=== PATIENT | male | born 1970 | race Caucasian/White ===

== ENCOUNTER 2017-05-03 11:40 | Observation (INO) | payer OTHER ==
[2017-05-03] MEDS ORDERED: Vancomycin 1GM/ Ns 250ML*** 1 GM/250 ML IVPB IV ONE (12:13)
[2017-05-03] MEDS ORDERED: Sodium Chloride 0.9% 1000 ML 1,000 ML IV STA (12:13)
--- NOTE | 2017-05-03 12:21 | ERPHSYRPT ---
- History of Present Illness Time Seen by Provider: 05/03/17 12:05 Source: patient Exam Limitations: clinical condition Patient Subjective Stated Complaint: DEVELOPED DISCOLORATION OF 5TH LEFT TOE TWO WEEKS AGO AND TODAY STATES IT IS TURNING GREEN. ALSO HAVING SEVERE PAIN IN TOE. ALSO HAVING PAIN, SWELLING, AND REDNESS IN RIGHT GREAT TOE. Triage Nursing Assessment: BOTH FEET WARM WITH GOOD STRONG PEDAL PULSES. LEFT 5TH TOE IS VERY DARK PURPLE AND COOL. RIGHT GREAT TOE IS RED AND VERY SWOLLEN. BOTH TOES TENDER TO TOUCH. DENIES ANY OTHER C/O AT THIS TIME Physician History: PATIENT WITH A HISTORY OF TYPE 2 DIABETES, OFF ALL MEDICATIONS COMPLAINS OF PAIN WITH BLUE DISCOLORATION IN LEFT SMALL TOE FOR 2 WEEK. DENIES FEVER OR CHILLS. Method of Injury: unknown Occurred: other (2 WEEKS AGO) Quality: constant, throbbing Severity of Pain-Max: moderate Severity of Pain-Current: moderate Lower Extremities Pain: 5th toe: left Associated Symptoms: none Allergies/Adverse Reactions: penicillin G Allergy (Intermediate, Verified 05/03/17 11:51) Rash Home Medications: No Reportable Medications [No Reported Medications] 05/03/17 [History] Hx Tetanus, Diphtheria Vaccination/Date Given: No Hx Influenza Vaccination/Date Given: No Hx Pneumococcal Vaccination/Date Given: No Immunizations Up to Date: No - Review of Systems Constitutional: No Fever, No Chills Eyes: No Symptoms Ears, Nose, & Throat: No Symptoms Respiratory: No Symptoms, No Cough, No Dyspnea Cardiac: No Symptoms, No Chest Pain, No Edema, No Syncope Abdominal/Gastrointestinal: No Abdominal Pain, No Nausea, No Vomiting, No Diarrhea Genitourinary Symptoms: No Symptoms, No Dysuria Musculoskeletal: Joint Pain, Joint Swelling, No Back Pain, No Neck Pain Skin: No Rash Neurological: No Symptoms, No Dizziness, No Focal Weakness, No Sensory Changes Psychological: No Symptoms Endocrine: No Symptoms All Other Systems: Reviewed and Negative - Past Medical History Pertinent Past Medical History: Yes ENT History: No Pertinent History Cardiac History: No Pertinent History Respiratory History: COPD, Emphysema Endocrine Medical History: Diabetes Type II Musculoskeletal History: No Pertinent History GI Medical History: No Pertinent History History: No Pertinent History Psycho-Social History: Anxiety, Bipolar, Depression Male Reproductive Disorders: No Pertinent History - Past Surgical History Past Surgical History: Yes Gastrointestinal: Appendectomy Musculoskeletal: Orthopedic Surgery - Social History Smoking Status: Former smoker Exposure to second hand smoke: Yes Alcohol Use: Socially Drug Use: none Patient Lives Alone: Yes Significant Family History: no pertinent family hx - Nursing Vital Signs Nursing Vital Signs: Initial Vital Signs Temperature 97.8 F Temperature Source Oral Pulse Rate 84 Respiratory Rate 16 Blood Pressure [] 146/82 Pain Intensity 4 - Physical Exam General Appearance: alert Eyes, Ears, Nose, Throat Exam: moist mucous membranes Cardiovascular/Respiratory Exam: chest non-tender, normal breath sounds, regular rate/rhythm, no respiratory distress Back Exam: normal inspection, No vertebral tenderness Foot Exam: left foot: ecchymosis (WITH CYANOSIS LEFT SMALL TOE WITH ABSENT CAPILLARY REFILL, WITH TENDERNESS), pain, soft tissue tenderness Neuro/Tendon Exam: normal sensation, normal motor functions Mental Status Exam: alert, oriented x 3, cooperative Skin Exam: normal color, warm, dry SpO2 Interpretation: normal SpO2: 93 Oxygen Delivery: Room Air - Radiology Exams Left Foot X-ray Interpretation: Discussed w/ radiologist (TINY POSTERIOR HEEL SPUR, OLD DISTAL TIBIAL FRACTURE WITH INTACT ORTHOPEDIC SCREWS) Ordered Tests: Active Orders 24 hr Category Date Time Status Up Ad Sally ROUTINE Activity 05/03/17 14:15 Ordered Admission/Status Order ROUTINE Care 05/03/17 14:14 Ordered Call Admit Doctor for Orders ON ADMISSION Care 05/03/17 14:15 Ordered Code Status Order ROUTINE Care 05/03/17 14:14 Ordered IV Care Q6H Care 05/03/17 14:14 Ordered IV Insertion STAT Care 05/03/17 12:13 Active Vital Signs Q4H Care 05/03/17 14:13 Ordered FOOT (MINIMUM 3 VIEWS) Stat Exams 05/03/17 12:43 Completed BLOOD CULTURE Stat Lab 05/03/17 12:32 Ordered BMP Stat Lab 05/03/17 12:32 Completed CBC W DIFF Stat Lab 05/03/17 12:32 Completed PT INR [PROTIME WITH INR] Stat Lab 05/03/17 12:14 Completed Transfer Order Routine Transfer 05/03/17 14:13 Ordered Medication Summary Generic Name Dose Route Start Last Admin Trade Name Freq PRN Reason Stop Dose Admin Acetaminophen 650 mg 05/03/17 14:13 Tylenol 325 Mg PO 06/02/17 14:12 Q4H PRN PRN PAIN AND/OR FEVER Hydrocodone Bitart/Acetaminophen 1 tab 05/03/17 14:17 [place] 10/325 Mg Tablet PO 05/08/17 14:16 Q6H PRN PRN PAIN Hydromorphone HCl 1 mg 05/03/17 14:13 Dilaudid 2 Mg Injection IV 05/08/17 14:12 Q4H PRN PRN PAIN Sodium Chloride 1,000 mls @ 75 mls/hr 05/03/17 14:15 Sodium Chloride 0.9% 1000 Ml IV 06/02/17 14:14 .[id number] BERNARD Vancomycin HCl 1 gm/ Sodium 250 mls @ 167 mls/hr 05/03/17 14:30 Chloride IV 06/02/17 14:29 [id number] BERNARD Ondansetron HCl 4 mg 05/03/17 14:13 Zofran 4 Mg/2 Ml Vial IV 06/02/17 14:12 Q6H PRN PRN NAUSEA/VOMITING Discontinued Medications Generic Name Dose Route Start Last Admin Trade Name Freq PRN Reason Stop Dose Admin Sodium Chloride 1,000 mls @ 999 mls/hr 05/03/17 12:13 05/03/17 12:29 Sodium Chloride 0.9% 1000 Ml IV 05/03/17 13:13 999 mls/hr .Q1H1M STA Administration Vancomycin HCl 1 gm in 250 mls @ 167 mls/hr 05/03/17 12:13 05/03/17 12:29 Vancomycin 1gm/ Ns 250ml IV 05/03/17 13:42 167 mls/hr STAT ONE Administration Sodium Chloride Confirm 05/03/17 12:27 Sodium Chloride 0.9% 1000 Ml Administered 05/03/17 12:28 Dose 1,000 mls @ ud .ROUTE .STK-MED ONE Vancomycin HCl Confirm 05/03/17 12:28 Vancomycin 1gm/ Ns 250ml Administered 05/03/17 12:29 Dose 250 mls @ ud IV .STK-MED ONE Lab/Rad Data: Laboratory Result Diagrams 05/03/17 12:32 05/03/17 12:32 Laboratory Results 05/03/17 05/03/17 05/03/17 Range/Units 12:32 12:32 12:14 WBC 7.0 (4.0-10.5) K/mm3 RBC 5.80 H (4.1-5.6) M/mm3 Hgb 17.2 (12.5-18.0) gm/dl Hct 51.9 H (42-50) % MCV 89.5 (78-100) fl MCH 29.6 (26-32) pg MCHC 33.1 (32-36) g/dl RDW 17.5 H (11.5-14.0) % Plt Count 384 (150-450) K/mm3 MPV 10.8 H (6-9.5) fl Gran % 72.0 H (36.0-66.0) % Lymphocytes % 13.4 L (24.0-44.0) % Monocytes % 11.1 (0.0-12.0) % Eosinophils % 2.9 (0.00-5.0) % Basophils % 0.6 (0.0-0.4) % Basophils # 0.04 (0-0.4) INR 1.18 (0.8-3.0) Sodium 139 (136-145) mEq/L Potassium 4.4 (3.5-5.1) mEq/L Chloride 104 (98-107) mEq/L Carbon Dioxide 28.8 (21-32) mEq/L Anion Gap 10.7 (5-15) MEQ/L BUN 10 (9-20) mg/dL Creatinine 0.91 (0.55-1.30) mg/dl Estimated GFR > 60 ML/MIN Glucose 119 H (70-110) MG/DL Calcium 9.1 (8.5-10.1) mg/dL - Progress Progress Note: 05/03/17 12:19 PATIENT ADMINISTERED IV FLUIDS NORMAL SALINE 1 LITER BOLUS OVER 1 HOUR, ZOFRAN 4MG, MORPHINE 10MG IV, AND AFTER 2 SETS OF BLOOD CULTURES VANCOMYCIN 1GM IVPB Discussed with DrGinna: Other (DISCUSSED WITH DR VORA AT 1412 FOR ADMISSION) - Departure Time of Disposition: 14:20 Departure Disposition: Observation Clinical Impression: GANGRENE LEFT SMALL TOE Condition: Stable Critical Care Time: No Referrals: DALLAS LARKIN [Primary Care Provider] -
[2017-05-03] MEDS ORDERED: Sodium Chloride 0.9% 1000 ML 1,000 ML ONE (12:27)
[2017-05-03] MEDS ORDERED: Vancomycin 1GM/ Ns 250ML*** 250 ML IV ONE (12:28)
[2017-05-03 12:52] LABS: INR 1.18 (0.8-3.0); PROTIME 13.4 SECONDS (8.83-12.87)
[2017-05-03 12:54] LABS: ANION GAP 10.7 MEQ/L (5-15); BLOOD UREA NITROGEN 10 mg/dL (9-20); CHLORIDE 104 mEq/L (98-107); Carbon Dioxide 28.8 mEq/L (21-32); Glucose 119 MG/DL (70-110); Potassium 4.4 mEq/L (3.5-5.1); SODIUM 139 mEq/L (136-145)
--- NOTE | 2017-05-03 13:12 | XRAY ---
Indication: Blue fifth toe for 2 weeks. No known injury. Comparison: None 3 nonweightbearing views of the left foot demonstrates tiny posterior heel spur, old distal tibial fracture with intact orthopedic screws, and tiny curvilinear ossification anterior to the talus either degenerative versus old injury. No other bony, articular, or soft tissue abnormalities.
[2017-05-03 13:17] LABS: BASOPHIL % 0.6 % (0.0-0.4); Eosinophil % 2.9 % (0.00-5.0); Lymphocytes % 13.4 % (24.0-44.0); Mean Cell Volume 89.5 fl (78-100); Mean Corpuscular Hemoglobin 29.6 pg (26-32); Mean Platelet Volume 10.8 fl (6-9.5); Monocytes % 11.1 % (0.0-12.0); Platelet Count 384 K/mm3 (150-450); Red Cell Distribution Width 17.5 % (11.5-14.0)
[2017-05-03] MEDS ORDERED: Zofran 4 MG/2 ML VIAL IV PRN (14:13)
[2017-05-03] MEDS ORDERED: TYLENOL 325 MG PO PRN (14:13)
[2017-05-03] MEDS ORDERED: Sodium Chloride 0.9% 1000 ML 1,000 ML IV SCH (14:15)
[2017-05-03] MEDS ORDERED: VANCOCIN 1 GM VIAL*** 1 GM in Sodium Chloride 0.9% 250 ML 250 ML IV SCH (14:30)
[2017-05-03] MEDS ORDERED: DILAUDID 2 MG INJECTION ONE (15:20)
[2017-05-03] MEDS: DILAUDID 2 MG INJECTION IV PRN ×2 (15:22→20:22)
[2017-05-03] MEDS ORDERED: PHARMACY DOSING REQUIRED: VANCOMYCIN IV ONE (15:48)
[2017-05-03] MEDS ORDERED: VANCOCIN 1 GM VIAL*** 1.75 GM in Sodium Chloride 0.9% 500 ML 500 ML IV ONE (16:00)
[2017-05-03] MEDS: Norco 10/325 MG Tablet PO PRN (18:34)
[2017-05-04] MEDS: DILAUDID 2 MG INJECTION IV PRN ×3 (00:31→11:25)
[2017-05-04] MEDS: Norco 10/325 MG Tablet PO PRN ×2 (03:15→09:22)
[2017-05-04] MEDS ORDERED: VANCOCIN 1 GM VIAL*** 2.5 GM in Sodium Chloride 0.9% 500 ML 500 ML IV SCH (07:00)
--- NOTE | 2017-05-04 08:49 | PCM.SSS ---
History of Present Illness - Chief Complaint Chief Complaint: gangrene left pinky toe History of Present Illness: is a 46 year old male with bipolar disease who was admitted through ER last night with gangrene of L 5th toe. He has noticed a problem for 2 wks. No fever, but was sleeping more, up to 18 hours at a time. Last night he nearly left AMA, but did stay to see me this morning. He is worried the surgeon will take too long to get here. He is having some social issues and needs to go home soon. He also c/o pain to R great toe; states this is a chronic issue with gout. - Review of Systems Skin: Other (correia/purple L 5th toe. Erythematous swollen R great toe.) Psychological: Anxiety, No Suicidal Ideations Medications & Allergies Home Medications: Home Medication List Clindamycin HCl 300 mg PO QID #40 capsule 05/04/17 [Rx] Allergies/Adverse Reactions: Allergies Allergy/AdvReac Type Severity Reaction Status Date / Time penicillin G Allergy Intermediate Rash Verified 05/03/17 11:51 - Past Medical History Past Medical History: Yes Neurological History: No Pertinent History ENT History: No Pertinent History Cardiac History: No Pertinent History Respiratory History: COPD, Emphysema Endocrine Medical History: Diabetes Type I Musculoskelatal History: No Pertinent History GI Medical History: No Pertinent History History: No Pertinent History Pyscho-Social History: Anxiety, Bipolar, Depression Male Reproductive Disorders: No Pertinent History - Past Surgical History Past Surgical History: Yes GI Surgical History: Appendectomy Musculskeletal Surgical Hx: Orthopedic Surgery Other Surgical History: ankle surgery - Social History Smoking Status: Former smoker Exposure to second hand smoke: Yes Alcohol: None Drug Use: none Significant Family History: no pertinent family hx - Physical Exam Vital Signs: Vital Signs - 24 hr Temp Pulse Resp BP Pulse Ox 05/04/17 07:17 97.9 F 86 20 150/88 94 L 05/04/17 04:25 98.4 F 61 17 137/81 98 05/03/17 23:33 98.4 F 69 20 134/81 97 05/03/17 19:54 98.6 F 78 22 122/69 97 05/03/17 15:08 98.2 F 82 15 137/84 94 L 05/03/17 14:20 93 L 05/03/17 13:31 84 16 146/82 97 05/03/17 11:44 97.8 F 87 16 146/90 93 L General Appearance: no apparent distress Neurologic Exam: alert, oriented x 3, cooperative Eye Exam: eyes nml inspection Neck Exam: normal inspection Respiratory Exam: normal breath sounds, wheezing (expiratory, mild), No crackles /rales, No rhonchi Cardiovascular Exam: regular rate/rhythm, normal heart sounds, No murmur Gastrointestinal/Abdomen Exam: soft, normal bowel sounds, No tenderness Extremity Exam: other (L 5th digit is purple and cool. pedal pulses + bilat. R great toe erythematous with generalized edema; nttp.) Results - Labs Lab/Micro Results: Lab Results-Last 24 Hours 05/04/17 Range/Units 04:52 Creatinine 0.89 (0.55-1.30) mg/dl Estimated GFR > 60 ML/MIN Assessment/Plan (1) Gangrenous toe Current Visit: Yes Status: Acute Assessment & Plan: Needs surgery consult; if pt cannot tolerate the wait, will send him home on antibiotics and consult surgery outpatient. Has been explained to patient several times overnight that he may lose more than just a toe (may need foot amputation in the future) if he delays treatment. On IV vancomycin here; home on clindamycin. Code(s): I96 - GANGRENE, NOT ELSEWHERE CLASSIFIED (2) Gout Current Visit: Yes Status: Acute Qualifiers: Gout site: toe Gout etiology: unspecified cause Chronicity: chronic Laterality: right Assessment & Plan: Will check uric acid. the toe is nontender. Code(s): M10.9 - GOUT, UNSPECIFIED (3) Bipolar 1 disorder Current Visit: Yes Status: Chronic Assessment & Plan: He is quite anxious; offered meds for anxiety but he refuses. Code(s): F31.9 - BIPOLAR DISORDER, UNSPECIFIED Hospital Summary - Hospital Course Hospital Course: Pt admitted through ER with gangrenous toe, surgery consulted and pt placed on Vancomycin IV. He wanted to leave AMA, is having some social issues at home and feels he needs to leave. Ideally he will wait and see the surgeon today; if not will f/u outpatient. Plan to send him home on po clindamycin. Will not send home on pain meds; per office notes his ameritox was inconsistent and he was dismissed from Dr. Crespo. Will need to f/u with me x 1 outpatient. - Vitals & Intake/Output Vital Signs: Vital Signs Temperature 97.9 F 05/04/17 07:17 Pulse Rate 86 05/04/17 07:17 Respiratory Rate 20 05/04/17 07:17 Blood Pressure 150/88 05/04/17 07:17 O2 Sat by Pulse Oximetry 94 L 05/04/17 07:17 Intake & Output: Intake & Output 05/01/17 05/02/17 05/03/17 05/04/17 11:59 11:59 11:59 11:59 Intake Total 2589 Balance 2589 Weight 133.81 kg - Lab Result Diagrams: 05/03/17 12:32 05/04/17 04:52 Lab Results-Last 24 Hrs: Lab Results-Last 24 Hours 05/04/17 Range/Units 04:52 Creatinine 0.89 (0.55-1.30) mg/dl Estimated GFR > 60 ML/MIN - Discharge Disposition: Home, Self-Care Condition: Stable Prescriptions: New Clindamycin HCl 300 mg PO QID #40 capsule Follow up with: DALLAS LARKIN [Primary Care Provider] -
[2017-05-04 10:58] VITALS: BP 158/92; PULSE 68; O2SAT 98
== END 2017-05-04 12:15 | disposition home or self-care (01) ==
LOC: ED 11:40 → MED SURG 14:59
PROVIDERS: ADMIT Family Medicine; ATTEND Family Medicine
DX: I96 Gangrene, not elsewhere classified (principal); M79.675 Pain in left toe(s); M10.9 Gout, unspecified; F31.9 Bipolar disorder, unspecified; E10.9 Type 1 diabetes mellitus without complications; F41.9 Anxiety disorder, unspecified; J44.9 Chronic obstructive pulmonary disease, unspecified; Z72.0 Tobacco use
CPT/HCPCS: 36000; 36415; 73630; 80048; 82565; 84550; 85025; 85610; 87040; 96360; 96365; 96366; 99285; G0378; J1170; J3370; A9270-GY

== ENCOUNTER 2017-06-23 20:17 | Observation (INO) | payer OTHER ==
[2017-06-23] MEDS ORDERED: XYLOCAINE 2% Uro-Jet ONE (20:26)
[2017-06-23] MEDS ORDERED: Haldol 5 MG ONE (20:29)
[2017-06-23] MEDS ORDERED: Ativan 2 MG/1 ML VIAL ONE (20:29)
[2017-06-23] MEDS ORDERED: Ativan 2 MG/1 ML VIAL IM ONE (20:33)
[2017-06-23] MEDS ORDERED: Haldol 5 MG IM ONE (20:35)
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
[2017-06-23 21:16] LABS: Mean Cell Volume 91.8 fl (78-100); Mean Corpuscular Hemoglobin 30.4 pg (26-32); Mean Platelet Volume 10.4 fl (6-9.5); Platelet Count 481 K/mm3 (150-450); Red Cell Distribution Width 15.6 % (11.5-14.0); White Blood Count 18.9 K/mm3 (4.0-10.5)
[2017-06-23 21:17] LABS: ADD URINE CULTURE? NO (NO); Bilirubin NEGATIVE (NEGATIVE); Blood NEGATIVE Ery/ul (0-5); COMPLETE URINE MICROSCOPIC? NO; Collection Type CATH; Glucose NEGATIVE (NEGATIVE); Leukocyte Esterase NEGATIVE (NEGATIVE)
[2017-06-23 21:24] LABS: INR 1.14 (0.8-3.0); PROTIME 12.9 SECONDS (8.83-12.87)
[2017-06-23 21:32] LABS: ALBUMIN 3.5 g/dL (3.4-5.0); ALKALINE PHOSPHATASE 70 U/L (46-116); ANION GAP 15.7 MEQ/L (5-15); BLOOD UREA NITROGEN 15 mg/dL (9-20); CHLORIDE 103 mEq/L (98-107); Carbon Dioxide 23.3 mEq/L (21-32); Glucose 143 MG/DL (70-110); Potassium 4.2 mEq/L (3.5-5.1); SGOT/AST 26 U/L (15-37); SGPT/ALT 25 U/L (12-78); SODIUM 138 mEq/L (136-145); Total Protein 7.7 gm/dL (6.4-8.2)
[2017-06-23 21:35] LABS: ACETAMINOPHEN < 2.0 ug/ml (10-30)
[2017-06-23 21:36] LABS: ETHYL ALCOHOL 0.222 % (0.00-0.01)
[2017-06-23] MEDS ORDERED: Sodium Chloride 0.9% 1000 ML 1,000 ML ONE (22:03)
[2017-06-23] MEDS ORDERED: Sodium Chloride 0.9% 1000 ML 1,000 ML IV STA (22:18)
[2017-06-23] MEDS ORDERED: Ativan 2 MG/1 ML VIAL IM PRN (22:54)
[2017-06-23] MEDS ORDERED: Haldol 5 MG IM PRN (22:58)
[2017-06-23] MEDS ORDERED: Sodium Chloride 0.9% 1000 ML 1,000 ML IV SCH (23:00)
[2017-06-23 23:32] LABS: ATYPICAL LYMPHS 2 %; Eosinophil 2 % (0.00-3.0); Platelet Estimate INCREASED (NORMAL); Total Cells Counted 100
[2017-06-24] MEDS ORDERED: PROVENTIL COMMON CANISTER IH SCH (08:45)
[2017-06-24] MEDS ORDERED: PROVENTIL 2.5 MG/3 ML NEB IH SCH (10:00)
--- NOTE | 2017-06-24 10:17 | XRAY ---
Indication: Altered mental status. Comparison: July 27, 2015. Portable chest again demonstrates normal heart and lungs with incidental scattered calcified granulomas. Bony thorax intact. No new/acute findings.
[2017-06-24] MEDS ORDERED: Nicoderm CQ 21 MG TOP SCH (10:30)
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
[2017-06-24 11:27] LABS: ALBUMIN 3.3 g/dL (3.4-5.0); ALKALINE PHOSPHATASE 72 U/L (46-116); ANION GAP 11.1 MEQ/L (5-15); BLOOD UREA NITROGEN 14 mg/dL (9-20); CHLORIDE 106 mEq/L (98-107); Carbon Dioxide 25.8 mEq/L (21-32); ETHYL ALCOHOL < 0.010 % (0.00-0.01); Glucose 112 MG/DL (70-110); Potassium 4.2 mEq/L (3.5-5.1); SGOT/AST 32 U/L (15-37); SGPT/ALT 25 U/L (12-78); SODIUM 139 mEq/L (136-145); Total Protein 7.2 gm/dL (6.4-8.2)
[2017-06-24] MEDS ORDERED: Ecotrin 325 MG PO SCH (11:30)
[2017-06-24] MEDS ORDERED: ZYLOPRIM 300 MG PO SCH (11:30)
[2017-06-24] MEDS ORDERED: ZOLOFT 50 MG TABLET PO SCH (11:30)
[2017-06-24 12:18] LABS: BASOPHIL % 0.7 % (0.0-0.4); Eosinophil % 1.9 % (0.00-5.0); Granulocytes % 73.6 % (36.0-66.0); Lymphocytes % 11.5 % (24.0-44.0); Mean Cell Volume 91.8 fl (78-100); Mean Corpuscular Hemoglobin 30.2 pg (26-32); Mean Platelet Volume 10.9 fl (6-9.5); Monocytes % 12.3 % (0.0-12.0); Platelet Count 345 K/mm3 (150-450); Red Blood Count 4.73 M/mm3 (4.1-5.6); Red Cell Distribution Width 15.5 % (11.5-14.0); White Blood Count 7.2 K/mm3 (4.0-10.5)
[2017-06-24 13:28] VITALS: BP 127/71; PULSE 80; O2SAT 96
--- NOTE | 2017-06-24 14:11 | PCM.DCORD ---
- Discharge Discharge Date: 06/24/17 Disposition: Home, Self-Care Condition: Stable Prescriptions: Continue Albuterol 2.5 mg/3 ml Neb [Proventil 2.5 mg/3 ml Neb] 2.5 mg IH BIDPRN PRN PRN Reason: Shortness Of Breath Hydrocodone/APAP 10/325 mg [[place] 10/325 MG Tablet] 1 tab PO TID PRN PRN PRN Reason: left leg Albuterol Common Canister [Proventil Common Canister] 2 puff IH BIDPRN PRN PRN Reason: Shortness Of Breath Sertraline HCl [Zoloft] 100 mg PO DAILY Allopurinol 300 mg [Zyloprim 300 mg] 300 mg PO DAILY Aspirin 325 mg PO DAILY Instructions: Alcohol Abuse and Alcoholism, Contusion, Drug Abuse and Drug Addiction Follow up with: DALLAS LARKIN [Primary Care Provider] - Forms: Discharge Instructions
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
[2017-06-25] MEDS ORDERED: NON-FORMULARY ITEM (Aspirin [Aspirin] 325 MG) PO SCH (10:00)
[2017-06-25] MEDS ORDERED: NON-FORMULARY ITEM (Sertraline Hcl [Zoloft] 100 MG) PO SCH (10:00)
== END 2017-06-24 15:00 | disposition home or self-care (01) ==
LOC: ED 20:17 → ICU 22:22
PROVIDERS: ADMIT Family Medicine; ATTEND Family Medicine
DX: F19.10 Other psychoactive substance abuse, uncomplicated (principal); F10.10 Alcohol abuse, uncomplicated; I96 Gangrene, not elsewhere classified; S60.219A Contusion of unspecified wrist, initial encounter; S10.93XA Contusion of unspecified part of neck, initial encounter; S80.12XA Contusion of left lower leg, initial encounter; S20.219A Contusion of unspecified front wall of thorax, initial encounter; M10.9 Gout, unspecified; F31.9 Bipolar disorder, unspecified
CPT/HCPCS: 36000; 36415; 51702; 71010; 73110; 73130; 73552; 73562; 80053; 80307; 81002; 82550; 85025; 85610; 93005; 93041; 94640; 94760; 96360; 96361; 96372; 99285; G0378; G0481; J1630; J2060; A9270-GY

== ENCOUNTER 2017-07-18 18:34 | Emergency (ER) | payer OTHER ==
--- NOTE | 2017-07-18 19:14 | ERPHSYRPT ---
- History of Present Illness Time Seen by Provider: 07/18/17 18:55 Source: patient Exam Limitations: no limitations Patient Subjective Stated Complaint: pt states 3 weeks ago he was arrested and "trown to the ground by the police officers, and in the process he thinks he injured right wrist." pt also c/ o pain in left pinky toe. Triage Nursing Assessment: pt pink, warm, dry. right wrist has minimal swelling. radial pulse strong. abscess noted to left pinky toe. no deformity noted to right wrist. pedal pulse strong. Physician History: 47 y/o male comes to the ER with complaints of right wrist pain after being thrown to the ground by police 3 weeks ago. Pt describes the pain as sharp, constant, 6/10, worse with movement and minimally relieved by advil. Pt also mentions that he was told that his left pinky toe needs to get amputated and has noticed no improvement in pain and redness after using an OTC cream. Occurred: other (3 weeks ago) Method of Injury: direct blow Quality: constant Severity of Pain-Max: moderate Severity of Pain-Current: moderate Extremities Pain Location: wrist: right Modifying Factors: Improves With: nothing Associated Symptoms: none Allergies/Adverse Reactions: penicillin G Allergy (Intermediate, Verified 07/18/17 18:53) Rash Home Medications: Albuterol 2.5 mg/3 ml Neb [Proventil 2.5 mg/3 ml Neb] 2.5 mg IH BIDPRN PRN 06/24/17 [History] Albuterol Common Canister [Proventil Common Canister] 2 puff IH BIDPRN PRN 06/24/17 [History] Allopurinol 300 mg [Zyloprim 300 mg] 300 mg PO DAILY 06/24/17 [History] Aspirin 325 mg PO DAILY 06/24/17 [History] Sertraline HCl [Zoloft] 100 mg PO DAILY 06/24/17 [History] Hx Tetanus, Diphtheria Vaccination/Date Given: Yes (up to date) Hx Influenza Vaccination/Date Given: No Hx Pneumococcal Vaccination/Date Given: No Immunizations Up to Date: Yes - Review of Systems Constitutional: No Fever, No Chills Eyes: No Symptoms Ears, Nose, & Throat: No Symptoms Respiratory: No Cough, No Dyspnea Cardiac: No Chest Pain, No Edema, No Syncope Abdominal/Gastrointestinal: No Abdominal Pain, No Nausea, No Vomiting, No Diarrhea Genitourinary Symptoms: No Dysuria Musculoskeletal: Joint Pain, Joint Swelling, Myalgias, No Back Pain, No Neck Pain Skin: Cellulitis, No Rash Neurological: No Dizziness, No Focal Weakness, No Sensory Changes Psychological: No Symptoms Endocrine: No Symptoms All Other Systems: Reviewed and Negative - Past Medical History Pertinent Past Medical History: Yes Neurological History: No Pertinent History ENT History: No Pertinent History Cardiac History: No Pertinent History Respiratory History: COPD, Emphysema Endocrine Medical History: Diabetes Type I Musculoskeletal History: No Pertinent History GI Medical History: No Pertinent History History: No Pertinent History Psycho-Social History: Anxiety, Bipolar, Depression Male Reproductive Disorders: No Pertinent History Other Medical History: gout - Past Surgical History Past Surgical History: Yes Gastrointestinal: Appendectomy Musculoskeletal: Orthopedic Surgery Other Surgical History: ankle surgery - Social History Smoking Status: Current every day smoker How long have you smoked: 26 Exposure to second hand smoke: Yes Alcohol Use: Socially Drug Use: none Patient Lives Alone: No Significant Family History: no pertinent family hx - Nursing Vital Signs Nursing Vital Signs: Initial Vital Signs Temperature 98.1 F 07/18/17 18:44 Pulse Rate 88 07/18/17 18:44 Respiratory Rate 18 07/18/17 18:44 Blood Pressure 151/76 07/18/17 18:44 O2 Sat by Pulse Oximetry 99 07/18/17 18:44 Pain Scale Pain Intensity 5 - Physical Exam General Appearance: alert Eyes, Ears, Nose, Throat Exam: moist mucous membranes, TM abnormal (L) Neck Exam: non-tender, supple Cardiovascular/Respiratory Exam: chest non-tender, normal breath sounds, regular rate/rhythm, no respiratory distress Abdominal Exam: non-tender, No guarding Back Exam: normal inspection, No vertebral tenderness Elbow/Forearm Exam: normal inspection, non-tender, no evidence of injury Wrist Exam: bone tenderness, limited ROM Hand Exam: normal inspection, non-tender Neuro/Tendon Exam: normal sensation, normal motor functions Mental Status Exam: alert, oriented x 3, cooperative Skin Exam: warm, dry, ecchymosis SpO2: 99 Oxygen Delivery: Room Air Comments: pulses 2+ in bilateral lower extremities. - Course Nursing assessment & vital signs reviewed: Yes Ordered Tests: Active Orders 24 hr Category Date Time Status WRIST (2 VIEW) Stat Exams 07/18/17 Ordered - Progress Progress: improved Progress Note: 07/18/17 19:13 The wrist x ray does not show any acute fracture and the left pinky toe shows features of cellulitis which the patient will be started on clindamycin. - Departure Time of Disposition: 19:14 Departure Disposition: Home Clinical Impression: Wrist injury Qualifiers: Encounter type: initial encounter Laterality: right Qualified Code(s): S69.91XA - Unspecified injury of right wrist, hand and finger(s), initial encounter Cellulitis of toe Qualifiers: Laterality: left Qualified Code(s): L03.032 - Cellulitis of left toe Condition: Stable Critical Care Time: No Referrals: DALLAS LARKIN [Primary Care Provider] - Instructions: Wrist Sprain, Cellulitis -- Adult Additional Instructions: Follow up with your primary care doctor for evaluation of your pinky toe. You can take tylenol for the wrist pain. Prescriptions: Clindamycin HCl 150 mg PO TID #21 capsule
[2017-07-18 19:25] VITALS: BP 149/76; PULSE 76; O2SAT 100
--- NOTE | 2017-07-19 08:40 | XRAY ---
Indication: Pain following injury 4 weeks ago. Comparison: June 24, 2017. 3 views of the right wrist obtained. Again no bony, articular, or soft tissue abnormalities.
== END 2017-07-18 19:26 | disposition home or self-care (01) ==
LOC: ED 18:34
DX: S69.91XA Unspecified injury of right wrist, hand and finger(s), initial encounter (principal); L03.032 Cellulitis of left toe
CPT/HCPCS: 73100; 99284

== ENCOUNTER 2021-05-30 21:23 | Observation (INO) | payer OTHER ==
[2021-05-30] MEDS ORDERED: DUONEB 0.5-3 MG/3 ml Neb IH ONE ×2 (21:43)
[2021-05-30] MEDS ORDERED: solu-MEDROL 125 MG, Sterile H2O 10 ml 2 ML IV ONE ×2 (21:45)
[2021-05-30] MEDS ORDERED: solu-MEDROL ONE (22:08)
[2021-05-30 22:12] LABS: Absolute Neutrophil Ct (ANC) 3.95 (1.4-6.9); BASOPHIL % 1.2 % (0.0-0.4); Basophil (Absolute #) 0.08 (0-0.4); Eosinophil % 4.2 % (0.00-5.0); Eosinophil (Absolute #) 0.28 (0-0.5); Hemoglobin 15.7 gm/dl (12.5-18.0); Lymphocytes % 22.6 % (24.0-44.0); Mean Cell Volume 91.6 fl (78-100); Mean Corpuscular Hemoglobin 30.6 pg (26-32); Mean Corpuscular Hgb Concent. 33.4 g/dl (32-36); Mean Platelet Volume 10.5 fl (7.5-11.0); Monocyte (Absolute #) 0.82 (0.0-1.3); Monocytes % 12.4 % (0.0-12.0); Neutrophil % 59.6 % (36.0-66.0); Platelet Count 427 K/mm3 (150-450); Red Blood Count 5.13 M/mm3 (4.1-5.6); Red Cell Distribution Width 15.9 % (11.5-14.0); White Blood Count 6.6 K/mm3 (4.0-10.5)
[2021-05-30 22:32] LABS: ALBUMIN 4.4 g/dL (3.5-5.0); ALKALINE PHOSPHATASE 76 U/L (38-126); BLOOD UREA NITROGEN 13 mg/dL (9-20); CHLORIDE 100 mmol/L (98-107); Calcium 8.8 mg/dL (8.4-10.2); Carbon Dioxide 26 mmol/L (22-30); Creatinine 1 0.71 mg/dL (0.66-1.25); EST GLOMERULAR FILTRATION RATE > 60.0 ML/MIN; Glucose 112 mg/dL (74-106); MAGNESIUM 1.6 mg/dL (1.6-2.3); NT PRO BNP 67.7 pg/mL (0-900); SGOT/AST 48 U/L (17-59); SGPT/ALT 38 U/L (0-50); SODIUM 138 mmol/L (137-145); Total Protein 8.4 g/dL (6.3-8.2)
[2021-05-30 22:34] LABS: INFLUENZA A NEGATIVE (NEGATIVE); INFLUENZA B NEGATIVE (NEGATIVE)
[2021-05-31] MEDS ORDERED: DUONEB 0.5-3 MG/3 ml Neb IH ONE ×2 (00:56→01:04)
--- NOTE | 2021-05-31 00:56 | ERPHSYRPT ---
- History of Present Illness Time Seen by Provider: 05/30/21 21:45 Source: patient Exam Limitations: no limitations Patient Subjective Stated Complaint: pt states he has been short of breath at home today. Triage Nursing Assessment: pt alert and oriented, answers questions approp. pt back per wheelchair and [facility] self with steady gait noted. pt short of breath, insp and exp wheezes noted throughout. skin warm and dry. Physician History: Patient is a 51-year-old male with a history of COPD/asthma ED with complaints of shortness of breath. His shortness of breath started today. Shortness of breath has been constant. Patient states that it feels as though he is experiencing a COPD exacerbation. Patient is a current smoker. Patient had experienced chest pain as well however no active chest pain at this time. No associated nausea vomiting or diaphoresis. Rib. No rash. No fever. No he adache. Symptoms are moderate in intensity. No specific worsening improving factors. Patient voices no other complaints concerns at this time.. Timing/Duration: today Activities at Onset: none Severity of Dyspnea-Max: moderate Severity of Dyspnea-Current: mild Possible Cause: chronic episodes Modifying Factors: Improves With: albuterol nebulizer Associated Symptoms: cough, chest pain/discomfort, wheezing, No fever, No dizziness, No lightheadedness, No leg swelling, No muscle spasms feet, No tightness, No tingling face, No tingling hands Allergies/Adverse Reactions: penicillin G Allergy (Intermediate, Verified 07/18/17 18:53) Rash Home Medications: Albuterol 2.5 mg/3 ml Neb [Proventil 2.5 mg/3 ml Neb] 2.5 mg IH BIDPRN PRN 06/24/17 [History] Albuterol Common Canister [Ventolin Common Canister] 2 puff IH BIDPRN PRN 06/24/17 [History] Allopurinol 300 mg [Zyloprim 300 mg] 300 mg PO DAILY 06/24/17 [History] Aspirin 325 mg PO DAILY 06/24/17 [History] Sertraline HCl [Zoloft] 100 mg PO DAILY 06/24/17 [History] Hx Tetanus, Diphtheria Vaccination/Date Given: No Hx Influenza Vaccination/Date Given: No Hx Pneumococcal Vaccination/Date Given: No Immunizations Up to Date: No Travel Risk - International Travel Have you traveled outside of the country in past 3 weeks: No - Coronavirus Screening Are you exhibiting any of the following symptoms?: No Close contact with a COVID-19 positive Pt in past 14-21 Days: No - Vaccine Status Have you recieved a Covid-19 vaccination: No - Review of Systems Constitutional: No Symptoms, No Fever, No Chills Eyes: No Symptoms Ears, Nose, & Throat: No Symptoms Respiratory: No Symptoms, No Cough, No Dyspnea Cardiac: No Symptoms, No Chest Pain, No Edema, No Syncope Abdominal/Gastrointestinal: No Symptoms, No Abdominal Pain, No Nausea, No Vomiting, No Diarrhea Genitourinary Symptoms: No Symptoms, No Dysuria Musculoskeletal: No Symptoms, No Back Pain, No Neck Pain Skin: No Symptoms, No Rash Neurological: No Symptoms, No Dizziness, No Focal Weakness, No Sensory Changes Psychological: No Symptoms Endocrine: No Symptoms Hematologic/Lymphatic: No Symptoms Immunological/Allergic: No Symptoms All Other Systems: Reviewed and Negative - Past Medical History Pertinent Past Medical History: Yes Neurological History: No Pertinent History ENT History: No Pertinent History Cardiac History: No Pertinent History Respiratory History: COPD, Emphysema Endocrine Medical History: Diabetes Type II Musculoskeletal History: No Pertinent History GI Medical History: No Pertinent History History: No Pertinent History Psycho-Social History: Anxiety, Bipolar, Depression Male Reproductive Disorders: No Pertinent History Other Medical History: gout. pt poor historian regarding medical hx - Past Surgical History Past Surgical History: Yes Gastrointestinal: Appendectomy Musculoskeletal: Orthopedic Surgery Other Surgical History: ankle surgery, facial - Social History Smoking Status: Current every day smoker How long have you smoked: 35 Exposure to second hand smoke: Yes Alcohol Use: Socially Drug Use: marijuana Patient Lives Alone: Yes Significant Family History: no pertinent family hx - Nursing Vital Signs Nursing Vital Signs: Initial Vital Signs Temperature 98.7 F 05/30/21 21:39 Pulse Rate 101 H 05/30/21 21:39 Respiratory Rate 24 05/30/21 21:39 Blood Pressure 146/114 05/30/21 21:39 O2 Sat by Pulse Oximetry 97 05/30/21 21:39 Pain Scale Pain Intensity 5 - Physical Exam General Appearance: no apparent distress, alert Eye Exam: PERRL/EOMI Ears, Nose, Throat Exam: hearing grossly normal, normal ENT inspection, normal pharynx Neck Exam: normal inspection, supple Respiratory Exam: airway intact, rhonchi, wheezing, No respiratory distress, No crackles/rales, No stridor Cardiovascular/Chest Exam: normal heart sounds, regular rate/rhythm Abdominal/Gastrointestinal Exam: soft, No tenderness, No distention, No mass Extremity Exam: non-tender, normal range of motion, normal inspection, no calf tenderness, no pedal edema Peripheral Pulses Exam: dorsalis-pedis (R): 2+, dorsalis-pedis (L): 2+ Neurologic Exam: alert, oriented x 3, cooperative, outside solar sales consultant II-XII nml as tested, sensation nml, No motor deficits Skin Exam: normal color, warm, No dry SpO2 Interpretation: normal SpO2: 96 O2 Delivery: Room Air - Course Nursing assessment & vital signs reviewed: Yes EKG Interpreted by Me: RATE (97), Sinus Rhythm, Left [place] Deviation, NORMAL INTERVALS - CT Exams Chest CT Interpretation: Tele-radiologist Report ([place] emboli. No aortic dissection. No infiltrate. No pleural effusion. No pneumothorax. Decreased density of the liver diffusely which could be due to fatty infiltration or hepatocellular disease. Splenomegaly. Nodular contour of the liver suspicious for cirrhosis.) Ordered Tests: Active Orders 24 hr Category Date Time Status Transportation Solutions Manager STAT Care 05/30/21 21:43 Active EKG-ER Only STAT Care 05/30/21 21:42 Active IV Insertion STAT Care 05/30/21 21:42 Active Pulse Oximetry (ED) STAT Care 05/30/21 21:42 Active CHEST WITH CONTRAST [CT] Stat Exams 05/30/21 23:48 Taken BLOOD CULTURE Stat Lab 05/30/21 21:58 Received CBC W DIFF Stat Lab 05/30/21 21:26 Completed CMP Stat Lab 05/30/21 21:26 Completed D-DIMER QUANTITATIVE Stat Lab 05/30/21 21:26 Completed INFLUENZA A+B DAVIN Stat Lab 05/30/21 21:54 Completed MAGNESIUM Stat Lab 05/30/21 21:26 Completed NT PRO BNP Stat Lab 05/30/21 21:26 Completed TROPONIN Q3H Lab 05/30/21 21:26 Completed TROPONIN Q3H Lab 05/31/21 00:45 Completed TROPONIN Q3H Lab 05/31/21 03:45 Ordered TROPONIN Q3H Lab 05/31/21 06:45 Ordered TROPONIN Q3H Lab 05/31/21 09:45 Ordered UA W/RFX UR CULTURE Stat Lab 05/31/21 03:02 Received Respiratory Therapy Assessment DAILY RT 05/30/21 21:49 Active Transfer Order Routine Transfer 05/31/21 Ordered Medication Summary Generic Name Dose Route Start Last Admin Trade Name Clara PRN Reason Stop Dose Admin Azithromycin / Sodium Chloride 250 mls @ 125 mls/hr 05/31/21 01:08 IV 05/31/21 03:07 STAT ONE Azithromycin 500 mg in 250 mls @ 250 mls/hr 05/31/21 03:34 05/31/21 03:40 Zithromax 500 Mg/ 250 Ml Nacl Premix IV 05/31/21 04:33 250 ml/hr STAT STA 250 mls/hr Administration Discontinued Medications Generic Name Dose Route Start Last Admin Trade Name Clara PRN Reason Stop Dose Admin Albuterol/Ipratropium 3 ml 05/30/21 21:43 05/30/21 21:45 Duoneb 0.5-3 Mg/3 Ml Neb IH 05/30/21 21:44 3 ml STAT ONE Administration Albuterol/Ipratropium Confirm 05/30/21 21:43 Duoneb 0.5-3 Mg/3 Ml Neb Administered 05/30/21 21:44 Dose 3 ml IH .STK-MED ONE Albuterol/Ipratropium 3 ml 05/31/21 00:56 05/31/21 01:05 Duoneb 0.5-3 Mg/3 Ml Neb IH 05/31/21 00:57 3 ml STAT ONE Administration Albuterol/Ipratropium Confirm 05/31/21 01:04 Duoneb 0.5-3 Mg/3 Ml Neb Administered 05/31/21 01:05 Dose 3 ml IH .STK-MED ONE Methylprednisolone Sodium 0 mg 05/30/21 21:45 05/30/21 22:09 Succinate 125 mg/ Sterile IV 05/30/21 21:46 125 mg Water 2 ml STAT ONE Administration Ceftriaxone Sodium/Dextrose 2 g in 50 mls @ 100 mls/hr 05/31/21 01:08 03:26 Rocephin 2 Gm-D5w 50ml Bag IV 05/31/21 01:37 Infused STAT STA Infusion Ceftriaxone Sodium/Dextrose Confirm 05/31/21 01:29 Rocephin 2 Gm-D5w 50ml Bag Administered 05/31/21 01:30 Dose 2 g in 50 mls @ ud IV .STK-MED ONE Azithromycin Confirm 05/31/21 03:36 Zithromax 500 Mg/ 250 Ml Nacl Premix Administered 05/31/21 03:37 Dose 500 mg in 250 mls @ ud IV .STK-MED ONE Methylprednisolone Sodium Succinate Confirm 05/30/21 22:08 Solu-Medrol Administered 05/30/21 22:09 Dose 125 mg .ROUTE .STK-MED ONE Lab/Rad Data: Laboratory Result Diagrams 05/30/21 21:26 05/30/21 21:26 Laboratory Results 05/31/21 05/31/21 05/30/21 Range/Units 02:55 00:45 21:54 WBC (4.0-10.5) K/mm3 RBC (4.1-5.6) M/mm3 Hgb (12.5-18.0) gm/dl Hct (42-50) % MCV (78-100) fl MCH (26-32) pg MCHC (32-36) g/dl RDW (11.5-14.0) % Plt Count (150-450) K/mm3 MPV (7.5-11.0) fl Gran % (36.0-66.0) % Eos # (Auto) (0-0.5) Absolute Lymphs (auto) (1.0-4.6) Absolute Monos (auto) (0.0-1.3) Lymphocytes % (24.0-44.0) % Monocytes % (0.0-12.0) % Eosinophils % (0.00-5.0) % Basophils % (0.0-0.4) % Absolute Granulocytes (1.4-6.9) Basophils # (0-0.4) D-Dimer (215-500) ng/mL Sodium (137-145) mmol/L Potassium (3.5-5.1) mmol/L Chloride (98-107) mmol/L Carbon Dioxide (22-30) mmol/L Anion Gap (5-15) MEQ/L BUN (9-20) mg/dL Creatinine (0.66-1.25) mg/dL Estimated GFR ML/MIN Glucose (74-106) mg/dL Calcium (8.4-10.2) mg/dL Magnesium (1.6-2.3) mg/dL Total Bilirubin (0.2-1.3) mg/dL AST (17-59) U/L ALT (0-50) U/L Alkaline Phosphatase (38-126) U/L Troponin I < 0.012 (0.000-0.034) ng/mL NT-Pro-B Natriuret Pep (0-900) pg/mL Serum Total Protein (6.3-8.2) g/dL Albumin (3.5-5.0) g/dL Influenza Type A Ag NEGATIVE (NEGATIVE) Influenza Type B Ag NEGATIVE (NEGATIVE) SARS-CoV-2 (PCR) NEGATIVE (NEGATIVE) 05/30/21 05/30/21 05/30/21 Range/Units 21:26 21:26 21:26 WBC (4.0-10.5) K/mm3 RBC (4.1-5.6) M/mm3 Hgb (12.5-18.0) gm/dl Hct (42-50) % MCV (78-100) fl MCH (26-32) pg MCHC (32-36) g/dl RDW (11.5-14.0) % Plt Count (150-450) K/mm3 MPV (7.5-11.0) fl Gran % (36.0-66.0) % Eos # (Auto) (0-0.5) Absolute Lymphs (auto) (1.0-4.6) Absolute Monos (auto) (0.0-1.3) Lymphocytes % (24.0-44.0) % Monocytes % (0.0-12.0) % Eosinophils % (0.00-5.0) % Basophils % (0.0-0.4) % Absolute Granulocytes (1.4-6.9) Basophils # (0-0.4) D-Dimer 707 H* (215-500) ng/mL Sodium 138 (137-145) mmol/L Potassium 4.0 (3.5-5.1) mmol/L Chloride 100 (98-107) mmol/L Carbon Dioxide 26 (22-30) mmol/L Anion Gap 17.0 H (5-15) MEQ/L BUN 13 (9-20) mg/dL Creatinine 0.71 (0.66-1.25) mg/dL Estimated GFR > 60.0 ML/MIN Glucose 112 H (74-106) mg/dL Calcium 8.8 (8.4-10.2) mg/dL Magnesium 1.6 (1.6-2.3) mg/dL Total Bilirubin 0.40 (0.2-1.3) mg/dL AST 48 (17-59) U/L ALT 38 (0-50) U/L Alkaline Phosphatase 76 (38-126) U/L Troponin I < 0.012 (0.000-0.034) ng/mL NT-Pro-B Natriuret Pep 67.7 (0-900) pg/mL Serum Total Protein 8.4 H (6.3-8.2) g/dL Albumin 4.4 (3.5-5.0) g/dL Influenza Type A Ag (NEGATIVE) Influenza Type B Ag (NEGATIVE) SARS-CoV-2 (PCR) (NEGATIVE) 05/30/21 Range/Units 21:26 WBC 6.6 (4.0-10.5) K/mm3 RBC 5.13 (4.1-5.6) M/mm3 Hgb 15.7 (12.5-18.0) gm/dl Hct 47.0 (42-50) % MCV 91.6 (78-100) fl MCH 30.6 (26-32) pg MCHC 33.4 (32-36) g/dl RDW 15.9 H (11.5-14.0) % Plt Count 427 (150-450) K/mm3 MPV 10.5 (7.5-11.0) fl Gran % 59.6 (36.0-66.0) % Eos # (Auto) 0.28 (0-0.5) Absolute Lymphs (auto) 1.50 (1.0-4.6) Absolute Monos (auto) 0.82 (0.0-1.3) Lymphocytes % 22.6 L (24.0-44.0) % Monocytes % 12.4 H (0.0-12.0) % Eosinophils % 4.2 (0.00-5.0) % Basophils % 1.2 (0.0-0.4) % Absolute Granulocytes 3.95 (1.4-6.9) Basophils # 0.08 (0-0.4) D-Dimer (215-500) ng/mL Sodium (137-145) mmol/L Potassium (3.5-5.1) mmol/L Chloride (98-107) mmol/L Carbon Dioxide (22-30) mmol/L Anion Gap (5-15) MEQ/L BUN (9-20) mg/dL Creatinine (0.66-1.25) mg/dL Estimated GFR ML/MIN Glucose (74-106) mg/dL Calcium (8.4-10.2) mg/dL Magnesium (1.6-2.3) mg/dL Total Bilirubin (0.2-1.3) mg/dL AST (17-59) U/L ALT (0-50) U/L Alkaline Phosphatase (38-126) U/L Troponin I (0.000-0.034) ng/mL NT-Pro-B Natriuret Pep (0-900) pg/mL Serum Total Protein (6.3-8.2) g/dL Albumin (3.5-5.0) g/dL Influenza Type A Ag (NEGATIVE) Influenza Type B Ag (NEGATIVE) SARS-CoV-2 (PCR) (NEGATIVE) - Progress Progress: improved Air Movement: good Progress Note: Chest. He feels better. CT chest negative for PE. Case discussed with Dr. Cuevas who accepts admission to observation. Care discussed with patient. He agrees to admission [facility] for further evaluation and treatment. 05/31/21 04:28 Blood Culture(s) Obtained: Yes Antibiotics given: Yes Discussed with : Narciso Will see patient in: hospital (observation) Counseled pt/family regarding: lab results, diagnosis, rad results, smoking cessation - Departure Departure Disposition: Observation Clinical Impression: COPD exacerbation, Liver cirrhosis, Hepatic steatosis, Splenomegaly Condition: Stable Critical Care Time: No
[2021-05-31] MEDS ORDERED: ROCEPHIN 2 Gm-D5w 50ML BAG** 2 G/50 ML IVPB IV STA (01:08)
[2021-05-31] MEDS ORDERED: ZITHROMAX IV 500 MG*** 0 MG in Sodium Chloride 0.9% 250 ML 250 ML IV ONE (01:08)
[2021-05-31] MEDS ORDERED: ROCEPHIN 2 Gm-D5w 50ML BAG** 2 G/50 ML IVPB IV ONE (01:29)
[2021-05-31] MEDS ORDERED: Zithromax 500 MG/ 250 ML NaCl Premix 500 MG/250 ML IVPB IV STA (03:34)
[2021-05-31] MEDS ORDERED: Zithromax 500 MG/ 250 ML NaCl Premix 500 MG/250 ML IVPB IV ONE (03:36)
[2021-05-31] MEDS ORDERED: PROVENTIL 2.5 MG/3 ML NEB IH ONE (05:14)
[2021-05-31] MEDS: PROVENTIL 2.5 MG/3 ML NEB IH SCH ×5 (05:15→23:18)
[2021-05-31 05:18] LABS: Bacteria RARE /HPF (NEGATIVE); Epithelial Cells FEW /HPF (FEW); Mucus SLIGHT /HPF (NEGATIVE); RBC 0-2 /HPF (0-2)
[2021-05-31 05:20] LABS: Appearance CLEAR (CLEAR)
[2021-05-31 05:21] LABS: Bilirubin NEGATIVE (NEGATIVE); Blood TRACE NON-HEM Ery/ul (0-5); Glucose NEGATIVE (NEGATIVE); Ketones SMALL-15 (NEGATIVE); Leukocyte Esterase NEGATIVE (NEGATIVE); Nitrite NEGATIVE (NEGATIVE); Protein,Urine Dip TRACE (Negative); Urobilinogen 0.2 mg/dL (0-1)
[2021-05-31] MEDS ORDERED: solu-MEDROL 60 MG, Sterile H2O 10 ml 2 ML IV SCH ×2 (06:00)
[2021-05-31] MEDS ORDERED: PROVENTIL 2.5 MG/3 ML NEB IH SCH (07:00)
[2021-05-31] MEDS ORDERED: Ativan 2 MG/1 ML VIAL IV ONE ×2 (08:26→20:40)
[2021-05-31] MEDS ORDERED: Ativan 2 MG/1 ML VIAL IV PRN (08:26)
[2021-05-31] MEDS ORDERED: Ventolin Hfa MDI IH SCH (09:45)
[2021-05-31] MEDS ORDERED: VENTOLIN COMMON CANISTER IH PRN (09:47)
[2021-05-31] MEDS ORDERED: NON-FORMULARY ITEM (Aspirin [Aspirin] 325 MG) PO SCH (10:00)
[2021-05-31] MEDS: Nicoderm CQ 21 MG TOP SCH (10:23)
--- NOTE | 2021-05-31 10:24 | PCM.HP ---
History of Present Illness - Chief Complaint Chief Complaint: COPD EXACERBATION History of Present Illness: is a 51 year old male. Medications & Allergies Home Medications: Home Medication List Aspirin 325 mg PO DAILY 06/24/17 [History Confirmed 05/31/21] Albuterol Sulfate [Albuterol Sulfate Hfa] 2 puffs IH BID PRN 05/31/21 [History Confirmed 05/31/21] lisinopriL [Lisinopril] 2.5 mg PO DAILY 05/31/21 [History Confirmed 05/31/21] Allergies/Adverse Reactions: Allergies Allergy/AdvReac Type Severity Reaction Status Date / Time penicillin G Allergy Intermediate Rash Verified 05/31/21 05:18 - Past Medical History Past Medical History: Yes Neurological History: Stroke ENT History: No Pertinent History Cardiac History: No Pertinent History Respiratory History: COPD, Emphysema Endocrine Medical History: Diabetes Type II Musculoskelatal History: No Pertinent History GI Medical History: No Pertinent History History: No Pertinent History Pyscho-Social History: Anxiety, Bipolar, Depression Male Reproductive Disorders: No Pertinent History Comment: gout. USED TO BE DIABETIC - Past Surgical History Past Surgical History: Yes Neuro Surgical History: No Pertinent History Cardiac History: No Pertinent History Respiratory Surgery: No Pertinent History GI Surgical History: Appendectomy Genitourinary Surgical Hx: No Pertinent History Musculskeletal Surgical Hx: Orthopedic Surgery Male Surgical History: No Pertinent History Other Surgical History: ankle surgery, facial - Social History Smoking Status: Current every day smoker How long have you smoked: 40 YEARS Exposure to second hand smoke: No Alcohol: Daily Drug Use: marijuana Significant Family History: no pertinent family hx - Physical Exam Vital Signs: Vital Signs - 24 hr Temp Pulse Resp BP Pulse Ox 05/31/21 07:16 98.2 F 90 20 137/63 91 L 05/31/21 05:21 97.2 F 89 18 119/59 95 05/31/21 05:19 97.2 F 89 18 119/59 95 05/31/21 05:16 93 H 18 95 05/31/21 04:29 96 05/31/21 04:10 87 18 121/73 96 05/31/21 03:00 87 20 110/69 99 05/31/21 02:00 82 18 134/90 98 05/31/21 01:07 87 20 97 05/31/21 01:00 85 18 154/94 99 05/31/21 00:00 88 20 141/97 96 05/30/21 23:00 90 22 138/90 98 05/30/21 22:33 90 20 141/97 96 05/30/21 21:49 86 18 97 05/30/21 21:42 97 05/30/21 21:39 98.7 F 101 H 24 146/114 97 Results - Labs Lab/Micro Results: Lab Results-Last 24 Hours 05/30/21 05/30/21 05/30/21 Range/Units 21:26 21:26 21:26 WBC 6.6 (4.0-10.5) K/mm3 RBC 5.13 (4.1-5.6) M/mm3 Hgb 15.7 (12.5-18.0) gm/dl Hct 47.0 (42-50) % MCV 91.6 (78-100) fl MCH 30.6 (26-32) pg MCHC 33.4 (32-36) g/dl RDW 15.9 H (11.5-14.0) % Plt Count 427 (150-450) K/mm3 MPV 10.5 (7.5-11.0) fl Gran % 59.6 (36.0-66.0) % Eos # (Auto) 0.28 (0-0.5) Absolute Lymphs (auto) 1.50 (1.0-4.6) Absolute Monos (auto) 0.82 (0.0-1.3) Lymphocytes % 22.6 L (24.0-44.0) % Monocytes % 12.4 H (0.0-12.0) % Eosinophils % 4.2 (0.00-5.0) % Basophils % 1.2 (0.0-0.4) % Absolute Granulocytes 3.95 (1.4-6.9) Basophils # 0.08 (0-0.4) D-Dimer 707 H* (215-500) ng/mL Sodium 138 (137-145) mmol/L Potassium 4.0 (3.5-5.1) mmol/L Chloride 100 (98-107) mmol/L Carbon Dioxide 26 (22-30) mmol/L Anion Gap 17.0 H (5-15) MEQ/L BUN 13 (9-20) mg/dL Creatinine 0.71 (0.66-1.25) mg/dL Estimated GFR > 60.0 ML/MIN Glucose 112 H (74-106) mg/dL Calcium 8.8 (8.4-10.2) mg/dL Magnesium 1.6 (1.6-2.3) mg/dL Total Bilirubin 0.40 (0.2-1.3) mg/dL AST 48 (17-59) U/L ALT 38 (0-50) U/L Alkaline Phosphatase 76 (38-126) U/L Troponin I (0.000-0.034) ng/mL NT-Pro-B Natriuret Pep 67.7 (0-900) pg/mL Serum Total Protein 8.4 H (6.3-8.2) g/dL Albumin 4.4 (3.5-5.0) g/dL Urine Color (YELLOW) Urine Appearance (CLEAR) Urine pH (5-6) Ur Specific [place] (1.005-1.025) Urine Protein (Negative) Urine Ketones (NEGATIVE) Urine Blood (0-5) Thomas/ul Urine Nitrite (NEGATIVE) Urine Bilirubin (NEGATIVE) Urine Urobilinogen (0-1) mg/dL Ur Leukocyte Esterase (NEGATIVE) Urine WBC (Auto) (0-5) /HPF Urine RBC (Auto) (0-2) /HPF U Epithel Cells (Auto) (FEW) /HPF Urine Bacteria (Auto) (NEGATIVE) /HPF Urine Mucus (Auto) (NEGATIVE) /HPF Urine Culture Reflexed (NO) Urine Glucose (NEGATIVE) mg/dL Influenza Type A Ag (NEGATIVE) Influenza Type B Ag (NEGATIVE) SARS-CoV-2 (PCR) (NEGATIVE) 05/30/21 05/30/21 05/31/21 Range/Units 21:26 21:54 00:45 WBC (4.0-10.5) K/mm3 RBC (4.1-5.6) M/mm3 Hgb (12.5-18.0) gm/dl Hct (42-50) % MCV (78-100) fl MCH (26-32) pg MCHC (32-36) g/dl RDW (11.5-14.0) % Plt Count (150-450) K/mm3 MPV (7.5-11.0) fl Gran % (36.0-66.0) % Eos # (Auto) (0-0.5) Absolute Lymphs (auto) (1.0-4.6) Absolute Monos (auto) (0.0-1.3) Lymphocytes % (24.0-44.0) % Monocytes % (0.0-12.0) % Eosinophils % (0.00-5.0) % Basophils % (0.0-0.4) % Absolute Granulocytes (1.4-6.9) Basophils # (0-0.4) D-Dimer (215-500) ng/mL Sodium (137-145) mmol/L Potassium (3.5-5.1) mmol/L Chloride (98-107) mmol/L Carbon Dioxide (22-30) mmol/L Anion Gap (5-15) MEQ/L BUN (9-20) mg/dL Creatinine (0.66-1.25) mg/dL Estimated GFR ML/MIN Glucose (74-106) mg/dL Calcium (8.4-10.2) mg/dL Magnesium (1.6-2.3) mg/dL Total Bilirubin (0.2-1.3) mg/dL AST (17-59) U/L ALT (0-50) U/L Alkaline Phosphatase (38-126) U/L Troponin I < 0.012 < 0.012 (0.000-0.034) ng/mL NT-Pro-B Natriuret Pep (0-900) pg/mL Serum Total Protein (6.3-8.2) g/dL Albumin (3.5-5.0) g/dL Urine Color (YELLOW) Urine Appearance (CLEAR) Urine pH (5-6) Ur Specific [place] (1.005-1.025) Urine Protein (Negative) Urine Ketones (NEGATIVE) Urine Blood (0-5) Thomas/ul Urine Nitrite (NEGATIVE) Urine Bilirubin (NEGATIVE) Urine Urobilinogen (0-1) mg/dL Ur Leukocyte Esterase (NEGATIVE) Urine WBC (Auto) (0-5) /HPF Urine RBC (Auto) (0-2) /HPF U Epithel Cells (Auto) (FEW) /HPF Urine Bacteria (Auto) (NEGATIVE) /HPF Urine Mucus (Auto) (NEGATIVE) /HPF Urine Culture Reflexed (NO) Urine Glucose (NEGATIVE) mg/dL Influenza Type A Ag NEGATIVE (NEGATIVE) Influenza Type B Ag NEGATIVE (NEGATIVE) SARS-CoV-2 (PCR) (NEGATIVE) 05/31/21 05/31/21 05/31/21 Range/Units 02:55 03:02 04:30 WBC (4.0-10.5) K/mm3 RBC (4.1-5.6) M/mm3 Hgb (12.5-18.0) gm/dl Hct (42-50) % MCV (78-100) fl MCH (26-32) pg MCHC (32-36) g/dl RDW (11.5-14.0) % Plt Count (150-450) K/mm3 MPV (7.5-11.0) fl Gran % (36.0-66.0) % Eos # (Auto) (0-0.5) Absolute Lymphs (auto) (1.0-4.6) Absolute Monos (auto) (0.0-1.3) Lymphocytes % (24.0-44.0) % Monocytes % (0.0-12.0) % Eosinophils % (0.00-5.0) % Basophils % (0.0-0.4) % Absolute Granulocytes (1.4-6.9) Basophils # (0-0.4) D-Dimer (215-500) ng/mL Sodium (137-145) mmol/L Potassium (3.5-5.1) mmol/L Chloride (98-107) mmol/L Carbon Dioxide (22-30) mmol/L Anion Gap (5-15) MEQ/L BUN (9-20) mg/dL Creatinine (0.66-1.25) mg/dL Estimated GFR ML/MIN Glucose (74-106) mg/dL Calcium (8.4-10.2) mg/dL Magnesium (1.6-2.3) mg/dL Total Bilirubin (0.2-1.3) mg/dL AST (17-59) U/L ALT (0-50) U/L Alkaline Phosphatase (38-126) U/L Troponin I < 0.012 (0.000-0.034) ng/mL NT-Pro-B Natriuret Pep (0-900) pg/mL Serum Total Protein (6.3-8.2) g/dL Albumin (3.5-5.0) g/dL Urine Color YELLOW (YELLOW) Urine Appearance CLEAR (CLEAR) Urine pH 5.0 (5-6) Ur Specific [place] 1.020 (1.005-1.025) Urine Protein TRACE (Negative) Urine Ketones SMALL-15 (NEGATIVE) Urine Blood TRACE NON-HEM (0-5) Thomas/ul Urine Nitrite NEGATIVE (NEGATIVE) Urine Bilirubin NEGATIVE (NEGATIVE) Urine Urobilinogen 0.2 (0-1) mg/dL Ur Leukocyte Esterase NEGATIVE (NEGATIVE) Urine WBC (Auto) 3-5 (0-5) /HPF Urine RBC (Auto) 0-2 (0-2) /HPF U Epithel Cells (Auto) FEW (FEW) /HPF Urine Bacteria (Auto) RARE (NEGATIVE) /HPF Urine Mucus (Auto) SLIGHT (NEGATIVE) /HPF Urine Culture Reflexed YES (NO) Urine Glucose NEGATIVE (NEGATIVE) mg/dL Influenza Type A Ag (NEGATIVE) Influenza Type B Ag (NEGATIVE) SARS-CoV-2 (PCR) NEGATIVE (NEGATIVE) 05/31/21 Range/Units 06:48 WBC (4.0-10.5) K/mm3 RBC (4.1-5.6) M/mm3 Hgb (12.5-18.0) gm/dl Hct (42-50) % MCV (78-100) fl MCH (26-32) pg MCHC (32-36) g/dl RDW (11.5-14.0) % Plt Count (150-450) K/mm3 MPV (7.5-11.0) fl Gran % (36.0-66.0) % Eos # (Auto) (0-0.5) Absolute Lymphs (auto) (1.0-4.6) Absolute Monos (auto) (0.0-1.3) Lymphocytes % (24.0-44.0) % Monocytes % (0.0-12.0) % Eosinophils % (0.00-5.0) % Basophils % (0.0-0.4) % Absolute Granulocytes (1.4-6.9) Basophils # (0-0.4) D-Dimer (215-500) ng/mL Sodium (137-145) mmol/L Potassium (3.5-5.1) mmol/L Chloride (98-107) mmol/L Carbon Dioxide (22-30) mmol/L Anion Gap (5-15) MEQ/L BUN (9-20) mg/dL Creatinine (0.66-1.25) mg/dL Estimated GFR ML/MIN Glucose (74-106) mg/dL Calcium (8.4-10.2) mg/dL Magnesium (1.6-2.3) mg/dL Total Bilirubin (0.2-1.3) mg/dL AST (17-59) U/L ALT (0-50) U/L Alkaline Phosphatase (38-126) U/L Troponin I < 0.012 (0.000-0.034) ng/mL NT-Pro-B Natriuret Pep (0-900) pg/mL Serum Total Protein (6.3-8.2) g/dL Albumin (3.5-5.0) g/dL Urine Color (YELLOW) Urine Appearance (CLEAR) Urine pH (5-6) Ur Specific [place] (1.005-1.025) Urine Protein (Negative) Urine Ketones (NEGATIVE) Urine Blood (0-5) Thomas/ul Urine Nitrite (NEGATIVE) Urine Bilirubin (NEGATIVE) Urine Urobilinogen (0-1) mg/dL Ur Leukocyte Esterase (NEGATIVE) Urine WBC (Auto) (0-5) /HPF Urine RBC (Auto) (0-2) /HPF U Epithel Cells (Auto) (FEW) /HPF Urine Bacteria (Auto) (NEGATIVE) /HPF Urine Mucus (Auto) (NEGATIVE) /HPF Urine Culture Reflexed (NO) Urine Glucose (NEGATIVE) mg/dL Influenza Type A Ag (NEGATIVE) Influenza Type B Ag (NEGATIVE) SARS-CoV-2 (PCR) (NEGATIVE) - Radiology Impressions Radiology Exams & Impressions: Radiology Procedures Category Date Time Status CHEST WITH CONTRAST [CT] Stat Exams 05/30/21 23:48 Taken - Other Procedures and Tests Respiratory Therapy 05/30/21 21:49 Respiratory Therapy Assessment DAILY Assessment/Plan (1) COPD exacerbation Current Visit: Yes Status: Acute Assessment & Plan: improved with IV solumedrol ,Zithromax and Rocephin and RT neb tx Code(s): J44.1 - CHRONIC OBSTRUCTIVE PULMONARY DISEASE W (ACUTE) EXACERBATION (2) ETOH abuse Current Visit: No Status: Acute Assessment & Plan: Has outpatient plan for Tx and a neighbor who will be taking him, Ativan started Code(s): F10.10 - ALCOHOL ABUSE, UNCOMPLICATED
[2021-05-31] MEDS: Ecotrin 325 MG PO SCH (10:25)
[2021-05-31] MEDS: MAG-OX 400 PO SCH ×2 (10:26→21:20)
[2021-05-31] MEDS: Zestril 5 MG PO SCH (10:27)
--- NOTE | 2021-05-31 11:09 | XRAY ---
Exam: CT of the chest with IV contrast, per PE protocol from 05/30/2021. Comparison: AP portable chest film from 06/23/2017. Indication: 51-year-old male with an elevated d-dimer (707); history of COPD; cough/shortness of breath. Technique: Post-IV contrast axial images were obtained through the chest using the PE protocol and 100 cc of nonionic Isovue 370 contrast material. Reconstructed coronal and sagittal images were created and reviewed. Findings: The patient is large. I see no definite filling defects within the main pulmonary trunk, right or left main pulmonary arteries, or the proximal lobar branches. Assessment of the distal pulmonary artery branches is limited due to poorer opacification at this level. The patient is large. No thoracic aortic aneurysm or dissection is seen. I believe there is some left coronary artery vascular calcification. The heart size is normal without pericardial effusion. No abnormal mediastinal lymphadenopathy is seen. Granulomatous calcification is seen anterior to the right mainstem bronchus and within distal right paratracheal projection. I also note a couple calcified granulomas within the lateral right lower lung field and a larger calcified granuloma in the right upper lobe.. The remainder of the lung carr reveal no air space infiltrates, suspicious soft tissue lung nodules, pneumothorax, or pleural fluid. Minimal linear atelectasis is seen at the left lung base. The upper abdomen reveals some diffuse decreased attenuation within the liver suggestive of steatosis. In addition, there is a subtle nodular contour of the liver surface which could indicate cirrhosis. Correlate clinically. No space-occupying liver mass is seen. A couple small calcified hepatic granulomas are seen. The spleen appears mildly enlarged measuring 15.2 cm in greatest length on the sagittal images. There is a 1.8 cm low-attenuation nodule at the lateral margin of the left adrenal gland measuring -0.2 Hounsfield units. This probably represents an adrenal adenoma. Otherwise, the adrenal glands appear unremarkable. The gallbladder is partially contracted and is only partially seen. No other abnormality within the upper abdomen is seen. The skeleton reveals no acute fracture or aggressive bone lesion. Mild multilevel thoracic spondylosis is seen with some vacuum disc phenomena in at least 5 mid to lower thoracic interspaces. Small anterior lateral vertebral endplate spurs are seen. Impression: 1. The exam is somewhat limited for evaluation of the distal lower lobe pulmonary arterial branches due to poorer vascular opacification at these sites. An obvious abnormality is not seen. The patient feels quite large. I see no filling defects within the main pulmonary artery trunk, right or left main pulmonary arteries, or most proximal pulmonary artery lobar branches to suggest pulmonary embolus. 2. Old healed granulomatous disease. 3. No other active lung disease is seen. 4. Hepatic steatosis and a fine nodular contour of the liver, the latter concerning for cirrhosis. Correlate clinically. No space-occupying liver lesion is seen. 5. Mild splenomegaly. 6. 1.5 cm in diameter left adrenal adenoma.
[2021-05-31] MEDS: Ativan 2 MG/1 ML VIAL IV PRN ×2 (13:38→18:07)
[2021-05-31] MEDS: solu-MEDROL 80 MG, Sterile H2O 10 ml 2 ML IV SCH ×4 (13:38→21:21)
[2021-05-31] MEDS ORDERED: ROCEPHIN 1 Gm-D5w 50 ml Bag** 1 G/50 ML IVPB IV SCH (22:00)
[2021-05-31] MEDS ORDERED: Zithromax 500 MG/ 250 ML NaCl Premix 500 MG/250 ML IVPB IV SCH (22:00)
[2021-06-01] MEDS: PROVENTIL 2.5 MG/3 ML NEB IH SCH ×3 (04:38→10:53)
[2021-06-01 05:15] LABS: Absolute Neutrophil Ct (ANC) 7.45 (1.4-6.9); BASOPHIL % 0.2 % (0.0-0.4); Basophil (Absolute #) 0.02 (0-0.4); Eosinophil (Absolute #) 0 (0-0.5); Hematocrit 45.7 % (42-50); Hemoglobin 14.7 gm/dl (12.5-18.0); Lymphocyte (Absolute #) 0.42 (1.0-4.6); Lymphocytes % 5.1 % (24.0-44.0); Mean Cell Volume 93.8 fl (78-100); Mean Corpuscular Hemoglobin 30.2 pg (26-32); Mean Corpuscular Hgb Concent. 32.2 g/dl (32-36); Mean Platelet Volume 11.6 fl (7.5-11.0); Monocyte (Absolute #) 0.42 (0.0-1.3); Monocytes % 5.1 % (0.0-12.0); Neutrophil % 89.6 % (36.0-66.0); Platelet Count 251 K/mm3 (150-450); Red Blood Count 4.87 M/mm3 (4.1-5.6); Red Cell Distribution Width 15.8 % (11.5-14.0); White Blood Count 8.3 K/mm3 (4.0-10.5)
[2021-06-01 05:39] LABS: ALBUMIN 4.3 g/dL (3.5-5.0); ALKALINE PHOSPHATASE 61 U/L (38-126); ANION GAP 14.8 MEQ/L (5-15); BLOOD UREA NITROGEN 14 mg/dL (9-20); CHLORIDE 95 mmol/L (98-107); Calcium 8.6 mg/dL (8.4-10.2); Carbon Dioxide 28 mmol/L (22-30); Creatinine 1 0.67 mg/dL (0.66-1.25); EST GLOMERULAR FILTRATION RATE > 60.0 ML/MIN; Glucose 212 mg/dL (74-106); Potassium 4.1 mmol/L (3.5-5.1); SGOT/AST 35 U/L (17-59); SGPT/ALT 32 U/L (0-50); SODIUM 134 mmol/L (137-145); Total Protein 8.1 g/dL (6.3-8.2)
[2021-06-01] MEDS ORDERED: Ativan 2 MG/1 ML VIAL IV PRN (05:41)
[2021-06-01] MEDS: Ativan 2 MG/1 ML VIAL IV PRN ×3 (05:51→10:37)
[2021-06-01] MEDS: solu-MEDROL 80 MG, Sterile H2O 10 ml 2 ML IV SCH ×2 (05:53)
[2021-06-01 06:06] LABS: Slide Review 1 YES
[2021-06-01] MEDS: Nicoderm CQ 21 MG TOP SCH (07:28)
[2021-06-01] MEDS: Zestril 5 MG PO SCH (10:38)
[2021-06-01] MEDS: MAG-OX 400 PO SCH (10:38)
[2021-06-01] MEDS: Ecotrin 325 MG PO SCH (10:38)
[2021-06-01 12:05] VITALS: BP 152/91; PULSE 114; O2SAT 92
--- NOTE | 2021-06-01 13:14 | PCM.DCORD ---
- Discharge Disposition: Home, Self-Care Condition: Stable Prescriptions: New Albuterol Common Canister [Ventolin Common Canister] 2 puff IH BID PRN PRN 30 Days #1 inhaler PRN Reason: wheezing Nicotine 21 mg [Nicoderm CQ 21 MG] 21 mg TOP Q24H #30 patch Levofloxacin [Levaquin] 500 mg PO DAILY 5 Days #5 tablet Prednisone 10 mg [Deltasone 10 mg] 10 mg PO DAILY 12 Days #21 tablet Continue Aspirin 325 mg PO DAILY lisinopriL [Lisinopril] 2.5 mg PO DAILY Albuterol Sulfate [Albuterol Sulfate Hfa] 2 puffs IH BID PRN Instructions: Alcohol Use - When Is Drinking a Problem?, Alcohol Abuse and Alcoholism (DC), Polysubstance Abuse Additional Instructions: [facility] APPOINTMENT May AT 11:00 AM. ARRIVE 15 MINUTES EARLY FOR PAPERWORK/INSURANCE INFORMATION. Patient refused inpatient consideration for rehab for alcohol dependence.He understands to go to ER if needed. Follow up with: ALLI ENGLE [Primary Care Provider] - 06/08/21 9:45 am Forms: Discharge Instructions
--- NOTE | 2021-06-01 13:41 | PCM.SSS ---
History of Present Illness - Chief Complaint Chief Complaint: COPD EXACERBATION History of Present Illness: is a 51 year old male. Patient presented to ER C/O shortness of breath. He has COPD,Asthma ,HTN and alcohol dependence,is followed by Dr Sethi. States he has been coughing and wheezing for 2 weeks and is a daily smoker ,drinks whiskey daily . Has had chest pain but not in ER or during hospital stay. Medications & Allergies Home Medications: Home Medication List Aspirin 325 mg PO DAILY 06/24/17 [History Confirmed 05/31/21] Albuterol Sulfate [Albuterol Sulfate Hfa] 2 puffs IH BID PRN 05/31/21 [History Confirmed 05/31/21] lisinopriL [Lisinopril] 2.5 mg PO DAILY 05/31/21 [History Confirmed 05/31/21] Albuterol Common Canister [Ventolin Common Canister] 2 puff IH BID PRN PRN 30 Days #1 inhaler 06/01/21 [Rx] Levofloxacin [Levaquin] 500 mg PO DAILY 5 Days #5 tablet 06/01/21 [Rx] Nicotine 21 mg [Nicoderm CQ 21 MG] 21 mg TOP Q24H #30 patch 06/01/21 [Rx] Prednisone 10 mg [Deltasone 10 mg] 10 mg PO DAILY 12 Days #21 tablet 06/01/21 [Rx] Allergies/Adverse Reactions: Allergies Allergy/AdvReac Type Severity Reaction Status Date / Time penicillin G Allergy Intermediate Rash Verified 05/31/21 05:18 - Past Medical History Past Medical History: Yes Neurological History: Stroke ENT History: No Pertinent History Cardiac History: No Pertinent History Respiratory History: COPD, Emphysema Endocrine Medical History: Diabetes Type II Musculoskelatal History: No Pertinent History GI Medical History: No Pertinent History History: No Pertinent History Pyscho-Social History: Anxiety, Bipolar, Depression Male Reproductive Disorders: No Pertinent History Comment: gout. USED TO BE DIABETIC - Past Surgical History Past Surgical History: Yes Neuro Surgical History: No Pertinent History Cardiac History: No Pertinent History Respiratory Surgery: No Pertinent History GI Surgical History: Appendectomy Genitourinary Surgical Hx: No Pertinent History Musculskeletal Surgical Hx: Orthopedic Surgery Male Surgical History: No Pertinent History Other Surgical History: ankle surgery, facial - Social History Smoking Status: Current every day smoker How long have you smoked: 40 YEARS Exposure to second hand smoke: No Alcohol: Daily Drug Use: marijuana Significant Family History: no pertinent family hx - Physical Exam Vital Signs: Vital Signs - 24 hr Temp Pulse Resp BP Pulse Ox 06/01/21 12:00 99.1 F 114 H 24 152/91 92 L 06/01/21 10:57 84 18 06/01/21 07:41 97.9 F 92 H 22 127/69 96 06/01/21 07:29 99 H 18 96 06/01/21 03:53 97.6 F 82 19 154/86 96 05/31/21 23:30 97.8 F 92 H 20 141/78 97 05/31/21 23:18 105 H 20 94 L 05/31/21 20:10 109 H 20 96 05/31/21 20:00 98.4 F 96 H 20 155/92 98 05/31/21 16:00 98.1 F 105 H 20 166/92 93 L 05/31/21 15:17 85 18 92 L Results - Labs Lab/Micro Results: Lab Results-Last 24 Hours 06/01/21 06/01/21 06/01/21 Range/Units 04:45 04:45 04:45 WBC 8.3 (4.0-10.5) K/mm3 RBC 4.87 (4.1-5.6) M/mm3 Hgb 14.7 (12.5-18.0) gm/dl Hct 45.7 (42-50) % MCV 93.8 (78-100) fl MCH 30.2 (26-32) pg MCHC 32.2 (32-36) g/dl RDW 15.8 H (11.5-14.0) % Plt Count 251 D (150-450) K/mm3 MPV 11.6 H (7.5-11.0) fl Gran % 89.6 H (36.0-66.0) % Eos # (Auto) 0 (0-0.5) Absolute Lymphs (auto) 0.42 L (1.0-4.6) Absolute Monos (auto) 0.42 (0.0-1.3) Lymphocytes % 5.1 L (24.0-44.0) % Monocytes % 5.1 (0.0-12.0) % Eosinophils % 0.0 (0.00-5.0) % Basophils % 0.2 (0.0-0.4) % Absolute Granulocytes 7.45 H (1.4-6.9) Basophils # 0.02 (0-0.4) Sodium 134 L (137-145) mmol/L Potassium 4.1 (3.5-5.1) mmol/L Chloride 95 L (98-107) mmol/L Carbon Dioxide 28 (22-30) mmol/L Anion Gap 14.8 (5-15) MEQ/L BUN 14 (9-20) mg/dL Creatinine 0.67 (0.66-1.25) mg/dL Estimated GFR > 60.0 ML/MIN Glucose 212 H (74-106) mg/dL Calcium 8.6 (8.4-10.2) mg/dL Total Bilirubin 0.50 (0.2-1.3) mg/dL AST 35 (17-59) U/L ALT 32 (0-50) U/L Alkaline Phosphatase 61 (38-126) U/L Serum Total Protein 8.1 (6.3-8.2) g/dL Albumin 4.3 (3.5-5.0) g/dL Vitamin B12 464 (239-931) pg/mL Slides for Path Review YES Microbiology 05/31/21 03:02 Urine Culture - Preliminary Clean Catch Midstream NO GROWTH TO DATE 05/30/21 22:04 Blood Culture - Preliminary Blood NO GROWTH TO DATE 05/30/21 21:58 Blood Culture - Preliminary Blood NO GROWTH TO DATE - Radiology Impressions Radiology Exams & Impressions: Radiology Procedures Category Date Time Status CHEST WITH CONTRAST [CT] Stat Exams 05/30/21 23:48 Completed Assessment/Plan (1) COPD exacerbation Current Visit: Yes Status: Acute Code(s): J44.1 - CHRONIC OBSTRUCTIVE PULMONARY DISEASE W (ACUTE) EXACERBATION (2) ETOH abuse Current Visit: No Status: Acute Code(s): F10.10 - ALCOHOL ABUSE, UNCOMPLICATED Hospital Summary - Vitals & Intake/Output Vital Signs: Vital Signs Temperature 99.1 F 06/01/21 12:00 Pulse Rate 114 H 06/01/21 12:00 Respiratory Rate 24 06/01/21 12:00 Blood Pressure 152/91 06/01/21 12:00 O2 Sat by Pulse Oximetry 92 L 06/01/21 12:00 Intake & Output: Intake & Output 05/30/21 05/31/21 06/01/21 06/02/21 11:59 11:59 11:59 11:59 Intake Total 240 2150 360 Balance 240 2150 360 Weight 156.6 kg 157.3 kg - Lab Result Diagrams: 06/01/21 04:45 06/01/21 04:45 Lab Results-Last 24 Hrs: Lab Results-Last 24 Hours 06/01/21 06/01/21 06/01/21 Range/Units 04:45 04:45 04:45 WBC 8.3 (4.0-10.5) K/mm3 RBC 4.87 (4.1-5.6) M/mm3 Hgb 14.7 (12.5-18.0) gm/dl Hct 45.7 (42-50) % MCV 93.8 (78-100) fl MCH 30.2 (26-32) pg MCHC 32.2 (32-36) g/dl RDW 15.8 H (11.5-14.0) % Plt Count 251 D (150-450) K/mm3 MPV 11.6 H (7.5-11.0) fl Gran % 89.6 H (36.0-66.0) % Eos # (Auto) 0 (0-0.5) Absolute Lymphs (auto) 0.42 L (1.0-4.6) Absolute Monos (auto) 0.42 (0.0-1.3) Lymphocytes % 5.1 L (24.0-44.0) % Monocytes % 5.1 (0.0-12.0) % Eosinophils % 0.0 (0.00-5.0) % Basophils % 0.2 (0.0-0.4) % Absolute Granulocytes 7.45 H (1.4-6.9) Basophils # 0.02 (0-0.4) Sodium 134 L (137-145) mmol/L Potassium 4.1 (3.5-5.1) mmol/L Chloride 95 L (98-107) mmol/L Carbon Dioxide 28 (22-30) mmol/L Anion Gap 14.8 (5-15) MEQ/L BUN 14 (9-20) mg/dL Creatinine 0.67 (0.66-1.25) mg/dL Estimated GFR > 60.0 ML/MIN Glucose 212 H (74-106) mg/dL Calcium 8.6 (8.4-10.2) mg/dL Total Bilirubin 0.50 (0.2-1.3) mg/dL AST 35 (17-59) U/L ALT 32 (0-50) U/L Alkaline Phosphatase 61 (38-126) U/L Serum Total Protein 8.1 (6.3-8.2) g/dL Albumin 4.3 (3.5-5.0) g/dL Vitamin B12 464 (239-931) pg/mL Slides for Path Review YES Micro Results-Entire Visit: Microbiology 05/31/21 03:02 Urine Culture - Preliminary Clean Catch Midstream NO GROWTH TO DATE 05/30/21 22:04 Blood Culture - Preliminary Blood NO GROWTH TO DATE 05/30/21 21:58 Blood Culture - Preliminary Blood NO GROWTH TO DATE - Radiology Exams Ordered Rad Exams-Entire Visit: Radiology Procedures Category Date Time Status CHEST WITH CONTRAST [CT] Stat Exams 05/30/21 23:48 Completed - Procedures and Test Procedures and Tests throughout Hospitalization: Therapy Orders & Screens 05/30/21 21:49 Respiratory Therapy Assessment DAILY Comment: 05/31/21 05:45 Smoking Cessation Education ONCE Comment: Diagnosis: COPD EXACERBATION Smoking Status: Current every day smoker How long have you smoked: 40 YEARS Have you smoked in the past 12 months: Yes Approximately how many cigarettes per day: 1 PACK A DAY Do you dip or chew tobacco: No If,Former Smoker,when did you quit: 13 YRS AGO 05/31/21 10:46 Smoking Cessation Education ONCE Comment: Diagnosis: COPD EXACERBATION Smoking Status: Current every day smoker How long have you smoked: 40 YEARS Have you smoked in the past 12 months: Yes Approximately how many cigarettes per day: 1 PACK A DAY Do you dip or chew tobacco: No If,Former Smoker,when did you quit: 13 YRS AGO - Discharge Disposition: Home, Self-Care Condition: Stable Prescriptions: New Albuterol Common Canister [Ventolin Common Canister] 2 puff IH BID PRN PRN 30 Days #1 inhaler PRN Reason: wheezing Nicotine 21 mg [Nicoderm CQ 21 MG] 21 mg TOP Q24H #30 patch Levofloxacin [Levaquin] 500 mg PO DAILY 5 Days #5 tablet Prednisone 10 mg [Deltasone 10 mg] 10 mg PO DAILY 12 Days #21 tablet Continue Aspirin 325 mg PO DAILY lisinopriL [Lisinopril] 2.5 mg PO DAILY Albuterol Sulfate [Albuterol Sulfate Hfa] 2 puffs IH BID PRN Instructions: Alcohol Use - When Is Drinking a Problem?, Alcohol Abuse and Alcoholism (DC), Polysubstance Abuse Additional Instructions: [facility] APPOINTMENT May AT 11:00 AM. ARRIVE 15 MINUTES EARLY FOR PAPERWORK/INSURANCE INFORMATION. Patient refused inpatient consideration for rehab for alcohol dependence.He understands to go to ER if needed. Follow up with: ALLI ENGLE [Primary Care Provider] - 06/08/21 9:45 am Forms: Discharge Instructions
== END 2021-06-01 13:45 | disposition home or self-care (01) ==
LOC: ED 21:23 → MED SURG 05-31 04:24
PROVIDERS: ADMIT Family Medicine; ATTEND Family Medicine
DX: J44.1 Chronic obstructive pulmonary disease with (acute) exacerbation (principal); F17.200 Nicotine dependence, unspecified, uncomplicated; R07.9 Chest pain, unspecified; E11.9 Type 2 diabetes mellitus without complications; Z79.899 Other long term (current) drug therapy; F10.10 Alcohol abuse, uncomplicated; Z20.828 Contact with and (suspected) exposure to other viral communicable diseases; R16.1 Splenomegaly, not elsewhere classified
CPT/HCPCS: 36000; 36415; 71260; 80053; 81001; 82607; 83735; 83880; 84484; 85025; 85379; 87040; 87086; 87400; 93005; 93041; 94640; 94760; 96365; 96367; 96374; 99284; U0003; 93268; J0456; J0696; J2060; J2930; J7609; A9270-GY; G0378

== ENCOUNTER 2024-03-11 12:08 | Emergency (ER) | payer OTHER ==
--- NOTE | 2024-03-11 12:19 | ERPHSYRPT ---
- History of Present Illness Time Seen by Provider: 03/11/24 12:15 Source: patient Exam Limitations: no limitations Physician History: Patient's is a 53-year-old male presents to our ED for evaluation of shortness of breath. Shortness of breath started today. Patient also believes he has an abdominal tumor that may be growing in size causing lung compression contribut ing to his shortness of breath. Patient has no active pain at this time. Patient's symptoms he reports are progressive. Symptoms are moderate in intensity. No specific worsening or improving factors. Patient voices no other complaints or concerns at this time. Portions of this note were created with voice recognition technology. There may be grammatical, spelling, punctuation or sound alike errors Timing/Duration: today Severity: moderate Modifying Factors: Improves With: nothing Associated Symptoms: denies symptoms Allergies/Adverse Reactions: penicillin G Allergy (Intermediate, Verified 03/11/24 12:25) Rash Home Medications: Aspirin 325 mg PO DAILY 06/24/17 [History] Albuterol Sulfate [Albuterol Sulfate Hfa] 2 puffs IH BID PRN 05/31/21 [History] lisinopriL [Lisinopril] 2.5 mg PO DAILY 05/31/21 [History] Atorvastatin Calcium 40 mg PO DAILY 03/11/24 [History] glyBURIDE [Glyburide] 2.5 mg PO DAILY 03/11/24 [History] Hx Tetanus, Diphtheria Vaccination/Date Given: No Hx Influenza Vaccination/Date Given: No Hx Pneumococcal Vaccination/Date Given: No - Review of Systems Constitutional: No Symptoms, No Fever, No Chills Eyes: No Symptoms Ears, Nose, & Throat: No Symptoms Respiratory: No Symptoms, No Cough, No Dyspnea Cardiac: No Symptoms, No Chest Pain, No Edema, No Syncope Abdominal/Gastrointestinal: No Symptoms, No Abdominal Pain, No Nausea, No Vomiting, No Diarrhea Genitourinary Symptoms: No Symptoms, No Dysuria Musculoskeletal: No Symptoms, No Back Pain, No Neck Pain Skin: No Symptoms, No Rash Neurological: No Symptoms, No Dizziness, No Focal Weakness, No Sensory Changes Psychological: No Symptoms Endocrine: No Symptoms Hematologic/Lymphatic: No Symptoms Immunological/Allergic: No Symptoms All Other Systems: Reviewed and Negative - Past Medical History Pertinent Past Medical History: Yes Neurological History: Stroke ENT History: No Pertinent History Cardiac History: No Pertinent History Respiratory History: COPD, Emphysema Endocrine Medical History: Diabetes Type II Musculoskeletal History: No Pertinent History GI Medical History: No Pertinent History History: No Pertinent History Psycho-Social History: Anxiety, Bipolar, Depression Male Reproductive Disorders: No Pertinent History Other Medical History: gout. USED TO BE DIABETIC - Past Surgical History Past Surgical History: Yes Neuro Surgical History: No Pertinent History Cardiac: No Pertinent History Respiratory: No Pertinent History Gastrointestinal: Appendectomy Genitourinary: No Pertinent History Musculoskeletal: Orthopedic Surgery Male Surgical History: No Pertinent History Other Surgical History: ankle surgery, facial Significant Family History: no pertinent family hx - Social History Smoking Status: Current every day smoker How long have you smoked: 40 YEARS Exposure to second hand smoke: No Alcohol Use: Socially Drug Use: marijuana Patient Lives Alone: Yes - Nursing Vital Signs Nursing Vital Signs: Initial Vital Signs Temperature 98.6 F 03/11/24 12:09 Pulse Rate 144 H 03/11/24 12:09 Respiratory Rate 24 03/11/24 12:09 Blood Pressure 136/98 03/11/24 12:09 O2 Sat by Pulse Oximetry 98 03/11/24 12:09 Pain Scale Pain Intensity 0 - Physical Exam General Appearance: no apparent distress, alert Eye Exam: PERRL/EOMI, eyes nml inspection Ears, Nose, Throat Exam: normal ENT inspection, TMs normal, pharynx normal, moist mucous membranes Neck Exam: normal inspection, non-tender, supple, full range of motion Respiratory Exam: normal breath sounds, lungs clear, airway intact, No respiratory distress Cardiovascular Exam: regular rate/rhythm, normal heart sounds, normal peripheral pulses Gastrointestinal/Abdomen Exam: soft, normal bowel sounds, No tenderness, No mass Back Exam: normal inspection, normal range of motion, No CVA tenderness, No vertebral tenderness Extremity Exam: normal inspection, normal range of motion, pelvis stable Neurologic Exam: alert, oriented x 3, cooperative, normal mood/affect, nml ce rebellar function, nml station & gait, sensation nml, No motor deficits Skin Exam: normal color, warm, dry, No rash Lymphatic Exam: No adenopathy SpO2 Interpretation: normal SpO2: 98 O2 Delivery: Room Air - Course Nursing assessment & vital signs reviewed: Yes EKG Interpreted by Me: RATE ([id number]), Sinus Tach, NORMAL AXIS, NORMAL INTERVALS - CT Exams Chest CT Interpretation: Tele-radiologist Report (No PE. 2.4 x 1.5 cm subcarinal adenopathy. Lung emphysema. Spine arthritis.) Abdomen/Pelvis CT Interpretation: Tele-radiologist Report (Cirrhotic appearing liver. Splenomegaly. Diverticulosis) Ordered Tests: Active Orders 24 hr Category Date Time Status AMA [Release AMA] OM.NOW Care 03/11/24 15:28 Ordered Hop Worker STAT Care 03/11/24 12:14 Active EKG-ER Only STAT Care 03/11/24 12:13 Active IV Insertion STAT Care 03/11/24 12:13 Active Pulse Oximetry (ED) STAT Care 03/11/24 12:13 Active ABDOMEN AND PELVIS W CONTRAST [CT] Stat Exams 03/11/24 12:59 Completed CHEST WITH CONTRAST [CT] Stat Exams 03/11/24 12:59 Completed CBC W DIFF Stat Lab 03/11/24 12:15 Completed CMP Stat Lab 03/11/24 12:15 Completed D-DIMER QUANTITATIVE Stat Lab 03/11/24 12:15 Completed NT PRO BNPII Stat Lab 03/11/24 12:15 Completed TROPONIN Q4H Lab 03/11/24 12:15 Completed TROPONIN Q4H Lab 03/11/24 16:15 Ordered TROPONIN Q4H Lab 03/11/24 20:15 Ordered Medication Summary Generic Name Dose Route Start Last Admin Trade Name Freq PRN Reason Stop Dose Admin Sodium Chloride 1,000 mls @ 999 mls/hr 03/11/24 15:20 03/11/24 15:27 Sodium Chloride 0.9% 1000 Ml IV 03/11/24 16:20 Not Given .Q1H1M STA Discontinued Medications Generic Name Dose Route Start Last Admin Trade Name Freq PRN Reason Stop Dose Admin Sodium Chloride Confirm 03/11/24 15:23 Sodium Chloride 0.9% 1000 Ml Administered 03/11/24 15:24 Dose 1,000 mls @ ud .ROUTE .STK-MED ONE Lab/Rad Data: Laboratory Result Diagrams 03/11/24 12:15 03/11/24 12:15 Laboratory Results 03/11/24 03/11/24 03/11/24 Range/Units 12:15 12:15 12:15 WBC (4.0-10.5) x10^3/uL RBC (4.1-5.6) x10^6/uL Hgb (12.5-18.0) g/dL Hct (42-50) % MCV (78-100) fL MCH (26-32) pg MCHC (32-36) g/dL RDW (11.5-14.0) % Plt Count (150-450) x10^3/uL MPV (7.5-11.0) fL Gran % (36.0-66.0) % Immature Gran % (Auto) (0.00-0.4) % Nucleat RBC Rel Count (0.00-0.1) % Eos # (Auto) (0-0.5) x10^3/uL Immature Gran # (Auto) (0.00-0.03) x10^3u/L Absolute Lymphs (auto) (1.0-4.6) x10^3/uL Absolute Monos (auto) (0.0-1.3) x10^3/uL Absolute Nucleated RBC (0.00-0.01) x10^3u/L Lymphocytes % (24.0-44.0) % Monocytes % (0.0-12.0) % Eosinophils % (0.00-5.0) % Basophils % (0.0-0.4) % Absolute Granulocytes (1.4-6.9) x10^3/uL Basophils # (0-0.4) x10^3/uL D-Dimer 0.66 H* (0.0-0.50) mg/L Sodium 137 (135-145) mmol/L Potassium 5.0 (3.5-5.1) mmol/L Chloride 105 (98-107) mmol/L Carbon Dioxide 25 (22-30) mmol/L Anion Gap 12.4 (5-15) MEQ/L BUN 22 H (9-20) mg/dL Creatinine 0.70 (0.66-1.25) mg/dL Estimated GFR 110.2 ML/MIN Glucose 129 H (74-106) mg/dL Calcium 9.1 (8.4-10.2) mg/dL Total Bilirubin 0.90 (0.2-1.3) mg/dL AST 57 (17-59) U/L ALT 38 (0-50) U/L Alkaline Phosphatase 88 (38-126) U/L Troponin I < 0.012 (0.000-0.033) ng/mL NT-Pro-B Natriuret Pep 429 (<300) pg/mL Serum Total Protein 8.1 (6.3-8.2) g/dL Albumin 3.7 (3.5-5.0) g/dL 03/11/24 Range/Units 12:15 WBC 10.2 (4.0-10.5) x10^3/uL RBC 5.82 H (4.1-5.6) x10^6/uL Hgb 14.3 (12.5-18.0) g/dL Hct 46.1 (42-50) % MCV 79.2 (78-100) fL MCH 24.6 L (26-32) pg MCHC 31.0 L (32-36) g/dL RDW 19.3 H (11.5-14.0) % Plt Count 716 H (150-450) x10^3/uL MPV 10.9 (7.5-11.0) fL Gran % 69.1 H (36.0-66.0) % Immature Gran % (Auto) 0.7 H (0.00-0.4) % Nucleat RBC Rel Count 0.0 (0.00-0.1) % Eos # (Auto) 0.40 (0-0.5) x10^3/uL Immature Gran # (Auto) 0.07 H (0.00-0.03) x10^3u/L Absolute Lymphs (auto) 1.31 (1.0-4.6) x10^3/uL Absolute Monos (auto) 1.15 (0.0-1.3) x10^3/uL Absolute Nucleated RBC 0.00 (0.00-0.01) x10^3u/L Lymphocytes % 12.8 L (24.0-44.0) % Monocytes % 11.3 (0.0-12.0) % Eosinophils % 3.9 (0.00-5.0) % Basophils % 2.2 (0.0-0.4) % Absolute Granulocytes 7.05 H (1.4-6.9) x10^3/uL Basophils # 0.22 (0-0.4) x10^3/uL D-Dimer (0.0-0.50) mg/L Sodium (135-145) mmol/L Potassium (3.5-5.1) mmol/L Chloride (98-107) mmol/L Carbon Dioxide (22-30) mmol/L Anion Gap (5-15) MEQ/L BUN (9-20) mg/dL Creatinine (0.66-1.25) mg/dL Estimated GFR ML/MIN Glucose (74-106) mg/dL Calcium (8.4-10.2) mg/dL Total Bilirubin (0.2-1.3) mg/dL AST (17-59) U/L ALT (0-50) U/L Alkaline Phosphatase (38-126) U/L Troponin I (0.000-0.033) ng/mL NT-Pro-B Natriuret Pep (<300) pg/mL Serum Total Protein (6.3-8.2) g/dL Albumin (3.5-5.0) g/dL - Progress Progress: improved Progress Note: 53-year-old male presents to our ED for evaluation of shortness of breath. D- dimer positive. CTA chest negative. CT abdomen pelvis negative for acute pathology. Patient requested CT abdomen pelvis due to concerns of tumors. Patient advised that no tumors were observed on today's CAT scan. Patient states an MRI is required to see the tumors. We explained that we cannot do an MRI today for his abdomen. However patient observed to be tachycardic. IV fluids ordered. Patient declined fluids. Patient states he feels fine and requesting discharge. Patient discharged AGAINST MEDICAL ADVICE. Patient is of sound mind. Patient is appropriate to make informed and independe nt medical decisions. Patient understands that leaving AGAINST MEDICAL ADVICE can result in delayed diagnosis, increased risk of morbidity, mortality, short and long-term disability including . In spite of these risks, patient has decided to leave AGAINST MEDICAL ADVICE. Patient understands that he may return to our ED at any point if he reconsiders. Patient agrees to follow-up with his primary care doctor within 48 hours for reevaluation. Patient voices no other complaints or concerns at this time. We will release patient AGAINST MEDICAL ADVICE per their request. Complex problem addresses moderate acute complicated No critical care time Complex of data reviewed and analyzed is moderate. Test ordered test reviewed results analyzed and correlated clinically with history and physical exam. Risk of complication and her risk of morbidity/mortality patient management is low Vital stable. Time spent to discharge patient AMA is approximately 15 minutes. No social determinants of health present to impede follow-up. Portions of this note were created with voice recognition technology. There may be grammatical, spelling, punctuation or sound alike errors 03/11/24 15:32 Counseled pt/family regarding: lab results, diagnosis, need for follow-up, rad results - Departure Departure Disposition: Home Clinical Impression: Subcarinal adenopathy, Lung granuloma, Spine arthritis, Cirrhosis of liver, Splenomegaly, Diverticulosis, Tachycardia Condition: Stable Critical Care Time: No Referrals: ALLI ENGLE [Primary Care Provider] - Follow up/PCP as directed Additional Instructions: Discharge/Care Plan GERRYADRIANNA DIPIKA was seen on 03/11/24 in the Emergency Room. The patient was counseled regarding Diagnosis,Lab results, Imaging studies, need for follow up and when to return to the Emergency Room. Prescriptions given: Discharge Note I have spoken with the patient and/or caregivers. I have explained the patient's condition, diagnosis and treatment plan based on the information available to me at this time. I have answered the patient's and/or caregiver's questions and addressed any concerns. The patient and/or caregivers have as good understanding of the patient's diagnosis, condition and treatment plan as can be expected at this point. The vital signs have been stable. The patient's condition is stable and appropriate for discharge from the emergency department. The patient will pursue further outpatient evaluation with the primary care physician or other designated or consulting physician as outlined in the discharge instructions. The patient and/or caregivers are agreeable to this plan of care and follow-up instructions have been explained in detail. The patient and/or caregivers have received these instruction. The patient/and or caregivers are aware that any significant change in condition or worsening of symptoms should prompt an immediate return to this or the closest emergency department or call 911.
[2024-03-11 12:27] LABS: Absolute Neutrophil Ct (ANC) 7.05 x10^3/uL (1.4-6.9); BASOPHIL % 2.2 % (0.0-0.4); Basophil (Absolute #) 0.22 x10^3/uL (0-0.4); Eosinophil % 3.9 % (0.00-5.0); Hematocrit 46.1 % (42-50); Hemoglobin 14.3 g/dL (12.5-18.0); IMMATURE GRAN # 0.07 x10^3u/L (0.00-0.03); IMMATURE GRAN % 0.7 % (0.00-0.4); Lymphocyte (Absolute #) 1.31 x10^3/uL (1.0-4.6); Lymphocytes % 12.8 % (24.0-44.0); Mean Cell Volume 79.2 fL (78-100); Mean Corpuscular Hemoglobin 24.6 pg (26-32); Mean Platelet Volume 10.9 fL (7.5-11.0); Monocyte (Absolute #) 1.15 x10^3/uL (0.0-1.3); Monocytes % 11.3 % (0.0-12.0); Neutrophil % 69.1 % (36.0-66.0); Platelet Count 716 x10^3/uL (150-450); Red Blood Count 5.82 x10^6/uL (4.1-5.6); Red Cell Distribution Width 19.3 % (11.5-14.0); White Blood Count 10.2 x10^3/uL (4.0-10.5)
[2024-03-11 12:37] VITALS: TEMP 98.6
[2024-03-11 12:43] LABS: ALBUMIN 3.7 g/dL (3.5-5.0); ANION GAP 12.4 MEQ/L (5-15); BILIRUBIN,TOTAL 0.9 mg/dL (0.2-1.3); Calcium 9.1 mg/dL (8.4-10.2); Creatinine 1 0.7 mg/dL (0.66-1.25); EST GLOMERULAR FILTRATION RATE 110.2 ML/MIN; Total Protein 8.1 g/dL (6.3-8.2)
[2024-03-11 12:55] LABS: NT PRO BNPII 429 pg/mL (<300); TROPONIN < 0.012 ng/mL (0.000-0.033)
[2024-03-11 14:03] VITALS: RESP 18
--- NOTE | 2024-03-11 14:57 | XRAY ---
Indication: Short of breath. Elevated d-dimer. Cirrhosis. Multiple contiguous axial images obtained through the chest using 80 cc Isovue 370 contrast and PE protocol. Comparison: May 30, 2021 Again suboptimal opacification pulmonary arteries limits evaluation for pulmonary embolus. No obvious central pulmonary embolus. Heart not enlarged. Aorta is normal in course and caliber. New 2.4 x 4.5 cm subcarinal adenopathy. No pathologic hilar lymphadenopathy. Stable small right hilar calcified nodes. Lungs again demonstrates small peripheral right upper lobe calcified granuloma. No new pulmonary mass/nodule, infiltrate, or effusion. Bony thorax intact again with minimal/mild degenerative changes throughout the spine. CT abdomen/pelvis reported separately. Impression: 1. Again pulmonary embolus evaluation limited due to suboptimal contrast opacification. No obvious central pulmonary embolus. 2. New nonspecific subcarinal lymphadenopathy. 3. Again chronic findings including multilevel degenerative spondylosis and old granulomatous disease.
--- NOTE | 2024-03-11 15:02 | XRAY ---
Indication: Pain. Cirrhosis. Multiple contiguous axial images obtained through the abdomen and pelvis using 80 cc Isovue 370 contrast. Comparison: April 20, 2023 CT chest reported separately. Noncontrasted stomach and bowel loops appear nonobstructed. Previous appendectomy. Minimal scattered colonic diverticulosis without diverticulitis. Again cirrhotic appearing liver and 19 cm splenomegaly. No free fluid/air. Grossly stable centimeter/subcentimeter mesenteric root nodes. Gallbladder contracted without gallstones. Remaining pancreas, adrenal glands, kidneys, ureters, and bladder are unremarkable. Stable minimal aortoiliac calcifications without AAA. Osseous structures intact again with mild degenerative changes throughout the spine. No ventral or inguinal hernias. Impression: 1. Again chronic findings including cirrhotic liver, splenomegaly, small nonspecific mesenteric nodes, diverticulosis, arteriosclerotic disease, and degenerative spondylosis. 2. Remaining CT abdomen/pelvis with contrast exam continues to be negative.
[2024-03-11 15:09] VITALS: BP 131/98; PULSE 122
[2024-03-11] MEDS ORDERED: Sodium Chloride 0.9% 1000 ML 0 ML ONE (15:23)
[2024-03-11] MEDS: Sodium Chloride 0.9% 1000 ML 1,000 ML IV STA (15:25)
[2024-03-11 15:34] VITALS: O2SAT 98
== END 2024-03-11 15:30 | disposition home or self-care (01) ==
LOC: ED 12:08
DX: R00.0 Tachycardia, unspecified (principal); R06.02 Shortness of breath; R59.9 Enlarged lymph nodes, unspecified; J84.10 Pulmonary fibrosis, unspecified; M47.9 Spondylosis, unspecified; K74.60 Unspecified cirrhosis of liver; R16.1 Splenomegaly, not elsewhere classified; K57.30 Diverticulosis of large intestine without perforation or abscess without bleeding
CPT/HCPCS: 36000; 36415; 71260; 74177; 80053; 83880; 84484; 85025; 85379; 93005; 93041; 94760; 99284

== ENCOUNTER 2024-06-16 09:35 | Inpatient (IN) | payer OTHER ==
--- NOTE | 2024-06-16 09:49 | ERPHSYRPT ---
- History of Present Illness Time Seen by Provider: 06/16/24 09:48 Source: patient, family Exam Limitations: no limitations Physician History: This is a morbidly obese, noncompliant white male patient who arrived to by private vehicle to the urgent care center with complaints of shortness of breath. He was then sent to our facility emergency department secondary to his complaint of shortness of breath and weight gain. 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 He is a daily smoker of tobacco cigarettes. He has had symptoms of shortness of breath that has worsened over the last 3 to 4 weeks. He has a history of hypertension, hyperlipidemia, borderline diabetes, COPD, CVA, anxiety, bipolar disorder and depression. He denies abdominal pain and he denies chest pain. Severity: moderate Associated Symptoms: shortness of breath, weakness, other (Weight gain), No chest pain Allergies/Adverse Reactions: penicillin G Allergy (Intermediate, Verified 06/16/24 10:47) Rash Home Medications: Aspirin EC 81 mg [Ecotrin 81 mg] 81 mg PO DAILY 06/16/24 [History] Furosemide [Lasix] 20 mg PO DAILY 06/16/24 [History] Lisinopril 5 mg [Zestril 5 MG] 5 mg PO DAILY 06/16/24 [History] Hx Tetanus, Diphtheria Vaccination/Date Given: No Hx Influenza Vaccination/Date Given: No Hx Pneumococcal Vaccination/Date Given: No Travel Risk - International Travel Have you traveled outside of the country in past 3 weeks: No - Emerging Infectious Disease Are you exhibiting symptoms associated with any current EIDs: Yes Symptoms: Shortness of Breath - Review of Systems Constitutional: Weakness Eyes: No Symptoms Ears, Nose, & Throat: No Symptoms Respiratory: Dyspnea, Wheezing Cardiac: No Symptoms Abdominal/Gastrointestinal: No Symptoms Musculoskeletal: No Symptoms Skin: No Symptoms Neurological: No Symptoms Psychological: No Symptoms Endocrine: Other (Weight gain) Hematologic/Lymphatic: No Symptoms Immunological/Allergic: No Symptoms All Other Systems: Reviewed and Negative - Past Medical History Pertinent Past Medical History: Yes Neurological History: Stroke ENT History: No Pertinent History Cardiac History: No Pertinent History Respiratory History: COPD, Emphysema Endocrine Medical History: Diabetes Type II Musculoskeletal History: No Pertinent History GI Medical History: No Pertinent History History: No Pertinent History Psycho-Social History: Anxiety, Bipolar, Depression Male Reproductive Disorders: No Pertinent History Other Medical History: gout. USED TO BE DIABETIC - Past Surgical History Past Surgical History: Yes Neuro Surgical History: No Pertinent History Cardiac: No Pertinent History Respiratory: No Pertinent History Gastrointestinal: Appendectomy Genitourinary: No Pertinent History Musculoskeletal: Orthopedic Surgery Male Surgical History: No Pertinent History Other Surgical History: ankle surgery, facial Significant Family History: no pertinent family hx - Social History Smoking Status: Current every day smoker How long have you smoked: 40 YEARS Exposure to second hand smoke: No Alcohol Use: Socially Drug Use: marijuana Patient Lives Alone: Yes - Social Determinants of Health Will the patient participate in the screening: Declined to provide - Nursing Vital Signs Nursing Vital Signs: Initial Vital Signs Temperature 98.3 F 06/16/24 10:00 O2 Sat by Pulse Oximetry 90 L 06/16/24 10:00 Pain Scale Pain Intensity 0 - Physical Exam General Appearance: mild distress, alert, anxiety, obese Eye Exam: PERRL/EOMI, eyes nml inspection Ears, Nose, Throat Exam: normal ENT inspection, moist mucous membranes Neck Exam: normal inspection, non-tender, supple, full range of motion Respiratory Exam: airway intact, wheezing, No chest tenderness, No respiratory distress Cardiovascular Exam: tachycardia, irregular Gastrointestinal/Abdomen Exam: soft, normal bowel sounds, No tenderness Rectal Exam: not done Back Exam: normal inspection, normal range of motion, No CVA tenderness, No vertebral tenderness Extremity Exam: normal range of motion, pelvis stable, pedal edema (Bilateral lower extremity to below the knees) Neurologic Exam: alert, oriented x 3, cooperative, sign fabricator II-XII nml as tested, sensation nml Skin Exam: normal color, warm, dry Lymphatic Exam: No adenopathy SpO2 Interpretation: normal O2 Delivery: Room Air - Course Nursing assessment & vital signs reviewed: Yes EKG Interpreted by Me: RATE (136), A-fib, Other (QTC is 462. No obvious acute ischemia on today's twelve-lead EKG. The atrial fib with RVR is a new finding when compared to twelve-lead EKG dated 05/31/2021.) Ordered Tests: Active Orders 24 hr Category Date Time Status Charter Driver STAT Care 06/16/24 10:15 Active Cath [Catheter-[place]] STAT Care 06/16/24 11:51 Active EKG-ER Only STAT Care 06/16/24 10:14 Active IV Insertion STAT Care 06/16/24 10:14 Active IV Insertion-2nd Peripheral STAT Care 06/16/24 11:34 Active Pulse Oximetry (ED) STAT Care 06/16/24 10:14 Active CHEST WITH CONTRAST [CT] Stat Exams 06/16/24 11:05 Completed BLOOD CULTURE Stat Lab 06/16/24 11:25 Received CBC W DIFF Stat Lab 06/16/24 10:24 Completed CMP Stat Lab 06/16/24 10:24 Completed CULTURE,URINE Stat Lab 06/16/24 11:53 Received D-DIMER QUANTITATIVE Stat Lab 06/16/24 10:24 Completed Lactic Acid Stat Lab 06/16/24 10:25 Completed MAGNESIUM Stat Lab 06/16/24 10:24 Completed NT PRO BNPII Stat Lab 06/16/24 10:24 Completed PROTIME WITH INR Stat Lab 06/16/24 10:24 Completed TROPONIN Q4H Lab 06/16/24 10:24 Completed TROPONIN Q4H Lab 06/16/24 14:15 Ordered TROPONIN Q4H Lab 06/16/24 18:15 Ordered UA W/RFX UR CULTURE Stat Lab 06/16/24 11:53 Completed Respiratory Therapy Assessment DAILY RT 06/16/24 10:13 Active Medication Summary Generic Name Dose Route Start Last Admin Trade Name Freq PRN Reason Stop Dose Admin Sodium Chloride 1,000 mls @ 50 mls/hr 06/16/24 11:15 06/16/24 11:24 Sodium Chloride 0.9% 1000 Ml IV 07/16/24 11:14 50 mls/hr .Q20H BERNARD Administration Diltiazem HCl 100 mls @ 5 mls/hr 06/16/24 11:11 06/16/24 12:53 Cardizem Drip 100 Mg/100 Ml D5w IV 07/16/24 11:10 5 mg/hr .Q20H PRN 5 mls/hr HEART RATE/ A-FIB Titration Protocol 5 MG/HR Discontinued Medications Generic Name Dose Route Start Last Admin Trade Name Freq PRN Reason Stop Dose Admin Albuterol/Ipratropium Confirm 06/16/24 10:07 Ipratropium/Albuterol Sulfate 3 Ml Ampul.Neb Administered 06/16/24 10:08 Dose 3 ml IH .STK-MED ONE Albuterol/Ipratropium 3 ml 06/16/24 10:11 06/16/24 10:10 Ipratropium/Albuterol Sulfate 3 Ml Ampul.Neb IH 06/16/24 10:12 3 ml STAT ONE Administration Diltiazem HCl 15 mg 06/16/24 10:17 06/16/24 10:29 Diltiazem Hcl Iv 5 Mg/Ml Vial IV 06/16/24 10:18 15 mg STAT ONE Administration Diltiazem HCl Confirm 06/16/24 10:27 Diltiazem Hcl Iv 5 Mg/Ml Vial Administered 06/16/24 10:28 Dose 50 mg IV .STK-MED ONE Furosemide 40 mg 06/16/24 10:14 06/16/24 10:36 Furosemide 40 Mg/4 Ml Vial IV 06/16/24 10:15 40 mg STAT ONE Administration Furosemide Confirm 06/16/24 10:27 Furosemide 40 Mg/4 Ml Vial Administered 06/16/24 10:28 Dose 40 mg .ROUTE .STK-MED ONE Lab/Rad Data: Laboratory Result Diagrams 06/16/24 10:24 06/16/24 10:24 Laboratory Results 06/16/24 06/16/24 06/16/24 Range/Units 11:53 10:25 10:24 WBC (4.23-9.07) x10^3/uL RBC (4.63-6.08) x10^6/uL Hgb (13.7-17.5) g/dL Hct (40.1-51.0) % MCV (79.0-92.2) fL MCH (25.7-32.2) pg MCHC (32.3-36.5) g/dL RDW (11.6-14.4) % Plt Count (163-337) x10^3/uL MPV (9.4-12.4) fL Gran % (34.0-67.9) % Immature Gran % (Auto) (0.001-0.429) % Nucleat RBC Rel Count (0.00-0.2) % Eos # (Auto) (0.04-0.54) x10^3/uL Immature Gran # (Auto) (0.001-0.031) x10^3u/L Absolute Lymphs (auto) (1.32-3.57) x10^3/uL Absolute Monos (auto) (0.30-0.82) x10^3/uL Absolute Nucleated RBC (0.00-0.012) x10^3u/L Lymphocytes % (21.8-53.1) % Monocytes % (5.3-12.2) % Eosinophils % (0.8-7.0) % Basophils % (0.2-1.2) % Absolute Granulocytes (1.78-5.38) x10^3/uL Basophils # (0.01-0.08) x10^3/uL PT (9.4-12.5) SECONDS INR (0.8-3.0) D-Dimer (0.0-0.50) mg/L Sodium (135-145) mmol/L Potassium (3.5-5.1) mmol/L Chloride (98-107) mmol/L Carbon Dioxide (22-30) mmol/L Anion Gap (5-15) MEQ/L BUN (9-20) mg/dL Creatinine (0.66-1.25) mg/dL Estimated GFR ML/MIN Glucose (74-106) mg/dL Lactic Acid 1.3 (0.4-2.0) Calcium (8.4-10.2) mg/dL Magnesium (1.6-2.3) mg/dL Total Bilirubin (0.2-1.3) mg/dL AST (17-59) U/L ALT (0-50) U/L Alkaline Phosphatase (38-126) U/L Troponin I < 0.012 (0.000-0.033) ng/mL NT-Pro-B Natriuret Pep (<300) pg/mL Serum Total Protein (6.3-8.2) g/dL Albumin (3.5-5.0) g/dL Urine Color Yellow (Yellow) Urine Appearance Clear (Clear) Urine pH 5.0 (4.6-8.0) Ur Specific [place] 1.010 (1.005-1.030) Urine Protein Negative (Negative) Urine Glucose (UA) Negative (Negative) mg/dL Urine Ketones Negative (Negative) Urine Blood Negative (Negative) Urine Nitrite Negative (Negative) Urine Bilirubin Negative (Negative) Urine Urobilinogen 0.2 (0.2) mg/dL Ur Leukocyte Esterase Negative (Negative) U Hyaline Cast (Auto) NONE SEEN (0-2) /LPF Urine Microscopic RBC 0-2 (0-5) /HPF Urine Microscopic WBC 0-2 (0-5) /HPF Ur Epithelial Cells None Seen (None Seen) /HPF Urine Bacteria None Seen (None Seen) /HPF Urine Culture Reflexed NO (NO) 06/16/24 06/16/24 06/16/24 Range/Units 10:24 10:24 10:24 WBC 9.6 H (4.23-9.07) x10^3/uL RBC 5.20 (4.63-6.08) x10^6/uL Hgb 12.8 L (13.7-17.5) g/dL Hct 41.4 (40.1-51.0) % MCV 79.6 (79.0-92.2) fL MCH 24.6 L (25.7-32.2) pg MCHC 30.9 L (32.3-36.5) g/dL RDW 18.5 H (11.6-14.4) % Plt Count 592 H (163-337) x10^3/uL MPV 11.3 (9.4-12.4) fL Gran % 77.8 H (34.0-67.9) % Immature Gran % (Auto) 0.5 H (0.001-0.429) % Nucleat RBC Rel Count 0.0 (0.00-0.2) % Eos # (Auto) 0.25 (0.04-0.54) x10^3/uL Immature Gran # (Auto) 0.05 H (0.001-0.031) x10^3u/L Absolute Lymphs (auto) 0.66 L (1.32-3.57) x10^3/uL Absolute Monos (auto) 1.04 H (0.30-0.82) x10^3/uL Absolute Nucleated RBC 0.00 (0.00-0.012) x10^3u/L Lymphocytes % 6.9 L (21.8-53.1) % Monocytes % 10.9 (5.3-12.2) % Eosinophils % 2.6 (0.8-7.0) % Basophils % 1.3 H (0.2-1.2) % Absolute Granulocytes 7.45 H (1.78-5.38) x10^3/uL Basophils # 0.12 H (0.01-0.08) x10^3/uL PT 12.8 H (9.4-12.5) SECONDS INR 1.19 (0.8-3.0) D-Dimer 1.54 H* (0.0-0.50) mg/L Sodium 135 (135-145) mmol/L Potassium 4.3 (3.5-5.1) mmol/L Chloride 98 (98-107) mmol/L Carbon Dioxide 28 (22-30) mmol/L Anion Gap 13.2 (5-15) MEQ/L BUN 23 H (9-20) mg/dL Creatinine 0.87 (0.66-1.25) mg/dL Estimated GFR 102.5 ML/MIN Glucose 134 H (74-106) mg/dL Lactic Acid (0.4-2.0) Calcium 9.2 (8.4-10.2) mg/dL Magnesium 1.9 (1.6-2.3) mg/dL Total Bilirubin 0.90 (0.2-1.3) mg/dL AST 73 H (17-59) U/L ALT 54 H (0-50) U/L Alkaline Phosphatase 106 (38-126) U/L Troponin I (0.000-0.033) ng/mL NT-Pro-B Natriuret Pep 947 (<300) pg/mL Serum Total Protein 8.6 H (6.3-8.2) g/dL Albumin 4.2 (3.5-5.0) g/dL Urine Color (Yellow) Urine Appearance (Clear) Urine pH (4.6-8.0) Ur Specific [place] (1.005-1.030) Urine Protein (Negative) Urine Glucose (UA) (Negative) mg/dL Urine Ketones (Negative) Urine Blood (Negative) Urine Nitrite (Negative) Urine Bilirubin (Negative) Urine Urobilinogen (0.2) mg/dL Ur Leukocyte Esterase (Negative) U Hyaline Cast (Auto) (0-2) /LPF Urine Microscopic RBC (0-5) /HPF Urine Microscopic WBC (0-5) /HPF Ur Epithelial Cells (None Seen) /HPF Urine Bacteria (None Seen) /HPF Urine Culture Reflexed (NO) - Progress Progress: improved, re-examined Progress Note: 06/16/24 10:25 My medical decision making and the assignment of moderate to high complexity of this patient's medical issue today is based on review the patient's past medical history, review the patient's medication list, reviewed patient drug allergy list, history present illness and physical findings on examination. The workup in this patient includes intravenous line placement, infusion of Cardizem 15 mg intravenously, infusion of 40 mg intravenous Lasix, CBC, CMP, troponin level, BNP level, D-dimer level, magnesium level, viral swabs and monotest. Differential diagnosis includes but is not limited to CHF exacerbation, COPD exacerbation, myocardial infarction, electrolyte abnormalities, arrhythmias 06/16/24 13:06 I interpreted the patient's laboratory data results. Based on the laboratory data results, the patient did have an elevated D-dimer level. We ordered a CT scan of the chest with contrast. There are no other acute, emergent findings based on the laboratory data results. CT scan of the chest with contrast was interpreted by the radiologist and I reviewed the impression. The patient states pulmonary embolus evaluation limited due to suboptimal contrast opacification. No obvious central pulmonary embolus present. New borderline cardiomegaly with tiny right pleural effusion and diffuse anasarca. 06/16/24 13:25 I spoke with telehospitalist, Dr. Gastelum and I reviewed the patient's presenting complaint, physical findings on examination and the results of the workup. We both agree that this patient should be admitted into the hospital in intensive care unit as this patient will be on a Cardizem drip. We are waiting to hear from the nursing financial supervisor to be sure that we have an intensive care unit bed available. If we do, the patient will be placed there. Counseled pt/family regarding: lab results, diagnosis, rad results Medical Desision Making - Diagnostic Testing Diagnostic test were ordered, analyzed, and reviewed by me: Yes Radiological Interpretation: Reviewed by me, Teleradiologist Report - Risk of complications The pt has a high risk of morbidity or mortality based on: Decision regarding hospitilization or escalation of hosp level of care - Departure Departure Disposition: In-patient Admission Clinical Impression: Atrial fibrillation with RVR, CHF exacerbation, Noncompliance with medication regimen Condition: Fair Critical Care Time: Yes Critical Care Time(excluding separately billable procedures): Critical 30-74 mins (50 minutes) Referrals: ALLI ENGLE [Primary Care Provider] - Follow up/PCP as directed Instructions: Heart Failure
[2024-06-16] MEDS ORDERED: DUONEB 0.5-3 MG/3 ml Neb IH ONE (10:07)
[2024-06-16] MEDS: DUONEB 0.5-3 MG/3 ml Neb IH ONE (10:10)
[2024-06-16] MEDS ORDERED: Cardizem IV 50 MG/10 ML IV ONE (10:27)
[2024-06-16] MEDS ORDERED: Lasix 40 MG/4 ML ONE (10:27)
[2024-06-16] MEDS: Cardizem IV 50 MG/10 ML IV ONE (10:29)
[2024-06-16] MEDS: Lasix 40 MG/4 ML IV ONE (10:36)
[2024-06-16 10:48] LABS: Absolute Neutrophil Ct (ANC) 7.45 x10^3/uL (1.78-5.38); BASOPHIL % 1.3 % (0.2-1.2); Basophil (Absolute #) 0.12 x10^3/uL (0.01-0.08); Eosinophil % 2.6 % (0.8-7.0); Eosinophil (Absolute #) 0.25 x10^3/uL (0.04-0.54); Hematocrit 41.4 % (40.1-51.0); Hemoglobin 12.8 g/dL (13.7-17.5); IMMATURE GRAN # 0.05 x10^3u/L (0.001-0.031); IMMATURE GRAN % 0.5 % (0.001-0.429); Lymphocyte (Absolute #) 0.66 x10^3/uL (1.32-3.57); Lymphocytes % 6.9 % (21.8-53.1); Mean Cell Volume 79.6 fL (79.0-92.2); Mean Corpuscular Hemoglobin 24.6 pg (25.7-32.2); Mean Corpuscular Hgb Concent. 30.9 g/dL (32.3-36.5); Mean Platelet Volume 11.3 fL (9.4-12.4); Monocyte (Absolute #) 1.04 x10^3/uL (0.30-0.82); Monocytes % 10.9 % (5.3-12.2); Neutrophil % 77.8 % (34.0-67.9); Platelet Count 592 x10^3/uL (163-337); Red Cell Distribution Width 18.5 % (11.6-14.4); White Blood Count 9.6 x10^3/uL (4.23-9.07)
[2024-06-16 10:57] LABS: ALBUMIN 4.2 g/dL (3.5-5.0); ANION GAP 13.2 MEQ/L (5-15); BILIRUBIN,TOTAL 0.9 mg/dL (0.2-1.3); Calcium 9.2 mg/dL (8.4-10.2); Creatinine 1 0.87 mg/dL (0.66-1.25); EST GLOMERULAR FILTRATION RATE 102.5 ML/MIN; MAGNESIUM 1.9 mg/dL (1.6-2.3); Potassium 4.3 mmol/L (3.5-5.1); Total Protein 8.6 g/dL (6.3-8.2)
[2024-06-16 11:01] LABS: INR 1.19 (0.8-3.0); PROTIME 12.8 SECONDS (9.4-12.5)
[2024-06-16 11:04] LABS: D-DIMER QUANTITATIVE 1.54 mg/L (0.0-0.50)
[2024-06-16] MEDS: Sodium Chloride 0.9% 1000 ML 1,000 ML IV SCH (11:24)
[2024-06-16] MEDS: CARDIZEM DRIP 100 MG/100 ML D5W 100 ML IV PRN (11:28)
[2024-06-16 12:26] LABS: Appearance Clear (Clear); Bacteria None Seen /HPF (None Seen); Bilirubin Negative (Negative); Blood Negative (Negative); Epithelial Cells None Seen /HPF (None Seen); Glucose, Urine Negative (Negative); Hyaline Casts NONE SEEN /LPF (0-2); Ketones Negative (Negative); Leukocyte Esterase Negative (Negative); Nitrite Negative (Negative); Protein,Urine Dip Negative (Negative); RBC 0-2 /HPF (0-5); Urobilinogen 0.2 mg/dL (0.2); WBC 0-2 /HPF (0-5)
[2024-06-16 12:31] LABS: ADD URINE CULTURE? NO (NO)
--- NOTE | 2024-06-16 12:59 | XRAY ---
Indication: Short of breath. Elevated d-dimer. Multiple contiguous axial images obtained through the chest without contrast using pulmonary embolus protocol. Comparison: March 11, 2024 Again suboptimal opacification pulmonary arteries limiting evaluation for pulmonary embolus. Again no obvious central pulmonary embolus. Heart is now borderline enlarged. Aorta is again normal in course and caliber. Stable small right hilar calcified nodes. No pathologic mediastinal/hilar lymphadenopathy. Lungs demonstrates new tiny right lung base effusion. Stable peripheral right upper lobe calcified granuloma. No infiltrates or consolidation. Bony thorax intact again with mild degenerative changes to the spine. New diffuse anasarca. Limited upper abdomen again demonstrates cirrhotic liver and 19.7 cm splenomegaly. Impression: 1. Pulmonary embolus evaluation again limited due to suboptimal contrast opacification. Again no obvious central pulmonary embolus. 2. New borderline cardiomegaly, tiny right effusion, and diffuse anasarca. Rule out cardiac decompensation/CHF versus fluid overload. 3. Again chronic findings including cirrhotic liver, splenomegaly, chronic bony findings, and old granulomatous disease.
[2024-06-16] MEDS ORDERED: Zofran 4 MG/2 ML VIAL IV PRN (14:18)
[2024-06-16] MEDS ORDERED: HUMULIN R SQ PRN (14:18)
--- NOTE | 2024-06-16 15:02 | PCM.HP ---
History of Present Illness - Chief Complaint Chief Complaint: Anasarca, CHF Date: 06/16/24 History of Present Illness: is a 54 year old male with PMHX of drug use, smoker that stopped 18 months ago, cirrhosis of the liver, COPD, emphysema, multiple strokes, type II DM, anxiety, bipolar, depression, gout, CHF, and morbid obesity. 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 He states he does take BP meds and ASA daily. He came in to the urgent care center with complaints of shortness of breath today that have progressivley been getting worse for 3 days now. He did not want to come in prior to today as it was his birthday he reports. He was sent to our facility emergency department secondary to his complaint of shortness of breath and weight gain. Patient is a poor historian not knowing his medications and also not knowing who his stage manager is. He has diffuse anasarca. He is RA 97%. He was started on Cardizem gtt in ER for a-fib RVR. HR currently 110's. He was also started in IVF in ER as BP began to drop. IVF stopped immediately when arrived to the floor. Stat Echo and cardiology consult ordered. Since he has a hx of drug use suspicion for low EF. Lasix gtt started. D-Dimer 1.54- CT negative for PE. However does show confirmed anascarca, cirrhotic liver, and splenomegly. Aldridge placed in the ER and will continue with Q 1 hour I&O's as he is very SOB with any movement. He denies CP, N/V/D. - Review of Systems Constitutional: No Fever, No Chills Eyes: No Symptoms Ears, Nose, & Throat: No Symptoms Respiratory: Short Of Breath, Wheezing, No Cough Cardiac: Edema (generalized), No Chest Pain, No Syncope Abdominal/Gastrointestinal: No Abdominal Pain, No Nausea, No Vomiting, No Diarrhea Genitourinary Symptoms: No Dysuria Musculoskeletal: No Back Pain, No Neck Pain Skin: No Rash Neurological: No Dizziness, No Focal Weakness, No Sensory Changes Psychological: No Symptoms Endocrine: No Symptoms Hematologic/Lymphatic: No Symptoms Immunological/Allergic: No Symptoms Medications & Allergies Home Medications: Home Medication List Aspirin EC 81 mg [Ecotrin 81 mg] 81 mg PO DAILY 06/16/24 [History Confirmed 06/16/24] Furosemide [Lasix] 20 mg PO DAILY 06/16/24 [History Confirmed 06/16/24] Lisinopril 5 mg [Zestril 5 MG] 5 mg PO DAILY 06/16/24 [History Confirmed 06/16/24] Allergies/Adverse Reactions: Allergies Allergy/AdvReac Type Severity Reaction Status Date / Time penicillin G Allergy Intermediate Rash Verified 06/16/24 10:47 - Past Medical History Past Medical History: Yes Neurological History: Stroke ENT History: No Pertinent History Cardiac History: Congestive Heart Failure, Deep Vein Thrombosis, High Cholesterol, Hypertension Respiratory History: COPD, Emphysema Endocrine Medical History: Diabetes Type II, Liver Disease Musculoskelatal History: Fractures GI Medical History: No Pertinent History History: No Pertinent History Pyscho-Social History: Anxiety, Bipolar, Depression Male Reproductive Disorders: No Pertinent History Comment: gout. USED TO BE DIABETIC. Left ankle - Past Surgical History Past Surgical History: Yes Neuro Surgical History: No Pertinent History Cardiac History: No Pertinent History Respiratory Surgery: No Pertinent History GI Surgical History: Appendectomy Genitourinary Surgical Hx: No Pertinent History Musculskeletal Surgical Hx: Orthopedic Surgery Male Surgical History: No Pertinent History Other Surgical History: ankle surgery, facial Significant Family History: no pertinent family hx - Social History Smoking Status: Current every day smoker How long have you smoked: 40 YEARS Exposure to second hand smoke: No Alcohol: None Drug Use: none, marijuana - Social Determinants of Health Will the patient participate in the screening: Declined to provide - Physical Exam Vital Signs: Vital Signs - 24 hr Temp Pulse Resp BP Pulse Ox 06/16/24 14:38 104 H 22 95 06/16/24 14:00 96 H 21 109/75 99 06/16/24 13:41 89 21 94/70 98 06/16/24 13:11 101 H 23 97/74 99 06/16/24 13:00 108 H 25 H 91/67 99 06/16/24 12:53 102 H 27 H 95/66 06/16/24 12:50 100 H 15 95/66 99 06/16/24 12:47 108 H 23 103/68 97 06/16/24 12:30 106/79 97 06/16/24 12:24 114 H 19 117/82 06/16/24 12:18 108 H 24 117/82 97 06/16/24 12:17 112 H 19 98 06/16/24 12:16 109 H 18 96 06/16/24 11:45 109/94 06/16/24 11:30 115 H 28 H 140/112 97 06/16/24 11:16 135 H 26 H 143/101 96 06/16/24 11:00 137 H 26 H 138/86 06/16/24 10:45 123 H 21 107/75 98 06/16/24 10:30 112 H 16 120/88 92 L 06/16/24 10:17 26 H 99 06/16/24 10:15 123 H 22 133/104 98 06/16/24 10:14 99 06/16/24 10:13 131 H 26 H 97 06/16/24 10:01 143 H 23 139/103 99 06/16/24 10:00 98.3 F 90 L General Appearance: moderate distress, alert, obese Neurologic Exam: alert, oriented x 3, cooperative, normal mood/affect, nml cerebellar function, nml station & gait, sensation nml, No motor deficits Eye Exam: PERRL/EOMI, eyes nml inspection Ears, Nose, Throat Exam: normal ENT inspection, TMs normal, pharynx normal, moist mucous membranes Neck Exam: normal inspection, non-tender, supple, full range of motion Respiratory Exam: diminished breath sounds, wheezing, No respiratory distress Cardiovascular Exam: regular rate/rhythm, normal heart sounds, normal peripheral pulses, edema (generalized, + 3 pitting) Gastrointestinal/Abdomen Exam: normal bowel sounds, distention, No mass Back Exam: normal inspection, normal range of motion, No CVA tenderness, No vertebral tenderness Extremity Exam: normal inspection, normal range of motion, pelvis stable Skin Exam: normal color, warm, dry, No rash Lymphatic Exam: No adenopathy Results - Labs Lab/Micro Results: Lab Results-Last 24 Hours 06/16/24 06/16/24 06/16/24 Range/Units 10:24 10:24 10:24 WBC 9.6 H (4.23-9.07) x10^3/uL RBC 5.20 (4.63-6.08) x10^6/uL Hgb 12.8 L (13.7-17.5) g/dL Hct 41.4 (40.1-51.0) % MCV 79.6 (79.0-92.2) fL MCH 24.6 L (25.7-32.2) pg MCHC 30.9 L (32.3-36.5) g/dL RDW 18.5 H (11.6-14.4) % Plt Count 592 H (163-337) x10^3/uL MPV 11.3 (9.4-12.4) fL Gran % 77.8 H (34.0-67.9) % Immature Gran % (Auto) 0.5 H (0.001-0.429) % Nucleat RBC Rel Count 0.0 (0.00-0.2) % Eos # (Auto) 0.25 (0.04-0.54) x10^3/uL Immature Gran # (Auto) 0.05 H (0.001-0.031) x10^3u/L Absolute Lymphs (auto) 0.66 L (1.32-3.57) x10^3/uL Absolute Monos (auto) 1.04 H (0.30-0.82) x10^3/uL Absolute Nucleated RBC 0.00 (0.00-0.012) x10^3u/L Lymphocytes % 6.9 L (21.8-53.1) % Monocytes % 10.9 (5.3-12.2) % Eosinophils % 2.6 (0.8-7.0) % Basophils % 1.3 H (0.2-1.2) % Absolute Granulocytes 7.45 H (1.78-5.38) x10^3/uL Basophils # 0.12 H (0.01-0.08) x10^3/uL PT 12.8 H (9.4-12.5) SECONDS INR 1.19 (0.8-3.0) D-Dimer 1.54 H* (0.0-0.50) mg/L Sodium 135 (135-145) mmol/L Potassium 4.3 (3.5-5.1) mmol/L Chloride 98 (98-107) mmol/L Carbon Dioxide 28 (22-30) mmol/L Anion Gap 13.2 (5-15) MEQ/L BUN 23 H (9-20) mg/dL Creatinine 0.87 (0.66-1.25) mg/dL Estimated GFR 102.5 ML/MIN Glucose 134 H (74-106) mg/dL Hemoglobin A1c (4.5-6.0) % Lactic Acid (0.4-2.0) Calcium 9.2 (8.4-10.2) mg/dL Magnesium 1.9 (1.6-2.3) mg/dL Total Bilirubin 0.90 (0.2-1.3) mg/dL AST 73 H (17-59) U/L ALT 54 H (0-50) U/L Alkaline Phosphatase 106 (38-126) U/L Troponin I (0.000-0.033) ng/mL NT-Pro-B Natriuret Pep 947 (<300) pg/mL Serum Total Protein 8.6 H (6.3-8.2) g/dL Albumin 4.2 (3.5-5.0) g/dL Urine Color (Yellow) Urine Appearance (Clear) Urine pH (4.6-8.0) Ur Specific Cosby (1.005-1.030) Urine Protein (Negative) Urine Glucose (UA) (Negative) mg/dL Urine Ketones (Negative) Urine Blood (Negative) Urine Nitrite (Negative) Urine Bilirubin (Negative) Urine Urobilinogen (0.2) mg/dL Ur Leukocyte Esterase (Negative) U Hyaline Cast (Auto) (0-2) /LPF Urine Microscopic RBC (0-5) /HPF Urine Microscopic WBC (0-5) /HPF Ur Epithelial Cells (None Seen) /HPF Urine Bacteria (None Seen) /HPF Urine Culture Reflexed (NO) 06/16/24 06/16/24 06/16/24 Range/Units 10:24 10:24 10:25 WBC (4.23-9.07) x10^3/uL RBC (4.63-6.08) x10^6/uL Hgb (13.7-17.5) g/dL Hct (40.1-51.0) % MCV (79.0-92.2) fL MCH (25.7-32.2) pg MCHC (32.3-36.5) g/dL RDW (11.6-14.4) % Plt Count (163-337) x10^3/uL MPV (9.4-12.4) fL Gran % (34.0-67.9) % Immature Gran % (Auto) (0.001-0.429) % Nucleat RBC Rel Count (0.00-0.2) % Eos # (Auto) (0.04-0.54) x10^3/uL Immature Gran # (Auto) (0.001-0.031) x10^3u/L Absolute Lymphs (auto) (1.32-3.57) x10^3/uL Absolute Monos (auto) (0.30-0.82) x10^3/uL Absolute Nucleated RBC (0.00-0.012) x10^3u/L Lymphocytes % (21.8-53.1) % Monocytes % (5.3-12.2) % Eosinophils % (0.8-7.0) % Basophils % (0.2-1.2) % Absolute Granulocytes (1.78-5.38) x10^3/uL Basophils # (0.01-0.08) x10^3/uL PT (9.4-12.5) SECONDS INR (0.8-3.0) D-Dimer (0.0-0.50) mg/L Sodium (135-145) mmol/L Potassium (3.5-5.1) mmol/L Chloride (98-107) mmol/L Carbon Dioxide (22-30) mmol/L Anion Gap (5-15) MEQ/L BUN (9-20) mg/dL Creatinine (0.66-1.25) mg/dL Estimated GFR ML/MIN Glucose (74-106) mg/dL Hemoglobin A1c 6.56 H (4.5-6.0) % Lactic Acid 1.3 (0.4-2.0) Calcium (8.4-10.2) mg/dL Magnesium (1.6-2.3) mg/dL Total Bilirubin (0.2-1.3) mg/dL AST (17-59) U/L ALT (0-50) U/L Alkaline Phosphatase (38-126) U/L Troponin I < 0.012 (0.000-0.033) ng/mL NT-Pro-B Natriuret Pep (<300) pg/mL Serum Total Protein (6.3-8.2) g/dL Albumin (3.5-5.0) g/dL Urine Color (Yellow) Urine Appearance (Clear) Urine pH (4.6-8.0) Ur Specific Cosby (1.005-1.030) Urine Protein (Negative) Urine Glucose (UA) (Negative) mg/dL Urine Ketones (Negative) Urine Blood (Negative) Urine Nitrite (Negative) Urine Bilirubin (Negative) Urine Urobilinogen (0.2) mg/dL Ur Leukocyte Esterase (Negative) U Hyaline Cast (Auto) (0-2) /LPF Urine Microscopic RBC (0-5) /HPF Urine Microscopic WBC (0-5) /HPF Ur Epithelial Cells (None Seen) /HPF Urine Bacteria (None Seen) /HPF Urine Culture Reflexed (NO) 06/16/24 Range/Units 11:53 WBC (4.23-9.07) x10^3/uL RBC (4.63-6.08) x10^6/uL Hgb (13.7-17.5) g/dL Hct (40.1-51.0) % MCV (79.0-92.2) fL MCH (25.7-32.2) pg MCHC (32.3-36.5) g/dL RDW (11.6-14.4) % Plt Count (163-337) x10^3/uL MPV (9.4-12.4) fL Gran % (34.0-67.9) % Immature Gran % (Auto) (0.001-0.429) % Nucleat RBC Rel Count (0.00-0.2) % Eos # (Auto) (0.04-0.54) x10^3/uL Immature Gran # (Auto) (0.001-0.031) x10^3u/L Absolute Lymphs (auto) (1.32-3.57) x10^3/uL Absolute Monos (auto) (0.30-0.82) x10^3/uL Absolute Nucleated RBC (0.00-0.012) x10^3u/L Lymphocytes % (21.8-53.1) % Monocytes % (5.3-12.2) % Eosinophils % (0.8-7.0) % Basophils % (0.2-1.2) % Absolute Granulocytes (1.78-5.38) x10^3/uL Basophils # (0.01-0.08) x10^3/uL PT (9.4-12.5) SECONDS INR (0.8-3.0) D-Dimer (0.0-0.50) mg/L Sodium (135-145) mmol/L Potassium (3.5-5.1) mmol/L Chloride (98-107) mmol/L Carbon Dioxide (22-30) mmol/L Anion Gap (5-15) MEQ/L BUN (9-20) mg/dL Creatinine (0.66-1.25) mg/dL Estimated GFR ML/MIN Glucose (74-106) mg/dL Hemoglobin A1c (4.5-6.0) % Lactic Acid (0.4-2.0) Calcium (8.4-10.2) mg/dL Magnesium (1.6-2.3) mg/dL Total Bilirubin (0.2-1.3) mg/dL AST (17-59) U/L ALT (0-50) U/L Alkaline Phosphatase (38-126) U/L Troponin I (0.000-0.033) ng/mL NT-Pro-B Natriuret Pep (<300) pg/mL Serum Total Protein (6.3-8.2) g/dL Albumin (3.5-5.0) g/dL Urine Color Yellow (Yellow) Urine Appearance Clear (Clear) Urine pH 5.0 (4.6-8.0) Ur Specific Cosby 1.010 (1.005-1.030) Urine Protein Negative (Negative) Urine Glucose (UA) Negative (Negative) mg/dL Urine Ketones Negative (Negative) Urine Blood Negative (Negative) Urine Nitrite Negative (Negative) Urine Bilirubin Negative (Negative) Urine Urobilinogen 0.2 (0.2) mg/dL Ur Leukocyte Esterase Negative (Negative) U Hyaline Cast (Auto) NONE SEEN (0-2) /LPF Urine Microscopic RBC 0-2 (0-5) /HPF Urine Microscopic WBC 0-2 (0-5) /HPF Ur Epithelial Cells None Seen (None Seen) /HPF Urine Bacteria None Seen (None Seen) /HPF Urine Culture Reflexed NO (NO) - Radiology Impressions Radiology Exams & Impressions: Radiology Procedures Category Date Time Status CHEST WITH CONTRAST [CT] Stat Exams 06/16/24 11:05 Completed ECHO W/2D AND DOPPLER [US] Stat Exams 06/16/24 14:38 Ordered - Other Procedures and Tests Respiratory Therapy 06/16/24 14:18 EKG REPEAT IN AM Oxygen Nasal Cannula 2 lpm Assessment/Plan (1) Atrial fibrillation with RVR Current Visit: Yes Status: Acute Assessment & Plan: - Echo done 09/20/23: estimated 55 to 60%. IMPRESSION: 1) TECHNICALLY DIFFICULT ECHOCARDIOGRAM. 2) NORMAL CONTRACTILITY OF THE LEFT VENTRICLE. 3) BORDERLINE CONCENTRIC LEFT VENTRICULAR HYPERTROPHY. 4) NO THROMBUS IS NOTED. 5) MILD LEFT ATRIAL DILATATION. 6) RIGHT ATRIAL DILATATION. 7) DILATED RIGHT VENTRICLE. 8) RIGHT VENTRICULAR SYSTOLIC DYSFUNCTION. - Started on cardizem gtt in ER- BP unable to handle - stop - IV fluids started in ER- stopped on floor d/t anasarca - Start Amiodarone Gtt - Echo stat - cardiology consulted- stat - + drug use hx consider lower EF Code(s): I48.91 - UNSPECIFIED ATRIAL FIBRILLATION (2) CHF exacerbation Current Visit: Yes Status: Acute Assessment & Plan: - Echo and Cardiology consult- stat - Noncompliant with home meds, states just did not want to take them. - Has seen Dr. Foley with cardiology in the past - Previous echo reviewed Code(s): I50.9 - HEART FAILURE, UNSPECIFIED (3) Anasarca Current Visit: Yes Status: Acute Assessment & Plan: - 2:2 CHF - Lasix gtt started - Aldridge in place d/t needing hourly I&O's - daily weight Code(s): R60.1 - GENERALIZED EDEMA (4) Splenomegaly Current Visit: Yes Status: Acute Assessment & Plan: - as seen on CT - mono screen - Platelets 592 - likely 2;2 Cirrohis of the liver which is chronic per pt Code(s): R16.1 - SPLENOMEGALY, NOT ELSEWHERE CLASSIFIED (5) Dyspnea Current Visit: Yes Status: Acute Assessment & Plan: - RA 97% - 2:2 CHF, A-fib RVR, Anascarca Code(s): R06.00 - DYSPNEA, UNSPECIFIED (6) Noncompliance with medication regimen Current Visit: Yes Status: Acute Assessment & Plan: - Advised will likely need close f/u OP - advised medication compliance or likely to be readmitted Code(s): Z91.148 - PATIENT'S OTHER NONCOMPL WITH MEDS REGIMEN FOR OTHER REASON (7) HTN (hypertension) Current Visit: No Status: Chronic Assessment & Plan: - Hold BP med if BP unstable - monitor Code(s): I10 - ESSENTIAL (PRIMARY) HYPERTENSION (8) Liver cirrhosis Current Visit: No Status: Chronic Assessment & Plan: - chronic per pt from ETOH use- reports has not drank in 18 months (9) Morbid obesity with BMI of 50.0-59.9, adult Current Visit: Yes Status: Chronic Assessment & Plan: - advised ADA diet and exercise control VTE: Heparin Next of KIN: Javier Sneha, D/C plan: 2-3 days Code status: Full Code(s): E66.01 - MORBID (SEVERE) OBESITY DUE TO EXCESS CALORIES; Z68.43 - BODY MASS INDEX [BMI] 50.0-59.9, ADULT
[2024-06-16] MEDS: Furosemide 100mg/10 ml Vial*** 100 MG in Sodium Chloride 0.9% 90 ML IV SCH (15:25)
[2024-06-16] MEDS: NEXTERONE 360 MG/200 ML BAG 360 MG/200 ML PLAST..BAG IV SCH (15:31)
--- NOTE | 2024-06-16 18:15 | PCM.CONS ---
History of Present Illness - Date of Consult Date of Encounter: 06/16/24 Consulting Innovation Analyst: NAE SPEAR MD Requesting Provider: Attending Provider: LANETTE MOODY MD Primary Care Provider: PCP: ALLI ENGLE - Consult Narrative Reason for Consult: 54 yo man with a history of obesity, CHF, AFib, HPI: Patient is a 54M with a history of CHF, obesity, presenting to the hospital with dyspnea on exertion. This has been progressively worse for the past month. He has ETOH cirrhosis and has been off of lasix, got restarted 2 weeks ago but stopped taking it three days ago because it was not working enough for him. Denies chest pains, dizziness, lightheadedness. On arrival to the hospital he was found to have anasarca with 2+ pitting edema throughout his entire body. Started on IV Lasix gtt @ 5 mg/hr. Also started on amiodarone IV, heart rates are now controlled. cc:: The requesting physician will be sent a copy of the consult. - Past Medical History Past Medical History: Yes Neurological History: Stroke ENT History: No Pertinent History Cardiac History: Congestive Heart Failure, Deep Vein Thrombosis, High Cholesterol, Hypertension Respiratory History: COPD, Emphysema Endocrine Medical History: Diabetes Type II, Liver Disease Musculoskelatal History: Fractures GI Medical History: No Pertinent History History: No Pertinent History Pyscho-Social History: Anxiety, Bipolar, Depression Male Reproductive Disorders: No Pertinent History Comment: gout. USED TO BE DIABETIC. Left ankle - Past Surgical History Past Surgical History: Yes Neuro Surgical History: No Pertinent History Cardiac History: No Pertinent History Respiratory Surgery: No Pertinent History GI Surgical History: Appendectomy Genitourinary Surgical Hx: No Pertinent History Musculskeletal Surgical Hx: Orthopedic Surgery Male Surgical History: No Pertinent History Other Surgical History: ankle surgery, facial Significant Family History: no pertinent family hx - Social History Smoking Status: Current every day smoker How long have you smoked: 40 YEARS Exposure to second hand smoke: No Alcohol: None Drug Use: none, marijuana - Social Determinants of Health Will the patient participate in the screening: Declined to provide Do you worry about a steady place to live?: No Do you have any problems with any of the following?: No known problems In the past 12 months,have you had to go without utilities?: No Have you or anyone in your house had to go without enough: No Transportation Issues: Yes Has anyone in your support network made you feel unsafe?: No Does the patient want assistance with any of the above?: No Medications & Allergies Home Medications: Home Medication List Aspirin EC 81 mg [Ecotrin 81 mg] 81 mg PO DAILY 06/16/24 [History Confirmed 06/16/24] Furosemide [Lasix] 20 mg PO DAILY 06/16/24 [History Confirmed 06/16/24] Lisinopril 5 mg [Zestril 5 MG] 5 mg PO DAILY 06/16/24 [History Confirmed 06/16/24] Allergies/Adverse Reactions: Allergies Allergy/AdvReac Type Severity Reaction Status Date / Time penicillin G Allergy Intermediate Rash Verified 06/16/24 10:47 Exam - Vitals Vital Signs: Vital Signs - 24 hr Temp Pulse Resp BP BP Pulse Ox 06/16/24 17:31 101 H 22 103/71 97 06/16/24 17:15 125 H 17 92/70 87 L 06/16/24 17:00 99 H 25 H 94/69 97 06/16/24 16:45 104 H 27 H 101/77 97 06/16/24 16:30 98 H 19 93/68 95 06/16/24 16:18 98 H 26 H 104/70 96 06/16/24 16:01 107 H 27 H 103/78 98 06/16/24 15:54 98 H 06/16/24 15:46 101 H 26 H 102/72 85 L 06/16/24 15:34 101 H 24 112/88 95 06/16/24 15:01 112 H 22 105/71 06/16/24 14:41 97.8 F 110 H 26 H 105/71 97 06/16/24 14:38 104 H 22 95 06/16/24 14:26 98 H 24 105/71 95 06/16/24 14:00 96 H 21 109/75 99 06/16/24 13:41 89 21 94/70 98 06/16/24 13:11 101 H 23 97/74 99 06/16/24 13:00 108 H 25 H 91/67 99 06/16/24 12:53 102 H 27 H 95/66 06/16/24 12:50 100 H 15 95/66 99 06/16/24 12:47 108 H 23 103/68 97 06/16/24 12:30 106/79 97 06/16/24 12:28 103 H 22 105/71 06/16/24 12:24 114 H 19 117/82 06/16/24 12:18 108 H 24 117/82 97 06/16/24 12:17 112 H 19 98 06/16/24 12:16 109 H 18 96 06/16/24 11:45 109/94 06/16/24 11:30 115 H 28 H 140/112 97 06/16/24 11:16 135 H 26 H 143/101 96 06/16/24 11:00 137 H 26 H 138/86 06/16/24 10:45 123 H 21 107/75 98 06/16/24 10:30 112 H 16 120/88 92 L 06/16/24 10:17 26 H 99 06/16/24 10:15 123 H 22 133/104 98 06/16/24 10:14 99 06/16/24 10:13 131 H 26 H 97 06/16/24 10:01 143 H 23 139/103 99 06/16/24 10:00 98.3 F 90 L General:: alert and oriented x 4, obese HEENT: PERRLA, EOMI Cardiovascular Exam: irregular, edema Respiratory Exam: lungs clear SpO2: 97 Gastrointestinal/Abdomen Exam: distention Extremity Exam: edema Results Vital Signs: Vital Signs - 24 hr Temp Pulse Resp BP BP Pulse Ox 06/16/24 17:31 101 H 22 103/71 97 06/16/24 17:15 125 H 17 92/70 87 L 06/16/24 17:00 99 H 25 H 94/69 97 06/16/24 16:45 104 H 27 H 101/77 97 06/16/24 16:30 98 H 19 93/68 95 06/16/24 16:18 98 H 26 H 104/70 96 06/16/24 16:01 107 H 27 H 103/78 98 06/16/24 15:54 98 H 06/16/24 15:46 101 H 26 H 102/72 85 L 06/16/24 15:34 101 H 24 112/88 95 06/16/24 15:01 112 H 22 105/71 06/16/24 14:41 97.8 F 110 H 26 H 105/71 97 07/29/24 14:38 104 H 22 95 06/16/24 14:26 98 H 24 105/71 95 06/16/24 14:00 96 H 21 109/75 99 06/16/24 13:41 89 21 94/70 98 06/16/24 13:11 101 H 23 97/74 99 06/16/24 13:00 108 H 25 H 91/67 99 06/16/24 12:53 102 H 27 H 95/66 06/16/24 12:50 100 H 15 95/66 99 06/16/24 12:47 108 H 23 103/68 97 06/16/24 12:30 106/79 97 06/16/24 12:28 103 H 22 105/71 06/16/24 12:24 114 H 19 117/82 06/16/24 12:18 108 H 24 117/82 97 06/16/24 12:17 112 H 19 98 06/16/24 12:16 109 H 18 96 06/16/24 11:45 109/94 06/16/24 11:30 115 H 28 H 140/112 97 06/16/24 11:16 135 H 26 H 143/101 96 06/16/24 11:00 137 H 26 H 138/86 06/16/24 10:45 123 H 21 107/75 98 06/16/24 10:30 112 H 16 120/88 92 L 06/16/24 10:17 26 H 99 06/16/24 10:15 123 H 22 133/104 98 06/16/24 10:14 99 06/16/24 10:13 131 H 26 H 97 06/16/24 10:01 143 H 23 139/103 99 06/16/24 10:00 98.3 F 90 L Pain Assessment - Last Documented Pain Intensity 0 Intake and Output: Intake & Output 06/14/24 06/15/24 06/16/24 06/17/24 11:59 11:59 11:59 11:59 Intake Total 336 Output Total 600 750 Balance -600 -414 Weight 188.9 kg 184.3 kg LAB: I have reviewed the Labs in [facility]. Radiology Exams: Radiology Procedures Category Date Time Status CHEST WITH CONTRAST [CT] Stat Exams 06/16/24 11:05 Completed ECHO W/2D AND DOPPLER [US] Stat Exams 06/16/24 14:38 Taken Assessment & Plan (1) Anasarca Current Visit: Yes Status: Acute Assessment & Plan: Continue IV Lasix gtt at 5 mg hour Goal negative 2-3 liters per day BID lytes, Keep K>4, Mg>2 Code(s): R60.1 - GENERALIZED EDEMA (2) Atrial fibrillation with RVR Current Visit: Yes Status: Acute Assessment & Plan: Continue amiodarone gtt Start metoprolol 25 mg PO q6h Contindiuresis as above - obtain echocardiogram -continue heparin gtt and transition to apixaban 5 mg bid Code(s): I48.91 - UNSPECIFIED ATRIAL FIBRILLATION (3) Dyspnea Current Visit: Yes Status: Acute Code(s): R06.00 - DYSPNEA, UNSPECIFIED (4) Morbid obesity with BMI of 50.0-59.9, adult Current Visit: Yes Status: Chronic Code(s): E66.01 - MORBID (SEVERE) OBESITY DUE TO EXCESS CALORIES; Z68.43 - BODY MASS INDEX [BMI] 50.0-59.9, ADULT - Encounter Encounter: "The entirety of this encounter was performed via Telemedicine using audio and visual "
[2024-06-16] MEDS: Lopressor 25MG Tab PO SCH (18:28)
[2024-06-16 21:21] LABS: ANION GAP 12.9 MEQ/L (5-15); BILIRUBIN,TOTAL 0.8 mg/dL (0.2-1.3); Calcium 9.1 mg/dL (8.4-10.2); Creatinine 1 1.03 mg/dL (0.66-1.25); EST GLOMERULAR FILTRATION RATE 86.3 ML/MIN; Potassium 4.2 mmol/L (3.5-5.1); Total Protein 8.2 g/dL (6.3-8.2)
[2024-06-16] MEDS: HEPARIN 5000 UNITS/0.5 ML (HIGH RISK MED) SQ SCH (21:30)
[2024-06-16] MEDS: TYLENOL 325 MG PO PRN (23:07)
[2024-06-17 04:54] LABS: Absolute Neutrophil Ct (ANC) 9.84 x10^3/uL (1.78-5.38); BASOPHIL % 1.1 % (0.2-1.2); Basophil (Absolute #) 0.13 x10^3/uL (0.01-0.08); Eosinophil % 1.7 % (0.8-7.0); Eosinophil (Absolute #) 0.21 x10^3/uL (0.04-0.54); Hematocrit 40.2 % (40.1-51.0); Hemoglobin 12.3 g/dL (13.7-17.5); IMMATURE GRAN # 0.07 x10^3u/L (0.001-0.031); IMMATURE GRAN % 0.6 % (0.001-0.429); Lymphocyte (Absolute #) 0.73 x10^3/uL (1.32-3.57); Lymphocytes % 5.9 % (21.8-53.1); Mean Cell Volume 80.4 fL (79.0-92.2); Mean Corpuscular Hemoglobin 24.6 pg (25.7-32.2); Mean Corpuscular Hgb Concent. 30.6 g/dL (32.3-36.5); Mean Platelet Volume 11.5 fL (9.4-12.4); Monocyte (Absolute #) 1.37 x10^3/uL (0.30-0.82); Monocytes % 11.1 % (5.3-12.2); Neutrophil % 79.6 % (34.0-67.9); Platelet Count 626 x10^3/uL (163-337); Red Cell Distribution Width 18.9 % (11.6-14.4); White Blood Count 12.4 x10^3/uL (4.23-9.07)
[2024-06-17 05:21] LABS: ALBUMIN 3.9 g/dL (3.5-5.0); ANION GAP 13.7 MEQ/L (5-15); BILIRUBIN,TOTAL 0.8 mg/dL (0.2-1.3); Calcium 8.9 mg/dL (8.4-10.2); Creatinine 1 1.33 mg/dL (0.66-1.25); EST GLOMERULAR FILTRATION RATE 63.5 ML/MIN; Potassium 4.2 mmol/L (3.5-5.1); Total Protein 8.1 g/dL (6.3-8.2)
[2024-06-17] MEDS: ECOTRIN 81 MG PO SCH (09:36)
[2024-06-17] MEDS: ELIQUIS 2.5 MG TABLET PO SCH (09:36)
[2024-06-17] MEDS: Zestril 5 MG PO SCH (09:47)
[2024-06-17] MEDS: Lopressor 25MG Tab PO SCH (12:01)
[2024-06-17] MEDS: HUMALOG SQ PRN (12:27)
--- NOTE | 2024-06-17 14:49 | PCM.NOTE ---
Date and Time: 06/17/24 1444 Subjective Assessment: 06/16/24 is a 54 year old male with PMHX of drug use, smoker that stopped 18 months ago, cirrhosis of the liver, COPD, emphysema, multiple strokes, type II DM, anxiety, bipolar, depression, gout, CHF, and morbid obesity. He admits to being non-compliant with meds and has not seen his order schedule clerk in quite some time. He states he does take BP meds and ASA daily. He came in to the urgent care center with complaints of shortness of breath today that have progressivley been getting worse for 3 days now. He did not want to come in prior to today as it was [birth year] he reports. He was sent to our facility emergency department secondary to his complaint of shortness of breath and weight gain. Patient is a poor historian not knowing his medications and also not knowing who his order schedule clerk is. He has diffuse anasarca. He is RA 97%. He was started on Cardizem gtt in ER for a-fib RVR. HR currently 110's. He was also started in IVF in ER as BP began to drop. IVF stopped immediately when arrived to the floor. Stat Echo and cardiology consult ordered. Since he has a hx of drug use suspicion for low EF. Lasix gtt started. D-Dimer 1.54- CT negative for PE. However does show confirmed anascarca, cirrhotic liver, and splenomegly. Aldridge placed in the ER and will continue with Q 1 hour I&O's as he is very SOB with any movement. He denies CP, N/V/D. 06/17/24 Pt sitting up in chair today. He is C/o scrotal edema and abd distention. He is having decreased urine output last night and this am. Lasix gtt increased to 10. Elliott test came back +. 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 He feels his sxs are related to this. A1C 6.56 will need Metformin started at d/c. He continues to be on amiodarone gtt. HR controlled in a-fib. Plan is to continue with diuresis. He denies CP, SOB, N/V/D. - Review of Systems Constitutional: No Fever, No Chills Eyes: No Symptoms Ears, Nose, & Throat: No Symptoms Respiratory: No Cough, No Short Of Breath Cardiac: No Chest Pain, No Edema, No Syncope Abdominal/Gastrointestinal: No Abdominal Pain, No Nausea, No Vomiting, No Diarrhea Genitourinary Symptoms: No Dysuria Musculoskeletal: No Back Pain, No Neck Pain Skin: Other (scrotrol and abd edema), No Rash Neurological: No Dizziness, No Focal Weakness, No Sensory Changes Psychological: No Symptoms Endocrine: No Symptoms Hematologic/Lymphatic: No Symptoms Immunological/Allergic: No Symptoms Objective Exam General Appearance: no apparent distress, alert, obese Neurologic Exam: alert, oriented x 3, cooperative, normal mood/affect, nml cerebellar function, sensation nml, No motor deficits Skin Exam: normal color, warm, dry Eye Exam: PERRL, EOMI, eyes nml inspection Ears, Nose, Throat Exam: normal ENT inspection, pharynx normal, moist mucous membranes Neck Exam: normal inspection, non-tender, supple, full range of motion Respiratory Exam: normal breath sounds, lungs clear, No respiratory distress Cardiovascular Exam: regular rate/rhythm, normal heart sounds, edema Gastrointestinal/Abdomen Exam: soft, other (abd edema), No tenderness, No mass Extremity Exam: normal inspection, normal range of motion Back Exam: normal inspection, normal range of motion, No CVA tenderness, No vertebral tenderness Male Genitalia Exam: deferred, other (scrotal edema) Rectal Exam: deferred Objective Data Vital Signs: Vital Signs - 24 hr Temp Pulse Resp BP Pulse Ox 06/17/24 13:00 83 25 H 99/66 06/17/24 12:00 91 H 22 106/75 06/17/24 11:13 85 28 H 126/80 06/17/24 11:02 95 H 20 94 L 06/17/24 10:00 89 26 H 96/69 94 L 06/17/24 09:36 85 27 H 103/69 95 06/17/24 08:01 92 H 18 106/71 93 L 06/17/24 07:54 87 06/17/24 07:19 89 93 L 06/17/24 07:00 91 H 25 H 88/63 93 L 06/17/24 06:41 93 L 06/17/24 06:00 92 H 24 94/65 92 L 06/17/24 05:00 81 17 89/68 93 L 06/17/24 04:01 98.0 F 83 18 111/83 91 L 06/17/24 04:00 83 06/17/24 03:01 76 21 91/55 94 L 06/17/24 02:00 80 27 H 90/62 94 L 06/17/24 01:00 76 24 90/72 93 L 06/17/24 00:01 96 H 06/17/24 00:00 98.4 F 87 27 H 91/72 95 06/16/24 23:00 96 H 27 H 103/81 94 L 06/16/24 22:00 88 29 H 88/68 96 06/16/24 21:00 88 24 99/73 95 06/16/24 20:00 93 H 29 H 106/78 97 06/16/24 19:56 98.8 F 95 H 19 103/63 97 06/16/24 19:45 95 H 33 H 94 L 06/16/24 19:31 92 H 33 H 98 06/16/24 19:01 102 H 26 H 110/77 94 L 06/16/24 18:52 94 L 06/16/24 18:46 93 H 26 H 85/60 92 L 06/16/24 18:32 106 H 27 H 82/70 95 06/16/24 18:30 119 H 23 89/64 94 L 06/16/24 18:23 116 H 32 H 107/92 95 06/16/24 18:19 97 06/16/24 18:00 118 H 23 114/88 96 06/16/24 17:45 108 H 26 H 108/84 96 06/16/24 17:31 101 H 22 103/71 97 06/16/24 17:15 125 H 17 92/70 94 L 06/16/24 17:00 99 H 25 H 94/69 97 06/16/24 16:45 104 H 27 H 101/77 97 06/16/24 16:30 98 H 19 93/68 95 06/16/24 16:18 98 H 26 H 104/70 96 06/16/24 16:01 107 H 27 H 103/78 98 06/16/24 15:54 98 H 06/16/24 15:46 101 H 26 H 102/72 85 L 06/16/24 15:34 101 H 24 112/88 95 06/16/24 15:01 112 H 22 105/71 Pain Assessment - Last Documented Pain Intensity 0 Pain Scale Used 0-10 Pain Scale Intake and Output: Intake & Output 06/15/24 06/16/24 06/17/24 06/18/24 11:59 11:59 11:59 11:59 Intake Total 1014 Output Total 600 1420 85 Balance -600 -406 -85 Weight 188.9 kg 185 kg Lab Results: Lab Results-Last 24 Hours 06/16/24 06/16/24 06/16/24 Range/Units 10:24 14:25 16:19 WBC (4.23-9.07) x10^3/uL RBC (4.63-6.08) x10^6/uL Hgb (13.7-17.5) g/dL Hct (40.1-51.0) % MCV (79.0-92.2) fL MCH (25.7-32.2) pg MCHC (32.3-36.5) g/dL RDW (11.6-14.4) % Plt Count (163-337) x10^3/uL MPV (9.4-12.4) fL Gran % (34.0-67.9) % Immature Gran % (Auto) (0.001-0.429) % Nucleat RBC Rel Count (0.00-0.2) % Eos # (Auto) (0.04-0.54) x10^3/uL Immature Gran # (Auto) (0.001-0.031) x10^3u/L Absolute Lymphs (auto) (1.32-3.57) x10^3/uL Absolute Monos (auto) (0.30-0.82) x10^3/uL Absolute Nucleated RBC (0.00-0.012) x10^3u/L Lymphocytes % (21.8-53.1) % Monocytes % (5.3-12.2) % Eosinophils % (0.8-7.0) % Basophils % (0.2-1.2) % Absolute Granulocytes (1.78-5.38) x10^3/uL Basophils # (0.01-0.08) x10^3/uL Sodium (135-145) mmol/L Potassium (3.5-5.1) mmol/L Chloride (98-107) mmol/L Carbon Dioxide (22-30) mmol/L Anion Gap (5-15) MEQ/L BUN (9-20) mg/dL Creatinine (0.66-1.25) mg/dL Estimated GFR ML/MIN Glucose (74-106) mg/dL POC Glucometer 109 H (74 to 106) mg/dL Hemoglobin A1c 6.56 H (4.5-6.0) % Calcium (8.4-10.2) mg/dL Magnesium (1.6-2.3) mg/dL Total Bilirubin (0.2-1.3) mg/dL AST (17-59) U/L ALT (0-50) U/L Alkaline Phosphatase (38-126) U/L Troponin I < 0.012 (0.000-0.033) ng/mL NT-Pro-B Natriuret Pep (<300) pg/mL Serum Total Protein (6.3-8.2) g/dL Albumin (3.5-5.0) g/dL Triglycerides (30-150) mg/dL Cholesterol (50-200) mg/dL LDL Cholesterol (30-100) mg/dL HDL Cholesterol (40-60) mg/dL Heart Disease Risk Ratio Monoscreen (NEGATIVE) 06/16/24 06/16/24 06/16/24 Range/Units 18:04 21:00 21:44 WBC (4.23-9.07) x10^3/uL RBC (4.63-6.08) x10^6/uL Hgb (13.7-17.5) g/dL Hct (40.1-51.0) % MCV (79.0-92.2) fL MCH (25.7-32.2) pg MCHC (32.3-36.5) g/dL RDW (11.6-14.4) % Plt Count (163-337) x10^3/uL MPV (9.4-12.4) fL Gran % (34.0-67.9) % Immature Gran % (Auto) (0.001-0.429) % Nucleat RBC Rel Count (0.00-0.2) % Eos # (Auto) (0.04-0.54) x10^3/uL Immature Gran # (Auto) (0.001-0.031) x10^3u/L Absolute Lymphs (auto) (1.32-3.57) x10^3/uL Absolute Monos (auto) (0.30-0.82) x10^3/uL Absolute Nucleated RBC (0.00-0.012) x10^3u/L Lymphocytes % (21.8-53.1) % Monocytes % (5.3-12.2) % Eosinophils % (0.8-7.0) % Basophils % (0.2-1.2) % Absolute Granulocytes (1.78-5.38) x10^3/uL Basophils # (0.01-0.08) x10^3/uL Sodium 137 (135-145) mmol/L Potassium 4.2 (3.5-5.1) mmol/L Chloride 98 (98-107) mmol/L Carbon Dioxide 31 H (22-30) mmol/L Anion Gap 12.9 (5-15) MEQ/L BUN 24 H (9-20) mg/dL Creatinine 1.03 (0.66-1.25) mg/dL Estimated GFR 86.3 ML/MIN Glucose 144 H (74-106) mg/dL POC Glucometer 127 H (74 to 106) mg/dL Hemoglobin A1c (4.5-6.0) % Calcium 9.1 (8.4-10.2) mg/dL Magnesium 2.0 (1.6-2.3) mg/dL Total Bilirubin 0.80 (0.2-1.3) mg/dL AST 69 H (17-59) U/L ALT 54 H (0-50) U/L Alkaline Phosphatase 82 (38-126) U/L Troponin I < 0.012 (0.000-0.033) ng/mL NT-Pro-B Natriuret Pep (<300) pg/mL Serum Total Protein 8.2 (6.3-8.2) g/dL Albumin 4.0 (3.5-5.0) g/dL Triglycerides (30-150) mg/dL Cholesterol (50-200) mg/dL LDL Cholesterol (30-100) mg/dL HDL Cholesterol (40-60) mg/dL Heart Disease Risk Ratio Monoscreen (NEGATIVE) 07/29/24 07/30/24 07/30/24 Range/Units Unknown 04:21 04:21 WBC 12.4 H (4.23-9.07) x10^3/uL RBC 5.00 (4.63-6.08) x10^6/uL Hgb 12.3 L (13.7-17.5) g/dL Hct 40.2 (40.1-51.0) % MCV 80.4 (79.0-92.2) fL MCH 24.6 L (25.7-32.2) pg MCHC 30.6 L (32.3-36.5) g/dL RDW 18.9 H (11.6-14.4) % Plt Count 626 H (163-337) x10^3/uL MPV 11.5 (9.4-12.4) fL Gran % 79.6 H (34.0-67.9) % Immature Gran % (Auto) 0.6 H (0.001-0.429) % Nucleat RBC Rel Count 0.0 (0.00-0.2) % Eos # (Auto) 0.21 (0.04-0.54) x10^3/uL Immature Gran # (Auto) 0.07 H (0.001-0.031) x10^3u/L Absolute Lymphs (auto) 0.73 L (1.32-3.57) x10^3/uL Absolute Monos (auto) 1.37 H (0.30-0.82) x10^3/uL Absolute Nucleated RBC 0.00 (0.00-0.012) x10^3u/L Lymphocytes % 5.9 L (21.8-53.1) % Monocytes % 11.1 (5.3-12.2) % Eosinophils % 1.7 (0.8-7.0) % Basophils % 1.1 (0.2-1.2) % Absolute Granulocytes 9.84 H (1.78-5.38) x10^3/uL Basophils # 0.13 H (0.01-0.08) x10^3/uL Sodium 134 L (135-145) mmol/L Potassium 4.2 (3.5-5.1) mmol/L Chloride 98 (98-107) mmol/L Carbon Dioxide 26 (22-30) mmol/L Anion Gap 13.7 (5-15) MEQ/L BUN 26 H (9-20) mg/dL Creatinine 1.33 H (0.66-1.25) mg/dL Estimated GFR 63.5 ML/MIN Glucose 124 H (74-106) mg/dL POC Glucometer (74 to 106) mg/dL Hemoglobin A1c (4.5-6.0) % Calcium 8.9 (8.4-10.2) mg/dL Magnesium 2.0 (1.6-2.3) mg/dL Total Bilirubin 0.80 (0.2-1.3) mg/dL AST 62 H (17-59) U/L ALT 48 (0-50) U/L Alkaline Phosphatase 99 (38-126) U/L Troponin I (0.000-0.033) ng/mL NT-Pro-B Natriuret Pep 1130 (<300) pg/mL Serum Total Protein 8.1 (6.3-8.2) g/dL Albumin 3.9 (3.5-5.0) g/dL Triglycerides 44 (30-150) mg/dL Cholesterol 101 (50-200) mg/dL LDL Cholesterol 55 (30-100) mg/dL HDL Cholesterol 37 L (40-60) mg/dL Heart Disease Risk Ratio 3.0 Monoscreen POSITIVE (NEGATIVE) 06/17/24 06/17/24 Range/Units 07:23 11:01 WBC (4.23-9.07) x10^3/uL RBC (4.63-6.08) x10^6/uL Hgb (13.7-17.5) g/dL Hct (40.1-51.0) % MCV (79.0-92.2) fL MCH (25.7-32.2) pg MCHC (32.3-36.5) g/dL RDW (11.6-14.4) % Plt Count (163-337) x10^3/uL MPV (9.4-12.4) fL Gran % (34.0-67.9) % Immature Gran % (Auto) (0.001-0.429) % Nucleat RBC Rel Count (0.00-0.2) % Eos # (Auto) (0.04-0.54) x10^3/uL Immature Gran # (Auto) (0.001-0.031) x10^3u/L Absolute Lymphs (auto) (1.32-3.57) x10^3/uL Absolute Monos (auto) (0.30-0.82) x10^3/uL Absolute Nucleated RBC (0.00-0.012) x10^3u/L Lymphocytes % (21.8-53.1) % Monocytes % (5.3-12.2) % Eosinophils % (0.8-7.0) % Basophils % (0.2-1.2) % Absolute Granulocytes (1.78-5.38) x10^3/uL Basophils # (0.01-0.08) x10^3/uL Sodium (135-145) mmol/L Potassium (3.5-5.1) mmol/L Chloride (98-107) mmol/L Carbon Dioxide (22-30) mmol/L Anion Gap (5-15) MEQ/L BUN (9-20) mg/dL Creatinine (0.66-1.25) mg/dL Estimated GFR ML/MIN Glucose (74-106) mg/dL POC Glucometer 111 H 162 H (74 to 106) mg/dL Hemoglobin A1c (4.5-6.0) % Calcium (8.4-10.2) mg/dL Magnesium (1.6-2.3) mg/dL Total Bilirubin (0.2-1.3) mg/dL AST (17-59) U/L ALT (0-50) U/L Alkaline Phosphatase (38-126) U/L Troponin I (0.000-0.033) ng/mL NT-Pro-B Natriuret Pep (<300) pg/mL Serum Total Protein (6.3-8.2) g/dL Albumin (3.5-5.0) g/dL Triglycerides (30-150) mg/dL Cholesterol (50-200) mg/dL LDL Cholesterol (30-100) mg/dL HDL Cholesterol (40-60) mg/dL Heart Disease Risk Ratio Monoscreen (NEGATIVE) Radiology Exams: Radiology Procedures Category Date Time Status CHEST WITH CONTRAST [CT] Stat Exams 06/16/24 11:05 Completed ECHO W/2D AND DOPPLER [US] Stat Exams 06/16/24 14:38 Taken Assessment/Plan (1) Atrial fibrillation with RVR Current Visit: Yes Status: Acute Code(s): I48.91 - UNSPECIFIED ATRIAL FIBRILLATION (2) CHF exacerbation Current Visit: Yes Status: Acute Code(s): I50.9 - HEART FAILURE, UNSPECIFIED (3) Anasarca Current Visit: Yes Status: Acute Code(s): R60.1 - GENERALIZED EDEMA (4) Splenomegaly Current Visit: Yes Status: Acute Code(s): R16.1 - SPLENOMEGALY, NOT ELSEWHERE CLASSIFIED (5) Dyspnea Current Visit: Yes Status: Acute Code(s): R06.00 - DYSPNEA, UNSPECIFIED (6) Noncompliance with medication regimen Current Visit: Yes Status: Acute Code(s): Z91.148 - PATIENT'S OTHER NONCOMPL WITH MEDS REGIMEN FOR OTHER REASON (7) HTN (hypertension) Current Visit: No Status: Chronic Code(s): I10 - ESSENTIAL (PRIMARY) HYPERTENSION (8) Liver cirrhosis Current Visit: No Status: Chronic (9) Morbid obesity with BMI of 50.0-59.9, adult Current Visit: Yes Status: Chronic Assessment & Plan: (1) Atrial fibrillation with RVR Current Visit: Yes Status: Acute Assessment & Plan: - Echo done 09/20/23: estimated 55 to 60%. IMPRESSION: 1) TECHNICALLY DIFFICULT ECHOCARDIOGRAM. 2) NORMAL CONTRACTILITY OF THE LEFT VENTRICLE. 3) BORDERLINE CONCENTRIC LEFT VENTRICULAR HYPERTROPHY. 4) NO THROMBUS IS NOTED. 5) MILD LEFT ATRIAL DILATATION. 6) RIGHT ATRIAL DILATATION. 7) DILATED RIGHT VENTRICLE. 8) RIGHT VENTRICULAR SYSTOLIC DYSFUNCTION. - Started on cardizem gtt in ER- BP unable to handle - stop - IV fluids started in ER- stopped on floor d/t anasarca - Start Amiodarone Gtt - Echo stat - cardiology consulted- stat - + drug use hx consider lower EF 06/17 - cardiology note reviewed and agree with plan of care - EF 57%- echo reviewed - Changed heparin to Eliquis this AM. - Continue lasix gtt - Metoprolol 25mg q6 - Trop x3 negative - Amio gtt- continued- A-fib controlled Code(s): I48.91 - UNSPECIFIED ATRIAL FIBRILLATION (2) CHF exacerbation Current Visit: Yes Status: Acute Assessment & Plan: - Echo and Cardiology consult- stat - Noncompliant with home meds, states just did not want to take them. - Has seen Dr. Foley with cardiology in the past - Previous echo reviewed 06/17 - SEE ABOVE PLAN Code(s): I50.9 - HEART FAILURE, UNSPECIFIED (3) Anasarca Current Visit: Yes Status: Acute Assessment & Plan: - 2:2 CHF - Lasix gtt started - Aldridge in place d/t needing hourly I&O's - daily weight - fluid restriction 06/17 - wt gain this am - lasix gtt increased to 10 Code(s): R60.1 - GENERALIZED EDEMA (4) Splenomegaly Current Visit: Yes Status: Acute Assessment & Plan: - as seen on CT - mono screen - Platelets 592 - likely 2;2 Cirrhosis of the liver which is chronic per pt - mono test positive Code(s): R16.1 - SPLENOMEGALY, NOT ELSEWHERE CLASSIFIED (5) Dyspnea Current Visit: Yes Status: Acute Assessment & Plan: - RA 97% - 2:2 CHF, A-fib RVR, Anascarca 06/17 - improving- now RA 94% Code(s): R06.00 - DYSPNEA, UNSPECIFIED (6) Noncompliance with medication regimen Current Visit: Yes Status: Acute Assessment & Plan: - Advised will likely need close f/u OP - advised medication compliance or likely to be readmitted Code(s): Z91.148 - PATIENT'S OTHER NONCOMPL WITH MEDS REGIMEN FOR OTHER REASON (7) HTN (hypertension) Current Visit: No Status: Chronic Assessment & Plan: - Hold BP med if BP unstable - monitor 06/17 - hold lisinopril - continue metoprolol Q6 Code(s): I10 - ESSENTIAL (PRIMARY) HYPERTENSION (8) Liver cirrhosis Current Visit: No Status: Chronic Assessment & Plan: - chronic per pt from ETOH use- reports has not drank in 18 months (9) Morbid obesity with BMI of 50.0-59.9, adult Current Visit: Yes Status: Chronic Assessment & Plan: - advised ADA diet and exercise control VTE: Heparin Next of KIN: Javier Hoover, D/C plan: 2-3 days Code status: Full Code(s): E66.01 - MORBID (SEVERE) OBESITY DUE TO EXCESS CALORIES; Z68.43 - BODY MASS INDEX [BMI] 50.0-59.9, ADULT Code(s): E66.01 - MORBID (SEVERE) OBESITY DUE TO EXCESS CALORIES; Z68.43 - BODY MASS INDEX [BMI] 50.0-59.9, ADULT
[2024-06-17] MEDS: NORCO 5/325 MG PO PRN (18:35)
[2024-06-17 19:53] LABS: ALBUMIN 4.3 g/dL (3.5-5.0); ANION GAP 15.6 MEQ/L (5-15); BILIRUBIN,TOTAL 0.8 mg/dL (0.2-1.3); Calcium 8.9 mg/dL (8.4-10.2); Creatinine 1 1.64 mg/dL (0.66-1.25); EST GLOMERULAR FILTRATION RATE 49.4 ML/MIN; MAGNESIUM 2.1 mg/dL (1.6-2.3); Potassium 4.4 mmol/L (3.5-5.1); Total Protein 8.4 g/dL (6.3-8.2)
[2024-06-18 05:06] LABS: ALBUMIN 4.1 g/dL (3.5-5.0); ANION GAP 13.7 MEQ/L (5-15); BILIRUBIN,TOTAL 0.9 mg/dL (0.2-1.3); Calcium 8.6 mg/dL (8.4-10.2); Creatinine 1 1.57 mg/dL (0.66-1.25); EST GLOMERULAR FILTRATION RATE 52.1 ML/MIN; MAGNESIUM 2.1 mg/dL (1.6-2.3); Potassium 4.4 mmol/L (3.5-5.1); Total Protein 8.2 g/dL (6.3-8.2)
[2024-06-18] MEDS: Xopenex 1.25 MG/0.5 ML UD NEBULE IH SCH (08:36)
[2024-06-18] MEDS: Sodium Chloride 3 ML UD NEBULES IH SCH (08:36)
[2024-06-18] MEDS: Cordarone 200 MG PO SCH (09:01)
[2024-06-18 09:41] LABS: Hematocrit 42.5 % (40.1-51.0); Hemoglobin 12.9 g/dL (13.7-17.5); Mean Cell Volume 81.4 fL (79.0-92.2); Mean Corpuscular Hemoglobin 24.7 pg (25.7-32.2); Mean Corpuscular Hgb Concent. 30.4 g/dL (32.3-36.5); Platelet Count 631 x10^3/uL (163-337); Red Blood Count 5.22 x10^6/uL (4.63-6.08); Red Cell Distribution Width 19.1 % (11.6-14.4); White Blood Count 14.1 x10^3/uL (4.23-9.07)
--- NOTE | 2024-06-18 12:41 | PCM.NOTE ---
Date and Time: 06/18/24 1238 Subjective Assessment: 06/16/24 is a 54 year old male with PMHX of drug use, smoker that stopped 18 months ago, cirrhosis of the liver, COPD, emphysema, multiple strokes, type II DM, anxiety, bipolar, depression, gout, CHF, and morbid obesity. He admits to being non-compliant with meds and has not seen his botanical technical officer in quite some time. He states he does take BP meds and ASA daily. He came in to the urgent care center with complaints of shortness of breath today that have progressivley been getting worse for 3 days now. He did not want to come in prior to today as it was [birth year] birthday he reports. He was sent to our facility emergency department secondary to his complaint of shortness of breath and weight gain. Patient is a poor historian not knowing his medications and also not knowing who his botanical technical officer is. He has diffuse anasarca. He is RA 97%. He was started on Cardizem gtt in ER for a-fib RVR. HR currently 110's. He was also started in IVF in ER as BP began to drop. IVF stopped immediately when arrived to the floor. Stat Echo and cardiology consult ordered. Since he has a hx of drug use suspicio n for low EF. Lasix gtt started. D-Dimer 1.54- CT negative for PE. However does show confirmed anascarca, cirrhotic liver, and splenomegly. Aldridge placed in the ER and will continue with Q 1 hour I&O's as he is very SOB with any movement. He denies CP, N/V/D. 06/17/24 Pt sitting up in chair today. He is C/o scrotal edema and abd distention. He is having decreased urine output last night and this am. Lasix gtt increased to 10. Jewell test came back +. 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 He feels his sxs are related to this. A1C 6.56 will need Metformin started at d/c. He continues to be on amiodarone gtt. HR controlled in a-fib. Plan is to continue with diuresis. He denies CP, SOB, N/V/D. 06/18/24 Pt sitting up in chair. He remains in ICU on Lasix gtt. Discussed pt case with cardiology and he advised to increase Lasix gtt to 20 and keep another 2 days. Pt continues to be in a-fib but controlled. Amiodarone changed to oral today per cardiology recs. Amiodarone gtt stopped yesterday evening per cardiology. Creat improving. LFT's improving. He does have some wheezing today and Xoponex started. He continues to c/o testicle edema and drainage with pain. Encouraged pt and nursing to continue provide scrotal sling/support. WBC elevated, procal ordered. May need repeat CXR. Denies CP, N/V/D. - Review of Systems Constitutional: No Fever, No Chills Eyes: No Symptoms Ears, Nose, & Throat: No Symptoms Respiratory: Orthopnea, Short Of Breath, Wheezing, No Cough Cardiac: No Chest Pain, No Edema, No Syncope Abdominal/Gastrointestinal: Abdominal Pain, No Nausea, No Vomiting, No Diarrhea Genitourinary Symptoms: No Dysuria Musculoskeletal: No Back Pain, No Neck Pain Skin: Other (edema of scrotum), No Rash Neurological: No Dizziness, No Focal Weakness, No Sensory Changes Psychological: No Symptoms Endocrine: No Symptoms Hematologic/Lymphatic: No Symptoms Immunological/Allergic: No Symptoms Objective Exam General Appearance: no apparent distress, alert, obese Neurologic Exam: alert, oriented x 3, cooperative, normal mood/affect, nml cerebellar function, sensation nml, No motor deficits Skin Exam: normal color, warm, dry Eye Exam: PERRL, EOMI, eyes nml inspection Ears, Nose, Throat Exam: normal ENT inspection, pharynx normal, moist mucous membranes Neck Exam: normal inspection, non-tender, supple, full range of motion Respiratory Exam: normal breath sounds, lungs clear, No respiratory distress Cardiovascular Exam: normal heart sounds, irregular, edema (generlaized, + 3 pitting) Gastrointestinal/Abdomen Exam: soft, distention, No mass Extremity Exam: normal inspection, normal range of motion Back Exam: normal inspection, normal range of motion, No CVA tenderness, No vertebral tenderness Male Genitalia Exam: testicular tenderness (and edema) Rectal Exam: deferred Objective Data Vital Signs: Vital Signs - 24 hr Temp Pulse Resp BP Pulse Ox 06/18/24 12:01 97.8 F 88 22 104/84 98 06/18/24 12:00 88 06/18/24 11:04 90 26 H 103/74 96 06/18/24 10:01 96 H 21 99/75 95 06/18/24 09:01 81 23 91/60 94 L 06/18/24 08:41 85 22 95 06/18/24 08:02 96.3 F 103 H 27 H 108/84 95 06/18/24 08:00 82 06/18/24 07:04 98 06/18/24 07:01 88 23 117/64 95 06/18/24 06:01 98 H 22 95/75 98 06/18/24 05:00 87 28 H 89/68 96 06/18/24 04:01 97.5 F 93 H 30 H 104/84 92 L 06/18/24 04:00 93 H 06/18/24 03:02 81 25 H 87/65 97 06/18/24 03:00 79 21 85/66 97 06/18/24 02:00 84 21 81/55 96 06/18/24 01:00 83 23 87/68 93 L 06/18/24 00:01 91 H 06/18/24 00:00 97.6 F 91 H 27 H 96/72 95 06/17/24 23:00 98 H 25 H 103/83 92 L 06/17/24 22:01 92 H 27 H 102/68 94 L 06/17/24 21:00 101 H 27 H 118/61 95 06/17/24 20:00 99.2 F 93 H 30 H 109/47 95 06/17/24 19:36 96 H 27 H 117/85 94 L 06/17/24 19:30 95 H 33 H 96 06/17/24 19:00 104 H 27 H 97 06/17/24 18:58 97 06/17/24 18:30 107 H 18 95 06/17/24 18:10 106 H 15 91 L 06/17/24 17:01 85 33 H 102/66 97 06/17/24 16:00 95 H 18 117/74 95 06/17/24 15:00 85 26 H 90/57 93 L 06/17/24 14:00 85 30 H 89/62 06/17/24 13:00 83 25 H 99/66 Pain Assessment - Last Documented Pain Intensity 0 Pain Scale Used 0-10 Pain Scale Intake and Output: Intake & Output 06/16/24 06/17/24 06/18/24 06/19/24 11:59 11:59 11:59 11:59 Intake Total 1014 1122 Output Total 600 7443 1700 250 Balance -600 -406 -578 -250 Weight 188.9 kg 185 kg 185.5 kg Lab Results: Lab Results-Last 24 Hours 06/17/24 06/17/24 06/17/24 Range/Units 16:05 19:11 22:23 WBC (4.23-9.07) x10^3/uL RBC (4.63-6.08) x10^6/uL Hgb (13.7-17.5) g/dL Hct (40.1-51.0) % MCV (79.0-92.2) fL MCH (25.7-32.2) pg MCHC (32.3-36.5) g/dL RDW (11.6-14.4) % Plt Count (163-337) x10^3/uL MPV (9.4-12.4) fL Sodium 137 (135-145) mmol/L Potassium 4.4 (3.5-5.1) mmol/L Chloride 96 L (98-107) mmol/L Carbon Dioxide 30 (22-30) mmol/L Anion Gap 15.6 H (5-15) MEQ/L BUN 33 H (9-20) mg/dL Creatinine 1.64 H (0.66-1.25) mg/dL Estimated GFR 49.4 ML/MIN Glucose 129 H (74-106) mg/dL POC Glucometer 125 H 116 H (74 to 106) mg/dL Calcium 8.9 (8.4-10.2) mg/dL Magnesium 2.1 (1.6-2.3) mg/dL Total Bilirubin 0.80 (0.2-1.3) mg/dL AST 73 H (17-59) U/L ALT 52 H (0-50) U/L Alkaline Phosphatase 93 (38-126) U/L Serum Total Protein 8.4 H (6.3-8.2) g/dL Albumin 4.3 (3.5-5.0) g/dL 06/18/24 06/18/24 06/18/24 Range/Units 04:40 04:40 07:10 WBC 14.1 H (4.23-9.07) x10^3/uL RBC 5.22 (4.63-6.08) x10^6/uL Hgb 12.9 L (13.7-17.5) g/dL Hct 42.5 (40.1-51.0) % MCV 81.4 (79.0-92.2) fL MCH 24.7 L (25.7-32.2) pg MCHC 30.4 L (32.3-36.5) g/dL RDW 19.1 H (11.6-14.4) % Plt Count 631 H (163-337) x10^3/uL MPV 12.0 (9.4-12.4) fL Sodium 136 (135-145) mmol/L Potassium 4.4 (3.5-5.1) mmol/L Chloride 99 (98-107) mmol/L Carbon Dioxide 28 (22-30) mmol/L Anion Gap 13.7 (5-15) MEQ/L BUN 35 H (9-20) mg/dL Creatinine 1.57 H (0.66-1.25) mg/dL Estimated GFR 52.1 ML/MIN Glucose 115 H (74-106) mg/dL POC Glucometer 105 (74 to 106) mg/dL Calcium 8.6 (8.4-10.2) mg/dL Magnesium 2.1 (1.6-2.3) mg/dL Total Bilirubin 0.90 (0.2-1.3) mg/dL AST 62 H (17-59) U/L ALT 46 (0-50) U/L Alkaline Phosphatase 88 (38-126) U/L Serum Total Protein 8.2 (6.3-8.2) g/dL Albumin 4.1 (3.5-5.0) g/dL 06/18/24 Range/Units 11:34 WBC (4.23-9.07) x10^3/uL RBC (4.63-6.08) x10^6/uL Hgb (13.7-17.5) g/dL Hct (40.1-51.0) % MCV (79.0-92.2) fL MCH (25.7-32.2) pg MCHC (32.3-36.5) g/dL RDW (11.6-14.4) % Plt Count (163-337) x10^3/uL MPV (9.4-12.4) fL Sodium (135-145) mmol/L Potassium (3.5-5.1) mmol/L Chloride (98-107) mmol/L Carbon Dioxide (22-30) mmol/L Anion Gap (5-15) MEQ/L BUN (9-20) mg/dL Creatinine (0.66-1.25) mg/dL Estimated GFR ML/MIN Glucose (74-106) mg/dL POC Glucometer 138 H (74 to 106) mg/dL Calcium (8.4-10.2) mg/dL Magnesium (1.6-2.3) mg/dL Total Bilirubin (0.2-1.3) mg/dL AST (17-59) U/L ALT (0-50) U/L Alkaline Phosphatase (38-126) U/L Serum Total Protein (6.3-8.2) g/dL Albumin (3.5-5.0) g/dL Radiology Exams: Radiology Procedures Category Date Time Status ECHO W/2D AND DOPPLER [US] Stat Exams 06/16/24 14:38 Taken Assessment/Plan (1) Atrial fibrillation with RVR Current Visit: Yes Status: Acute Code(s): I48.91 - UNSPECIFIED ATRIAL FIBRILLATION (2) CHF exacerbation Current Visit: Yes Status: Acute Code(s): I50.9 - HEART FAILURE, UNSPECIFIED (3) Anasarca Current Visit: Yes Status: Acute Code(s): R60.1 - GENERALIZED EDEMA (4) Splenomegaly Current Visit: Yes Status: Acute Code(s): R16.1 - SPLENOMEGALY, NOT ELSEWHERE CLASSIFIED (5) Dyspnea Current Visit: Yes Status: Acute Code(s): R06.00 - DYSPNEA, UNSPECIFIED (6) Noncompliance with medication regimen Current Visit: Yes Status: Acute Code(s): Z91.148 - PATIENT'S OTHER NONCOMPL WITH MEDS REGIMEN FOR OTHER REASON (7) HTN (hypertension) Current Visit: No Status: Chronic Code(s): I10 - ESSENTIAL (PRIMARY) HYPERTENSION (8) Liver cirrhosis Current Visit: No Status: Chronic (9) Morbid obesity with BMI of 50.0-59.9, adult Current Visit: Yes Status: Chronic Assessment & Plan: (1) Atrial fibrillation with RVR Current Visit: Yes Status: Acute Assessment & Plan: - Echo done 09/20/23: estimated 55 to 60%. IMPRESSION: 1) TECHNICALLY DIFFICULT ECHOCARDIOGRAM. 2) NORMAL CONTRACTILITY OF THE LEFT VENTRICLE. 3) BORDERLINE CONCENTRIC LEFT VENTRICULAR HYPERTROPHY. 4) NO THROMBUS IS NOTED. 5) MILD LEFT ATRIAL DILATATION. 6) RIGHT ATRIAL DILATATION. 7) DILATED RIGHT VENTRICLE. 8) RIGHT VENTRICULAR SYSTOLIC DYSFUNCTION. - Started on cardizem gtt in ER- BP unable to handle - stop - IV fluids started in ER- stopped on floor d/t anasarca - Start Amiodarone Gtt - Echo stat - cardiology consulted- stat - + drug use hx consider lower EF 06/17 - cardiology note reviewed and agree with plan of care - EF 57%- echo reviewed - Changed heparin to Eliquis this AM. - Continue lasix gtt - Metoprolol 25mg q6 - Trop x3 negative - Amio gtt- continued- A-fib controlled - Amio gtt stopped per cardiology 06/18 - Amio PO started per cardiology - Lasix gtt increased to 20 ml/hr Code(s): I48.91 - UNSPECIFIED ATRIAL FIBRILLATION (2) CHF exacerbation Current Visit: Yes Status: Acute Assessment & Plan: - Echo and Cardiology consult- stat - Noncompliant with home meds, states just did not want to take them. - Has seen Dr. Foley with cardiology in the past - Previous echo reviewed 06/17 - SEE ABOVE PLAN Code(s): I50.9 - HEART FAILURE, UNSPECIFIED (3) Anasarca Current Visit: Yes Status: Acute Assessment & Plan: - 2:2 CHF - Lasix gtt started - Aldridge in place d/t needing hourly I&O's - daily weight - fluid restriction 06/17 - wt gain this am - lasix gtt increased to 10ml/hr 06/18 - Lasix gtt increased to 20 ml/hr Code(s): R60.1 - GENERALIZED EDEMA (4) Splenomegaly Current Visit: Yes Status: Acute Assessment & Plan: - as seen on CT - mono screen - Platelets 592 - likely 2;2 Cirrhosis of the liver which is chronic per pt - mono test positive Code(s): R16.1 - SPLENOMEGALY, NOT ELSEWHERE CLASSIFIED (5) Dyspnea Current Visit: Yes Status: Acute Assessment & Plan: - RA 97% - 2:2 CHF, A-fib RVR, Anascarca 06/17 - improving- now RA 94% 06/18 - Xoponex started Q6 for wheezing - Consider CXR Code(s): R06.00 - DYSPNEA, UNSPECIFIED (6) Noncompliance with medication regimen Current Visit: Yes Status: Acute Assessment & Plan: - Advised will likely need close f/u OP - advised medication compliance or likely to be readmitted Code(s): Z91.148 - PATIENT'S OTHER NONCOMPL WITH MEDS REGIMEN FOR OTHER REASON (7) HTN (hypertension) Current Visit: No Status: Chronic Assessment & Plan: - Hold BP med if BP unstable - monitor 06/17 - hold lisinopril - continue metoprolol Q6 Code(s): I10 - ESSENTIAL (PRIMARY) HYPERTENSION (8) Liver cirrhosis Current Visit: No Status: Chronic Assessment & Plan: - chronic per pt from ETOH use- reports has not drank in 18 months (9) Morbid obesity with BMI of 50.0-59.9, adult Current Visit: Yes Status: Chronic Assessment & Plan: - advised ADA diet and exercise control VTE: Heparin Next of KIN: Javier Hoover, D/C plan: 2 days Code status: Full Code(s): E66.01 - MORBID (SEVERE) OBESITY DUE TO EXCESS CALORIES; Z68.43 - BODY MASS INDEX [BMI] 50.0-59.9, ADULT Code(s): E66.01 - MORBID (SEVERE) OBESITY DUE TO EXCESS CALORIES; Z68.43 - BODY MASS INDEX [BMI] 50.0-59.9, ADULT
[2024-06-18 19:19] LABS: ALBUMIN 4.2 g/dL (3.5-5.0); ANION GAP 14.1 MEQ/L (5-15); Calcium 8.6 mg/dL (8.4-10.2); Creatinine 1 1.46 mg/dL (0.66-1.25); EST GLOMERULAR FILTRATION RATE 56.8 ML/MIN; MAGNESIUM 1.9 mg/dL (1.6-2.3); Potassium 3.8 mmol/L (3.5-5.1); Total Protein 8.3 g/dL (6.3-8.2)
[2024-06-19 04:25] LABS: Hematocrit 42.4 % (40.1-51.0); Hemoglobin 13.1 g/dL (13.7-17.5); Mean Corpuscular Hemoglobin 24.7 pg (25.7-32.2); Mean Corpuscular Hgb Concent. 30.9 g/dL (32.3-36.5); Mean Platelet Volume 11.6 fL (9.4-12.4); Platelet Count 606 x10^3/uL (163-337); Red Cell Distribution Width 18.9 % (11.6-14.4); White Blood Count 13.7 x10^3/uL (4.23-9.07)
[2024-06-19 04:42] LABS: ANION GAP 11.6 MEQ/L (5-15); Calcium 8.7 mg/dL (8.4-10.2); Creatinine 1 1.51 mg/dL (0.66-1.25); EST GLOMERULAR FILTRATION RATE 54.6 ML/MIN; MAGNESIUM 1.9 mg/dL (1.6-2.3); Total Protein 8.2 g/dL (6.3-8.2)
[2024-06-19] MEDS ORDERED: OXYCODONE-ACETAMINOPHEN 10-325 PO PRN (07:57)
--- NOTE | 2024-06-19 08:26 | PCM.NOTE ---
Date and Time: 06/19/24816 Subjective Assessment: 06/16/24 is a 54 year old male with PMHX of drug use, smoker that stopped 18 months ago, cirrhosis of the liver, COPD, emphysema, multiple strokes, type II DM, anxiety, bipolar, depression, gout, CHF, and morbid obesity. He admits to being non-compliant with meds and has not seen his lapel stitcher in quite some time. He states he does take BP meds and ASA daily. He came in to the urgent care center with complaints of shortness of breath today that have progressivley been getting worse for 3 days now. He did not want to come in prior to today as it was [birth year] birthday he reports. He was sent to our facility emergency department secondary to his complaint of shortness of breath and weight gain. Patient is a poor historian not knowing his medications and also not knowing who his lapel stitcher is. He has diffuse anasarca. He is RA 97%. He was started on Cardizem gtt in ER for a-fib RVR. HR currently 110's. He was also started in IVF in ER as BP began to drop. IVF stopped immediately when arrived to the floor. Stat Echo and cardiology consult ordered. Since he has a hx of drug use suspicio n for low EF. Lasix gtt started. D-Dimer 1.54- CT negative for PE. However does show confirmed anascarca, cirrhotic liver, and splenomegly. Aldridge placed in the ER and will continue with Q 1 hour I&O's as he is very SOB with any movement. He denies CP, N/V/D. 06/17/24 Pt sitting up in chair today. He is C/o scrotal edema and abd distention. He is having decreased urine output last night and this am. Lasix gtt increased to 10. [place] test came back +. 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 He feels his sxs are related to this. A1C 6.56 will need Metformin started at d/c. He continues to be on amiodarone gtt. HR controlled in a-fib. Plan is to continue with diuresis. He denies CP, SOB, N/V/D. 06/18/24 Pt sitting up in chair. He remains in ICU on Lasix gtt. Discussed pt case with cardiology and he advised to increase Lasix gtt to 20 and keep another 2 days. Pt continues to be in a-fib but controlled. Amiodarone changed to oral today per cardiology recs. Amiodarone gtt stopped yesterday evening per cardiology. Creat improving. LFT's improving. He does have some wheezing today and Xoponex started. He continues to c/o testicle edema and drainage with pain. Encouraged pt and nursing to continue provide scrotal sling/support. WBC elevated, procal ordered. May need repeat CXR. Denies CP, N/V/D. 06/19/24 Pt resting in chair. He did sleep there overnight as it was more comfortable for his scrotal swelling. He asked that pain medication be increased as he is still very uncomfortable with [place] 5mg Q6. Medication changed to Percocet 5mg Q6 PRN. He had 2025 ml out yesterday and lost 4kg. Will continue Lasix gtt.. Rhythm continues to be in A-fib but controlled. WBC improved. Procal negative. No wheezing this AM. He denies CP, SOB, Abd. pain, N/V/D. <MARIAN CEBALLOS - Last Filed: 06/19/24 08:17> Date and Time: 06/19/24 8750 <LILY ARMSTRONG - Last Filed: 06/19/24 23:41> - Review of Systems Constitutional: No Fever, No Chills Eyes: No Symptoms Ears, Nose, & Throat: No Symptoms Respiratory: No Cough, No Short Of Breath Cardiac: Edema (generalized), No Chest Pain, No Syncope Abdominal/Gastrointestinal: No Abdominal Pain, No Nausea, No Vomiting, No Diarrhea Genitourinary Symptoms: No Dysuria Musculoskeletal: No Back Pain, No Neck Pain Skin: No Rash Neurological: No Dizziness, No Focal Weakness, No Sensory Changes Psychological: No Symptoms Endocrine: No Symptoms Hematologic/Lymphatic: No Symptoms Immunological/Allergic: No Symptoms <MARIAN CEBALLOS - Last Filed: 06/19/24 08:17> Objective Exam General Appearance: no apparent distress, alert, obese Neurologic Exam: alert, oriented x 3, cooperative, normal mood/affect, nml cerebellar function, sensation nml, No motor deficits Skin Exam: normal color, warm, dry Eye Exam: PERRL, EOMI, eyes nml inspection Ears, Nose, Throat Exam: normal ENT inspection, pharynx normal, moist mucous membranes Neck Exam: normal inspection, non-tender, supple, full range of motion Respiratory Exam: normal breath sounds, lungs clear, No respiratory distress Cardiovascular Exam: normal heart sounds, irregular, edema Gastrointestinal/Abdomen Exam: soft, No tenderness, No mass Extremity Exam: normal inspection, normal range of motion Back Exam: normal inspection, normal range of motion, No CVA tenderness, No vertebral tenderness Male Genitalia Exam: testicular tenderness (and edema) Rectal Exam: deferred <MARIAN CEBALLOS - Last Filed: 06/19/24 08:17> Objective Data Vital Signs: Vital Signs - 24 hr Temp Pulse Resp BP Pulse Ox 06/19/24 08:01 98.0 F 98 H 15 102/74 97 06/19/24 08:00 104 H 06/19/24 07:00 92 H 20 109/82 94 L 06/19/24 06:00 95 H 14 110/80 97 06/19/24 05:00 100 H 20 124/88 97 06/19/24 04:50 102 H 23 97 06/19/24 04:40 101 H 13 95 06/19/24 04:30 96 H 18 100 06/19/24 04:20 95 H 17 96 06/19/24 04:10 99 H 26 H 97 06/19/24 04:01 97.8 F 108 H 13 95 06/19/24 04:00 108 H 06/19/24 03:00 104 H 13 102/83 93 L 06/19/24 02:01 86 21 97/67 94 L 06/19/24 01:00 87 24 106/61 93 L 06/19/24 00:01 98.4 F 94 H 18 93/78 92 L 06/18/24 23:00 105 H 17 105/80 97 06/18/24 22:04 109 H 21 104/80 99 06/18/24 22:00 121 H 21 96 06/18/24 21:50 92 H 24 97 06/18/24 21:40 109 H 27 H 96 06/18/24 21:30 99 H 21 97 06/18/24 21:20 108 H 26 H 97 06/18/24 21:10 107 H 22 90 L 06/18/24 21:02 102 H 26 H 96 06/18/24 20:00 97.8 F 105 H 18 129/75 99 06/18/24 19:30 106 H 22 98 06/18/24 19:01 96 H 27 H 108/79 96 06/18/24 18:04 107 H 26 H 130/66 99 06/18/24 17:04 94 H 24 102/81 98 06/18/24 16:01 98.0 F 91 H 19 114/90 93 L 06/18/24 16:00 92 H 06/18/24 15:01 81 19 101/68 95 06/18/24 14:00 88 20 112/85 96 06/18/24 13:15 78 25 H 95 06/18/24 13:01 96 H 17 126/81 97 06/18/24 12:01 97.8 F 88 22 104/84 98 06/18/24 12:00 88 06/18/24 11:04 90 26 H 103/74 96 06/18/24 10:01 96 H 21 99/75 95 06/18/24 09:01 81 23 91/60 94 L 06/18/24 08:41 85 22 95 Pain Assessment - Last Documented Pain Intensity 10 Pain Scale Used [facility] Intake and Output: Intake & Output 06/16/24 06/17/24 06/18/24 06/19/24 11:59 11:59 11:59 11:59 Intake Total 1014 1264 1407 Output Total 600 1420 1700 5900 Balance -814 -079 -174 -4790 Weight 188.9 kg 185 kg 185.5 kg 181.976 kg Lab Results: Lab Results-Last 24 Hours 06/18/24 06/18/24 06/18/24 Range/Units 04:40 04:40 11:34 WBC 14.1 H (4.23-9.07) x10^3/uL RBC 5.22 (4.63-6.08) x10^6/uL Hgb 12.9 L (13.7-17.5) g/dL Hct 42.5 (40.1-51.0) % MCV 81.4 (79.0-92.2) fL MCH 24.7 L (25.7-32.2) pg MCHC 30.4 L (32.3-36.5) g/dL RDW 19.1 H (11.6-14.4) % Plt Count 631 H (163-337) x10^3/uL MPV 12.0 (9.4-12.4) fL Sodium (135-145) mmol/L Potassium (3.5-5.1) mmol/L Chloride (98-107) mmol/L Carbon Dioxide (22-30) mmol/L Anion Gap (5-15) MEQ/L BUN (9-20) mg/dL Creatinine (0.66-1.25) mg/dL Estimated GFR ML/MIN Glucose (74-106) mg/dL POC Glucometer 138 H (74 to 106) mg/dL Calcium (8.4-10.2) mg/dL Magnesium (1.6-2.3) mg/dL Total Bilirubin (0.2-1.3) mg/dL AST (17-59) U/L ALT (0-50) U/L Alkaline Phosphatase (38-126) U/L Serum Total Protein (6.3-8.2) g/dL Albumin (3.5-5.0) g/dL Procalcitonin 0.074 (0.030-0.080) ng/mL 06/18/24 06/18/24 06/18/24 Range/Units 16:04 19:00 22:09 WBC (4.23-9.07) x10^3/uL RBC (4.63-6.08) x10^6/uL Hgb (13.7-17.5) g/dL Hct (40.1-51.0) % MCV (79.0-92.2) fL MCH (25.7-32.2) pg MCHC (32.3-36.5) g/dL RDW (11.6-14.4) % Plt Count (163-337) x10^3/uL MPV (9.4-12.4) fL Sodium 137 (135-145) mmol/L Potassium 3.8 (3.5-5.1) mmol/L Chloride 97 L (98-107) mmol/L Carbon Dioxide 30 (22-30) mmol/L Anion Gap 14.1 (5-15) MEQ/L BUN 35 H (9-20) mg/dL Creatinine 1.46 H (0.66-1.25) mg/dL Estimated GFR 56.8 ML/MIN Glucose 160 H (74-106) mg/dL POC Glucometer 114 H 124 H (74 to 106) mg/dL Calcium 8.6 (8.4-10.2) mg/dL Magnesium 1.9 (1.6-2.3) mg/dL Total Bilirubin 1.00 (0.2-1.3) mg/dL AST 62 H (17-59) U/L ALT 47 (0-50) U/L Alkaline Phosphatase 102 (38-126) U/L Serum Total Protein 8.3 H (6.3-8.2) g/dL Albumin 4.2 (3.5-5.0) g/dL Procalcitonin (0.030-0.080) ng/mL 06/19/24 06/19/24 06/19/24 Range/Units 04:20 04:20 07:45 WBC 13.7 H (4.23-9.07) x10^3/uL RBC 5.30 (4.63-6.08) x10^6/uL Hgb 13.1 L (13.7-17.5) g/dL Hct 42.4 (40.1-51.0) % MCV 80.0 (79.0-92.2) fL MCH 24.7 L (25.7-32.2) pg MCHC 30.9 L (32.3-36.5) g/dL RDW 18.9 H (11.6-14.4) % Plt Count 606 H (163-337) x10^3/uL MPV 11.6 (9.4-12.4) fL Sodium 138 (135-145) mmol/L Potassium 4.0 (3.5-5.1) mmol/L Chloride 96 L (98-107) mmol/L Carbon Dioxide 34 H (22-30) mmol/L Anion Gap 11.6 (5-15) MEQ/L BUN 34 H (9-20) mg/dL Creatinine 1.51 H (0.66-1.25) mg/dL Estimated GFR 54.6 ML/MIN Glucose 114 H (74-106) mg/dL POC Glucometer 103 (74 to 106) mg/dL Calcium 8.7 (8.4-10.2) mg/dL Magnesium 1.9 (1.6-2.3) mg/dL Total Bilirubin 1.00 (0.2-1.3) mg/dL AST 64 H (17-59) U/L ALT 46 (0-50) U/L Alkaline Phosphatase 95 (38-126) U/L Serum Total Protein 8.2 (6.3-8.2) g/dL Albumin 4.0 (3.5-5.0) g/dL Procalcitonin (0.030-0.080) ng/mL Multi-Disciplinary Progress Notes: Multi-Disciplinary Progress Notes 06/18/24 16:29 Case Management Note by Kendra Smith NO CHANGE IN DC PLANS AT THIS TIME Initialized on 06/18/24 16:29 - END OF NOTE <MARIAN CEBALLOS - Last Filed: 06/19/24 08:17> Vital Signs: Vital Signs - 24 hr Temp Pulse Resp BP Pulse Ox 06/19/24 23:09 99 H 24 99/72 96 06/19/24 23:00 94 H 23 117/99 96 06/19/24 22:00 96 H 18 125/78 98 06/19/24 21:02 104 H 22 112/78 96 06/19/24 20:01 98.3 F 100 H 14 98/63 96 06/19/24 20:00 104 H 06/19/24 19:01 116 H 26 H 97 06/19/24 18:40 106 H 18 98 06/19/24 18:12 98.2 F 103 H 28 H 118/84 98 06/19/24 17:01 101 H 17 111/78 06/19/24 16:00 92 H 23 117/78 98 06/19/24 15:00 85 18 99/80 99 06/19/24 14:00 89 26 H 113/74 97 06/19/24 13:00 99 H 14 108/65 96 06/19/24 12:36 98 H 14 96 06/19/24 12:00 97.8 F 94 H 23 105/86 94 L 06/19/24 11:38 95 H 21 116/85 96 06/19/24 11:02 103 H 22 95 06/19/24 10:00 107 H 21 106/83 06/19/24 09:01 103 H 21 115/64 94 L 06/19/24 08:01 98.0 F 98 H 15 102/74 97 06/19/24 08:00 104 H 06/19/24 07:00 92 H 20 109/82 94 L 06/19/24 06:00 95 H 14 110/80 97 06/19/24 05:00 100 H 20 124/88 97 06/19/24 04:50 102 H 23 97 06/19/24 04:40 101 H 13 95 06/19/24 04:30 96 H 18 100 06/19/24 04:20 95 H 17 96 06/19/24 04:10 99 H 26 H 97 06/19/24 04:01 97.8 F 108 H 13 95 06/19/24 04:00 108 H 06/19/24 03:00 104 H 13 102/83 93 L 06/19/24 02:01 86 21 97/67 94 L 06/19/24 01:00 87 24 106/61 93 L 06/19/24 00:01 98.4 F 94 H 18 93/78 92 L Pain Assessment - Last Documented Pain Intensity 7 Pain Scale Used 0-10 Pain Scale Intake and Output: Intake & Output 06/17/24 06/18/24 06/19/24 06/20/24 11:59 11:59 11:59 11:59 Intake Total 1014 1264 1622 1189 Output Total 1420 1700 9230 5289 [facility] -263 -129 -5624 -3232 Weight 185 kg 185.5 kg 181.976 kg Lab Results: Lab Results-Last 24 Hours 06/19/24 06/19/24 06/19/24 Range/Units 04:20 04:20 07:45 WBC 13.7 H (4.23-9.07) x10^3/uL RBC 5.30 (4.63-6.08) x10^6/uL Hgb 13.1 L (13.7-17.5) g/dL Hct 42.4 (40.1-51.0) % MCV 80.0 (79.0-92.2) fL MCH 24.7 L (25.7-32.2) pg MCHC 30.9 L (32.3-36.5) g/dL RDW 18.9 H (11.6-14.4) % Plt Count 606 H (163-337) x10^3/uL MPV 11.6 (9.4-12.4) fL Sodium 138 (135-145) mmol/L Potassium 4.0 (3.5-5.1) mmol/L Chloride 96 L (98-107) mmol/L Carbon Dioxide 34 H (22-30) mmol/L Anion Gap 11.6 (5-15) MEQ/L BUN 34 H (9-20) mg/dL Creatinine 1.51 H (0.66-1.25) mg/dL Estimated GFR 54.6 ML/MIN Glucose 114 H (74-106) mg/dL POC Glucometer 103 (74 to 106) mg/dL Calcium 8.7 (8.4-10.2) mg/dL Magnesium 1.9 (1.6-2.3) mg/dL Total Bilirubin 1.00 (0.2-1.3) mg/dL AST 64 H (17-59) U/L ALT 46 (0-50) U/L Alkaline Phosphatase 95 (38-126) U/L Serum Total Protein 8.2 (6.3-8.2) g/dL Albumin 4.0 (3.5-5.0) g/dL 06/19/24 06/19/24 06/19/24 Range/Units 11:36 15:40 17:11 WBC (4.23-9.07) x10^3/uL RBC (4.63-6.08) x10^6/uL Hgb (13.7-17.5) g/dL Hct (40.1-51.0) % MCV (79.0-92.2) fL MCH (25.7-32.2) pg MCHC (32.3-36.5) g/dL RDW (11.6-14.4) % Plt Count (163-337) x10^3/uL MPV (9.4-12.4) fL Sodium 140 (135-145) mmol/L Potassium 3.5 (3.5-5.1) mmol/L Chloride 97 L (98-107) mmol/L Carbon Dioxide 34 H (22-30) mmol/L Anion Gap 12.4 (5-15) MEQ/L BUN 34 H (9-20) mg/dL Creatinine 1.32 H (0.66-1.25) mg/dL Estimated GFR 64.1 ML/MIN Glucose 141 H (74-106) mg/dL POC Glucometer 166 H 106 (74 to 106) mg/dL Calcium 8.6 (8.4-10.2) mg/dL Magnesium 2.0 (1.6-2.3) mg/dL Total Bilirubin 0.80 (0.2-1.3) mg/dL AST 55 (17-59) U/L ALT 44 (0-50) U/L Alkaline Phosphatase 87 (38-126) U/L Serum Total Protein 8.0 (6.3-8.2) g/dL Albumin 3.9 (3.5-5.0) g/dL 06/19/24 Range/Units 22:06 WBC (4.23-9.07) x10^3/uL RBC (4.63-6.08) x10^6/uL Hgb (13.7-17.5) g/dL Hct (40.1-51.0) % MCV (79.0-92.2) fL MCH (25.7-32.2) pg MCHC (32.3-36.5) g/dL RDW (11.6-14.4) % Plt Count (163-337) x10^3/uL MPV (9.4-12.4) fL Sodium (135-145) mmol/L Potassium (3.5-5.1) mmol/L Chloride (98-107) mmol/L Carbon Dioxide (22-30) mmol/L Anion Gap (5-15) MEQ/L BUN (9-20) mg/dL Creatinine (0.66-1.25) mg/dL Estimated GFR ML/MIN Glucose (74-106) mg/dL POC Glucometer 135 H (74 to 106) mg/dL Calcium (8.4-10.2) mg/dL Magnesium (1.6-2.3) mg/dL Total Bilirubin (0.2-1.3) mg/dL AST (17-59) U/L ALT (0-50) U/L Alkaline Phosphatase (38-126) U/L Serum Total Protein (6.3-8.2) g/dL Albumin (3.5-5.0) g/dL Multi-Disciplinary Progress Notes: Multi-Disciplinary Progress Notes 06/19/24 19:44 Respiratory Note by Serina Guerra Patient refused treatment this evening and does not want treatment at 0100 either. He stated "He is too dry". Nurse notified. No apparent distress or difficulty breathing at this time. Instructed to call if needed. Initialized on 06/19/24 19:44 - END OF NOTE 06/19/24 10:50 Case Management Note by Kendra Smith S/W PATIENT- HE DENIES ANY NEW NEEDS AT TIME OF DC. HE REPORTS HE IS VERY ACTIVE SO HHC WOULD NOT BE APPROPRIATE. PATIENT REPORTS HE DOES HIS MEDS WELL HIMSELF. HE PLANS TO DC HOME TO HIS PLF Initialized on 06/19/24 10:50 - END OF NOTE <LILY ARMSTRONG - Last Filed: 06/19/24 23:41> Assessment/Plan (1) Atrial fibrillation with RVR Current Visit: Yes Status: Acute Code(s): I48.91 - UNSPECIFIED ATRIAL FIBRILLATION (2) CHF exacerbation Current Visit: Yes Status: Acute Code(s): I50.9 - HEART FAILURE, UNSPECIFIED (3) Anasarca Current Visit: Yes Status: Acute Code(s): R60.1 - GENERALIZED EDEMA (4) Splenomegaly Current Visit: Yes Status: Acute Code(s): R16.1 - SPLENOMEGALY, NOT ELSEWHERE CLASSIFIED (5) Dyspnea Current Visit: Yes Status: Acute Code(s): R06.00 - DYSPNEA, UNSPECIFIED (6) Noncompliance with medication regimen Current Visit: Yes Status: Acute Code(s): Z91.148 - PATIENT'S OTHER NONCOMPL WITH MEDS REGIMEN FOR OTHER REASON (7) HTN (hypertension) Current Visit: No Status: Chronic Code(s): I10 - ESSENTIAL (PRIMARY) HYPERTENSION (8) Liver cirrhosis Current Visit: No Status: Chronic (9) Morbid obesity with BMI of 50.0-59.9, adult Current Visit: Yes Status: Chronic Assessment & Plan: (1) Atrial fibrillation with RVR Current Visit: Yes Status: Acute Assessment & Plan: - Echo done 09/20/23: estimated 55 to 60%. IMPRESSION: 1) TECHNICALLY DIFFICULT ECHOCARDIOGRAM. 2) NORMAL CONTRACTILITY OF THE LEFT VENTRICLE. 3) BORDERLINE CONCENTRIC LEFT VENTRICULAR HYPERTROPHY. 4) NO THROMBUS IS NOTED. 5) MILD LEFT ATRIAL DILATATION. 6) RIGHT ATRIAL DILATATION. 7) DILATED RIGHT VENTRICLE. 8) RIGHT VENTRICULAR SYSTOLIC DYSFUNCTION. - Started on cardizem gtt in ER- BP unable to handle - stop - IV fluids started in ER- stopped on floor d/t anasarca - Start Amiodarone Gtt - Echo stat - cardiology consulted- stat - + drug use hx consider lower EF 06/17 - cardiology note reviewed and agree with plan of care - EF 57%- echo reviewed - Changed heparin to Eliquis this AM. - Continue lasix gtt - Metoprolol 25mg q6 - Trop x3 negative - Amio gtt- continued- A-fib controlled - Amio gtt stopped per cardiology 06/18 - Amio PO started per cardiology - Lasix gtt increased to 20 ml/hr 06/19 - Cont. lasix gtt - 4kg weight loss and 2025ml out yesterday - edema improving overall Code(s): I48.91 - UNSPECIFIED ATRIAL FIBRILLATION (2) CHF exacerbation Current Visit: Yes Status: Acute Assessment & Plan: - Echo and Cardiology consult- stat - Noncompliant with home meds, states just did not want to take them. - Has seen Dr. Foley with cardiology in the past - Previous echo reviewed 06/17 - SEE ABOVE PLAN Code(s): I50.9 - HEART FAILURE, UNSPECIFIED (3) Anasarca Current Visit: Yes Status: Acute Assessment & Plan: - 2:2 CHF - Lasix gtt started - [place] in place d/t needing hourly I&O's - daily weight - fluid restriction 06/17 - wt gain this am - lasix gtt increased to 10ml/hr 06/18 - Lasix gtt increased to 20 ml/hr 06/19 - continue lasix gtt - changed narcotic pain med to Percocet 5mg Q6 PRN for testicular edema and discomfort not controlled by [place] 5mg Q6 PRN Code(s): R60.1 - GENERALIZED EDEMA (4) Splenomegaly Current Visit: Yes Status: Acute Assessment & Plan: - as seen on CT - mono screen - Platelets 592 - likely 2;2 Cirrhosis of the liver which is chronic per pt - mono test positive Code(s): R16.1 - SPLENOMEGALY, NOT ELSEWHERE CLASSIFIED (5) Dyspnea Current Visit: Yes Status: Acute Assessment & Plan: - RA 97% - 2:2 CHF, A-fib RVR, Anascarca 06/17 - improving- now RA 94% 06/18 - Xoponex started Q6 for wheezing - Consider CXR 06/19 - procal negative - no wheezing today Code(s): R06.00 - DYSPNEA, UNSPECIFIED (6) Noncompliance with medication regimen Current Visit: Yes Status: Acute Assessment & Plan: - Advised will likely need close f/u OP - advised medication compliance or likely to be readmitted Code(s): Z91.148 - PATIENT'S OTHER NONCOMPL WITH MEDS REGIMEN FOR OTHER REASON (7) HTN (hypertension) Current Visit: No Status: Chronic Assessment & Plan: - Hold BP med if BP unstable - monitor 06/17 - hold lisinopril - continue metoprolol Q6 Code(s): I10 - ESSENTIAL (PRIMARY) HYPERTENSION (8) Liver cirrhosis Current Visit: No Status: Chronic Assessment & Plan: - chronic per pt from ETOH use- reports has not drank in 18 months (9) Morbid obesity with BMI of 50.0-59.9, adult Current Visit: Yes Status: Chronic Assessment & Plan: - advised ADA diet and exercise control VTE: Heparin Next of KIN: Javier Hoover, D/C plan: 1-2 days Code status: Full Code(s): E66.01 - MORBID (SEVERE) OBESITY DUE TO EXCESS CALORIES; Z68.43 - BODY MASS INDEX [BMI] 50.0-59.9, ADULT Code(s): E66.01 - MORBID (SEVERE) OBESITY DUE TO EXCESS CALORIES; Z68.43 - BODY MASS INDEX [BMI] 50.0-59.9, ADULT <MARIAN CEBALLOS - Last Filed: 06/19/24 08:17> MICHELLE Encounter - MICHELLE Encounter Attestation MICHELLE Encounter Attestation: "IhcarolpersonallysADRIANNA Lucas andhavediscussed pertinent aspects of their care with Marian Cuellar agree with the history, physical exam (any modifications based on my personal exam will be noted below), assessment, and plan as outlined in original note. Please see immediately below for my summary of findings and additional assessment and plan along with any meaningful corrections/explanations to the Subjective/Objective portions of the MICHELLE note will be noted." My portion of the encounter took place via telemedicine. -Patient still with significant penile and scrotal swelling, lower abdominal swelling and less than 2L net negative in the past 24 hours. Breathing is better however. Increase lasix drip to 30 mg/hr <LILY ARMSTRONG - Last Filed: 06/19/24 23:41>
[2024-06-19] MEDS: PERCOCET TABLET 5/325MG PO PRN (08:27)
--- NOTE | 2024-06-19 13:28 | PCM.NOTE ---
Date and Time: 06/19/24 1325 Subjective Assessment: No acute events overnight. Patient remains in afib but rate controlled. - Review of Systems Constitutional: Other (No new complaints overnight.) Objective Exam Neurologic Exam: alert, oriented x 3, cooperative, normal mood/affect Skin Exam: normal color, warm, dry Eye Exam: PERRL, EOMI Neck Exam: normal inspection, non-tender, supple, full range of motion Respiratory Exam: normal breath sounds Cardiovascular Exam: normal heart sounds, irregular, edema Gastrointestinal/Abdomen Exam: distention, other (anasarca) Extremity Exam: other (3-4+ edema) Objective Data Vital Signs: Vital Signs - 24 hr Temp Pulse Resp BP Pulse Ox 06/19/24 12:36 98 H 14 96 06/19/24 12:00 97.8 F 89 23 105/86 94 L 06/19/24 11:38 95 H 21 116/85 96 06/19/24 11:02 103 H 22 95 06/19/24 10:00 107 H 21 106/83 06/19/24 09:01 103 H 21 115/64 94 L 06/19/24 08:01 98.0 F 98 H 15 102/74 97 06/19/24 08:00 104 H 06/19/24 07:00 92 H 20 109/82 94 L 06/19/24 06:00 95 H 14 110/80 97 06/19/24 05:00 100 H 20 124/88 97 06/19/24 04:50 102 H 23 97 06/19/24 04:40 101 H 13 95 06/19/24 04:30 96 H 18 100 06/19/24 04:20 95 H 17 96 06/19/24 04:10 99 H 26 H 97 06/19/24 04:01 97.8 F 108 H 13 95 06/19/24 04:00 108 H 06/19/24 03:00 104 H 13 102/83 93 L 06/19/24 02:01 86 21 97/67 94 L 06/19/24 01:00 87 24 106/61 93 L 06/19/24 00:01 98.4 F 94 H 18 93/78 92 L 06/18/24 23:00 105 H 17 105/80 97 06/18/24 22:04 109 H 21 104/80 99 06/18/24 22:00 121 H 21 96 06/18/24 21:50 92 H 24 97 06/18/24 21:40 109 H 27 H 96 06/18/24 21:30 99 H 21 97 06/18/24 21:20 108 H 26 H 97 06/18/24 21:10 107 H 22 90 L 06/18/24 21:02 102 H 26 H 96 06/18/24 20:00 97.8 F 105 H 18 129/75 99 06/18/24 19:30 106 H 22 98 06/18/24 19:01 96 H 27 H 108/79 96 06/18/24 18:04 107 H 26 H 130/66 99 06/18/24 17:04 94 H 24 102/81 98 06/18/24 16:01 98.0 F 91 H 19 114/90 93 L 06/18/24 16:00 92 H 06/18/24 15:01 81 19 101/68 95 06/18/24 14:00 88 20 112/85 96 Pain Assessment - Last Documented Pain Intensity 3 Pain Scale Used 0-10 Pain Scale Intake and Output: Intake & Output 06/17/24 06/18/24 06/19/24 06/20/24 11:59 11:59 11:59 11:59 Intake Total 1014 1264 1622 Output Total 1424 0563 1459 500 Balance -958 -212 -9909 -500 Weight 185 kg 185.5 kg 181.976 kg Lab Results: Lab Results-Last 24 Hours 06/18/24 06/18/24 06/18/24 Range/Units 04:40 16:04 19:00 WBC (4.23-9.07) x10^3/uL RBC (4.63-6.08) x10^6/uL Hgb (13.7-17.5) g/dL Hct (40.1-51.0) % MCV (79.0-92.2) fL MCH (25.7-32.2) pg MCHC (32.3-36.5) g/dL RDW (11.6-14.4) % Plt Count (163-337) x10^3/uL MPV (9.4-12.4) fL Sodium 137 (135-145) mmol/L Potassium 3.8 (3.5-5.1) mmol/L Chloride 97 L (98-107) mmol/L Carbon Dioxide 30 (22-30) mmol/L Anion Gap 14.1 (5-15) MEQ/L BUN 35 H (9-20) mg/dL Creatinine 1.46 H (0.66-1.25) mg/dL Estimated GFR 56.8 ML/MIN Glucose 160 H (74-106) mg/dL POC Glucometer 114 H (74 to 106) mg/dL Calcium 8.6 (8.4-10.2) mg/dL Magnesium 1.9 (1.6-2.3) mg/dL Total Bilirubin 1.00 (0.2-1.3) mg/dL AST 62 H (17-59) U/L ALT 47 (0-50) U/L Alkaline Phosphatase 102 (38-126) U/L Serum Total Protein 8.3 H (6.3-8.2) g/dL Albumin 4.2 (3.5-5.0) g/dL Procalcitonin 0.074 (0.030-0.080) ng/mL 06/18/24 06/19/24 06/19/24 Range/Units 22:09 04:20 04:20 WBC 13.7 H (4.23-9.07) x10^3/uL RBC 5.30 (4.63-6.08) x10^6/uL Hgb 13.1 L (13.7-17.5) g/dL Hct 42.4 (40.1-51.0) % MCV 80.0 (79.0-92.2) fL MCH 24.7 L (25.7-32.2) pg MCHC 30.9 L (32.3-36.5) g/dL RDW 18.9 H (11.6-14.4) % Plt Count 606 H (163-337) x10^3/uL MPV 11.6 (9.4-12.4) fL Sodium 138 (135-145) mmol/L Potassium 4.0 (3.5-5.1) mmol/L Chloride 96 L (98-107) mmol/L Carbon Dioxide 34 H (22-30) mmol/L Anion Gap 11.6 (5-15) MEQ/L BUN 34 H (9-20) mg/dL Creatinine 1.51 H (0.66-1.25) mg/dL Estimated GFR 54.6 ML/MIN Glucose 114 H (74-106) mg/dL POC Glucometer 124 H (74 to 106) mg/dL Calcium 8.7 (8.4-10.2) mg/dL Magnesium 1.9 (1.6-2.3) mg/dL Total Bilirubin 1.00 (0.2-1.3) mg/dL AST 64 H (17-59) U/L ALT 46 (0-50) U/L Alkaline Phosphatase 95 (38-126) U/L Serum Total Protein 8.2 (6.3-8.2) g/dL Albumin 4.0 (3.5-5.0) g/dL Procalcitonin (0.030-0.080) ng/mL 06/19/24 06/19/24 Range/Units 07:45 11:36 WBC (4.23-9.07) x10^3/uL RBC (4.63-6.08) x10^6/uL Hgb (13.7-17.5) g/dL Hct (40.1-51.0) % MCV (79.0-92.2) fL MCH (25.7-32.2) pg MCHC (32.3-36.5) g/dL RDW (11.6-14.4) % Plt Count (163-337) x10^3/uL MPV (9.4-12.4) fL Sodium (135-145) mmol/L Potassium (3.5-5.1) mmol/L Chloride (98-107) mmol/L Carbon Dioxide (22-30) mmol/L Anion Gap (5-15) MEQ/L BUN (9-20) mg/dL Creatinine (0.66-1.25) mg/dL Estimated GFR ML/MIN Glucose (74-106) mg/dL POC Glucometer 103 166 H (74 to 106) mg/dL Calcium (8.4-10.2) mg/dL Magnesium (1.6-2.3) mg/dL Total Bilirubin (0.2-1.3) mg/dL AST (17-59) U/L ALT (0-50) U/L Alkaline Phosphatase (38-126) U/L Serum Total Protein (6.3-8.2) g/dL Albumin (3.5-5.0) g/dL Procalcitonin (0.030-0.080) ng/mL Multi-Disciplinary Progress Notes: Multi-Disciplinary Progress Notes 06/19/24 10:50 Case Management Note by Kendra Smith S/W PATIENT- HE DENIES ANY NEW NEEDS AT TIME OF DC. HE REPORTS HE IS VERY ACTIVE SO HHC WOULD NOT BE APPROPRIATE. PATIENT REPORTS HE DOES HIS MEDS WELL HIMSELF. HE PLANS TO DC HOME TO HIS PLF Initialized on 06/19/24 10:50 - END OF NOTE 06/18/24 16:29 Case Management Note by Kendra Smith NO CHANGE IN DC PLANS AT THIS TIME Initialized on 06/18/24 16:29 - END OF NOTE Assessment/Plan (1) Atrial fibrillation with RVR Current Visit: Yes Status: Acute Assessment & Plan: Remains in rate controlled afib. Recommend consolidating metoprolol tartrate to succinate 50mg BID. Stop amiodarone for now. Code(s): I48.91 - UNSPECIFIED ATRIAL FIBRILLATION Telemedicine Encounter - Telemedicine Encounter Telemedicine Encounter: "The entirety of this encounter was performed via Telemedicine" This visit was performed using real-time audio and video connection between my location and thepatients locationwith the assistance of a surrogateat the patients location. Written or verbal consent was obtained from the patient/guardian to perform this visit [facility] technology. Any patient questions regarding the telemedicine interaction were answered.
[2024-06-19 15:59] LABS: ALBUMIN 3.9 g/dL (3.5-5.0); ANION GAP 12.4 MEQ/L (5-15); BILIRUBIN,TOTAL 0.8 mg/dL (0.2-1.3); Calcium 8.6 mg/dL (8.4-10.2); Creatinine 1 1.32 mg/dL (0.66-1.25); EST GLOMERULAR FILTRATION RATE 64.1 ML/MIN; Potassium 3.5 mmol/L (3.5-5.1)
[2024-06-19] MEDS: Toprol Xl 50 MG PO SCH (22:14)
[2024-06-19] MEDS: Docusate Sodium 100 MG PO SCH (22:15)
[2024-06-20 04:41] LABS: Hematocrit 47.1 % (40.1-51.0); Hemoglobin 13.8 g/dL (13.7-17.5); Mean Cell Volume 83.8 fL (79.0-92.2); Mean Corpuscular Hemoglobin 24.6 pg (25.7-32.2); Mean Corpuscular Hgb Concent. 29.3 g/dL (32.3-36.5); Mean Platelet Volume 11.8 fL (9.4-12.4); Platelet Count 519 x10^3/uL (163-337); Red Blood Count 5.62 x10^6/uL (4.63-6.08); White Blood Count 13.7 x10^3/uL (4.23-9.07)
[2024-06-20 05:10] LABS: ALBUMIN 3.9 g/dL (3.5-5.0); ANION GAP 15.4 MEQ/L (5-15); BILIRUBIN,TOTAL 1.2 mg/dL (0.2-1.3); Calcium 8.9 mg/dL (8.4-10.2); Creatinine 1 1.12 mg/dL (0.66-1.25); EST GLOMERULAR FILTRATION RATE 78.1 ML/MIN; MAGNESIUM 1.8 mg/dL (1.6-2.3); Potassium 3.9 mmol/L (3.5-5.1)
--- NOTE | 2024-06-20 11:35 | PCM.NOTE ---
Date and Time: 06/20/24 1127 Subjective Assessment: 06/16/24 is a 54 year old male with PMHX of drug use, smoker that stopped 18 months ago, cirrhosis of the liver, COPD, emphysema, multiple strokes, type II DM, anxiety, bipolar, depression, gout, CHF, and morbid obesity. He admits to being non-compliant with meds and has not seen his pharmacy technician infusion in quite some time. He states he does take BP meds and ASA daily. He came in to the urgent care center with complaints of shortness of breath today that have progressivley been getting worse for 3 days now. He did not want to come in prior to today as it was his birthday he reports. He was sent to our facility emergency department secondary to his complaint of shortness of breath and weight gain. Patient is a poor historian not knowing his medications and also not knowing who his pharmacy technician infusion is. He has diffuse anasarca. He is RA 97%. He was started on Cardizem gtt in ER for a-fib RVR. HR currently 110's. He was also started in IVF in ER as BP began to drop. IVF stopped immediately when arrived to the floor. Stat Echo and cardiology consult ordered. Since he has a hx of drug use suspicion for low EF. Lasix gtt started. D-Dimer 1.54- CT negative for PE. However does show confirmed anascarca, cirrhotic liver, and splenomegly. Aldridge placed in the ER and will continue with Q 1 hour I&O's as he is very SOB with any movement. He denies CP, N/V/D. 06/17/24 Pt sitting up in chair today. He is C/o scrotal edema and abd distention. He is having decreased urine output last night and this am. Lasix gtt increased to 10. [place] test came back +. 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 He feels his sxs are related to this. A1C 6.56 will need Metformin started at d/c. He continues to be on amiodarone gtt. HR controlled in a-fib. Plan is to continue with diuresis. He denies CP, SOB, N/V/D. 06/18/24 Pt sitting up in chair. He remains in ICU on Lasix gtt. Discussed pt case with cardiology and he advised to increase Lasix gtt to 20 and keep another 2 days. Pt continues to be in a-fib but controlled. Amiodarone changed to oral today per cardiology recs. Amiodarone gtt stopped yesterday evening per cardiology. Creat improving. LFT's improving. He does have some wheezing today and Xoponex started. He continues to c/o testicle edema and drainage with pain. Encouraged pt and nursing to continue provide scrotal sling/support. WBC elevated, procal ordered. May need repeat CXR. Denies CP, N/V/D. 06/19/24 Pt resting in chair. He did sleep there overnight as it was more comfortable for his scrotal swelling. He asked that pain medication be increased as he is still very uncomfortable with [place] 5mg Q6. Medication changed to Percocet 5mg Q6 PRN. He had 2025 ml out yesterday and lost 4kg. Will continue Lasix gtt.. Rhythm continues to be in A-fib but controlled. WBC improved. Procal negative. No wheezing this AM. He denies CP, SOB, Abd. pain, N/V/D. 06/20/24 Pt resting in chair. Edema overall improving. He continues to have scrotal edema that is painful. He reports pain meds are helping. He apparently has been ordering foods that are high in sodium. Low sodium diet order added today. LFT's and Creat WNL today. He lost 5kg since yesterday and had over 4 L out last night. He continues to be on fluid restriction. Cardiology re-consulted yesterday and Amiodarone PO stopped and Metoprolol changed to 50 BID. Today his HR is increasing again to 110. Discussed with cardiology again today and he is not concerned unless HR gets to 120 or greater. He reports he is feeling better. He denies CP, SOB, abd. pain, N/V/D. - Review of Systems Constitutional: No Fever, No Chills Eyes: No Symptoms Ears, Nose, & Throat: No Symptoms Respiratory: No Cough, No Short Of Breath Cardiac: Edema, No Chest Pain, No Syncope Abdominal/Gastrointestinal: No Abdominal Pain, No Nausea, No Vomiting, No Diarrhea Genitourinary Symptoms: No Dysuria Musculoskeletal: No Back Pain, No Neck Pain Skin: No Rash Neurological: No Dizziness, No Focal Weakness, No Sensory Changes Psychological: No Symptoms Endocrine: No Symptoms Hematologic/Lymphatic: No Symptoms Immunological/Allergic: No Symptoms Objective Exam General Appearance: no apparent distress, alert, obese Neurologic Exam: alert, oriented x 3, cooperative, normal mood/affect, nml c erebellar function, sensation nml, No motor deficits Skin Exam: normal color, warm, dry Eye Exam: PERRL, EOMI, eyes nml inspection Ears, Nose, Throat Exam: normal ENT inspection, pharynx normal, moist mucous membranes Neck Exam: normal inspection, non-tender, supple, full range of motion Respiratory Exam: normal breath sounds, lungs clear, No respiratory distress Cardiovascular Exam: normal heart sounds, irregular, edema (+3 pitting, and generliazed edema that has improved daily) Gastrointestinal/Abdomen Exam: soft, No tenderness, No mass Extremity Exam: normal inspection, normal range of motion Back Exam: normal inspection, normal range of motion, No CVA tenderness, No vertebral tenderness Male Genitalia Exam: testicular tenderness (and edema) Rectal Exam: deferred Objective Data Vital Signs: Vital Signs - 24 hr Temp Pulse Resp BP Pulse Ox 06/20/24 08:01 98.4 F 110 H 19 104/58 92 L 06/20/24 08:00 91 H 06/20/24 07:19 110 H 22 128/98 97 06/20/24 07:05 101 H 22 131/88 91 L 06/20/24 07:03 91 L 06/20/24 06:00 92 H 21 114/79 94 L 06/20/24 05:00 99 H 23 112/79 94 L 06/20/24 04:01 97.6 F 104 H 26 H 92/67 88 L 06/20/24 04:00 104 H 06/20/24 03:04 106 H 18 105/62 93 L 06/20/24 03:02 97 H 24 95 06/20/24 02:15 107 H 18 111/82 95 06/20/24 02:14 104 H 21 06/20/24 01:00 100 H 20 94/68 92 L 06/20/24 00:01 98.6 F 103 H 12 114/77 97 06/19/24 23:09 96 H 26 H 99/72 97 06/19/24 23:00 94 H 23 117/99 96 06/19/24 22:00 96 H 18 125/78 98 06/19/24 21:02 104 H 22 112/78 96 06/19/24 20:01 98.3 F 100 H 14 98/63 96 06/19/24 20:00 104 H 06/19/24 19:01 116 H 26 H 97 06/19/24 18:40 106 H 18 98 06/19/24 18:12 98.2 F 103 H 28 H 118/84 98 06/19/24 17:01 101 H 17 111/78 06/19/24 16:00 92 H 23 117/78 98 06/19/24 15:00 85 18 99/80 99 06/19/24 14:00 89 26 H 113/74 97 06/19/24 13:00 99 H 14 108/65 96 06/19/24 12:36 98 H 14 96 06/19/24 12:00 97.8 F 94 H 23 105/86 94 L 06/19/24 11:38 95 H 21 116/85 96 Pain Assessment - Last Documented Pain Intensity 10 Pain Scale Used 0-10 Pain Scale Intake and Output: Intake & Output 06/17/24 06/18/24 06/19/24 06/20/24 11:59 11:59 11:59 11:59 Intake Total 1014 1264 1622 1409 Output Total 142 1703 6373 8739 [facility]062 [phone] Weight 185 kg 185.5 kg 181.976 kg 176.532 kg Lab Results: Lab Results-Last 24 Hours 06/19/24 06/19/24 06/19/24 Range/Units 11:36 15:40 17:11 WBC (4.23-9.07) x10^3/uL RBC (4.63-6.08) x10^6/uL Hgb (13.7-17.5) g/dL Hct (40.1-51.0) % MCV (79.0-92.2) fL MCH (25.7-32.2) pg MCHC (32.3-36.5) g/dL RDW (11.6-14.4) % Plt Count (163-337) x10^3/uL MPV (9.4-12.4) fL Sodium 140 (135-145) mmol/L Potassium 3.5 (3.5-5.1) mmol/L Chloride 97 L (98-107) mmol/L Carbon Dioxide 34 H (22-30) mmol/L Anion Gap 12.4 (5-15) MEQ/L BUN 34 H (9-20) mg/dL Creatinine 1.32 H (0.66-1.25) mg/dL Estimated GFR 64.1 ML/MIN Glucose 141 H (74-106) mg/dL POC Glucometer 166 H 106 (74 to 106) mg/dL Calcium 8.6 (8.4-10.2) mg/dL Magnesium 2.0 (1.6-2.3) mg/dL Total Bilirubin 0.80 (0.2-1.3) mg/dL AST 55 (17-59) U/L ALT 44 (0-50) U/L Alkaline Phosphatase 87 (38-126) U/L Serum Total Protein 8.0 (6.3-8.2) g/dL Albumin 3.9 (3.5-5.0) g/dL 06/19/24 06/20/24 06/20/24 Range/Units 22:06 04:37 04:37 WBC 13.7 H (4.23-9.07) x10^3/uL RBC 5.62 (4.63-6.08) x10^6/uL Hgb 13.8 (13.7-17.5) g/dL Hct 47.1 (40.1-51.0) % MCV 83.8 (79.0-92.2) fL MCH 24.6 L (25.7-32.2) pg MCHC 29.3 L (32.3-36.5) g/dL RDW 19.0 H (11.6-14.4) % Plt Count 519 H (163-337) x10^3/uL MPV 11.8 (9.4-12.4) fL Sodium 139 (135-145) mmol/L Potassium 3.9 (3.5-5.1) mmol/L Chloride 96 L (98-107) mmol/L Carbon Dioxide 32 H (22-30) mmol/L Anion Gap 15.4 H (5-15) MEQ/L BUN 29 H (9-20) mg/dL Creatinine 1.12 (0.66-1.25) mg/dL Estimated GFR 78.1 ML/MIN Glucose 122 H (74-106) mg/dL POC Glucometer 135 H (74 to 106) mg/dL Calcium 8.9 (8.4-10.2) mg/dL Magnesium 1.8 (1.6-2.3) mg/dL Total Bilirubin 1.20 (0.2-1.3) mg/dL AST 54 (17-59) U/L ALT 40 (0-50) U/L Alkaline Phosphatase 95 (38-126) U/L Serum Total Protein 8.0 (6.3-8.2) g/dL Albumin 3.9 (3.5-5.0) g/dL 06/20/24 06/20/24 Range/Units 07:21 07:21 WBC (4.23-9.07) x10^3/uL RBC (4.63-6.08) x10^6/uL Hgb (13.7-17.5) g/dL Hct (40.1-51.0) % MCV (79.0-92.2) fL MCH (25.7-32.2) pg MCHC (32.3-36.5) g/dL RDW (11.6-14.4) % Plt Count (163-337) x10^3/uL MPV (9.4-12.4) fL Sodium (135-145) mmol/L Potassium (3.5-5.1) mmol/L Chloride (98-107) mmol/L Carbon Dioxide (22-30) mmol/L Anion Gap (5-15) MEQ/L BUN (9-20) mg/dL Creatinine (0.66-1.25) mg/dL Estimated GFR ML/MIN Glucose (74-106) mg/dL POC Glucometer 108 H 108 H (74 to 106) mg/dL Calcium (8.4-10.2) mg/dL Magnesium (1.6-2.3) mg/dL Total Bilirubin (0.2-1.3) mg/dL AST (17-59) U/L ALT (0-50) U/L Alkaline Phosphatase (38-126) U/L Serum Total Protein (6.3-8.2) g/dL Albumin (3.5-5.0) g/dL Multi-Disciplinary Progress Notes: Multi-Disciplinary Progress Notes 06/19/24 19:44 Respiratory Note by Serina Guerra Patient refused treatment this evening and does not want treatment at 0100 either. He stated "He is too dry". Nurse notified. No apparent distress or difficulty breathing at this time. Instructed to call if needed. Initialized on 06/19/24 19:44 - END OF NOTE Assessment/Plan (1) Atrial fibrillation with RVR Current Visit: Yes Status: Acute Code(s): I48.91 - UNSPECIFIED ATRIAL FIBRILLATION (2) CHF exacerbation Current Visit: Yes Status: Acute Code(s): I50.9 - HEART FAILURE, UNSPECIFIED (3) Anasarca Current Visit: Yes Status: Acute Code(s): R60.1 - GENERALIZED EDEMA (4) Splenomegaly Current Visit: Yes Status: Acute Code(s): R16.1 - SPLENOMEGALY, NOT ELSEWHERE CLASSIFIED (5) Dyspnea Current Visit: Yes Status: Acute Code(s): R06.00 - DYSPNEA, UNSPECIFIED (6) Noncompliance with medication regimen Current Visit: Yes Status: Acute Code(s): Z91.148 - PATIENT'S OTHER NONCOMPL WITH MEDS REGIMEN FOR OTHER REASON (7) HTN (hypertension) Current Visit: No Status: Chronic Code(s): I10 - ESSENTIAL (PRIMARY) HYPERTENSION (8) Liver cirrhosis Current Visit: No Status: Chronic (9) Morbid obesity with BMI of 50.0-59.9, adult Current Visit: Yes Status: Chronic Assessment & Plan: (1) Atrial fibrillation with RVR Current Visit: Yes Status: Acute Assessment & Plan: - Echo done 09/20/23: estimated 55 to 60%. IMPRESSION: 1) TECHNICALLY DIFFICULT ECHOCARDIOGRAM. 2) NORMAL CONTRACTILITY OF THE LEFT VENTRICLE. 3) BORDERLINE CONCENTRIC LEFT VENTRICULAR HYPERTROPHY. 4) NO THROMBUS IS NOTED. 5) MILD LEFT ATRIAL DILATATION. 6) RIGHT ATRIAL DILATATION. 7) DILATED RIGHT VENTRICLE. 8) RIGHT VENTRICULAR SYSTOLIC DYSFUNCTION. - Started on cardizem gtt in ER- BP unable to handle - stop - IV fluids started in ER- stopped on floor d/t anasarca - Start Amiodarone Gtt - Echo stat - cardiology consulted- stat - + drug use hx consider lower EF 06/17 - cardiology note reviewed and agree with plan of care - EF 57%- echo reviewed - Changed heparin to Eliquis this AM. - Continue lasix gtt - Metoprolol 25mg q6 - Trop x3 negative - Amio gtt- continued- A-fib controlled - Amio gtt stopped per cardiology 06/18 - Amio PO started per cardiology - Lasix gtt increased to 20 ml/hr 06/19 - Cont. lasix gtt - 4kg weight loss and 2025ml out yesterday - edema improving overall - cardiology re-consulted and meds changed- note reviewed and agree with plan of care. 06/20 - Cardiology stopped po Amiodarone yesterday and changed metoprolol to 50 BID - Today HR A-fib 110 - re- consulted cardiology again today and he explained no changes unless HR gets to 120 or above. Code(s): I48.91 - UNSPECIFIED ATRIAL FIBRILLATION (2) CHF exacerbation Current Visit: Yes Status: Acute Assessment & Plan: - Echo and Cardiology consult- stat - Noncompliant with home meds, states just did not want to take them. - Has seen Dr. Foley with cardiology in the past - Previous echo reviewed 06/17 - SEE ABOVE PLAN Code(s): I50.9 - HEART FAILURE, UNSPECIFIED (3) Anasarca Current Visit: Yes Status: Acute Assessment & Plan: - 2:2 CHF - Lasix gtt started - Aldridge in place d/t needing hourly I&O's - daily weight - fluid restriction - CMP and Mg+ checked Q12 06/17 - wt gain this am - lasix gtt increased to 10ml/hr - CMP and Mg+ checked Q12 06/18 - Lasix gtt increased to 20 ml/hr - CMP and Mg+ checked Q12 06/19 - CMP and Mg+ checked Q12 - Increased lasix gtt to 30ml/hr - changed narcotic pain med to Percocet 5mg Q6 PRN for testicular edema and discomfort not controlled by [place] 5mg Q6 PRN 06/20 - Continue lasix gtt @ 30ml/hr - edema improving - added low sodium diet - 5kg weight loss since yesterday - CMP and Mg+ checked Q12 Code(s): R60.1 - GENERALIZED EDEMA (4) Splenomegaly Current Visit: Yes Status: Acute Assessment & Plan: - as seen on CT - mono screen - Platelets 592 - likely 2:2 Cirrhosis of the liver which is chronic per pt - mono test positive- will need education at d/c on dx Code(s): R16.1 - SPLENOMEGALY, NOT ELSEWHERE CLASSIFIED (5) Dyspnea Current Visit: Yes Status: Acute Assessment & Plan: - RA 97% - 2:2 CHF, A-fib RVR, Anascarca 06/17 - improving- now RA 94% 06/18 - Xoponex started Q6 for wheezing - Consider CXR 06/19 - procal negative - no wheezing today 06/20 - refusing breathing txs- states they make him feel dried out - RA 94% Code(s): R06.00 - DYSPNEA, UNSPECIFIED (6) Noncompliance with medication regimen Current Visit: Yes Status: Acute Assessment & Plan: - Advised will likely need close f/u OP - advised medication compliance or likely to be readmitted Code(s): Z91.148 - PATIENT'S OTHER NONCOMPL WITH MEDS REGIMEN FOR OTHER REASON (7) HTN (hypertension) Current Visit: No Status: Chronic Assessment & Plan: - Hold BP med if BP unstable - monitor 06/17 - hold lisinopril - continue metoprolol Q6 06/19 - metoprolol changed to 50mg BID by cardiology 06/20 - BP stable Code(s): I10 - ESSENTIAL (PRIMARY) HYPERTENSION (8) Liver cirrhosis Current Visit: No Status: Chronic Assessment & Plan: - chronic per pt from ETOH use- reports has not drank in 18 months (9) Morbid obesity with BMI of 50.0-59.9, adult Current Visit: Yes Status: Chronic Assessment & Plan: - advised ADA diet and exercise control - Low sodium diet VTE: Heparin Next of KIN: Javier Hoover, D/C plan: 1-2 days Code status: Full Code(s): E66.01 - MORBID (SEVERE) OBESITY DUE TO EXCESS CALORIES; Z68.43 - BODY MASS INDEX [BMI] 50.0-59.9, ADULT Code(s): E66.01 - MORBID (SEVERE) OBESITY DUE TO EXCESS CALORIES; Z68.43 - BODY MASS INDEX [BMI] 50.0-59.9, ADULT
[2024-06-20] MEDS: MAG-OX 400 PO ONE (16:30)
[2024-06-20] MEDS: Klor Con PO ONE (16:30)
[2024-06-20 16:40] LABS: ALBUMIN 3.9 g/dL (3.5-5.0); ANION GAP 9.4 MEQ/L (5-15); Calcium 8.6 mg/dL (8.4-10.2); Creatinine 1 1.23 mg/dL (0.66-1.25); EST GLOMERULAR FILTRATION RATE 69.8 ML/MIN; MAGNESIUM 1.8 mg/dL (1.6-2.3); Potassium 3.4 mmol/L (3.5-5.1); Total Protein 8.1 g/dL (6.3-8.2)
[2024-06-20] MEDS: Klor Con PO SCH (19:49)
[2024-06-21 06:03] LABS: Hematocrit 45.6 % (40.1-51.0); Hemoglobin 13.5 g/dL (13.7-17.5); Mean Cell Volume 81.4 fL (79.0-92.2); Mean Corpuscular Hemoglobin 24.1 pg (25.7-32.2); Mean Corpuscular Hgb Concent. 29.6 g/dL (32.3-36.5); Mean Platelet Volume 11.4 fL (9.4-12.4); Platelet Count 632 x10^3/uL (163-337); Red Cell Distribution Width 18.7 % (11.6-14.4); White Blood Count 13.7 x10^3/uL (4.23-9.07)
[2024-06-21 06:28] LABS: ALBUMIN 3.9 g/dL (3.5-5.0); ANION GAP 11.8 MEQ/L (5-15); BILIRUBIN,TOTAL 1.1 mg/dL (0.2-1.3); Calcium 8.6 mg/dL (8.4-10.2); Creatinine 1 1.13 mg/dL (0.66-1.25); EST GLOMERULAR FILTRATION RATE 77.2 ML/MIN; MAGNESIUM 1.9 mg/dL (1.6-2.3); Potassium 3.6 mmol/L (3.5-5.1); Total Protein 8.1 g/dL (6.3-8.2)
[2024-06-21] MEDS: Klor Con PO ONE (09:18)
--- NOTE | 2024-06-21 12:07 | PCM.NOTE ---
Date and Time: 06/21/24 1202 Subjective Assessment: 06/16/24 is a 54 year old male with PMHX of drug use, smoker that stopped 18 months ago, cirrhosis of the liver, COPD, emphysema, multiple strokes, type II DM, anxiety, bipolar, depression, gout, CHF, and morbid obesity. He admits to being non-compliant with meds and has not seen his inspector materials and processes in quite some time. He states he does take BP meds and ASA daily. He came in to the urgent care center with complaints of shortness of breath today that have progressivley been getting worse for 3 days now. He did not want to come in prior to today as it was his birthday he reports. He was sent to our facility emergency department secondary to his complaint of shortness of breath and weight gain. Patient is a poor historian not knowing his medications and also not knowing who his inspector materials and processes is. He has diffuse anasarca. He is RA 97%. He was started on Cardizem gtt in ER for a-fib RVR. HR currently 110's. He was also started in IVF in ER as BP began to drop. IVF stopped immediately when arrived to the floor. Stat Echo and cardiology consult ordered. Since he has a hx of drug use suspicion for low EF. Lasix gtt started. D-Dimer 1.54- CT negative for PE. However does show confirmed anascarca, cirrhotic liver, and splenomegly. Aldridge placed in the ER and will continue with Q 1 hour I&O's as he is very SOB with any movement. He denies CP, N/V/D. 06/17/24 Pt sitting up in chair today. He is C/o scrotal edema and abd distention. He is having decreased urine output last night and this am. Lasix gtt increased to 10. [place] test came back +. 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 He feels his sxs are related to this. A1C 6.56 will need Metformin started at d/c. He continues to be on amiodarone gtt. HR controlled in a-fib. Plan is to continue with diuresis. He denies CP, SOB, N/V/D. 06/18/24 Pt sitting up in chair. He remains in ICU on Lasix gtt. Discussed pt case with cardiology and he advised to increase Lasix gtt to 20 and keep another 2 days. Pt continues to be in a-fib but controlled. Amiodarone changed to oral today per cardiology recs. Amiodarone gtt stopped yesterday evening per cardiology. Creat improving. LFT's improving. He does have some wheezing today and Xoponex started. He continues to c/o testicle edema and drainage with pain. Encouraged pt and nursing to continue provide scrotal sling/support. WBC elevated, procal ordered. May need repeat CXR. Denies CP, N/V/D. 06/19/24 Pt resting in chair. He did sleep there overnight as it was more comfortable for his scrotal swelling. He asked that pain medication be increased as he is still very uncomfortable with Sterling 5mg Q6. Medication changed to Percocet 5mg Q6 PRN. He had 2025 ml out yesterday and lost 4kg. Will continue Lasix gtt.. Rhythm continues to be in A-fib but controlled. WBC improved. Procal negative. No wheezing this AM. He denies CP, SOB, Abd. pain, N/V/D. 06/20/24 Pt resting in chair. Edema overall improving. He continues to have scrotal edema that is painful. He reports pain meds are helping. He apparently has been ordering foods that are high in sodium. Low sodium diet order added today. LFT's and Creat WNL today. He lost 5kg since yesterday and had over 4 L out last night. He continues to be on fluid restriction. Cardiology re-consulted yesterday and Amiodarone PO stopped and Metoprolol changed to 50 BID. Today his HR is increasing again to 110. Discussed with cardiology again today and he is not concerned unless HR gets to 120 or greater. He reports he is feeling better. He denies CP, SOB, abd. pain, N/V/D. 06/21/24 Pt resting in chair. He reports feeling better. He lost 2kg overnight. 5L out yesterday. Lasix gtt continues at 30ml/hr. Fluid restriction lifted as Na+ normal. Continue low Na+ diet. Creat is WNL. He continues to have testicle edema that is causing pain. He explains pain medication is helping. He denies ay further concerns at this time. - Review of Systems Constitutional: No Fever, No Chills Eyes: No Symptoms Ears, Nose, & Throat: No Symptoms Respiratory: Wheezing, No Cough, No Short Of Breath Cardiac: Edema, No Chest Pain, No Syncope Abdominal/Gastrointestinal: No Abdominal Pain, No Nausea, No Vomiting, No Diarrhea Genitourinary Symptoms: No Dysuria Musculoskeletal: No Back Pain, No Neck Pain Skin: No Rash Neurological: No Dizziness, No Focal Weakness, No Sensory Changes Psychological: No Symptoms Endocrine: No Symptoms Hematologic/Lymphatic: No Symptoms Immunological/Allergic: No Symptoms Objective Exam General Appearance: obese Neurologic Exam: alert, oriented x 3, cooperative, normal mood/affect, nml cerebellar function, sensation nml, No motor deficits Skin Exam: normal color, warm, dry Eye Exam: PERRL, EOMI, eyes nml inspection Ears, Nose, Throat Exam: normal ENT inspection, pharynx normal, moist mucous membranes Neck Exam: normal inspection, non-tender, supple, full range of motion Respiratory Exam: normal breath sounds, lungs clear, No respiratory distress Cardiovascular Exam: normal heart sounds, irregular, edema (generalized) Gastrointestinal/Abdomen Exam: soft, No tenderness, No mass Extremity Exam: normal inspection, normal range of motion Back Exam: normal inspection, normal range of motion, No CVA tenderness, No vertebral tenderness Male Genitalia Exam: testicular tenderness (and edema) Rectal Exam: deferred Objective Data Vital Signs: Vital Signs - 24 hr Temp Pulse Resp BP Pulse Ox 06/21/24 11:00 89 20 107/67 95 06/21/24 10:00 99 H 24 99/79 91 L 06/21/24 09:30 106 H 22 109/93 94 L 06/21/24 08:34 120 H 16 108/86 94 L 06/21/24 08:00 97.3 F 105 H 22 103/78 92 L 06/21/24 07:00 91 H 21 113/69 94 L 06/21/24 06:00 93 H 16 99/67 93 L 06/21/24 05:22 90 22 96 06/21/24 05:00 111 H 21 102/70 93 L 06/21/24 04:00 98.5 F 93 H 27 H 109/71 92 L 06/21/24 03:00 97 H 24 107/76 89 L 06/21/24 01:00 97 H 24 112/82 97 06/21/24 00:01 101 H 06/21/24 00:00 98.3 F 99 H 25 H 115/75 95 06/20/24 23:00 90 21 107/79 95 06/20/24 22:00 94 H 24 100/75 93 L 06/20/24 21:09 98 H 25 H 114/87 94 L 06/20/24 21:07 98.6 F 118 H 29 H 114/87 91 L 06/20/24 20:00 96 H 19 108/79 98 06/20/24 19:10 98 H 22 94 L 06/20/24 19:00 99 H 24 126/80 94 L 06/20/24 18:00 101 H 24 103/72 94 L 06/20/24 17:01 96 H 25 H 116/83 06/20/24 16:00 91 H 26 H 113/96 91 L 06/20/24 15:57 100 H 24 120/103 92 L 06/20/24 15:00 90 23 106/76 91 L 06/20/24 14:15 98 H 27 H 06/20/24 13:25 118/89 06/20/24 13:20 94 H 22 97 06/20/24 13:04 93 L Pain Assessment - Last Documented Pain Intensity 7 Pain Scale Used 0-10 Pain Scale Intake and Output: Intake & Output 06/19/24 06/20/24 06/21/24 06/22/24 11:59 11:59 11:59 11:59 Intake Total 1622 1409 2150 Output Total 5037 1589 [id number] [id number] -9850 Weight 181.976 kg 176.532 kg 174.3 kg Lab Results: Lab Results-Last 24 Hours 06/20/24 06/20/24 06/20/24 Range/Units 15:58 16:20 21:37 WBC (4.23-9.07) x10^3/uL RBC (4.63-6.08) x10^6/uL Hgb (13.7-17.5) g/dL Hct (40.1-51.0) % MCV (79.0-92.2) fL MCH (25.7-32.2) pg MCHC (32.3-36.5) g/dL RDW (11.6-14.4) % Plt Count (163-337) x10^3/uL MPV (9.4-12.4) fL Sodium 140 (135-145) mmol/L Potassium 3.4 L (3.5-5.1) mmol/L Chloride 95 L (98-107) mmol/L Carbon Dioxide 39 H (22-30) mmol/L Anion Gap 9.4 (5-15) MEQ/L BUN 28 H (9-20) mg/dL Creatinine 1.23 (0.66-1.25) mg/dL Estimated GFR 69.8 ML/MIN Glucose 137 H (74-106) mg/dL POC Glucometer 137 H 132 H (74 to 106) mg/dL Calcium 8.6 (8.4-10.2) mg/dL Magnesium 1.8 (1.6-2.3) mg/dL Total Bilirubin 1.00 (0.2-1.3) mg/dL AST 55 (17-59) U/L ALT 38 (0-50) U/L Alkaline Phosphatase 82 (38-126) U/L Serum Total Protein 8.1 (6.3-8.2) g/dL Albumin 3.9 (3.5-5.0) g/dL 06/21/24 06/21/24 06/21/24 Range/Units 05:42 05:42 08:05 WBC 13.7 H (4.23-9.07) x10^3/uL RBC 5.60 (4.63-6.08) x10^6/uL Hgb 13.5 L (13.7-17.5) g/dL Hct 45.6 (40.1-51.0) % MCV 81.4 (79.0-92.2) fL MCH 24.1 L (25.7-32.2) pg MCHC 29.6 L (32.3-36.5) g/dL RDW 18.7 H (11.6-14.4) % Plt Count 632 H (163-337) x10^3/uL MPV 11.4 (9.4-12.4) fL Sodium 138 (135-145) mmol/L Potassium 3.6 (3.5-5.1) mmol/L Chloride 94 L (98-107) mmol/L Carbon Dioxide 36 H (22-30) mmol/L Anion Gap 11.8 (5-15) MEQ/L BUN 28 H (9-20) mg/dL Creatinine 1.13 (0.66-1.25) mg/dL Estimated GFR 77.2 ML/MIN Glucose 121 H (74-106) mg/dL POC Glucometer 122 H (74 to 106) mg/dL Calcium 8.6 (8.4-10.2) mg/dL Magnesium 1.9 (1.6-2.3) mg/dL Total Bilirubin 1.10 (0.2-1.3) mg/dL AST 48 (17-59) U/L ALT 35 (0-50) U/L Alkaline Phosphatase 92 (38-126) U/L Serum Total Protein 8.1 (6.3-8.2) g/dL Albumin 3.9 (3.5-5.0) g/dL Assessment/Plan (1) Atrial fibrillation with RVR Current Visit: Yes Status: Acute Code(s): I48.91 - UNSPECIFIED ATRIAL FIBRILLATION (2) CHF exacerbation Current Visit: Yes Status: Acute Code(s): I50.9 - HEART FAILURE, UNSPECIFIED (3) Anasarca Current Visit: Yes Status: Acute Code(s): R60.1 - GENERALIZED EDEMA (4) Splenomegaly Current Visit: Yes Status: Acute Code(s): R16.1 - SPLENOMEGALY, NOT ELSEWHERE CLASSIFIED (5) Dyspnea Current Visit: Yes Status: Acute Code(s): R06.00 - DYSPNEA, UNSPECIFIED (6) Noncompliance with medication regimen Current Visit: Yes Status: Acute Code(s): Z91.148 - PATIENT'S OTHER NONCOMPL WITH MEDS REGIMEN FOR OTHER REASON (7) HTN (hypertension) Current Visit: No Status: Chronic Code(s): I10 - ESSENTIAL (PRIMARY) HYPERTENSION (8) Liver cirrhosis Current Visit: No Status: Chronic (9) Morbid obesity with BMI of 50.0-59.9, adult Current Visit: Yes Status: Chronic Assessment & Plan: (1) Atrial fibrillation with RVR Current Visit: Yes Status: Acute Assessment & Plan: - Echo done 09/20/23: estimated 55 to 60%. IMPRESSION: 1) TECHNICALLY DIFFICULT ECHOCARDIOGRAM. 2) NORMAL CONTRACTILITY OF THE LEFT VENTRICLE. 3) BORDERLINE CONCENTRIC LEFT VENTRICULAR HYPERTROPHY. 4) NO THROMBUS IS NOTED. 5) MILD LEFT ATRIAL DILATATION. 6) RIGHT ATRIAL DILATATION. 7) DILATED RIGHT VENTRICLE. 8) RIGHT VENTRICULAR SYSTOLIC DYSFUNCTION. - Started on cardizem gtt in ER- BP unable to handle - stop - IV fluids started in ER- stopped on floor d/t anasarca - Start Amiodarone Gtt - Echo stat - cardiology consulted- stat - + drug use hx consider lower EF 06/17 - cardiology note reviewed and agree with plan of care - EF 57%- echo reviewed - Changed heparin to Eliquis this AM. - Continue lasix gtt - Metoprolol 25mg q6 - Trop x3 negative - Amio gtt- continued- A-fib controlled - Amio gtt stopped per cardiology 06/18 - Amio PO started per cardiology - Lasix gtt increased to 20 ml/hr 06/19 - Cont. lasix gtt - 4kg weight loss and 2025ml out yesterday - edema improving overall - cardiology re-consulted and meds changed- note reviewed and agree with plan of care. 06/20 - Cardiology stopped po Amiodarone yesterday and changed metoprolol to 50 BID - Today HR A-fib 110 - re- consulted cardiology again today and he explained no changes unless HR gets to 120 or above. 06/21 - A-fib continued HR < 120 Code(s): I48.91 - UNSPECIFIED ATRIAL FIBRILLATION (2) CHF exacerbation Current Visit: Yes Status: Acute Assessment & Plan: - Echo and Cardiology consult- stat - Noncompliant with home meds, states just did not want to take them. - Has seen Dr. Foley with cardiology in the past - Previous echo reviewed 06/17 - SEE ABOVE PLAN Code(s): I50.9 - HEART FAILURE, UNSPECIFIED (3) Anasarca Current Visit: Yes Status: Acute Assessment & Plan: - 2:2 CHF - Lasix gtt started - Aldridge in place d/t needing hourly I&O's - daily weight - fluid restriction - CMP and Mg+ checked Q12 - hourly I&O 06/17 - wt gain this am - lasix gtt increased to 10ml/hr - CMP and Mg+ checked Q12 06/18 - Lasix gtt increased to 20 ml/hr - CMP and Mg+ checked Q12 06/19 - CMP and Mg+ checked Q12 - Increased lasix gtt to 30ml/hr - changed narcotic pain med to Percocet 5mg Q6 PRN for testicular edema and discomfort not controlled by Sterling 5mg Q6 PRN 06/20 - Continue lasix gtt @ 30ml/hr - edema improving - added low sodium diet - 5kg weight loss since yesterday - CMP and Mg+ checked Q12 06/21 - Lasix gtt @ 30 ml/hr - 5L out yesterday - 2kg weight loss - Fluid restriction stopped as Na+ normal Code(s): R60.1 - GENERALIZED EDEMA (4) Splenomegaly Current Visit: Yes Status: Acute Assessment & Plan: - as seen on CT - mono screen - Platelets 592 - likely 2:2 Cirrhosis of the liver which is chronic per pt - mono test positive- will need education at d/c on dx Code(s): R16.1 - SPLENOMEGALY, NOT ELSEWHERE CLASSIFIED (5) Dyspnea Current Visit: Yes Status: Acute Assessment & Plan: - RA 97% - 2:2 CHF, A-fib RVR, Anascarca 06/17 - improving- now RA 94% 06/18 - Xoponex started Q6 for wheezing - Consider CXR 06/19 - procal negative - no wheezing today 06/20 - refusing breathing txs- states they make him feel dried out - RA 94% 06/21 - + wheezing - encouraged breathing treatments Code(s): R06.00 - DYSPNEA, UNSPECIFIED (6) Noncompliance with medication regimen Current Visit: Yes Status: Acute Assessment & Plan: - Advised will likely need close f/u OP - advised medication compliance or likely to be readmitted Code(s): Z91.148 - PATIENT'S OTHER NONCOMPL WITH MEDS REGIMEN FOR OTHER REASON (7) HTN (hypertension) Current Visit: No Status: Chronic Assessment & Plan: - Hold BP med if BP unstable - monitor 06/17 - hold lisinopril - continue metoprolol Q6 06/19 - metoprolol changed to 50mg BID by cardiology 06/20 - BP stable Code(s): I10 - ESSENTIAL (PRIMARY) HYPERTENSION (8) Liver cirrhosis Current Visit: No Status: Chronic Assessment & Plan: - chronic per pt from ETOH use- reports has not drank in 18 months (9) Morbid obesity with BMI of 50.0-59.9, adult Current Visit: Yes Status: Chronic Assessment & Plan: - advised ADA diet and exercise control - Low sodium diet VTE: Eliquis Next of KIN: Javier Hoover, D/C plan: 1-2 days Code status: Full Code(s): E66.01 - MORBID (SEVERE) OBESITY DUE TO EXCESS CALORIES; Z68.43 - BODY MASS INDEX [BMI] 50.0-59.9, ADULT Code(s): E66.01 - MORBID (SEVERE) OBESITY DUE TO EXCESS CALORIES; Z68.43 - BODY MASS INDEX [BMI] 50.0-59.9, ADULT
[2024-06-21] MEDS: FUROSEMIDE IV SCH (15:46)
[2024-06-21] MEDS: SODIUM CHLORIDE 0.9% IV SCH (15:46)
[2024-06-21 16:44] LABS: ALBUMIN 4.1 g/dL (3.5-5.0); ANION GAP 12.8 MEQ/L (5-15); BILIRUBIN,TOTAL 0.8 mg/dL (0.2-1.3); Calcium 8.6 mg/dL (8.4-10.2); Creatinine 1 1.22 mg/dL (0.66-1.25); EST GLOMERULAR FILTRATION RATE 70.5 ML/MIN; MAGNESIUM 1.8 mg/dL (1.6-2.3); Potassium 3.6 mmol/L (3.5-5.1); Total Protein 8.3 g/dL (6.3-8.2)
[2024-06-22 06:22] LABS: Hematocrit 44.2 % (40.1-51.0); Hemoglobin 13.2 g/dL (13.7-17.5); Mean Cell Volume 79.9 fL (79.0-92.2); Mean Corpuscular Hemoglobin 23.9 pg (25.7-32.2); Mean Corpuscular Hgb Concent. 29.9 g/dL (32.3-36.5); Mean Platelet Volume 11.5 fL (9.4-12.4); Platelet Count 662 x10^3/uL (163-337); Red Blood Count 5.53 x10^6/uL (4.63-6.08); Red Cell Distribution Width 18.1 % (11.6-14.4); White Blood Count 12.3 x10^3/uL (4.23-9.07)
[2024-06-22 06:31] LABS: ALBUMIN 3.8 g/dL (3.5-5.0); ANION GAP 9.7 MEQ/L (5-15); Calcium 8.4 mg/dL (8.4-10.2); Creatinine 1 1.08 mg/dL (0.66-1.25); EST GLOMERULAR FILTRATION RATE 81.6 ML/MIN; Potassium 3.1 mmol/L (3.5-5.1); Total Protein 7.8 g/dL (6.3-8.2)
[2024-06-22] MEDS: Klor Con PO SCH ×2 (08:05→16:13)
[2024-06-22] MEDS: MAG-OX 400 PO ONE (08:05)
--- NOTE | 2024-06-22 12:03 | PCM.NOTE ---
Date and Time: 06/22/24 1158 Subjective Assessment: 06/16/24 is a 54 year old male with PMHX of drug use, smoker that stopped 18 months ago, cirrhosis of the liver, COPD, emphysema, multiple strokes, type II DM, anxiety, bipolar, depression, gout, CHF, and morbid obesity. He admits to being non-compliant with meds and has not seen his medical records secretary in quite some time. He states he does take BP meds and ASA daily. He came in to the urgent care center with complaints of shortness of breath today that have progressivley been getting worse for 3 days now. He did not want to come in prior to today as it was his birthday he reports. He was sent to our facility emergency department secondary to his complaint of shortness of breath and weight gain. Patient is a poor historian not knowing his medications and also not knowing who his medical records secretary is. He has diffuse anasarca. He is RA 97%. He was started on Cardizem gtt in ER for a-fib RVR. HR currently 110's. He was also started in IVF in ER as BP began to drop. IVF stopped immediately when arrived to the floor. Stat Echo and cardiology consult ordered. Since he has a hx of drug use suspicio n for low EF. Lasix gtt started. D-Dimer 1.54- CT negative for PE. However does show confirmed anascarca, cirrhotic liver, and splenomegly. Mckeon placed in the ER and will continue with Q 1 hour I&O's as he is very SOB with any movement. He denies CP, N/V/D. 06/17/24 Pt sitting up in chair today. He is C/o scrotal edema and abd distention. He is having decreased urine output last night and this am. Lasix gtt increased to 10. Hancock test came back +. 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 He feels his sxs are related to this. A1C 6.56 will need Metformin started at d/c. He continues to be on amiodarone gtt. HR controlled in a-fib. Plan is to continue with diuresis. He denies CP, SOB, N/V/D. 06/18/24 Pt sitting up in chair. He remains in ICU on Lasix gtt. Discussed pt case with cardiology and he advised to increase Lasix gtt to 20 and keep another 2 days. Pt continues to be in a-fib but controlled. Amiodarone changed to oral today per cardiology recs. Amiodarone gtt stopped yesterday evening per cardiology. Creat improving. LFT's improving. He does have some wheezing today and Xoponex started. He continues to c/o testicle edema and drainage with pain. Encouraged pt and nursing to continue provide scrotal sling/support. WBC elevated, procal ordered. May need repeat CXR. Denies CP, N/V/D. 06/19/24 Pt resting in chair. He did sleep there overnight as it was more comfortable for his scrotal swelling. He asked that pain medication be increased as he is still very uncomfortable with Campbell 5mg Q6. Medication changed to Percocet 5mg Q6 PRN. He had 2025 ml out yesterday and lost 4kg. Will continue Lasix gtt.. Rhythm continues to be in A-fib but controlled. WBC improved. Procal negative. No wheezing this AM. He denies CP, SOB, Abd. pain, N/V/D. 06/20/24 Pt resting in chair. Edema overall improving. He continues to have scrotal edema that is painful. He reports pain meds are helping. He apparently has been ordering foods that are high in sodium. Low sodium diet order added today. LFT's and Creat WNL today. He lost 5kg since yesterday and had over 4 L out last night. He continues to be on fluid restriction. Cardiology re-consulted yesterda y and Amiodarone PO stopped and Metoprolol changed to 50 BID. Today his HR is increasing again to 110. Discussed with cardiology again today and he is not concerned unless HR gets to 120 or greater. He reports he is feeling better. He denies CP, SOB, abd. pain, N/V/D. 06/21/24 Pt resting in chair. He reports feeling better. He lost 2kg overnight. 5L out yesterday. Lasix gtt continues at 30ml/hr. Fluid restriction lifted as Na+ normal. Continue low Na+ diet. Creat is WNL. He continues to have testicle edema that is causing pain. He explains pain medication is helping. He denies ay further concerns at this time. 06/22/24 Pt sitting up in chair. He lost 1kg from yesterday and had 3L out. Kidney function doing well on lasix gtt. Will decrease lasix gtt to 20ml/hr. Tomorrow if he continues to improve drip could possibly be turned off and changed to oral meds. Pt feels he is about ready to go home PT/OT ordered as he has not been up much since he has been here other than to walk to the bathroom. ZAIN mccarthy ordered to help with BLLE. UC and BC x2 negative. A-fib controlled. He denies CP, SOB, abd. pain, N/V/D. + continued testicular edema. - Review of Systems Constitutional: No Fever, No Chills Eyes: No Symptoms Ears, Nose, & Throat: No Symptoms Respiratory: No Cough, No Short Of Breath Cardiac: Edema, No Chest Pain, No Syncope Abdominal/Gastrointestinal: No Abdominal Pain, No Nausea, No Vomiting, No Diarrhea Genitourinary Symptoms: No Dysuria Musculoskeletal: No Back Pain, No Neck Pain Skin: Other (testicle edmea, and BLLE), No Rash Neurological: No Dizziness, No Focal Weakness, No Sensory Changes Psychological: No Symptoms Endocrine: No Symptoms Hematologic/Lymphatic: No Symptoms Immunological/Allergic: No Symptoms Objective Exam General Appearance: no apparent distress, alert, obese Neurologic Exam: alert, oriented x 3, cooperative, normal mood/affect, nml cerebellar function, sensation nml, No motor deficits Skin Exam: normal color, warm, dry Eye Exam: PERRL, EOMI, eyes nml inspection Ears, Nose, Throat Exam: normal ENT inspection, pharynx normal, moist mucous m embranes Neck Exam: normal inspection, non-tender, supple, full range of motion Respiratory Exam: normal breath sounds, lungs clear, No respiratory distress Cardiovascular Exam: regular rate/rhythm, normal heart sounds, edema (generalized- improving) Gastrointestinal/Abdomen Exam: soft, No tenderness, No mass Extremity Exam: normal inspection, normal range of motion Back Exam: normal inspection, normal range of motion, No CVA tenderness, No vertebral tenderness Male Genitalia Exam: deferred, testicular tenderness (with edema) Rectal Exam: deferred Objective Data Vital Signs: Vital Signs - 24 hr Temp Pulse Resp BP Pulse Ox 06/22/24 11:33 96 H 14 109/78 26 L 06/22/24 10:00 89 24 97/74 92 L 06/22/24 09:00 92 H 21 98/76 93 L 06/22/24 08:20 97.8 F 94 H 19 115/89 94 L 06/22/24 08:00 106 H 06/22/24 07:05 99 H 18 96 06/22/24 07:00 90 17 115/83 94 L 06/22/24 06:00 88 18 106/79 95 06/22/24 05:00 90 17 112/83 91 L 06/22/24 04:00 97.8 F 88 22 120/77 96 06/22/24 03:00 80 25 H 105/75 96 06/22/24 02:00 89 21 123/90 97 06/22/24 01:07 92 H 22 96 06/22/24 01:00 92 H 23 107/76 91 L 06/22/24 00:03 98.6 F 95 H 20 130/85 95 06/22/24 00:01 95 H 06/21/24 23:00 63 22 108/71 94 L 06/21/24 22:00 91 H 15 115/75 93 L 06/21/24 21:00 97 H 21 107/77 97 06/21/24 20:17 102 H 20 97 06/21/24 20:00 97.9 F 95 H 21 109/85 97 06/21/24 19:32 93 H 06/21/24 19:22 90 22 99/76 95 06/21/24 19:21 92 H 98 06/21/24 19:20 93 H 97 06/21/24 19:10 102 H 96 06/21/24 19:05 109 H 96 06/21/24 18:05 97 H 21 109/62 94 L 06/21/24 17:01 102 H 21 108/80 94 L 06/21/24 16:19 84 18 96 06/21/24 16:04 97.4 F 109 H 20 121/86 96 06/21/24 15:52 89 06/21/24 15:00 83 20 87/64 94 L 06/21/24 14:01 93 H 22 94/71 96 06/21/24 13:18 86 18 95 06/21/24 13:01 90 24 101/73 96 06/21/24 12:00 97.6 F 98 H 24 112/85 94 L Pain Assessment - Last Documented Pain Intensity 7 Pain Scale Used 0-10 Pain Scale Intake and Output: Intake & Output 06/19/24 06/20/24 06/21/24 06/22/24 11:59 11:59 11:59 11:59 Intake Total 1622 1409 2150 3114 Output Total 7056 6904 06309 8956 [id number] -8121 -9850 -2700 Weight 181.976 kg 176.532 kg 174.3 kg 173.5 kg Lab Results: Lab Results-Last 24 Hours 06/21/24 06/21/24 06/21/24 Range/Units 12:06 16:20 16:57 WBC (4.23-9.07) x10^3/uL RBC (4.63-6.08) x10^6/uL Hgb (13.7-17.5) g/dL Hct (40.1-51.0) % MCV (79.0-92.2) fL MCH (25.7-32.2) pg MCHC (32.3-36.5) g/dL RDW (11.6-14.4) % Plt Count (163-337) x10^3/uL MPV (9.4-12.4) fL Sodium 139 (135-145) mmol/L Potassium 3.6 (3.5-5.1) mmol/L Chloride 95 L (98-107) mmol/L Carbon Dioxide 35 H (22-30) mmol/L Anion Gap 12.8 (5-15) MEQ/L BUN 28 H (9-20) mg/dL Creatinine 1.22 (0.66-1.25) mg/dL Estimated GFR 70.5 ML/MIN Glucose 119 H (74-106) mg/dL POC Glucometer 160 H 124 H (74 to 106) mg/dL Calcium 8.6 (8.4-10.2) mg/dL Magnesium 1.8 (1.6-2.3) mg/dL Total Bilirubin 0.80 (0.2-1.3) mg/dL AST 50 (17-59) U/L ALT 38 (0-50) U/L Alkaline Phosphatase 88 (38-126) U/L Serum Total Protein 8.3 H (6.3-8.2) g/dL Albumin 4.1 (3.5-5.0) g/dL 06/21/24 06/22/24 06/22/24 Range/Units 21:17 05:51 05:51 WBC 12.3 H (4.23-9.07) x10^3/uL RBC 5.53 (4.63-6.08) x10^6/uL Hgb 13.2 L (13.7-17.5) g/dL Hct 44.2 (40.1-51.0) % MCV 79.9 (79.0-92.2) fL MCH 23.9 L (25.7-32.2) pg MCHC 29.9 L (32.3-36.5) g/dL RDW 18.1 H (11.6-14.4) % Plt Count 662 H (163-337) x10^3/uL MPV 11.5 (9.4-12.4) fL Sodium 136 (135-145) mmol/L Potassium 3.1 L (3.5-5.1) mmol/L Chloride 93 L (98-107) mmol/L Carbon Dioxide 37 H (22-30) mmol/L Anion Gap 9.7 (5-15) MEQ/L BUN 29 H (9-20) mg/dL Creatinine 1.08 (0.66-1.25) mg/dL Estimated GFR 81.6 ML/MIN Glucose 120 H (74-106) mg/dL POC Glucometer 128 H (74 to 106) mg/dL Calcium 8.4 (8.4-10.2) mg/dL Magnesium (1.6-2.3) mg/dL Total Bilirubin 1.00 (0.2-1.3) mg/dL AST 44 (17-59) U/L ALT 32 (0-50) U/L Alkaline Phosphatase 90 (38-126) U/L Serum Total Protein 7.8 (6.3-8.2) g/dL Albumin 3.8 (3.5-5.0) g/dL 06/22/24 06/22/24 06/22/24 Range/Units 05:51 07:53 11:27 WBC (4.23-9.07) x10^3/uL RBC (4.63-6.08) x10^6/uL Hgb (13.7-17.5) g/dL Hct (40.1-51.0) % MCV (79.0-92.2) fL MCH (25.7-32.2) pg MCHC (32.3-36.5) g/dL RDW (11.6-14.4) % Plt Count (163-337) x10^3/uL MPV (9.4-12.4) fL Sodium (135-145) mmol/L Potassium (3.5-5.1) mmol/L Chloride (98-107) mmol/L Carbon Dioxide (22-30) mmol/L Anion Gap (5-15) MEQ/L BUN (9-20) mg/dL Creatinine (0.66-1.25) mg/dL Estimated GFR ML/MIN Glucose (74-106) mg/dL POC Glucometer 116 H 166 H (74 to 106) mg/dL Calcium (8.4-10.2) mg/dL Magnesium 1.9 (1.6-2.3) mg/dL Total Bilirubin (0.2-1.3) mg/dL AST (17-59) U/L ALT (0-50) U/L Alkaline Phosphatase (38-126) U/L Serum Total Protein (6.3-8.2) g/dL Albumin (3.5-5.0) g/dL Assessment/Plan (1) Atrial fibrillation with RVR Current Visit: Yes Status: Acute Code(s): I48.91 - UNSPECIFIED ATRIAL FIBRILLATION (2) CHF exacerbation Current Visit: Yes Status: Acute Code(s): I50.9 - HEART FAILURE, UNSPECIFIED (3) Anasarca Current Visit: Yes Status: Acute Code(s): R60.1 - GENERALIZED EDEMA (4) Splenomegaly Current Visit: Yes Status: Acute Code(s): R16.1 - SPLENOMEGALY, NOT ELSEWHERE CLASSIFIED (5) Dyspnea Current Visit: Yes Status: Acute Code(s): R06.00 - DYSPNEA, UNSPECIFIED (6) Noncompliance with medication regimen Current Visit: Yes Status: Acute Code(s): Z91.148 - PATIENT'S OTHER NONCOMPL WITH MEDS REGIMEN FOR OTHER REASON (7) HTN (hypertension) Current Visit: No Status: Chronic Code(s): I10 - ESSENTIAL (PRIMARY) HYPERTENSION (8) Liver cirrhosis Current Visit: No Status: Chronic (9) Morbid obesity with BMI of 50.0-59.9, adult Current Visit: Yes Status: Chronic Assessment & Plan: (1) Atrial fibrillation with RVR Current Visit: Yes Status: Acute Assessment & Plan: - Echo done 09/20/23: estimated 55 to 60%. IMPRESSION: 1) TECHNICALLY DIFFICULT ECHOCARDIOGRAM. 2) NORMAL CONTRACTILITY OF THE LEFT VENTRICLE. 3) BORDERLINE CONCENTRIC LEFT VENTRICULAR HYPERTROPHY. 4) NO THROMBUS IS NOTED. 5) MILD LEFT ATRIAL DILATATION. 6) RIGHT ATRIAL DILATATION. 7) DILATED RIGHT VENTRICLE. 8) RIGHT VENTRICULAR SYSTOLIC DYSFUNCTION. - Started on cardizem gtt in ER- BP unable to handle - stop - IV fluids started in ER- stopped on floor d/t anasarca - Start Amiodarone Gtt - Echo stat - cardiology consulted- stat - + drug use hx consider lower EF 06/17 - cardiology note reviewed and agree with plan of care - EF 57%- echo reviewed - Changed heparin to Eliquis this AM. - Continue lasix gtt - Metoprolol 25mg q6 - Trop x3 negative - Amio gtt- continued- A-fib controlled - Amio gtt stopped per cardiology 06/18 - Amio PO started per cardiology - Lasix gtt increased to 20 ml/hr 06/19 - Cont. lasix gtt - 4kg weight loss and 2025ml out yesterday - edema improving overall - cardiology re-consulted and meds changed- note reviewed and agree with plan of care. 06/20 - Cardiology stopped po Amiodarone yesterday and changed metoprolol to 50 BID - Today HR A-fib 110 - re- consulted cardiology again today and he explained no changes unless HR gets to 120 or above. 06/21 - A-fib continued HR < 120 06/22 - A-fib controlled Code(s): I48.91 - UNSPECIFIED ATRIAL FIBRILLATION (2) CHF exacerbation Current Visit: Yes Status: Acute Assessment & Plan: - Echo and Cardiology consult- stat - Noncompliant with home meds, states just did not want to take them. - Has seen Dr. Foley with cardiology in the past - Previous echo reviewed 06/17 - SEE ABOVE PLAN Code(s): I50.9 - HEART FAILURE, UNSPECIFIED (3) Anasarca Current Visit: Yes Status: Acute Assessment & Plan: - 2:2 CHF - Lasix gtt started - Mckeon in place d/t needing hourly I&O's - daily weight - fluid restriction - CMP and Mg+ checked Q12 - hourly I&O 06/17 - wt gain this am - lasix gtt increased to 10ml/hr - CMP and Mg+ checked Q12 06/18 - Lasix gtt increased to 20 ml/hr - CMP and Mg+ checked Q12 06/19 - CMP and Mg+ checked Q12 - Increased lasix gtt to 30ml/hr - changed narcotic pain med to Percocet 5mg Q6 PRN for testicular edema and discomfort not controlled by Campbell 5mg Q6 PRN 06/20 - Continue lasix gtt @ 30ml/hr - edema improving - added low sodium diet - 5kg weight loss since yesterday - CMP and Mg+ checked Q12 06/21 - Lasix gtt @ 30 ml/hr - 5L out yesterday - 2kg weight loss - Fluid restriction stopped as Na+ normal 06/21 - 3L out yesterday, 1kg weight loss since yesterday. - reduce Lasix gtt to 20ml/hr - considering changing to oral lasix to prepare for d/c - consider removing mckeon cath tomorrow Code(s): R60.1 - GENERALIZED EDEMA (4) Splenomegaly Current Visit: Yes Status: Acute Assessment & Plan: - as seen on CT - mono screen - Platelets 592 - likely 2:2 Cirrhosis of the liver which is chronic per pt - mono test positive- will need education at d/c on dx Code(s): R16.1 - SPLENOMEGALY, NOT ELSEWHERE CLASSIFIED (5) Dyspnea Current Visit: Yes Status: Acute Assessment & Plan: - RA 97% - 2:2 CHF, A-fib RVR, Anascarca 06/17 - improving- now RA 94% 06/18 - Xoponex started Q6 for wheezing - Consider CXR 06/19 - procal negative - no wheezing today 06/20 - refusing breathing txs- states they make him feel dried out - RA 94% 06/21 - + wheezing - encouraged breathing treatments Code(s): R06.00 - DYSPNEA, UNSPECIFIED (6) Noncompliance with medication regimen Current Visit: Yes Status: Acute Assessment & Plan: - Advised will likely need close f/u OP - advised medication compliance or likely to be readmitted Code(s): Z91.148 - PATIENT'S OTHER NONCOMPL WITH MEDS REGIMEN FOR OTHER REASON (7) HTN (hypertension) Current Visit: No Status: Chronic Assessment & Plan: - Hold BP med if BP unstable - monitor 06/17 - hold lisinopril - continue metoprolol Q6 06/19 - metoprolol changed to 50mg BID by cardiology 06/20 - BP stable Code(s): I10 - ESSENTIAL (PRIMARY) HYPERTENSION (8) Liver cirrhosis Current Visit: No Status: Chronic Assessment & Plan: - chronic per pt from ETOH use- reports has not drank in 18 months - will need OP f/u at D/C (9) Morbid obesity with BMI of 50.0-59.9, adult Current Visit: Yes Status: Chronic Assessment & Plan: - advised ADA diet and exercise control - Low sodium diet Code(s): E66.01 - MORBID (SEVERE) OBESITY DUE TO EXCESS CALORIES; Z68.43 - BODY MASS INDEX [BMI] 50.0-59.9, ADULT (10) Prediabetes Current Visit: Yes Status: Acute Assessment & Plan: - A1C 06/16/24 6.56 - Will need metformin at D/C - accuchecks ac/hs, humalog s/s VTE: Bakari Next of KIN: Javier Garciads, D/C plan: 1-2 days Code status: Full Code(s): R73.03 - PREDIABETES
[2024-06-23 04:43] LABS: Hematocrit 42.5 % (40.1-51.0); Hemoglobin 13.1 g/dL (13.7-17.5); Mean Corpuscular Hemoglobin 24.7 pg (25.7-32.2); Mean Corpuscular Hgb Concent. 30.8 g/dL (32.3-36.5); Mean Platelet Volume 11.7 fL (9.4-12.4); Platelet Count 639 x10^3/uL (163-337); Red Blood Count 5.31 x10^6/uL (4.63-6.08); Red Cell Distribution Width 18.4 % (11.6-14.4); White Blood Count 10.7 x10^3/uL (4.23-9.07)
[2024-06-23 05:02] LABS: ALBUMIN 3.7 g/dL (3.5-5.0); BILIRUBIN,TOTAL 0.7 mg/dL (0.2-1.3); Calcium 8.5 mg/dL (8.4-10.2); Creatinine 1 1.11 mg/dL (0.66-1.25); EST GLOMERULAR FILTRATION RATE 78.9 ML/MIN; Potassium 3.5 mmol/L (3.5-5.1); Total Protein 7.6 g/dL (6.3-8.2)
--- NOTE | 2024-06-23 05:50 | PCM.NOTE ---
Date and Time: 06/23/24544 Subjective Assessment: is a 54 year old male with PMHX of drug use, smoker that stopped 18 months ago, cirrhosis of the liver, COPD, emphysema, multiple strokes, type II DM, anxiety, bipolar, depression, gout, CHF, and morbid obesity admitted 06/16/24 with AFIB RVR/Anasarca/CHF exacerbation after experiencing a three day history of progressive shortness of breath. Patient admits to medication and specialty visit non-compliance. CT negative for PE. However does show confirmed anascarca, cirrhotic liver, and splenomegly. He was started on Cardizem gtt in ER for a-fib RVR as well as a lasix drip for anasarca/CHF exacerbation. HR controlled. Cardiology Cardiology consulted and following - recs for metoprolol succinate 50mg BID - on Eliquis 5mg BID -no changes unless HR >120. Patient with painful scrotal edema, which has improved. UC and BC x2 negative. 06/23/24: Patient up in chair. Endorses continued scrotal pain due to swelling, rates 15/10 on numerical scale. BLE edema improving. Scrotal edema remains extensive. Plan for continuation of lasix drip, will increase to 30mls/hr. Patient is noted with shortness of breath with exertion, walk test shows spo2 dipping into the mid 80's with ambulation. Patient may need home oxygen. Denies fever,cough, sob, cp, abdominal pain, MCDONALD, dizziness, N/V/D. <YOLA LUNA - Last Filed: 06/23/24 12:23> Date and Time: 06/23/242056 <LILY ARMSTRONG - Last Filed: 06/23/24 20:59> - Review of Systems Constitutional: No Symptoms (with exertion) Eyes: No Symptoms Ears, Nose, & Throat: No Symptoms Respiratory: Short Of Breath Cardiac: Edema (BLE edema) Abdominal/Gastrointestinal: No Symptoms Genitourinary Symptoms: Other (scrotal edema/pain) Musculoskeletal: No Symptoms Skin: No Symptoms Neurological: No Symptoms Psychological: No Symptoms Endocrine: No Symptoms Hematologic/Lymphatic: No Symptoms Immunological/Allergic: No Symptoms <YOLA LUNA - Last Filed: 06/23/24 12:23> Objective Exam General Appearance: no apparent distress Neurologic Exam: alert, oriented x 3, cooperative Skin Exam: normal color Eye Exam: PERRL Ears, Nose, Throat Exam: normal ENT inspection Neck Exam: normal inspection Respiratory Exam: normal breath sounds, lungs clear Cardiovascular Exam: regular rate/rhythm, normal heart sounds Gastrointestinal/Abdomen Exam: soft, normal bowel sounds Extremity Exam: other (BLE edema +2 pitting) Male Genitalia Exam: other (scrotal edema) <YOLA LUNA - Last Filed: 06/23/24 12:23> Objective Data Vital Signs: Vital Signs - 24 hr Temp Pulse Resp BP Pulse Ox 06/23/24 05:00 76 17 114/70 94 L 06/23/24 04:00 97.5 F 85 20 123/85 95 06/23/24 03:00 80 18 92/73 92 L 06/23/24 02:00 94 H 21 98/64 95 06/23/24 01:00 90 20 127/77 95 06/23/24 00:45 92 H 20 94 L 06/23/24 00:00 98.5 F 93 H 17 111/76 95 06/22/24 23:56 89 06/22/24 23:00 94 H 21 94/67 94 L 06/22/24 22:01 84 16 118/72 94 L 06/22/24 21:01 92 H 22 119/80 94 L 06/22/24 20:00 97.5 F 94 H 25 H 125/89 96 06/22/24 19:11 87 20 96 06/22/24 19:00 88 22 109/74 96 06/22/24 18:41 86 22 114/81 96 06/22/24 18:00 94 H 17 107/83 95 06/22/24 17:00 82 22 101/63 97 06/22/24 16:00 97.6 F 86 22 118/79 95 06/22/24 15:00 86 20 127/85 91 L 06/22/24 14:04 97.5 F 90 17 114/82 96 06/22/24 13:00 97.9 F 89 18 104/83 95 06/22/24 12:52 88 18 96 06/22/24 12:00 85 18 108/83 94 L 06/22/24 11:33 96 H 14 109/78 26 L 06/22/24 10:00 89 24 97/74 92 L 06/22/24 09:00 92 H 21 98/76 93 L 06/22/24 08:20 97.8 F 94 H 19 115/89 94 L 06/22/24 08:00 106 H 06/22/24 07:05 99 H 18 96 06/22/24 07:00 90 17 115/83 94 L 06/22/24 06:00 88 18 106/79 95 Pain Assessment - Last Documented Pain Intensity 0 Pain Scale Used 0-10 Pain Scale Intake and Output: Intake & Output 06/20/24 06/21/24 06/22/24 06/23/24 11:59 11:59 11:59 11:59 Intake Total 1409 2150 3117 2780 Output Total 1854 35311 1661 0614 Balance -8121 -9850 -3811 -1120 Weight 176.532 kg 174.3 kg 173.5 kg Lab Results: Lab Results-Last 24 Hours 06/22/24 06/22/24 06/22/24 Range/Units 05:51 05:51 05:51 WBC 12.3 H (4.23-9.07) x10^3/uL RBC 5.53 (4.63-6.08) x10^6/uL Hgb 13.2 L (13.7-17.5) g/dL Hct 44.2 (40.1-51.0) % MCV 79.9 (79.0-92.2) fL MCH 23.9 L (25.7-32.2) pg MCHC 29.9 L (32.3-36.5) g/dL RDW 18.1 H (11.6-14.4) % Plt Count 662 H (163-337) x10^3/uL MPV 11.5 (9.4-12.4) fL Sodium 136 (135-145) mmol/L Potassium 3.1 L (3.5-5.1) mmol/L Chloride 93 L (98-107) mmol/L Carbon Dioxide 37 H (22-30) mmol/L Anion Gap 9.7 (5-15) MEQ/L BUN 29 H (9-20) mg/dL Creatinine 1.08 (0.66-1.25) mg/dL Estimated GFR 81.6 ML/MIN Glucose 120 H (74-106) mg/dL POC Glucometer (74 to 106) mg/dL Calcium 8.4 (8.4-10.2) mg/dL Magnesium 1.9 (1.6-2.3) mg/dL Total Bilirubin 1.00 (0.2-1.3) mg/dL AST 44 (17-59) U/L ALT 32 (0-50) U/L Alkaline Phosphatase 90 (38-126) U/L Serum Total Protein 7.8 (6.3-8.2) g/dL Albumin 3.8 (3.5-5.0) g/dL 06/22/24 06/22/24 06/22/24 Range/Units 07:53 11:27 15:37 WBC (4.23-9.07) x10^3/uL RBC (4.63-6.08) x10^6/uL Hgb (13.7-17.5) g/dL Hct (40.1-51.0) % MCV (79.0-92.2) fL MCH (25.7-32.2) pg MCHC (32.3-36.5) g/dL RDW (11.6-14.4) % Plt Count (163-337) x10^3/uL MPV (9.4-12.4) fL Sodium (135-145) mmol/L Potassium 3.4 L (3.5-5.1) mmol/L Chloride (98-107) mmol/L Carbon Dioxide (22-30) mmol/L Anion Gap (5-15) MEQ/L BUN (9-20) mg/dL Creatinine (0.66-1.25) mg/dL Estimated GFR ML/MIN Glucose (74-106) mg/dL POC Glucometer 116 H 166 H (74 to 106) mg/dL Calcium (8.4-10.2) mg/dL Magnesium (1.6-2.3) mg/dL Total Bilirubin (0.2-1.3) mg/dL AST (17-59) U/L ALT (0-50) U/L Alkaline Phosphatase (38-126) U/L Serum Total Protein (6.3-8.2) g/dL Albumin (3.5-5.0) g/dL 06/22/24 06/22/2406/23/24 Range/Units 16:17 20:42 00:31 WBC (4.23-9.07) x10^3/uL RBC (4.63-6.08) x10^6/uL Hgb (13.7-17.5) g/dL Hct (40.1-51.0) % MCV (79.0-92.2) fL MCH (25.7-32.2) pg MCHC (32.3-36.5) g/dL RDW (11.6-14.4) % Plt Count (163-337) x10^3/uL MPV (9.4-12.4) fL Sodium (135-145) mmol/L Potassium 3.6 (3.5-5.1) mmol/L Chloride (98-107) mmol/L Carbon Dioxide (22-30) mmol/L Anion Gap (5-15) MEQ/L BUN (9-20) mg/dL Creatinine (0.66-1.25) mg/dL Estimated GFR ML/MIN Glucose (74-106) mg/dL POC Glucometer 137 H 166 H (74 to 106) mg/dL Calcium (8.4-10.2) mg/dL Magnesium (1.6-2.3) mg/dL Total Bilirubin (0.2-1.3) mg/dL AST (17-59) U/L ALT (0-50) U/L Alkaline Phosphatase (38-126) U/L Serum Total Protein (6.3-8.2) g/dL Albumin (3.5-5.0) g/dL 06/23/24 06/23/24 Range/Units 04:37 04:37 WBC 10.7 H (4.23-9.07) x10^3/uL RBC 5.31 (4.63-6.08) x10^6/uL Hgb 13.1 L (13.7-17.5) g/dL Hct 42.5 (40.1-51.0) % MCV 80.0 (79.0-92.2) fL MCH 24.7 L (25.7-32.2) pg MCHC 30.8 L (32.3-36.5) g/dL RDW 18.4 H (11.6-14.4) % Plt Count 639 H (163-337) x10^3/uL MPV 11.7 (9.4-12.4) fL Sodium 137 (135-145) mmol/L Potassium 3.5 (3.5-5.1) mmol/L Chloride 95 L (98-107) mmol/L Carbon Dioxide 34 H (22-30) mmol/L Anion Gap 11.0 (5-15) MEQ/L BUN 32 H (9-20) mg/dL Creatinine 1.11 (0.66-1.25) mg/dL Estimated GFR 78.9 ML/MIN Glucose 142 H (74-106) mg/dL POC Glucometer (74 to 106) mg/dL Calcium 8.5 (8.4-10.2) mg/dL Magnesium 2.0 (1.6-2.3) mg/dL Total Bilirubin 0.70 (0.2-1.3) mg/dL AST 50 (17-59) U/L ALT 34 (0-50) U/L Alkaline Phosphatase 84 (38-126) U/L Serum Total Protein 7.6 (6.3-8.2) g/dL Albumin 3.7 (3.5-5.0) g/dL <YOLA LUNA - Last Filed: 06/23/24 12:23> Vital Signs: Vital Signs - 24 hr Temp Pulse Resp BP Pulse Ox 06/23/24 20:00 81 23 90/67 95 06/23/24 19:00 87 25 H 113/78 96 06/23/24 18:24 95 H 16 95 06/23/24 18:00 90 24 115/67 99 06/23/24 17:00 97.2 F 93 H 24 108/86 96 06/23/24 16:00 89 24 132/81 96 06/23/24 15:00 108 H 19 117/87 93 L 06/23/24 14:00 94 H 25 H 127/87 91 L 06/23/24 13:58 88 16 95 06/23/24 13:01 92 H 18 128/80 93 L 06/23/24 12:00 97.4 F 96 H 18 94/58 06/23/24 11:41 80 22 118/78 93 L 06/23/24 11:02 84 22 118/73 94 L 06/23/24 10:43 99 H 22 92 L 06/23/24 09:02 92 H 23 107/78 94 L 06/23/24 08:00 81 06/23/24 07:00 81 19 119/76 94 L 06/23/24 06:57 87 22 92 L 06/23/24 06:00 78 17 103/68 97 06/23/24 05:00 76 17 114/70 94 L 06/23/24 04:00 97.5 F 85 20 123/85 95 06/23/24 03:00 80 18 92/73 92 L 06/23/24 02:00 94 H 21 98/64 95 06/23/24 01:00 90 20 127/77 95 06/23/24 00:45 92 H 20 94 L 06/23/24 00:00 98.5 F 93 H 17 111/76 95 06/22/24 23:56 89 06/22/24 23:00 94 H 21 94/67 94 L 06/22/24 22:01 84 16 118/72 94 L 06/22/24 21:01 92 H 22 119/80 94 L Pain Assessment - Last Documented Pain Intensity 7 Pain Scale Used 0-10 Pain Scale Intake and Output: Intake & Output 06/21/24 06/22/24 06/23/24 06/24/24 11:59 11:59 11:59 11:59 Intake Total 2150 3119 2780 437 Output Total 62720 6970 9338 9113 [facility]9823 -5543 -0470 -0044 Weight 174.3 kg 173.5 kg 173.182 kg Lab Results: Lab Results-Last 24 Hours 06/23/24 06/23/24 06/23/24 Range/Units 00:31 04:37 04:37 WBC 10.7 H (4.23-9.07) x10^3/uL RBC 5.31 (4.63-6.08) x10^6/uL Hgb 13.1 L (13.7-17.5) g/dL Hct 42.5 (40.1-51.0) % MCV 80.0 (79.0-92.2) fL MCH 24.7 L (25.7-32.2) pg MCHC 30.8 L (32.3-36.5) g/dL RDW 18.4 H (11.6-14.4) % Plt Count 639 H (163-337) x10^3/uL MPV 11.7 (9.4-12.4) fL Sodium 137 (135-145) mmol/L Potassium 3.6 3.5 (3.5-5.1) mmol/L Chloride 95 L (98-107) mmol/L Carbon Dioxide 34 H (22-30) mmol/L Anion Gap 11.0 (5-15) MEQ/L BUN 32 H (9-20) mg/dL Creatinine 1.11 (0.66-1.25) mg/dL Estimated GFR 78.9 ML/MIN Glucose 142 H (74-106) mg/dL POC Glucometer (74 to 106) mg/dL Calcium 8.5 (8.4-10.2) mg/dL Magnesium 2.0 (1.6-2.3) mg/dL Total Bilirubin 0.70 (0.2-1.3) mg/dL AST 50 (17-59) U/L ALT 34 (0-50) U/L Alkaline Phosphatase 84 (38-126) U/L Serum Total Protein 7.6 (6.3-8.2) g/dL Albumin 3.7 (3.5-5.0) g/dL 06/23/24 06/23/24 06/23/24 Range/Units 07:02 11:41 16:42 WBC (4.23-9.07) x10^3/uL RBC (4.63-6.08) x10^6/uL Hgb (13.7-17.5) g/dL Hct (40.1-51.0) % MCV (79.0-92.2) fL MCH (25.7-32.2) pg MCHC (32.3-36.5) g/dL RDW (11.6-14.4) % Plt Count (163-337) x10^3/uL MPV (9.4-12.4) fL Sodium (135-145) mmol/L Potassium (3.5-5.1) mmol/L Chloride (98-107) mmol/L Carbon Dioxide (22-30) mmol/L Anion Gap (5-15) MEQ/L BUN (9-20) mg/dL Creatinine (0.66-1.25) mg/dL Estimated GFR ML/MIN Glucose (74-106) mg/dL POC Glucometer 119 H 139 H 116 H (74 to 106) mg/dL Calcium (8.4-10.2) mg/dL Magnesium (1.6-2.3) mg/dL Total Bilirubin (0.2-1.3) mg/dL AST (17-59) U/L ALT (0-50) U/L Alkaline Phosphatase (38-126) U/L Serum Total Protein (6.3-8.2) g/dL Albumin (3.5-5.0) g/dL Multi-Disciplinary Progress Notes: Multi-Disciplinary Progress Notes 06/23/24 15:23 Nutrition Note by Josefa Hernandez F/u Note: Low sodium restriction added to 2200CC diet. Pt with 100% po intake. Labs 06/23= hgb 13.1, glu 139, BUN 32. adm weight 185kg; current weight 173.182 kg. goals met and ongoing. Will con't to monitor and f/u prn. T.KARLA Hernandez Initialized on 06/23/24 15:23 - END OF NOTE 06/23/24 12:20 Case Management Note by Kendra Smith S/W PATIENT- HE CONTINUES TO PLAN TO DC HOME TO HIS PLF AT TIME OF DC. Initialized on 06/23/24 12:20 - END OF NOTE 06/23/24 07:00 Respiratory Note by Claudette Andrea Patient refused Xopenex treatment at this time. Initialized on 06/23/24 07:00 - END OF NOTE <LILY ARMSTRONG - Last Filed: 06/23/24 20:59> Assessment/Plan (1) Atrial fibrillation with RVR Current Visit: Yes Status: Acute Assessment & Plan: - Echo performed 06/16/24 With EF estimated at 57% -Moderate concentric LVH -Normal left/right atrial size -Normal Left ventricular systolic function Normal right ventricular size and function -Normal mitral valve structure and function -Normal aortic valve structure -Normal tricuspid valve structure -unable to visualize IVC -Diastolic function could not be evaluated -HR controlled -Cardiology consulted and following - recs for metoprolol succinate 50mg BID - on Eliquis 5mg BID -no changes unless HR >120 Code(s): I48.91 - UNSPECIFIED ATRIAL FIBRILLATION (2) CHF exacerbation Current Visit: Yes Status: Acute Assessment & Plan: - Echo as stated avove - Noncompliant with home meds, states just did not want to take them. - Has seen Dr. Foley with cardiology in the past - Previous echo reviewed -Continue lasix drip - increase to 30mls/hr -monitor output/BP closely Code(s): I50.9 - HEART FAILURE, UNSPECIFIED (3) Anasarca Current Visit: Yes Status: Acute Assessment & Plan: - 2:2 CHF/cirrhosis - Mckeon in place d/t needing hourly I&O's - daily weight - fluid restriction - CMP and Mg+ checked Q12 - hourly I&O - 3L out yesterday 06/21/24 with 1kg weight loss - Lasix gtt at 20ml/hr - considering changing to oral lasix to prepare for d/c - consider removing mckeon cath Code(s): R60.1 - GENERALIZED EDEMA (4) Dyspnea Current Visit: Yes Status: Acute Assessment & Plan: -RA which is baseline -supplemental oxygen as needed with spo2 goal >92% - increased SOB with exertion and desaturation into the 80's- may need home oxygen - will retest closer to discharge Code(s): R06.00 - DYSPNEA, UNSPECIFIED (5) Noncompliance with medication regimen Current Visit: Yes Status: Acute Assessment & Plan: - Advised will likely need close f/u OP - High risk for readmission -Discussed risks of non-compliance Code(s): Z91.148 - PATIENT'S OTHER NONCOMPL WITH MEDS REGIMEN FOR OTHER REASON (6) Prediabetes Current Visit: Yes Status: Acute Assessment & Plan: - A1C 06/16/24 6.56 - Will need metformin at D/C - accuchecks ac/hs, humalog s/s Code(s): R73.03 - PREDIABETES (7) Splenomegaly Current Visit: Yes Status: Acute Assessment & Plan: - Noted on CT - Platelets - likely 2:2 Cirrhosis of the liver which is chronic per pt - mono test positive- will need education at d/c with precautions Code(s): R16.1 - SPLENOMEGALY, NOT ELSEWHERE CLASSIFIED (8) Morbid obesity with BMI of 50.0-59.9, adult Current Visit: Yes Status: Chronic Assessment & Plan: - advised ADA diet and exercise control - Low sodium diet Code(s): E66.01 - MORBID (SEVERE) OBESITY DUE TO EXCESS CALORIES; Z68.43 - BODY MASS INDEX [BMI] 50.0-59.9, ADULT (9) HTN (hypertension) Current Visit: No Status: Chronic Assessment & Plan: - metoprolol changed to 50mg BID by cardiology 06/20 - BP stable Code(s): I10 - ESSENTIAL (PRIMARY) HYPERTENSION (10) Liver cirrhosis Current Visit: No Status: Chronic Assessment & Plan: - chronic per pt from ETOH use- reports has not drank in 18 months - will need OP f/u at D/C VTE: Eliquis Next of KIN: Javier Hoover, D/C plan: 1-2 days Code status: Full <YOLA LUNA - Last Filed: 06/23/24 12:23> MICHELLE Encounter - MICHELLE Encounter Attestation MICHELLE Encounter Attestation: "IhmiltonexJayce,ADRIANNA BAR andhavediscussed pertinent aspects of their care with Yola Luna and agree with the history, physical exam (any modifications based on my personal exam will be noted below), assessment, and plan as outlined in original note. Please see immediately below for my summary of findings and additional assessment and plan along with any meaningful corrections/explanations to the Subjective/Objective portions of the MICHELLE note will be noted." My portion of the encounter took place via telemedicine. -Patient's lasix drip was decreased to 20 mg/hr over the weekend, possibly due to hypotension however this has decreased his diuresis. Will increase back up to 30 mg/hr as he had a good response to it and blood pressure has improved. Still has extreme penile and scrotal swelling. On metoprolol/eliquis for Afib. <LILY ARMSTRONG - Last Filed: 06/23/24 20:59>
[2024-06-23] MEDS: Klor Con PO SCH (08:55)
--- NOTE | 2024-06-24 05:26 | PCM.NOTE ---
Date and Time: 06/24/24 0525 Subjective Assessment: is a 54 year old male with PMHX of drug use, smoker that stopped 18 months ago, cirrhosis of the liver, COPD, emphysema, multiple strokes, type II DM, anxiety, bipolar, depression, gout, CHF, and morbid obesity admitted 06/16/24 with AFIB RVR/Anasarca/CHF exacerbation after experiencing a three day history of progressive shortness of breath. Patient admits to medication and specialty visit non-compliance. CT negative for PE. However does show confirmed anascarca, cirrhotic liver, and splenomegly. He was started on Cardizem gtt in ER for a-fib RVR as well as a lasix drip for anasarca/CHF exacerbation. HR controlled. Cardiology Cardiology consulted and following - recs for metoprolol succinate 50mg BID - on Eliquis 5mg BID -no changes unless HR >120. Patient with painful scrotal edema, which has improved. UC and BC x2 negative. 06/23/24: Patient up in chair. Endorses continued scrotal pain due to swelling, rates 15/10 on numerical scale. BLE edema improving. Scrotal edema remains extensive. Plan for continuation of lasix drip, will increase to 30mls/hr. Patient is noted with shortness of breath with exertion, walk test shows spo2 dipping into the mid 80's with ambulation. Patient may need home oxygen. Denies fever,cough, sob, cp, abdominal pain, MCDONALD, dizziness, N/V/D. 06/24/24: No overnight events noted. Patient diuresing well -7634 balance in 24 hours. Discussion had regarding the importance of a scrotal sling to reduce scotal edema/pain. Patient declines use at this time, states it makes his pain worse. Denies fever,cough, sob, cp, abdominal pain, MCDONALD, dizziness, N/V/D. - Review of Systems Constitutional: No Symptoms Eyes: No Symptoms Ears, Nose, & Throat: No Symptoms Respiratory: No Symptoms Cardiac: Edema (BLE 2-3 + pitting) Abdominal/Gastrointestinal: No Symptoms Genitourinary Symptoms: Other (scrotal pain 7/10) Musculoskeletal: No Symptoms Skin: No Symptoms Neurological: No Symptoms Psychological: No Symptoms Endocrine: No Symptoms Hematologic/Lymphatic: No Symptoms Immunological/Allergic: No Symptoms Objective Exam General Appearance: no apparent distress Neurologic Exam: alert, oriented x 3, cooperative Skin Exam: normal color Eye Exam: PERRL Ears, Nose, Throat Exam: moist mucous membranes Neck Exam: normal inspection Respiratory Exam: normal breath sounds, lungs clear Cardiovascular Exam: regular rate/rhythm, normal heart sounds Gastrointestinal/Abdomen Exam: soft, normal bowel sounds Extremity Exam: swelling (BLE edema 2-3+ pitting) Back Exam: normal inspection Male Genitalia Exam: other (scrotal edema) Objective Data Vital Signs: Vital Signs - 24 hr Temp Pulse Resp BP Pulse Ox 06/24/24 05:00 75 23 106/70 90 L 06/24/24 04:00 98.1 F 71 20 103/77 93 L 06/24/24 03:00 80 20 101/77 93 L 06/24/24 02:03 79 20 119/86 93 L 06/24/24 01:11 81 14 96 06/24/24 01:00 87 24 131/112 95 06/24/24 00:01 87 06/24/24 00:00 98.5 F 87 15 100/71 97 06/23/24 23:00 84 23 99/76 96 06/23/24 22:00 84 22 104/70 98 06/23/24 21:00 86 16 109/79 96 06/23/24 20:00 81 23 90/67 95 06/23/24 19:00 87 25 H 113/78 96 06/23/24 18:24 95 H 16 95 06/23/24 18:00 90 24 115/67 99 06/23/24 17:00 97.2 F 93 H 24 108/86 96 06/23/24 16:00 89 24 132/81 96 06/23/24 15:00 108 H 19 117/87 93 L 06/23/24 14:00 94 H 25 H 127/87 91 L 06/23/24 13:58 88 16 95 06/23/24 13:01 92 H 18 128/80 93 L 06/23/24 12:00 97.4 F 96 H 18 94/58 06/23/24 11:41 80 22 118/78 93 L 06/23/24 11:02 84 22 118/73 94 L 06/23/24 10:43 99 H 22 92 L 06/23/24 09:02 92 H 23 107/78 94 L 06/23/24 08:00 81 06/23/24 07:00 81 19 119/76 94 L 06/23/24 06:57 87 22 92 L 06/23/24 06:00 78 17 103/68 97 Pain Assessment - Last Documented Pain Intensity 4 Pain Scale Used 0-10 Pain Scale Intake and Output: Intake & Output 06/21/24 06/22/24 06/23/24 06/24/24 11:59 11:59 11:59 11:59 Intake Total 2154 3115 2598 821 Output Total 15713 8293 6265 3653 Balance -2106 -5364 -2220 -5223 Weight 174.3 kg 173.5 kg 173.182 kg Lab Results: Lab Results-Last 24 Hours 06/23/24 06/23/24 06/23/24 Range/Units 04:37 07:02 11:41 Sodium 137 (135-145) mmol/L Potassium 3.5 (3.5-5.1) mmol/L Chloride 95 L (98-107) mmol/L Carbon Dioxide 34 H (22-30) mmol/L Anion Gap 11.0 (5-15) MEQ/L BUN 32 H (9-20) mg/dL Creatinine 1.11 (0.66-1.25) mg/dL Estimated GFR 78.9 ML/MIN Glucose 142 H (74-106) mg/dL POC Glucometer 119 H 139 H (74 to 106) mg/dL Calcium 8.5 (8.4-10.2) mg/dL Magnesium 2.0 (1.6-2.3) mg/dL Total Bilirubin 0.70 (0.2-1.3) mg/dL AST 50 (17-59) U/L ALT 34 (0-50) U/L Alkaline Phosphatase 84 (38-126) U/L Serum Total Protein 7.6 (6.3-8.2) g/dL Albumin 3.7 (3.5-5.0) g/dL 06/23/24 06/23/24 Range/Units 16:42 21:18 Sodium (135-145) mmol/L Potassium (3.5-5.1) mmol/L Chloride (98-107) mmol/L Carbon Dioxide (22-30) mmol/L Anion Gap (5-15) MEQ/L BUN (9-20) mg/dL Creatinine (0.66-1.25) mg/dL Estimated GFR ML/MIN Glucose (74-106) mg/dL POC Glucometer 116 H 126 H (74 to 106) mg/dL Calcium (8.4-10.2) mg/dL Magnesium (1.6-2.3) mg/dL Total Bilirubin (0.2-1.3) mg/dL AST (17-59) U/L ALT (0-50) U/L Alkaline Phosphatase (38-126) U/L Serum Total Protein (6.3-8.2) g/dL Albumin (3.5-5.0) g/dL Multi-Disciplinary Progress Notes: Multi-Disciplinary Progress Notes 06/23/24 15:23 Nutrition Note by Josefa Hernandez F/u Note: Low sodium restriction added to 2200CC diet. Pt with 100% po intake. Labs 06/23= hgb 13.1, glu 139, BUN 32. adm weight 185kg; current weight 173.182 kg. goals met and ongoing. Will con't to monitor and f/u prn. T.KARLA Hernandez Initialized on 06/23/24 15:23 - END OF NOTE 06/23/24 12:20 Case Management Note by Kendra Smith S/W PATIENT- HE CONTINUES TO PLAN TO DC HOME TO HIS PLF AT TIME OF DC. Initialized on 06/23/24 12:20 - END OF NOTE 06/23/24 07:00 Respiratory Note by Claudette Andrea Patient refused Xopenex treatment at this time. Initialized on 06/23/24 07:00 - END OF NOTE Assessment/Plan (1) Atrial fibrillation with RVR Current Visit: Yes Status: Acute Assessment & Plan: - Echo performed 06/16/24 With EF estimated at 57% -Moderate concentric LVH -Normal left/right atrial size -Normal Left ventricular systolic function Normal right ventricular size and function -Normal mitral valve structure and function -Normal aortic valve structure -Normal tricuspid valve structure -unable to visualize IVC -Diastolic function could not be evaluated -HR controlled -Cardiology consulted and following - recs for metoprolol succinate 50mg BID - on Eliquis 5mg BID -no changes unless HR >120 Code(s): I48.91 - UNSPECIFIED ATRIAL FIBRILLATION (2) CHF exacerbation Current Visit: Yes Status: Acute Assessment & Plan: - Echo as stated avove - Noncompliant with home meds, states just did not want to take them. - Has seen Dr. Foley with cardiology in the past - Previous echo reviewed -Continue lasix drip - increase to 30mls/hr -monitor output/BP closely Code(s): I50.9 - HEART FAILURE, UNSPECIFIED (3) Anasarca Current Visit: Yes Status: Acute Assessment & Plan: - 2:2 CHF/cirrhosis - Mckeon in place d/t needing hourly I&O's - daily weight - fluid restriction - CMP and Mg+ checked Q12 - hourly I&O - 3L 06/21/24 with 1kg weight loss 06/24: - Lasix gtt at 30ml/hr --7634 out -edema improving -2.4 pound weight loss - 24 hours - considering changing to oral lasix to prepare for d/c when edema improves/consider removing mckeon cath -Continue to monitor renal/lytes/BP closely Code(s): R60.1 - GENERALIZED EDEMA (4) Dyspnea Current Visit: Yes Status: Acute Assessment & Plan: -RA which is baseline -supplemental oxygen as needed with spo2 goal >92% - increased SOB with exertion and desaturation into the 80's- may need home oxygen - will retest closer to discharge Code(s): R06.00 - DYSPNEA, UNSPECIFIED (5) Noncompliance with medication regimen Current Visit: Yes Status: Acute Assessment & Plan: - Advised will likely need close f/u OP - High risk for readmission -Discussed risks of non-compliance Code(s): Z91.148 - PATIENT'S OTHER NONCOMPL WITH MEDS REGIMEN FOR OTHER REASON (6) Prediabetes Current Visit: Yes Status: Acute Assessment & Plan: - A1C 06/16/24 6.56 - Will need metformin at D/C - accuchecks ac/hs, humalog s/s Code(s): R73.03 - PREDIABETES (7) Splenomegaly Current Visit: Yes Status: Acute Assessment & Plan: - Noted on CT - Platelets - likely 2:2 Cirrhosis of the liver which is chronic per pt - mono test positive- will need education at d/c with precautions Code(s): R16.1 - SPLENOMEGALY, NOT ELSEWHERE CLASSIFIED (8) Morbid obesity with BMI of 50.0-59.9, adult Current Visit: Yes Status: Chronic Assessment & Plan: - advised ADA diet and exercise control - Low sodium diet Code(s): E66.01 - MORBID (SEVERE) OBESITY DUE TO EXCESS CALORIES; Z68.43 - BODY MASS INDEX [BMI] 50.0-59.9, ADULT (9) HTN (hypertension) Current Visit: No Status: Chronic Assessment & Plan: - metoprolol changed to 50mg BID by cardiology 06/20 - BP stable Code(s): I10 - ESSENTIAL (PRIMARY) HYPERTENSION (10) Liver cirrhosis Current Visit: No Status: Chronic Assessment & Plan: - chronic per pt from ETOH use- reports has not drank in 18 months - will need OP f/u at D/C (11) Hypokalemia -secondary to diuresis -K+ at 3.3 will add extra dose of 20meq today, recheck this afternoon VTE: Bakari Next of KIN: Javier Hoover, D/C plan: 1-2 days Code status: Full Code(s): I48.91 - UNSPECIFIED ATRIAL FIBRILLATION (2) CHF exacerbation Current Visit: Yes Status: Acute Code(s): I50.9 - HEART FAILURE, UNSPECIFIED (3) Anasarca Current Visit: Yes Status: Acute Code(s): R60.1 - GENERALIZED EDEMA (4) Dyspnea Current Visit: Yes Status: Acute Code(s): R06.00 - DYSPNEA, UNSPECIFIED (5) Noncompliance with medication regimen Current Visit: Yes Status: Acute Code(s): Z91.148 - PATIENT'S OTHER NONCOMPL WITH MEDS REGIMEN FOR OTHER REASON (6) Prediabetes Current Visit: Yes Status: Acute Code(s): R73.03 - PREDIABETES (7) Splenomegaly Current Visit: Yes Status: Acute Code(s): R16.1 - SPLENOMEGALY, NOT ELSEWHERE CLASSIFIED (8) Morbid obesity with BMI of 50.0-59.9, adult Current Visit: Yes Status: Chronic Code(s): E66.01 - MORBID (SEVERE) OBESITY DUE TO EXCESS CALORIES; Z68.43 - BODY MASS INDEX [BMI] 50.0-59.9, ADULT (9) HTN (hypertension) Current Visit: No Status: Chronic Code(s): I10 - ESSENTIAL (PRIMARY) HYPERTENSION (10) Liver cirrhosis Current Visit: No Status: Chronic
[2024-06-24 05:47] LABS: Absolute Neutrophil Ct (ANC) 7.25 x10^3/uL (1.78-5.38); BASOPHIL % 1.7 % (0.2-1.2); Basophil (Absolute #) 0.17 x10^3/uL (0.01-0.08); Eosinophil % 4.9 % (0.8-7.0); Hemoglobin 13.3 g/dL (13.7-17.5); IMMATURE GRAN # 0.08 x10^3u/L (0.001-0.031); IMMATURE GRAN % 0.8 % (0.001-0.429); Lymphocyte (Absolute #) 1.09 x10^3/uL (1.32-3.57); Lymphocytes % 10.7 % (21.8-53.1); Mean Cell Volume 80.6 fL (79.0-92.2); Mean Corpuscular Hemoglobin 24.4 pg (25.7-32.2); Mean Corpuscular Hgb Concent. 30.2 g/dL (32.3-36.5); Mean Platelet Volume 11.4 fL (9.4-12.4); Monocyte (Absolute #) 1.05 x10^3/uL (0.30-0.82); Monocytes % 10.4 % (5.3-12.2); Neutrophil % 71.5 % (34.0-67.9); Platelet Count 626 x10^3/uL (163-337); Red Blood Count 5.46 x10^6/uL (4.63-6.08); Red Cell Distribution Width 18.2 % (11.6-14.4); White Blood Count 10.1 x10^3/uL (4.23-9.07)
[2024-06-24 06:18] LABS: ALBUMIN 3.6 g/dL (3.5-5.0); ANION GAP 12.3 MEQ/L (5-15); BILIRUBIN,TOTAL 0.7 mg/dL (0.2-1.3); Calcium 8.4 mg/dL (8.4-10.2); Creatinine 1 1.07 mg/dL (0.66-1.25); EST GLOMERULAR FILTRATION RATE 82.5 ML/MIN; Potassium 3.3 mmol/L (3.5-5.1); Total Protein 7.7 g/dL (6.3-8.2)
[2024-06-24] MEDS: Klor Con PO ONE (08:22)
[2024-06-24] MEDS: PERCOCET TABLET 5/325MG PO PRN (13:01)
[2024-06-25 05:11] LABS: Absolute Neutrophil Ct (ANC) 7.86 x10^3/uL (1.78-5.38); BASOPHIL % 1.6 % (0.2-1.2); Basophil (Absolute #) 0.17 x10^3/uL (0.01-0.08); Eosinophil % 5.1 % (0.8-7.0); Eosinophil (Absolute #) 0.55 x10^3/uL (0.04-0.54); Hematocrit 44.9 % (40.1-51.0); Hemoglobin 13.7 g/dL (13.7-17.5); IMMATURE GRAN # 0.08 x10^3u/L (0.001-0.031); IMMATURE GRAN % 0.7 % (0.001-0.429); Lymphocyte (Absolute #) 1.14 x10^3/uL (1.32-3.57); Lymphocytes % 10.5 % (21.8-53.1); Mean Cell Volume 80.5 fL (79.0-92.2); Mean Corpuscular Hemoglobin 24.6 pg (25.7-32.2); Mean Corpuscular Hgb Concent. 30.5 g/dL (32.3-36.5); Monocyte (Absolute #) 1.09 x10^3/uL (0.30-0.82); Neutrophil % 72.1 % (34.0-67.9); Platelet Count 681 x10^3/uL (163-337); Red Blood Count 5.58 x10^6/uL (4.63-6.08); Red Cell Distribution Width 18.5 % (11.6-14.4); White Blood Count 10.9 x10^3/uL (4.23-9.07)
[2024-06-25 05:39] LABS: ALBUMIN 3.8 g/dL (3.5-5.0); ANION GAP 11.5 MEQ/L (5-15); BILIRUBIN,TOTAL 0.7 mg/dL (0.2-1.3); Calcium 8.5 mg/dL (8.4-10.2); Creatinine 1 1.1 mg/dL (0.66-1.25); EST GLOMERULAR FILTRATION RATE 79.8 ML/MIN; Potassium 3.3 mmol/L (3.5-5.1); Total Protein 8.1 g/dL (6.3-8.2)
--- NOTE | 2024-06-25 05:46 | PCM.NOTE ---
Date and Time: 06/25/24 0545 Subjective Assessment: is a 54 year old male with PMHX of drug use, smoker that stopped 18 months ago, cirrhosis of the liver, COPD, emphysema, multiple strokes, type II DM, anxiety, bipolar, depression, gout, CHF, and morbid obesity admitted 06/16/24 with AFIB RVR/Anasarca/CHF exacerbation after experiencing a three day history of progressive shortness of breath. Patient admits to medication and specialty visit non-compliance. CT negative for PE. However does show confirmed anascarca, cirrhotic liver, and splenomegly. He was started on Cardizem gtt in ER for a-fib RVR as well as a lasix drip for anasarca/CHF exacerbation. HR controlled. Cardiology Cardiology consulted and following - recs for metoprolol succinate 50mg BID - on Eliquis 5mg BID -no changes unless HR >120. Patient with painful scrotal edema, which has improved. UC and BC x2 negative. 06/23/24: Patient up in chair. Endorses continued scrotal pain due to swelling, rates 15/10 on numerical scale. BLE edema improving. Scrotal edema remains extensive. Plan for continuation of lasix drip, will increase to 30mls/hr. Patient is noted with shortness of breath with exertion, walk test shows spo2 dipping into the mid 80's with ambulation. Patient may need home oxygen. Denies fever,cough, sob, cp, abdominal pain, MCDONALD, dizziness, N/V/D. 06/24/24: No overnight events noted. Patient diuresing well -7634 balance in 24 hours. Discussion had regarding the importance of a scrotal sling to reduce scrotal edema/pain. Patient declines use at this time, states it makes his pain worse. Denies fever,cough, sob, cp, abdominal pain, MCDONALD, dizziness, N/V/D. 06/25/24: Examined patient chair side. Diuresis continues with 0.4 Kg lost overnight. Scrotal edema with mild improvement. Plan for continued diuresis - Review of Systems Constitutional: No Symptoms Eyes: No Symptoms Ears, Nose, & Throat: No Symptoms Respiratory: No Symptoms Cardiac: Edema (BLE 3+ pitting ) Abdominal/Gastrointestinal: No Symptoms Genitourinary Symptoms: No Symptoms Musculoskeletal: No Symptoms Skin: No Symptoms Neurological: No Symptoms Psychological: No Symptoms Endocrine: No Symptoms Hematologic/Lymphatic: No Symptoms Immunological/Allergic: No Symptoms Objective Exam General Appearance: no apparent distress Neurologic Exam: alert, oriented x 3, cooperative Skin Exam: other (extensive scrotal edema) Eye Exam: PERRL Ears, Nose, Throat Exam: normal ENT inspection Neck Exam: normal inspection Respiratory Exam: normal breath sounds, lungs clear Cardiovascular Exam: regular rate/rhythm, normal heart sounds Gastrointestinal/Abdomen Exam: soft, normal bowel sounds Extremity Exam: swelling (BLE edeam 2+) Male Genitalia Exam: other (extensive scrotal edema) Objective Data Vital Signs: Vital Signs - 24 hr Temp Pulse Resp BP Pulse Ox 06/25/24 05:00 75 19 106/83 91 L 06/25/24 04:00 97.6 F 74 21 118/82 93 L 06/25/24 03:00 71 20 102/83 95 06/25/24 02:09 77 21 132/85 96 06/25/24 01:00 87 21 124/90 94 L 06/25/24 00:01 76 06/25/24 00:00 97.6 F 76 20 106/75 97 06/24/24 23:15 76 21 99/76 95 06/24/24 23:00 77 18 94/69 95 06/24/24 22:00 66 20 119/79 95 06/24/24 21:00 77 23 106/71 96 06/24/24 20:00 97.5 F 78 21 114/77 95 06/24/24 19:30 92 H 24 105/74 94 L 06/24/24 18:00 16 105/76 97 06/24/24 17:00 77 18 98/78 96 06/24/24 16:00 74 27 H 110/81 97 06/24/24 15:35 70 06/24/24 15:00 71 22 99/73 96 06/24/24 14:00 75 23 122/80 97 06/24/24 13:00 86 15 109/76 96 06/24/24 12:00 97.6 F 77 21 102/74 96 06/24/24 11:01 86 24 124/94 96 06/24/24 10:00 80 19 103/70 93 L 06/24/24 09:00 94 H 23 103/76 95 06/24/24 08:02 97.0 F 73 22 112/75 94 L 06/24/24 07:53 78 06/24/24 07:05 79 20 96 06/24/24 07:00 74 20 107/86 89 L 06/24/24 06:00 76 13 122/65 95 Pain Assessment - Last Documented Pain Intensity 6 Pain Scale Used 0-10 Pain Scale Intake and Output: Intake & Output 06/22/24 06/23/24 06/24/24 06/25/24 11:59 11:59 11:59 11:59 Intake Total 311 2786 1296 1828 Output Total 6944 6352 5502 4749 Balance -3811 -2220 -6074 -2780 Weight 173.5 kg 173.182 kg 172.1 kg 171.7 kg Lab Results: Lab Results-Last 24 Hours 06/24/24 06/24/24 06/24/24 Range/Units 04:00 04:00 05:15 WBC 10.1 H (4.23-9.07) x10^3/uL RBC 5.46 (4.63-6.08) x10^6/uL Hgb 13.3 L (13.7-17.5) g/dL Hct 44.0 (40.1-51.0) % MCV 80.6 (79.0-92.2) fL MCH 24.4 L (25.7-32.2) pg MCHC 30.2 L (32.3-36.5) g/dL RDW 18.2 H (11.6-14.4) % Plt Count 626 H (163-337) x10^3/uL MPV 11.4 (9.4-12.4) fL Gran % 71.5 H (34.0-67.9) % Immature Gran % (Auto) 0.8 H (0.001-0.429) % Nucleat RBC Rel Count 0.0 (0.00-0.2) % Eos # (Auto) 0.50 (0.04-0.54) x10^3/uL Immature Gran # (Auto) 0.08 H (0.001-0.031) x10^3u/L Absolute Lymphs (auto) 1.09 L (1.32-3.57) x10^3/uL Absolute Monos (auto) 1.05 H (0.30-0.82) x10^3/uL Absolute Nucleated RBC 0.00 (0.00-0.012) x10^3u/L Lymphocytes % 10.7 L (21.8-53.1) % Monocytes % 10.4 (5.3-12.2) % Eosinophils % 4.9 (0.8-7.0) % Basophils % 1.7 H (0.2-1.2) % Absolute Granulocytes 7.25 H (1.78-5.38) x10^3/uL Basophils # 0.17 H (0.01-0.08) x10^3/uL Sodium 140 (135-145) mmol/L Potassium 3.3 L (3.5-5.1) mmol/L Chloride 96 L (98-107) mmol/L Carbon Dioxide 35 H (22-30) mmol/L Anion Gap 12.3 (5-15) MEQ/L BUN 34 H (9-20) mg/dL Creatinine 1.07 (0.66-1.25) mg/dL Estimated GFR 82.5 ML/MIN Glucose 127 H (74-106) mg/dL POC Glucometer (74 to 106) mg/dL Calcium 8.4 (8.4-10.2) mg/dL Magnesium 2.0 (1.6-2.3) mg/dL Total Bilirubin 0.70 (0.2-1.3) mg/dL AST 54 (17-59) U/L ALT 34 (0-50) U/L Alkaline Phosphatase 83 (38-126) U/L Serum Total Protein 7.7 (6.3-8.2) g/dL Albumin 3.6 (3.5-5.0) g/dL 06/24/24 06/24/24 06/24/24 Range/Units 08:01 12:10 12:16 WBC (4.23-9.07) x10^3/uL RBC (4.63-6.08) x10^6/uL Hgb (13.7-17.5) g/dL Hct (40.1-51.0) % MCV (79.0-92.2) fL MCH (25.7-32.2) pg MCHC (32.3-36.5) g/dL RDW (11.6-14.4) % Plt Count (163-337) x10^3/uL MPV (9.4-12.4) fL Gran % (34.0-67.9) % Immature Gran % (Auto) (0.001-0.429) % Nucleat RBC Rel Count (0.00-0.2) % Eos # (Auto) (0.04-0.54) x10^3/uL Immature Gran # (Auto) (0.001-0.031) x10^3u/L Absolute Lymphs (auto) (1.32-3.57) x10^3/uL Absolute Monos (auto) (0.30-0.82) x10^3/uL Absolute Nucleated RBC (0.00-0.012) x10^3u/L Lymphocytes % (21.8-53.1) % Monocytes % (5.3-12.2) % Eosinophils % (0.8-7.0) % Basophils % (0.2-1.2) % Absolute Granulocytes (1.78-5.38) x10^3/uL Basophils # (0.01-0.08) x10^3/uL Sodium (135-145) mmol/L Potassium 3.6 (3.5-5.1) mmol/L Chloride (98-107) mmol/L Carbon Dioxide (22-30) mmol/L Anion Gap (5-15) MEQ/L BUN (9-20) mg/dL Creatinine (0.66-1.25) mg/dL Estimated GFR ML/MIN Glucose (74-106) mg/dL POC Glucometer 108 H 133 H (74 to 106) mg/dL Calcium (8.4-10.2) mg/dL Magnesium (1.6-2.3) mg/dL Total Bilirubin (0.2-1.3) mg/dL AST (17-59) U/L ALT (0-50) U/L Alkaline Phosphatase (38-126) U/L Serum Total Protein (6.3-8.2) g/dL Albumin (3.5-5.0) g/dL 06/24/24 06/24/24 06/25/24 Range/Units 16:33 20:54 04:14 WBC 10.9 H (4.23-9.07) x10^3/uL RBC 5.58 (4.63-6.08) x10^6/uL Hgb 13.7 (13.7-17.5) g/dL Hct 44.9 (40.1-51.0) % MCV 80.5 (79.0-92.2) fL MCH 24.6 L (25.7-32.2) pg MCHC 30.5 L (32.3-36.5) g/dL RDW 18.5 H (11.6-14.4) % Plt Count 681 H (163-337) x10^3/uL MPV 11.0 (9.4-12.4) fL Gran % 72.1 H (34.0-67.9) % Immature Gran % (Auto) 0.7 H (0.001-0.429) % Nucleat RBC Rel Count 0.0 (0.00-0.2) % Eos # (Auto) 0.55 H (0.04-0.54) x10^3/uL Immature Gran # (Auto) 0.08 H (0.001-0.031) x10^3u/L Absolute Lymphs (auto) 1.14 L (1.32-3.57) x10^3/uL Absolute Monos (auto) 1.09 H (0.30-0.82) x10^3/uL Absolute Nucleated RBC 0.00 (0.00-0.012) x10^3u/L Lymphocytes % 10.5 L (21.8-53.1) % Monocytes % 10.0 (5.3-12.2) % Eosinophils % 5.1 (0.8-7.0) % Basophils % 1.6 H (0.2-1.2) % Absolute Granulocytes 7.86 H (1.78-5.38) x10^3/uL Basophils # 0.17 H (0.01-0.08) x10^3/uL Sodium (135-145) mmol/L Potassium (3.5-5.1) mmol/L Chloride (98-107) mmol/L Carbon Dioxide (22-30) mmol/L Anion Gap (5-15) MEQ/L BUN (9-20) mg/dL Creatinine (0.66-1.25) mg/dL Estimated GFR ML/MIN Glucose (74-106) mg/dL POC Glucometer 123 H 152 H (74 to 106) mg/dL Calcium (8.4-10.2) mg/dL Magnesium (1.6-2.3) mg/dL Total Bilirubin (0.2-1.3) mg/dL AST (17-59) U/L ALT (0-50) U/L Alkaline Phosphatase (38-126) U/L Serum Total Protein (6.3-8.2) g/dL Albumin (3.5-5.0) g/dL 06/25/24 Range/Units 04:14 WBC (4.23-9.07) x10^3/uL RBC (4.63-6.08) x10^6/uL Hgb (13.7-17.5) g/dL Hct (40.1-51.0) % MCV (79.0-92.2) fL MCH (25.7-32.2) pg MCHC (32.3-36.5) g/dL RDW (11.6-14.4) % Plt Count (163-337) x10^3/uL MPV (9.4-12.4) fL Gran % (34.0-67.9) % Immature Gran % (Auto) (0.001-0.429) % Nucleat RBC Rel Count (0.00-0.2) % Eos # (Auto) (0.04-0.54) x10^3/uL Immature Gran # (Auto) (0.001-0.031) x10^3u/L Absolute Lymphs (auto) (1.32-3.57) x10^3/uL Absolute Monos (auto) (0.30-0.82) x10^3/uL Absolute Nucleated RBC (0.00-0.012) x10^3u/L Lymphocytes % (21.8-53.1) % Monocytes % (5.3-12.2) % Eosinophils % (0.8-7.0) % Basophils % (0.2-1.2) % Absolute Granulocytes (1.78-5.38) x10^3/uL Basophils # (0.01-0.08) x10^3/uL Sodium 137 (135-145) mmol/L Potassium 3.3 L (3.5-5.1) mmol/L Chloride 93 L (98-107) mmol/L Carbon Dioxide 35 H (22-30) mmol/L Anion Gap 11.5 (5-15) MEQ/L BUN 34 H (9-20) mg/dL Creatinine 1.10 (0.66-1.25) mg/dL Estimated GFR 79.8 ML/MIN Glucose 116 H (74-106) mg/dL POC Glucometer (74 to 106) mg/dL Calcium 8.5 (8.4-10.2) mg/dL Magnesium (1.6-2.3) mg/dL Total Bilirubin 0.70 (0.2-1.3) mg/dL AST 62 H (17-59) U/L ALT 35 (0-50) U/L Alkaline Phosphatase 90 (38-126) U/L Serum Total Protein 8.1 (6.3-8.2) g/dL Albumin 3.8 (3.5-5.0) g/dL Multi-Disciplinary Progress Notes: Multi-Disciplinary Progress Notes 06/24/24 12:58 Respiratory Note by Claudette Andrea Patient refused 0700 and 1300 Xopenex treatments. RN notified. Initialized on 06/24/24 12:58 - END OF NOTE 06/24/24 11:56 Case Management Note by Kendra Smith NO CHANGE IN DC PLANS AT THIS TIME Initialized on 06/24/24 11:56 - END OF NOTE Assessment/Plan (1) Atrial fibrillation with RVR Current Visit: Yes Status: Acute Assessment & Plan: - Echo performed 06/16/24 With EF estimated at 57% -Moderate concentric LVH -Normal left/right atrial size -Normal Left ventricular systolic function Normal right ventricular size and function -Normal mitral valve structure and function -Normal aortic valve structure -Normal tricuspid valve structure -unable to visualize IVC -Diastolic function could not be evaluated -HR controlled -Cardiology consulted and following - recs for metoprolol succinate 50mg BID - on Eliquis 5mg BID -no changes unless HR >120 Code(s): I48.91 - UNSPECIFIED ATRIAL FIBRILLATION (2) CHF exacerbation Current Visit: Yes Status: Acute Assessment & Plan: - Echo as stated avove - Noncompliant with home meds, states just did not want to take them. - Has seen Dr. Foley with cardiology in the past - Previous echo reviewed -Continue lasix drip - increase to 30mls/hr -monitor output/BP closely Code(s): I50.9 - HEART FAILURE, UNSPECIFIED (3) Anasarca Current Visit: Yes Status: Acute Assessment & Plan: - 2:2 CHF/cirrhosis - Mckeon in place d/t needing hourly I&O's - daily weight - fluid restriction - CMP and Mg+ checked Q12 - hourly I&O - 3L 06/21/24 with 1kg weight loss 06/24: - Lasix gtt at 30ml/hr --7634 out -edema improving -2.4 pound weight loss - 24 hours - considering changing to oral lasix to prepare for d/c when edema improves/consider removing mckeon cath -Continue to monitor renal/lytes/BP closely 06/25: -Continue drip at 30mls/hr Code(s): R60.1 - GENERALIZED EDEMA (4) Dyspnea Current Visit: Yes Status: Acute Assessment & Plan: -RA which is baseline -supplemental oxygen as needed with spo2 goal >92% - increased SOB with exertion and desaturation into the 80's- may need home oxygen - will retest closer to discharge Code(s): R06.00 - DYSPNEA, UNSPECIFIED (5) Noncompliance with medication regimen Current Visit: Yes Status: Acute Assessment & Plan: - Advised will likely need close f/u OP - High risk for readmission -Discussed risks of non-compliance Code(s): Z91.148 - PATIENT'S OTHER NONCOMPL WITH MEDS REGIMEN FOR OTHER REASON (6) Prediabetes Current Visit: Yes Status: Acute Assessment & Plan: - A1C 06/16/24 6.56 - Will need metformin at D/C - accuchecks ac/hs, humalog s/s Code(s): R73.03 - PREDIABETES (7) Splenomegaly Current Visit: Yes Status: Acute Assessment & Plan: - Noted on CT - Platelets - likely 2:2 Cirrhosis of the liver which is chronic per pt - mono test positive- will need education at d/c with precautions Code(s): R16.1 - SPLENOMEGALY, NOT ELSEWHERE CLASSIFIED (8) Morbid obesity with BMI of 50.0-59.9, adult Current Visit: Yes Status: Chronic Assessment & Plan: - advised ADA diet and exercise control - Low sodium diet Code(s): E66.01 - MORBID (SEVERE) OBESITY DUE TO EXCESS CALORIES; Z68.43 - BODY MASS INDEX [BMI] 50.0-59.9, ADULT (9) HTN (hypertension) Current Visit: No Status: Chronic Assessment & Plan: - metoprolol changed to 50mg BID by cardiology 06/20 - BP stable Code(s): I10 - ESSENTIAL (PRIMARY) HYPERTENSION (10) Liver cirrhosis Current Visit: No Status: Chronic Assessment & Plan: - chronic per pt from ETOH use- reports has not drank in 18 months - will need OP f/u at D/C (11) Hypokalemia -secondary to diuresis -K+ at 3.3 will add extra dose of 20meq today, recheck this afternoon 06/25/24: -resolved. VTE: Eliquis Next of KIN: Javier Hoover, D/C plan: 1-2 days Code status: Full Code(s): I48.91 - UNSPECIFIED ATRIAL FIBRILLATION (2) CHF exacerbation Current Visit: Yes Status: Acute Code(s): I50.9 - HEART FAILURE, UNSPECIFIED (3) Anasarca Current Visit: Yes Status: Acute Code(s): R60.1 - GENERALIZED EDEMA (4) Dyspnea Current Visit: Yes Status: Acute Code(s): R06.00 - DYSPNEA, UNSPECIFIED (5) Noncompliance with medication regimen Current Visit: Yes Status: Acute Code(s): Z91.148 - PATIENT'S OTHER NONCOMPL WITH MEDS REGIMEN FOR OTHER REASON (6) Prediabetes Current Visit: Yes Status: Acute Code(s): R73.03 - PREDIABETES (7) Splenomegaly Current Visit: Yes Status: Acute Code(s): R16.1 - SPLENOMEGALY, NOT ELSEWHERE CLASSIFIED (8) Morbid obesity with BMI of 50.0-59.9, adult Current Visit: Yes Status: Chronic Code(s): E66.01 - MORBID (SEVERE) OBESITY DUE TO EXCESS CALORIES; Z68.43 - BODY MASS INDEX [BMI] 50.0-59.9, ADULT (9) HTN (hypertension) Current Visit: No Status: Chronic Code(s): I10 - ESSENTIAL (PRIMARY) HYPERTENSION (10) Liver cirrhosis Current Visit: No Status: Chronic
[2024-06-25] MEDS: Klor Con PO ONE (06:03)
[2024-06-25] MEDS: Sodium Chloride 3 ML UD NEBULES IH PRN (16:31)
[2024-06-25] MEDS: Xopenex 1.25 MG/0.5 ML UD NEBULE IH PRN (16:31)
[2024-06-26 04:49] LABS: Absolute Neutrophil Ct (ANC) 7.27 x10^3/uL (1.78-5.38); BASOPHIL % 1.5 % (0.2-1.2); Basophil (Absolute #) 0.15 x10^3/uL (0.01-0.08); Eosinophil % 4.9 % (0.8-7.0); Eosinophil (Absolute #) 0.49 x10^3/uL (0.04-0.54); Hematocrit 43.6 % (40.1-51.0); Hemoglobin 13.1 g/dL (13.7-17.5); IMMATURE GRAN # 0.07 x10^3u/L (0.001-0.031); IMMATURE GRAN % 0.7 % (0.001-0.429); Lymphocyte (Absolute #) 0.95 x10^3/uL (1.32-3.57); Lymphocytes % 9.6 % (21.8-53.1); Mean Cell Volume 80.6 fL (79.0-92.2); Mean Corpuscular Hemoglobin 24.2 pg (25.7-32.2); Monocyte (Absolute #) 0.98 x10^3/uL (0.30-0.82); Monocytes % 9.9 % (5.3-12.2); Neutrophil % 73.4 % (34.0-67.9); Platelet Count 608 x10^3/uL (163-337); Red Blood Count 5.41 x10^6/uL (4.63-6.08); White Blood Count 9.9 x10^3/uL (4.23-9.07)
[2024-06-26 05:13] LABS: ALBUMIN 3.6 g/dL (3.5-5.0); ANION GAP 8.7 MEQ/L (5-15); BILIRUBIN,TOTAL 0.8 mg/dL (0.2-1.3); Calcium 8.3 mg/dL (8.4-10.2); Creatinine 1 0.98 mg/dL (0.66-1.25); EST GLOMERULAR FILTRATION RATE 91.6 ML/MIN; Potassium 3.1 mmol/L (3.5-5.1); Total Protein 7.6 g/dL (6.3-8.2)
--- NOTE | 2024-06-26 05:16 | PCM.NOTE ---
Date and Time: 06/26/24 0515 Subjective Assessment: is a 54 year old male with PMHX of drug use, smoker that stopped 18 months ago, cirrhosis of the liver, COPD, emphysema, multiple strokes, type II DM, anxiety, bipolar, depression, gout, CHF, and morbid obesity admitted 06/16/24 with AFIB RVR/Anasarca/CHF exacerbation after experiencing a three day history of progressive shortness of breath. Patient admits to medication and specialty visit non-compliance. CT negative for PE. However does show confirmed anascarca, cirrhotic liver, and splenomegly. He was started on Cardizem gtt in ER for a-fib RVR as well as a lasix drip for anasarca/CHF exacerbation. HR controlled. Cardiology Cardiology consulted and following - recs for metoprolol succinate 50mg BID - on Eliquis 5mg BID -no changes unless HR >120. Patient with painful scrotal edema, which has improved. UC and BC x2 negative. 06/23/24: Patient up in chair. Endorses continued scrotal pain due to swelling, rates 15/10 on numerical scale. BLE edema improving. Scrotal edema remains extensive. Plan for continuation of lasix drip, will increase to 30mls/hr. Patient is noted with shortness of breath with exertion, walk test shows spo2 dipping into the mid 80's with ambulation. Patient may need home oxygen. Denies fever,cough, sob, cp, abdominal pain, MCDONALD, dizziness, N/V/D. 06/24/24: No overnight events noted. Patient diuresing well -7634 balance in 24 hours. Discussion had regarding the importance of a scrotal sling to reduce scrotal edema/pain. Patient declines use at this time, states it makes his pain worse. Denies fever,cough, sob, cp, abdominal pain, MCDONALD, dizziness, N/V/D. 06/25/24: Examined patient chair side. Diuresis continues with 0.4 Kg lost overnight. Scrotal edema with mild improvement. Plan for continued diuresis 06/26/24: No overnight events noted. Scrotal and BLE edema improving. Diuresing well with -2588 balance this morning. Dyspnea has improved. Potassium low this morning and will be replenished. Denies fever,cough, sob, cp, abdominal pain, MCDONALD, dizziness, N/V/D. - Review of Systems Constitutional: No Symptoms Eyes: No Symptoms Ears, Nose, & Throat: No Symptoms Respiratory: Short Of Breath (with exertion) Cardiac: Edema (BLE edema +2 pitting) Abdominal/Gastrointestinal: No Symptoms Genitourinary Symptoms: Other (FC ) Musculoskeletal: No Symptoms (Scrotal edema) Skin: Other (Diffuse edema to BLE and scrotum) Neurological: No Symptoms Psychological: No Symptoms Endocrine: No Symptoms Hematologic/Lymphatic: No Symptoms Immunological/Allergic: No Symptoms Objective Exam General Appearance: no apparent distress Neurologic Exam: alert, oriented x 3, cooperative Skin Exam: normal color Eye Exam: PERRL Ears, Nose, Throat Exam: normal ENT inspection Neck Exam: normal inspection Respiratory Exam: normal breath sounds, lungs clear Cardiovascular Exam: regular rate/rhythm, normal heart sounds Gastrointestinal/Abdomen Exam: soft, normal bowel sounds Extremity Exam: swelling (BLE edema +2 pitting) Back Exam: normal inspection Male Genitalia Exam: other (Scrotal edema) Objective Data Vital Signs: Vital Signs - 24 hr Temp Pulse Resp BP Pulse Ox 06/26/24 05:00 64 19 100/73 94 L 06/26/24 04:00 69 19 90/63 93 L 06/26/24 03:47 73 06/26/24 03:42 97.1 F 70 19 111/78 94 L 06/26/24 03:00 80 20 89/64 94 L 06/26/24 02:00 77 25 H 116/81 97 06/26/24 01:00 73 18 101/79 97 06/26/24 00:00 67 14 111/82 96 06/25/24 23:55 97.8 F 06/25/24 23:54 72 06/25/24 23:03 70 21 97/73 98 06/25/24 22:00 71 15 97/64 96 06/25/24 21:00 73 22 112/77 98 06/25/24 20:00 72 20 104/71 97 06/25/24 19:34 75 22 98 06/25/24 19:22 83 06/25/24 19:20 97.8 F 06/25/24 19:00 85 24 113/87 98 06/25/24 18:00 84 22 106/79 95 06/25/24 17:00 79 18 99/71 96 06/25/24 16:31 86 16 98 06/25/24 16:00 88 28 H 99/74 95 06/25/24 15:44 94 H 06/25/24 15:33 92 H 24 109/78 94 L 06/25/24 14:35 77 18 134/84 98 06/25/24 13:50 76 21 95 06/25/24 12:00 75 25 H 102/70 96 06/25/24 11:00 77 20 103/71 92 L 06/25/24 10:00 90 13 120/96 92 L 06/25/24 09:41 89 18 121/87 96 06/25/24 08:00 81 20 99/68 98 06/25/24 07:00 97.6 F 82 23 120/91 96 06/25/24 06:29 85 20 95 06/25/24 06:00 79 19 104/81 95 Pain Assessment - Last Documented Pain Intensity 0 Pain Scale Used 0-10 Pain Scale Intake and Output: Intake & Output 06/23/24 06/24/24 06/25/24 06/26/24 11:59 11:59 11:59 11:59 Intake Total 2780 1298 3074 3312 Output Total 0124 0053 5961 5639 [facility]1333 -6081 -9748 -4488 Weight 173.182 kg 172.1 kg 171.7 kg 170.8 kg Lab Results: Lab Results-Last 24 Hours 06/25/24 06/25/24 06/25/24 Range/Units 04:14 04:14 07:37 WBC 10.9 H (4.23-9.07) x10^3/uL RBC 5.58 (4.63-6.08) x10^6/uL Hgb 13.7 (13.7-17.5) g/dL Hct 44.9 (40.1-51.0) % MCV 80.5 (79.0-92.2) fL MCH 24.6 L (25.7-32.2) pg MCHC 30.5 L (32.3-36.5) g/dL RDW 18.5 H (11.6-14.4) % Plt Count 681 H (163-337) x10^3/uL MPV 11.0 (9.4-12.4) fL Gran % 72.1 H (34.0-67.9) % Immature Gran % (Auto) 0.7 H (0.001-0.429) % Nucleat RBC Rel Count 0.0 (0.00-0.2) % Eos # (Auto) 0.55 H (0.04-0.54) x10^3/uL Immature Gran # (Auto) 0.08 H (0.001-0.031) x10^3u/L Absolute Lymphs (auto) 1.14 L (1.32-3.57) x10^3/uL Absolute Monos (auto) 1.09 H (0.30-0.82) x10^3/uL Absolute Nucleated RBC 0.00 (0.00-0.012) x10^3u/L Lymphocytes % 10.5 L (21.8-53.1) % Monocytes % 10.0 (5.3-12.2) % Eosinophils % 5.1 (0.8-7.0) % Basophils % 1.6 H (0.2-1.2) % Absolute Granulocytes 7.86 H (1.78-5.38) x10^3/uL Basophils # 0.17 H (0.01-0.08) x10^3/uL Sodium 137 (135-145) mmol/L Potassium 3.3 L (3.5-5.1) mmol/L Chloride 93 L (98-107) mmol/L Carbon Dioxide 35 H (22-30) mmol/L Anion Gap 11.5 (5-15) MEQ/L BUN 34 H (9-20) mg/dL Creatinine 1.10 (0.66-1.25) mg/dL Estimated GFR 79.8 ML/MIN Glucose 116 H (74-106) mg/dL POC Glucometer 93 (74 to 106) mg/dL Calcium 8.5 (8.4-10.2) mg/dL Magnesium (1.6-2.3) mg/dL Total Bilirubin 0.70 (0.2-1.3) mg/dL AST 62 H (17-59) U/L ALT 35 (0-50) U/L Alkaline Phosphatase 90 (38-126) U/L Serum Total Protein 8.1 (6.3-8.2) g/dL Albumin 3.8 (3.5-5.0) g/dL 06/25/24 06/25/24 06/25/24 Range/Units 09:30 12:08 16:15 WBC (4.23-9.07) x10^3/uL RBC (4.63-6.08) x10^6/uL Hgb (13.7-17.5) g/dL Hct (40.1-51.0) % MCV (79.0-92.2) fL MCH (25.7-32.2) pg MCHC (32.3-36.5) g/dL RDW (11.6-14.4) % Plt Count (163-337) x10^3/uL MPV (9.4-12.4) fL Gran % (34.0-67.9) % Immature Gran % (Auto) (0.001-0.429) % Nucleat RBC Rel Count (0.00-0.2) % Eos # (Auto) (0.04-0.54) x10^3/uL Immature Gran # (Auto) (0.001-0.031) x10^3u/L Absolute Lymphs (auto) (1.32-3.57) x10^3/uL Absolute Monos (auto) (0.30-0.82) x10^3/uL Absolute Nucleated RBC (0.00-0.012) x10^3u/L Lymphocytes % (21.8-53.1) % Monocytes % (5.3-12.2) % Eosinophils % (0.8-7.0) % Basophils % (0.2-1.2) % Absolute Granulocytes (1.78-5.38) x10^3/uL Basophils # (0.01-0.08) x10^3/uL Sodium (135-145) mmol/L Potassium 3.8 (3.5-5.1) mmol/L Chloride (98-107) mmol/L Carbon Dioxide (22-30) mmol/L Anion Gap (5-15) MEQ/L BUN (9-20) mg/dL Creatinine (0.66-1.25) mg/dL Estimated GFR ML/MIN Glucose (74-106) mg/dL POC Glucometer 133 H 139 H (74 to 106) mg/dL Calcium (8.4-10.2) mg/dL Magnesium (1.6-2.3) mg/dL Total Bilirubin (0.2-1.3) mg/dL AST (17-59) U/L ALT (0-50) U/L Alkaline Phosphatase (38-126) U/L Serum Total Protein (6.3-8.2) g/dL Albumin (3.5-5.0) g/dL 06/25/24 06/25/24 06/26/24 Range/Units 21:09 Unknown 04:16 WBC 9.9 H (4.23-9.07) x10^3/uL RBC 5.41 (4.63-6.08) x10^6/uL Hgb 13.1 L (13.7-17.5) g/dL Hct 43.6 (40.1-51.0) % MCV 80.6 (79.0-92.2) fL MCH 24.2 L (25.7-32.2) pg MCHC 30.0 L (32.3-36.5) g/dL RDW 18.0 H (11.6-14.4) % Plt Count 608 H (163-337) x10^3/uL MPV 11.0 (9.4-12.4) fL Gran % 73.4 H (34.0-67.9) % Immature Gran % (Auto) 0.7 H (0.001-0.429) % Nucleat RBC Rel Count 0.0 (0.00-0.2) % Eos # (Auto) 0.49 (0.04-0.54) x10^3/uL Immature Gran # (Auto) 0.07 H (0.001-0.031) x10^3u/L Absolute Lymphs (auto) 0.95 L (1.32-3.57) x10^3/uL Absolute Monos (auto) 0.98 H (0.30-0.82) x10^3/uL Absolute Nucleated RBC 0.00 (0.00-0.012) x10^3u/L Lymphocytes % 9.6 L (21.8-53.1) % Monocytes % 9.9 (5.3-12.2) % Eosinophils % 4.9 (0.8-7.0) % Basophils % 1.5 H (0.2-1.2) % Absolute Granulocytes 7.27 H (1.78-5.38) x10^3/uL Basophils # 0.15 H (0.01-0.08) x10^3/uL Sodium (135-145) mmol/L Potassium (3.5-5.1) mmol/L Chloride (98-107) mmol/L Carbon Dioxide (22-30) mmol/L Anion Gap (5-15) MEQ/L BUN (9-20) mg/dL Creatinine (0.66-1.25) mg/dL Estimated GFR ML/MIN Glucose (74-106) mg/dL POC Glucometer 153 H (74 to 106) mg/dL Calcium (8.4-10.2) mg/dL Magnesium 2.1 (1.6-2.3) mg/dL Total Bilirubin (0.2-1.3) mg/dL AST (17-59) U/L ALT (0-50) U/L Alkaline Phosphatase (38-126) U/L Serum Total Protein (6.3-8.2) g/dL Albumin (3.5-5.0) g/dL Multi-Disciplinary Progress Notes: Multi-Disciplinary Progress Notes 06/25/24 12:32 Case Management Note by Kendra Smith NO CHANGE IN DC PLANS, PATIENT TO RETURN HOME TO HIS PLF AT TIME OF DC Initialized on 06/25/24 12:32 - END OF NOTE Assessment/Plan (1) Atrial fibrillation with RVR Current Visit: Yes Status: Acute Assessment & Plan: - Echo performed 06/16/24 With EF estimated at 57% -Moderate concentric LVH -Normal left/right atrial size -Normal Left ventricular systolic function Normal right ventricular size and function -Normal mitral valve structure and function -Normal aortic valve structure -Normal tricuspid valve structure -unable to visualize IVC -Diastolic function could not be evaluated -HR controlled -Cardiology consulted and following - recs for metoprolol succinate 50mg BID - on Eliquis 5mg BID -no changes unless HR >120 Code(s): I48.91 - UNSPECIFIED ATRIAL FIBRILLATION (2) CHF exacerbation Current Visit: Yes Status: Acute Assessment & Plan: - Echo as stated avove - Noncompliant with home meds, states just did not want to take them. - Has seen Dr. Foley with cardiology in the past - Previous echo reviewed -Continue lasix drip - increase to 30mls/hr -monitor output/BP closely Code(s): I50.9 - HEART FAILURE, UNSPECIFIED (3) Anasarca Current Visit: Yes Status: Acute Assessment & Plan: - 2:2 CHF/cirrhosis - Mckeon in place d/t needing hourly I&O's - daily weight - fluid restriction - CMP and Mg+ checked Q12 - hourly I&O - 3L 06/21/24 with 1kg weight loss 06/24: - Lasix gtt at 30ml/hr --7634 out -edema improving -2.4 pound weight loss - 24 hours - considering changing to oral lasix to prepare for d/c when edema improves/consider removing mckeon cath -Continue to monitor renal/lytes/BP closely 06/25: -Continue drip at 30mls/hr 06/26: -Improvement in scrotal edema/BLE edema - continue lasix drip at 30ml/hr - -Monitor electrolytes/I&O closely Code(s): R60.1 - GENERALIZED EDEMA (4) Dyspnea Current Visit: Yes Status: Acute Assessment & Plan: -RA which is baseline -supplemental oxygen as needed with spo2 goal >92% - increased SOB with exertion and desaturation into the 80's- may need home oxygen - will retest closer to discharge Code(s): R06.00 - DYSPNEA, UNSPECIFIED (5) Noncompliance with medication regimen Current Visit: Yes Status: Acute Assessment & Plan: - Advised will likely need close f/u OP - High risk for readmission -Discussed risks of non-compliance Code(s): Z91.148 - PATIENT'S OTHER NONCOMPL WITH MEDS REGIMEN FOR OTHER REASON (6) Prediabetes Current Visit: Yes Status: Acute Assessment & Plan: - A1C 06/16/24 6.56 - Will need metformin at D/C - accuchecks ac/hs, humalog s/s Code(s): R73.03 - PREDIABETES (7) Splenomegaly Current Visit: Yes Status: Acute Assessment & Plan: - Noted on CT - Platelets - likely 2:2 Cirrhosis of the liver which is chronic per pt - mono test positive- will need education at d/c with precautions Code(s): R16.1 - SPLENOMEGALY, NOT ELSEWHERE CLASSIFIED (8) Morbid obesity with BMI of 50.0-59.9, adult Current Visit: Yes Status: Chronic Assessment & Plan: - advised ADA diet and exercise control - Low sodium diet Code(s): E66.01 - MORBID (SEVERE) OBESITY DUE TO EXCESS CALORIES; Z68.43 - BODY MASS INDEX [BMI] 50.0-59.9, ADULT (9) HTN (hypertension) Current Visit: No Status: Chronic Assessment & Plan: - metoprolol changed to 50mg BID by cardiology 06/20 - BP stable Code(s): I10 - ESSENTIAL (PRIMARY) HYPERTENSION (10) Liver cirrhosis Current Visit: No Status: Chronic Assessment & Plan: - chronic per pt from ETOH use- reports has not drank in 18 months - will need OP f/u at D/C (11) Hypokalemia -secondary to diuresis -K+ at 3.3 will add extra dose of 20meq today, recheck this afternoon 06/25/24: -resolved. 06/25/24: -Replenish K+ of 3.1, continue daily dosing of K+ - recheck this afternoon 06/26: -Replenish with K+ at 3.1 VTE: Eliquis Next of KIN: Javier Hoover, D/C plan: 1-2 days Code status: Full Code(s): I48.91 - UNSPECIFIED ATRIAL FIBRILLATION (2) CHF exacerbation Current Visit: Yes Status: Acute Code(s): I50.9 - HEART FAILURE, UNSPECIFIED (3) Anasarca Current Visit: Yes Status: Acute Code(s): R60.1 - GENERALIZED EDEMA (4) Dyspnea Current Visit: Yes Status: Acute Code(s): R06.00 - DYSPNEA, UNSPECIFIED (5) Noncompliance with medication regimen Current Visit: Yes Status: Acute Code(s): Z91.148 - PATIENT'S OTHER NONCOMPL WITH MEDS REGIMEN FOR OTHER REASON (6) Prediabetes Current Visit: Yes Status: Acute Code(s): R73.03 - PREDIABETES (7) Splenomegaly Current Visit: Yes Status: Acute Code(s): R16.1 - SPLENOMEGALY, NOT ELSEWHERE CLASSIFIED (8) Morbid obesity with BMI of 50.0-59.9, adult Current Visit: Yes Status: Chronic Code(s): E66.01 - MORBID (SEVERE) OBESITY DUE TO EXCESS CALORIES; Z68.43 - BODY MASS INDEX [BMI] 50.0-59.9, ADULT (9) HTN (hypertension) Current Visit: No Status: Chronic Code(s): I10 - ESSENTIAL (PRIMARY) HYPERTENSION (10) Liver cirrhosis Current Visit: No Status: Chronic
[2024-06-26] MEDS: Klor Con PO ONE (05:45)
[2024-06-27 05:03] LABS: Hematocrit 45.3 % (40.1-51.0); Hemoglobin 13.8 g/dL (13.7-17.5); Mean Cell Volume 80.7 fL (79.0-92.2); Mean Corpuscular Hemoglobin 24.6 pg (25.7-32.2); Mean Corpuscular Hgb Concent. 30.5 g/dL (32.3-36.5); Mean Platelet Volume 10.5 fL (9.4-12.4); Platelet Count 671 x10^3/uL (163-337); Red Blood Count 5.61 x10^6/uL (4.63-6.08); Red Cell Distribution Width 18.5 % (11.6-14.4); White Blood Count 10.4 x10^3/uL (4.23-9.07)
[2024-06-27 05:21] LABS: ALBUMIN 3.8 g/dL (3.5-5.0); ANION GAP 8.6 MEQ/L (5-15); BILIRUBIN,TOTAL 0.9 mg/dL (0.2-1.3); Calcium 8.6 mg/dL (8.4-10.2); Creatinine 1 1.23 mg/dL (0.66-1.25); EST GLOMERULAR FILTRATION RATE 69.8 ML/MIN; MAGNESIUM 2.1 mg/dL (1.6-2.3); Potassium 3.9 mmol/L (3.5-5.1); Total Protein 8.3 g/dL (6.3-8.2)
--- NOTE | 2024-06-27 05:22 | PCM.NOTE ---
Date and Time: 06/27/24 0522 Subjective Assessment: is a 54 year old male with PMHX of drug use, smoker that stopped 18 months ago, cirrhosis of the liver, COPD, emphysema, multiple strokes, type II DM, anxiety, bipolar, depression, gout, CHF, and morbid obesity admitted 06/16/24 with AFIB RVR/Anasarca/CHF exacerbation after experiencing a three day history of progressive shortness of breath. Patient admits to medication and specialty visit non-compliance. CT negative for PE. However does show confirmed anascarca, cirrhotic liver, and splenomegly. He was started on Cardizem gtt in ER for a-fib RVR as well as a lasix drip for anasarca/CHF exacerbation. HR controlled. Cardiology Cardiology consulted and following - recs for metoprolol succinate 50mg BID - on Eliquis 5mg BID -no changes unless HR >120. Patient with painful scrotal edema, which has improved. UC and BC x2 negative. 06/23/24: Patient up in chair. Endorses continued scrotal pain due to swelling, rates 15/10 on numerical scale. BLE edema improving. Scrotal edema remains extensive. Plan for continuation of lasix drip, will increase to 30mls/hr. Patient is noted with shortness of breath with exertion, walk test shows spo2 dipping into the mid 80's with ambulation. Patient may need home oxygen. Denies fever,cough, sob, cp, abdominal pain, MCDONALD, dizziness, N/V/D. 06/24/24: No overnight events noted. Patient diuresing well -7634 balance in 24 hours. Discussion had regarding the importance of a scrotal sling to reduce scrotal edema/pain. Patient declines use at this time, states it makes his pain worse. Denies fever,cough, sob, cp, abdominal pain, MCDONALD, dizziness, N/V/D. 06/25/24: Examined patient chair side. Diuresis continues with 0.4 Kg lost overnight. Scrotal edema with mild improvement. Plan for continued diuresis 06/26/24: No overnight events noted. Scrotal and BLE edema improving. Diuresing well with -2588 balance this morning. Dyspnea has improved. Potassium low this morning and will be replenished. Denies fever,cough, sob, cp, abdominal pain, MCDONALD, dizziness, N/V/D. 06/27/24: Met with patient chair side. Scrotal and BLE edema continue to improve. Will decrease lasix drip to 20mls/hr due to increasing kidney function. He continues to diuresis well with -3013 balance 06/26/24. Patient requesting sodium restricted diet be lifted, educated patient on the need for the continued sodium restriction. Denies fever,cough, sob, cp, abdominal pain, MCDONALD, dizziness, N/V/D. <YOLA LUNA - Last Filed: 06/27/24 12:00> Date and Time: 06/27/24 1604 <LILY ARMSTRONG - Last Filed: 06/27/24 16:05> - Review of Systems Constitutional: No Symptoms Eyes: No Symptoms Ears, Nose, & Throat: No Symptoms Respiratory: No Symptoms Cardiac: No Symptoms Abdominal/Gastrointestinal: No Symptoms Genitourinary Symptoms: No Symptoms Musculoskeletal: No Symptoms Skin: Other (scrotal edema) Neurological: No Symptoms Psychological: No Symptoms Endocrine: No Symptoms <YOLA LUNA - Last Filed: 06/27/24 12:00> Objective Exam General Appearance: no apparent distress Neurologic Exam: alert, oriented x 3, cooperative Skin Exam: other (scrotal edema) Eye Exam: PERRL Ears, Nose, Throat Exam: normal ENT inspection Neck Exam: normal inspection Respiratory Exam: normal breath sounds, lungs clear Cardiovascular Exam: regular rate/rhythm, normal heart sounds Gastrointestinal/Abdomen Exam: soft, normal bowel sounds Extremity Exam: swelling (BLE 2+ pitting) Back Exam: normal inspection Male Genitalia Exam: other (scrotal edema FC) <YOLA LUNA - Last Filed: 06/27/24 12:00> Objective Data Vital Signs: Vital Signs - 24 hr Temp Pulse Resp BP Pulse Ox 06/27/24 05:01 84 26 H 136/83 95 06/27/24 04:00 97.7 F 75 16 122/87 97 06/27/24 03:00 74 18 94/68 93 L 06/27/24 02:00 71 18 101/68 94 L 06/27/24 01:00 70 19 116/83 94 L 06/27/24 00:01 73 06/27/24 00:00 97.3 F 73 17 127/89 94 L 06/26/24 23:00 67 19 104/71 98 06/26/24 22:01 81 25 H 120/63 98 06/26/24 21:02 71 18 121/80 97 06/26/24 20:00 71 19 113/75 96 06/26/24 19:00 98.5 F 85 17 118/79 95 06/26/24 18:34 80 16 97 06/26/24 18:02 95 H 28 H 94 L 06/26/24 17:00 66 24 117/79 97 06/26/24 16:00 74 21 118/80 98 06/26/24 15:01 68 20 113/78 96 06/26/24 14:00 73 20 97/76 98 06/26/24 13:00 72 22 122/85 95 06/26/24 12:00 97.7 F 74 18 114/71 96 06/26/24 11:31 69 06/26/24 11:06 73 21 115/81 97 06/26/24 10:01 74 23 109/81 96 06/26/24 09:00 82 10 L 115/85 99 06/26/24 08:00 97.0 F 76 17 110/81 97 06/26/24 07:00 69 16 112/79 98 06/26/24 06:50 72 18 93 L 06/26/24 06:00 69 18 117/89 96 Pain Assessment - Last Documented Pain Intensity 10 Pain Scale Used 0-10 Pain Scale Intake and Output: Intake & Output 06/24/24 06/25/24 06/26/24 06/27/24 11:59 11:59 11:59 11:59 Intake Total 1292 6490 5932 2129 Output Total 6733 6168 3823 3554 [facility]0560 -1408 -9494 -0762 Weight 172.1 kg 171.7 kg 170.8 kg 168.2 kg Lab Results: Lab Results-Last 24 Hours 06/26/24 06/26/24 06/26/24 Range/Units 04:16 04:16 07:58 WBC (4.23-9.07) x10^3/uL RBC (4.63-6.08) x10^6/uL Hgb (13.7-17.5) g/dL Hct (40.1-51.0) % MCV (79.0-92.2) fL MCH (25.7-32.2) pg MCHC (32.3-36.5) g/dL RDW (11.6-14.4) % Plt Count (163-337) x10^3/uL MPV (9.4-12.4) fL Sodium 134 L (135-145) mmol/L Potassium 3.1 L (3.5-5.1) mmol/L Chloride 94 L (98-107) mmol/L Carbon Dioxide 35 H (22-30) mmol/L Anion Gap 8.7 (5-15) MEQ/L BUN 30 H (9-20) mg/dL Creatinine 0.98 (0.66-1.25) mg/dL Estimated GFR 91.6 ML/MIN Glucose 133 H (74-106) mg/dL POC Glucometer 110 H (74 to 106) mg/dL Calcium 8.3 L (8.4-10.2) mg/dL Magnesium 2.1 (1.6-2.3) mg/dL Total Bilirubin 0.80 (0.2-1.3) mg/dL AST 55 (17-59) U/L ALT 34 (0-50) U/L Alkaline Phosphatase 90 (38-126) U/L Serum Total Protein 7.6 (6.3-8.2) g/dL Albumin 3.6 (3.5-5.0) g/dL 06/26/24 06/26/24 06/26/24 Range/Units 11:29 12:15 17:02 WBC (4.23-9.07) x10^3/uL RBC (4.63-6.08) x10^6/uL Hgb (13.7-17.5) g/dL Hct (40.1-51.0) % MCV (79.0-92.2) fL MCH (25.7-32.2) pg MCHC (32.3-36.5) g/dL RDW (11.6-14.4) % Plt Count (163-337) x10^3/uL MPV (9.4-12.4) fL Sodium (135-145) mmol/L Potassium 3.8 D (3.5-5.1) mmol/L Chloride (98-107) mmol/L Carbon Dioxide (22-30) mmol/L Anion Gap (5-15) MEQ/L BUN (9-20) mg/dL Creatinine (0.66-1.25) mg/dL Estimated GFR ML/MIN Glucose (74-106) mg/dL POC Glucometer 130 H 113 H (74 to 106) mg/dL Calcium (8.4-10.2) mg/dL Magnesium (1.6-2.3) mg/dL Total Bilirubin (0.2-1.3) mg/dL AST (17-59) U/L ALT (0-50) U/L Alkaline Phosphatase (38-126) U/L Serum Total Protein (6.3-8.2) g/dL Albumin (3.5-5.0) g/dL 06/26/24 06/27/24 Range/Units 21:00 05:01 WBC 10.4 H (4.23-9.07) x10^3/uL RBC 5.61 (4.63-6.08) x10^6/uL Hgb 13.8 (13.7-17.5) g/dL Hct 45.3 (40.1-51.0) % MCV 80.7 (79.0-92.2) fL MCH 24.6 L (25.7-32.2) pg MCHC 30.5 L (32.3-36.5) g/dL RDW 18.5 H (11.6-14.4) % Plt Count 671 H (163-337) x10^3/uL MPV 10.5 (9.4-12.4) fL Sodium (135-145) mmol/L Potassium (3.5-5.1) mmol/L Chloride (98-107) mmol/L Carbon Dioxide (22-30) mmol/L Anion Gap (5-15) MEQ/L BUN (9-20) mg/dL Creatinine (0.66-1.25) mg/dL Estimated GFR ML/MIN Glucose (74-106) mg/dL POC Glucometer 129 H (74 to 106) mg/dL Calcium (8.4-10.2) mg/dL Magnesium (1.6-2.3) mg/dL Total Bilirubin (0.2-1.3) mg/dL AST (17-59) U/L ALT (0-50) U/L Alkaline Phosphatase (38-126) U/L Serum Total Protein (6.3-8.2) g/dL Albumin (3.5-5.0) g/dL Multi-Disciplinary Progress Notes: Multi-Disciplinary Progress Notes 06/26/24 11:20 Case Management Note by Kendra Smith S/W PATIENT- HE CONTINUES TO DENY DECLINE ANY NEW NEEDS AT TIME OF DC. HE PLANS TO DC HOME TO HIS PLF AT TIME OF DC. Initialized on 06/26/24 11:20 - END OF NOTE <YOLA LUNA - Last Filed: 06/27/24 12:00> Vital Signs: Vital Signs - 24 hr Temp Pulse Resp BP Pulse Ox 06/27/24 15:00 75 18 112/78 98 06/27/24 14:01 70 26 H 101/75 98 06/27/24 13:00 79 18 98/78 98 06/27/24 12:50 75 16 06/27/24 12:41 83 18 06/27/24 12:30 77 23 06/27/24 12:20 75 06/27/24 12:11 31 H 06/27/24 12:00 77 06/27/24 11:00 14 104/59 95 06/27/24 10:00 69 19 99/69 95 06/27/24 09:00 78 16 113/79 94 L 06/27/24 08:00 88 15 114/76 96 06/27/24 07:32 81 06/27/24 07:00 108/78 06/27/24 06:57 72 18 96 06/27/24 06:01 71 15 111/67 96 06/27/24 05:01 84 26 H 136/83 95 06/27/24 04:00 97.7 F 75 16 122/87 97 06/27/24 03:00 74 18 94/68 93 L 06/27/24 02:00 71 18 101/68 94 L 06/27/24 01:00 70 19 116/83 94 L 06/27/24 00:01 73 06/27/24 00:00 97.3 F 73 17 127/89 94 L 06/26/24 23:00 67 19 104/71 98 06/26/24 22:01 81 25 H 120/63 98 06/26/24 21:02 71 18 121/80 97 06/26/24 20:00 71 19 113/75 96 06/26/24 19:00 98.5 F 85 17 118/79 95 06/26/24 18:34 80 16 97 06/26/24 18:02 95 H 28 H 94 L 06/26/24 17:00 66 24 117/79 97 Pain Assessment - Last Documented Pain Intensity 3 Pain Scale Used 0-10 Pain Scale Intake and Output: Intake & Output 06/25/24 06/26/24 06/27/24 06/28/24 11:59 11:59 11:59 11:59 Intake Total 2928 4123 7050 632 Output Total 3954 6080 6056 825 Balance -6624 -4944 -0653 -190 Weight 171.7 kg 170.8 kg 168.2 kg Lab Results: Lab Results-Last 24 Hours 06/26/24 06/26/24 06/27/24 Range/Units 17:02 21:00 05:01 WBC 10.4 H (4.23-9.07) x10^3/uL RBC 5.61 (4.63-6.08) x10^6/uL Hgb 13.8 (13.7-17.5) g/dL Hct 45.3 (40.1-51.0) % MCV 80.7 (79.0-92.2) fL MCH 24.6 L (25.7-32.2) pg MCHC 30.5 L (32.3-36.5) g/dL RDW 18.5 H (11.6-14.4) % Plt Count 671 H (163-337) x10^3/uL MPV 10.5 (9.4-12.4) fL Sodium (135-145) mmol/L Potassium (3.5-5.1) mmol/L Chloride (98-107) mmol/L Carbon Dioxide (22-30) mmol/L Anion Gap (5-15) MEQ/L BUN (9-20) mg/dL Creatinine (0.66-1.25) mg/dL Estimated GFR ML/MIN Glucose (74-106) mg/dL POC Glucometer 113 H 129 H (74 to 106) mg/dL Calcium (8.4-10.2) mg/dL Magnesium (1.6-2.3) mg/dL Total Bilirubin (0.2-1.3) mg/dL AST (17-59) U/L ALT (0-50) U/L Alkaline Phosphatase (38-126) U/L Serum Total Protein (6.3-8.2) g/dL Albumin (3.5-5.0) g/dL 06/27/24 06/27/24 06/27/24 Range/Units 05:01 07:08 11:49 WBC (4.23-9.07) x10^3/uL RBC (4.63-6.08) x10^6/uL Hgb (13.7-17.5) g/dL Hct (40.1-51.0) % MCV (79.0-92.2) fL MCH (25.7-32.2) pg MCHC (32.3-36.5) g/dL RDW (11.6-14.4) % Plt Count (163-337) x10^3/uL MPV (9.4-12.4) fL Sodium 135 (135-145) mmol/L Potassium 3.9 (3.5-5.1) mmol/L Chloride 91 L (98-107) mmol/L Carbon Dioxide 39 H (22-30) mmol/L Anion Gap 8.6 (5-15) MEQ/L BUN 29 H (9-20) mg/dL Creatinine 1.23 (0.66-1.25) mg/dL Estimated GFR 69.8 ML/MIN Glucose 111 H (74-106) mg/dL POC Glucometer 102 124 H (74 to 106) mg/dL Calcium 8.6 (8.4-10.2) mg/dL Magnesium 2.1 (1.6-2.3) mg/dL Total Bilirubin 0.90 (0.2-1.3) mg/dL AST 65 H (17-59) U/L ALT 38 (0-50) U/L Alkaline Phosphatase 97 (38-126) U/L Serum Total Protein 8.3 H (6.3-8.2) g/dL Albumin 3.8 (3.5-5.0) g/dL Multi-Disciplinary Progress Notes: Multi-Disciplinary Progress Notes 06/27/24 12:34 Respiratory Note by Amie Sinha pt refusing to possbily be qualified for home o2 at this time. pt states he does not want o2 at home. pt states it dehydrates him. Addendum entered by Kendra Smith 06/27/24 12:37: E CHERYL NOTIFIED AND AWARE- SHE WILL CONTINUE TO MONITOR THE NEED Initialized on 06/27/24 12:34 - END OF NOTE 06/27/24 12:30 Case Management Note by Kendra Smith S/W PATIENT- HE CONTINUES TO DENY ANY NEW NEEDS AT TIME OF DC. HE FEELS HE IS ABLE TO CARE FOR HIMSELF AT TIME OF DC. IF PATIENT DISCHARGES OVER THE WEEKEND- NURSING WILL NEED TO CALL HIS PHARMACY AFTER MEDS AT SENT IN TO BE SURE HIS ELIQUIS IS AFFORDABLE FOR HIM. Initialized on 06/27/24 12:30 - END OF NOTE 06/27/24 11:25 Nutrition Note by Josefa Hernandez F/u Note: 2200CC low sodium diet con't with 75-100% po intake. adm weight 185.5kg; current weight 168.2kg - pt con't with neg fluid balance. goal of po intake >=75% met and ongoing; goal of neg FB met and ongoing. Will con't to monitor and f/u prn. TDINORA CastellanosCD Initialized on 06/27/24 11:25 - END OF NOTE <LILY ARMSTRONG - Last Filed: 06/27/24 16:05> Assessment/Plan (1) Atrial fibrillation with RVR Current Visit: Yes Status: Acute Assessment & Plan: - Echo performed 06/16/24 With EF estimated at 57% -Moderate concentric LVH -Normal left/right atrial size -Normal Left ventricular systolic function Normal right ventricular size and function -Normal mitral valve structure and function -Normal aortic valve structure -Normal tricuspid valve structure -unable to visualize IVC -Diastolic function could not be evaluated -HR controlled -Cardiology consulted and following - recs for metoprolol succinate 50mg BID - on Eliquis 5mg BID -no changes unless HR >120 Code(s): I48.91 - UNSPECIFIED ATRIAL FIBRILLATION (2) CHF exacerbation Current Visit: Yes Status: Acute Assessment & Plan: - Echo as stated avove - Noncompliant with home meds, states just did not want to take them. - Has seen Dr. Foley with cardiology in the past - Previous echo reviewed -Continue lasix drip - increase to 20mls/hr -monitor output/BP closely Code(s): I50.9 - HEART FAILURE, UNSPECIFIED (3) Anasarca Current Visit: Yes Status: Acute Assessment & Plan: - 2:2 CHF/cirrhosis - Mckeon in place d/t needing hourly I&O's - daily weight - fluid restriction - CMP and Mg+ checked Q12 - hourly I&O - 3L 06/21/24 with 1kg weight loss 06/24: - Lasix gtt at 30ml/hr --7634 out -edema improving -2.4 pound weight loss - 24 hours - considering changing to oral lasix to prepare for d/c when edema improves/c onsider removing mckeon cath -Continue to monitor renal/lytes/BP closely 06/25: -Continue drip at 30mls/hr 06/26: -Improvement in scrotal edema/BLE edema - continue lasix drip at 30ml/hr - -Monitor electrolytes/I&O closely 06/27: -lasix 20ml/hr -scrotal edema - improved Code(s): R60.1 - GENERALIZED EDEMA (4) Dyspnea Current Visit: Yes Status: Acute Assessment & Plan: -RA which is baseline -supplemental oxygen as needed with spo2 goal >92% - increased SOB with exertion and desaturation into the 80's- may need home oxygen - will retest closer to discharge Code(s): R06.00 - DYSPNEA, UNSPECIFIED (5) Noncompliance with medication regimen Current Visit: Yes Status: Acute Assessment & Plan: - Advised will likely need close f/u OP - High risk for readmission -Discussed risks of non-compliance Code(s): Z91.148 - PATIENT'S OTHER NONCOMPL WITH MEDS REGIMEN FOR OTHER REASON (6) Prediabetes Current Visit: Yes Status: Acute Assessment & Plan: - A1C 06/16/24 6.56 - Will need metformin at D/C - accuchecks ac/hs, humalog s/s Code(s): R73.03 - PREDIABETES (7) Splenomegaly Current Visit: Yes Status: Acute Assessment & Plan: - Noted on CT - Platelets - likely 2:2 Cirrhosis of the liver which is chronic per pt - mono test positive- will need education at d/c with precautions Code(s): R16.1 - SPLENOMEGALY, NOT ELSEWHERE CLASSIFIED (8) Morbid obesity with BMI of 50.0-59.9, adult Current Visit: Yes Status: Chronic Assessment & Plan: - advised ADA diet and exercise control - Low sodium diet Code(s): E66.01 - MORBID (SEVERE) OBESITY DUE TO EXCESS CALORIES; Z68.43 - BODY MASS INDEX [BMI] 50.0-59.9, ADULT (9) HTN (hypertension) Current Visit: No Status: Chronic Assessment & Plan: - metoprolol changed to 50mg BID by cardiology 06/20 - BP stable Code(s): I10 - ESSENTIAL (PRIMARY) HYPERTENSION (10) Liver cirrhosis Current Visit: No Status: Chronic Assessment & Plan: - chronic per pt from ETOH use- reports has not drank in 18 months - will need OP f/u at D/C (11) Hypokalemia -secondary to diuresis -K+ at 3.3 will add extra dose of 20meq today, recheck this afternoon 06/25/24: -resolved. 06/25/24: -Replenish K+ of 3.1, continue daily dosing of K+ - recheck this afternoon 06/26: -Replenish with K+ at 3.1 06/27: -resolved VTE: Eliquis Next of KIN: Javier Hoover, D/C plan: 1-2 days Code status: Full Code(s): I48.91 - UNSPECIFIED ATRIAL FIBRILLATION (2) CHF exacerbation Current Visit: Yes Status: Acute Code(s): I50.9 - HEART FAILURE, UNSPECIFIED (3) Anasarca Current Visit: Yes Status: Acute Code(s): R60.1 - GENERALIZED EDEMA (4) Dyspnea Current Visit: Yes Status: Acute Code(s): R06.00 - DYSPNEA, UNSPECIFIED (5) Noncompliance with medication regimen Current Visit: Yes Status: Acute Code(s): Z91.148 - PATIENT'S OTHER NONCOMPL WITH MEDS REGIMEN FOR OTHER REASON (6) Prediabetes Current Visit: Yes Status: Acute Code(s): R73.03 - PREDIABETES (7) Splenomegaly Current Visit: Yes Status: Acute Code(s): R16.1 - SPLENOMEGALY, NOT ELSEWHERE CLASSIFIED (8) Morbid obesity with BMI of 50.0-59.9, adult Current Visit: Yes Status: Chronic Code(s): E66.01 - MORBID (SEVERE) OBESITY DUE TO EXCESS CALORIES; Z68.43 - BODY MASS INDEX [BMI] 50.0-59.9, ADULT (9) HTN (hypertension) Current Visit: No Status: Chronic Code(s): I10 - ESSENTIAL (PRIMARY) HYPERTENSION (10) Liver cirrhosis Current Visit: No Status: Chronic <YOLA LUNA - Last Filed: 06/27/24 12:00> MICHELLE Encounter - MICHELLE Encounter Attestation MICHELLE Encounter Attestation: "IhavepersonallyseenandexamineSaul,ADRIANNA BAR andhavediscussed pertinent aspects of their care with Yola Montenegro agree with the history, physical exam (any modifications based on my personal exam will be noted below), assessment, and plan as outlined in original note. Please see immediately below for my summary of findings and additional assessment and plan along with any meaningful corrections/explanations to the Subjective/Objective portions of the MICHELLE note will be noted." My portion of the encounter took place via telemedicine. -Patient has had excellent diuresis over the past few days with 30 mg/hr of lasix and his swelling has decreased. However now bicarb and BUN/Cr are trending up. Will decrease lasix to 20 mg/hr and possible switch to IV push in the next 1-2 days. <LILY ARMSTRONG - Last Filed: 06/27/24 16:05>
[2024-06-27 17:46] LABS: ADD URINE CULTURE? YES (NO); Appearance Turbid (Clear); Bacteria Many /HPF (None Seen); Bilirubin Negative (Negative); Blood Large (Negative); Epithelial Cells Rare /HPF (None Seen); Glucose, Urine Negative (Negative); Hyaline Casts None Seen /LPF (0-2); Ketones Negative (Negative); Leukocyte Esterase Moderate (Negative); Nitrite Positive (Negative); Ph 6.5 (4.6-8.0); Protein,Urine Dip 100 (Negative); RBC 21-50 /HPF (0-5)
--- NOTE | 2024-06-28 05:23 | PCM.NOTE ---
Date and Time: 06/28/24 0522 Subjective Assessment: is a 54 year old male with PMHX of drug use, smoker that stopped 18 months ago, cirrhosis of the liver, COPD, emphysema, multiple strokes, type II DM, anxiety, bipolar, depression, gout, CHF, and morbid obesity admitted 06/16/24 with AFIB RVR/Anasarca/CHF exacerbation after experiencing a three day history of progressive shortness of breath. Patient admits to medication and specialty visit non-compliance. CT negative for PE. However does show confirmed anascarca, cirrhotic liver, and splenomegly. He was started on Cardizem gtt in ER for a-fib RVR as well as a lasix drip for anasarca/CHF exacerbation. HR controlled. Cardiology Cardiology consulted and following - recs for metoprolol succinate 50mg BID - on Eliquis 5mg BID -no changes unless HR >120. Patient with painful scrotal edema, which has improved. UC and BC x2 negative. 06/23/24: Patient up in chair. Endorses continued scrotal pain due to swelling, rates 15/10 on numerical scale. BLE edema improving. Scrotal edema remains extensive. Plan for continuation of lasix drip, will increase to 30mls/hr. Patient is noted with shortness of breath with exertion, walk test shows spo2 dipping into the mid 80's with ambulation. Patient may need home oxygen. Denies fever,cough, sob, cp, abdominal pain, MCDONALD, dizziness, N/V/D. 06/24/24: No overnight events noted. Patient diuresing well -7634 balance in 24 hours. Discussion had regarding the importance of a scrotal sling to reduce scrotal edema/pain. Patient declines use at this time, states it makes his pain worse. Denies fever,cough, sob, cp, abdominal pain, MCDONALD, dizziness, N/V/D. 06/25/24: Examined patient chair side. Diuresis continues with 0.4 Kg lost overnight. Scrotal edema with mild improvement. Plan for continued diuresis 06/26/24: No overnight events noted. Scrotal and BLE edema improving. Diuresing well with -2588 balance this morning. Dyspnea has improved. Potassium low this morning and will be replenished. Denies fever,cough, sob, cp, abdominal pain, MCDONALD, dizziness, N/V/D. 06/27/24: Met with patient chair side. Scrotal and BLE edema continue to improve. Will decrease lasix drip to 20mls/hr due to increasing kidney function. He continues to diuresis well with -3013 balance 06/26/24. Patient requesting sodium restricted diet be lifted, educated patient on the need for the continued sodium restriction. Denies fever,cough, sob, cp, abdominal pain, MCDONALD, dizziness, N/V/D. 06/28/24: Met with patient bedside. He is diuresing well with -3323 out 06/27/24. Endorses improved pain. Scrotal edema improved. Will continue lasix drip today, if edema continues to improve, will trial oral lasix tomorrow. UA suspicious for infection - will start ceftriaxone and follow cultures. - Review of Systems Constitutional: No Symptoms Eyes: No Symptoms Ears, Nose, & Throat: No Symptoms Respiratory: No Symptoms Cardiac: Edema (BLE 2+ pitting) Abdominal/Gastrointestinal: No Symptoms, Other Genitourinary Symptoms: No Symptoms, Other (FC) Musculoskeletal: No Symptoms Skin: Other (scrotal edema) Psychological: No Symptoms Endocrine: No Symptoms Hematologic/Lymphatic: No Symptoms Objective Exam General Appearance: no apparent distress Neurologic Exam: alert, oriented x 3, cooperative Skin Exam: normal color, other (scrotal edema - cracks/bleeding) Eye Exam: PERRL Ears, Nose, Throat Exam: normal ENT inspection Neck Exam: normal inspection Respiratory Exam: normal breath sounds, lungs clear Cardiovascular Exam: regular rate/rhythm, normal heart sounds Gastrointestinal/Abdomen Exam: soft, normal bowel sounds Extremity Exam: swelling (BLE edema +2) Back Exam: normal inspection Male Genitalia Exam: other (scrotal edema FC) Objective Data Vital Signs: Vital Signs - 24 hr Temp Pulse Resp BP Pulse Ox 06/28/24 04:00 97.2 F 84 19 84/54 95 06/28/24 03:00 71 93/57 93 L 06/28/24 02:00 77 98/60 95 06/28/24 01:00 74 121/71 99 06/28/24 00:01 85 06/28/24 00:00 97.4 F 85 20 115/64 97 06/27/24 23:11 91 H 123/71 98 06/27/24 23:03 84 97 06/27/24 22:02 82 111/74 98 06/27/24 21:00 80 132/82 97 06/27/24 20:02 97.5 F 92 H 18 116/73 98 06/27/24 20:00 92 H 06/27/24 19:01 92 H 111/89 06/27/24 19:00 87 18 95 06/27/24 18:01 85 27 H 113/88 06/27/24 17:00 73 18 140/76 06/27/24 16:01 71 23 98/63 93 L 06/27/24 16:00 72 06/27/24 15:00 75 18 112/78 98 06/27/24 14:01 70 26 H 101/75 98 06/27/24 13:00 79 18 98/78 98 06/27/24 12:50 75 16 06/27/24 12:41 83 18 06/27/24 12:30 77 23 06/27/24 12:20 75 06/27/24 12:11 31 H 06/27/24 12:00 77 06/27/24 11:00 14 104/59 95 06/27/24 10:00 69 19 99/69 95 06/27/24 09:00 78 16 113/79 94 L 06/27/24 08:00 88 15 114/76 96 06/27/24 07:32 81 06/27/24 07:00 108/78 06/27/24 06:57 72 18 96 06/27/24 06:01 71 15 111/67 96 Pain Assessment - Last Documented Pain Intensity 10 Pain Scale Used [facility] Intake and Output: Intake & Output 06/25/24 06/26/24 06/27/24 06/28/24 11:59 11:59 11:59 11:59 Intake Total 9264 5521 3028 1690 Output Total 3443 1413 5434 5050 Balance -8349 -1866 -7638 -9371 Weight 171.7 kg 170.8 kg 168.2 kg Lab Results: Lab Results-Last 24 Hours 06/27/24 06/27/24 06/27/24 Range/Units 05:01 07:08 11:49 Sodium 135 (135-145) mmol/L Potassium 3.9 (3.5-5.1) mmol/L Chloride 91 L (98-107) mmol/L Carbon Dioxide 39 H (22-30) mmol/L Anion Gap 8.6 (5-15) MEQ/L BUN 29 H (9-20) mg/dL Creatinine 1.23 (0.66-1.25) mg/dL Estimated GFR 69.8 ML/MIN Glucose 111 H (74-106) mg/dL POC Glucometer 102 124 H (74 to 106) mg/dL Calcium 8.6 (8.4-10.2) mg/dL Magnesium 2.1 (1.6-2.3) mg/dL Total Bilirubin 0.90 (0.2-1.3) mg/dL AST 65 H (17-59) U/L ALT 38 (0-50) U/L Alkaline Phosphatase 97 (38-126) U/L Serum Total Protein 8.3 H (6.3-8.2) g/dL Albumin 3.8 (3.5-5.0) g/dL Urine Color (Yellow) Urine Appearance (Clear) Urine pH (4.6-8.0) Ur Specific [place] (1.005-1.030) Urine Protein (Negative) Urine Glucose (UA) (Negative) mg/dL Urine Ketones (Negative) Urine Blood (Negative) Urine Nitrite (Negative) Urine Bilirubin (Negative) Urine Urobilinogen (0.2) mg/dL Ur Leukocyte Esterase (Negative) U Hyaline Cast (Auto) (0-2) /LPF Urine Microscopic RBC (0-5) /HPF Urine Microscopic WBC (0-5) /HPF Ur Epithelial Cells (None Seen) /HPF Urine Bacteria (None Seen) /HPF Urine Culture Reflexed (NO) 06/27/24 06/27/24 06/27/24 Range/Units 16:55 17:12 22:00 Sodium (135-145) mmol/L Potassium (3.5-5.1) mmol/L Chloride (98-107) mmol/L Carbon Dioxide (22-30) mmol/L Anion Gap (5-15) MEQ/L BUN (9-20) mg/dL Creatinine (0.66-1.25) mg/dL Estimated GFR ML/MIN Glucose (74-106) mg/dL POC Glucometer 141 H 185 H (74 to 106) mg/dL Calcium (8.4-10.2) mg/dL Magnesium (1.6-2.3) mg/dL Total Bilirubin (0.2-1.3) mg/dL AST (17-59) U/L ALT (0-50) U/L Alkaline Phosphatase (38-126) U/L Serum Total Protein (6.3-8.2) g/dL Albumin (3.5-5.0) g/dL Urine Color Red A (Yellow) Urine Appearance Turbid A (Clear) Urine pH 6.5 (4.6-8.0) Ur Specific [place] 1.010 (1.005-1.030) Urine Protein 100 A (Negative) Urine Glucose (UA) Negative (Negative) mg/dL Urine Ketones Negative (Negative) Urine Blood Large A (Negative) Urine Nitrite Positive A (Negative) Urine Bilirubin Negative (Negative) Urine Urobilinogen 1.0 A (0.2) mg/dL Ur Leukocyte Esterase Moderate A (Negative) U Hyaline Cast (Auto) None Seen (0-2) /LPF Urine Microscopic RBC 21-50 A (0-5) /HPF Urine Microscopic WBC 6-10 A (0-5) /HPF Ur Epithelial Cells Rare (None Seen) /HPF Urine Bacteria Many A (None Seen) /HPF Urine Culture Reflexed YES (NO) Multi-Disciplinary Progress Notes: Multi-Disciplinary Progress Notes 06/27/24 12:34 Respiratory Note by Amie Sinha pt refusing to possbily be qualified for home o2 at this time. pt states he does not want o2 at home. pt states it dehydrates him. Addendum entered by Kendra Smith 06/27/24 12:37: E CHERYL NOTIFIED AND AWARE- SHE WILL CONTINUE TO MONITOR THE NEED Initialized on 06/27/24 12:34 - END OF NOTE 06/27/24 12:30 Case Management Note by Kendra Smith S/W PATIENT- HE CONTINUES TO DENY ANY NEW NEEDS AT TIME OF DC. HE FEELS HE IS ABLE TO CARE FOR HIMSELF AT TIME OF DC. IF PATIENT DISCHARGES OVER THE WEEKEND- NURSING WILL NEED TO CALL HIS PHARMACY AFTER MEDS AT SENT IN TO BE SURE HIS ELIQUIS IS AFFORDABLE FOR HIM. Initialized on 06/27/24 12:30 - END OF NOTE 06/27/24 11:25 Nutrition Note by Josefa Hernandez F/u Note: 2200CC low sodium diet con't with 75-100% po intake. adm weight 185.5kg; current weight 168.2kg - pt con't with neg fluid balance. goal of po intake >=75% met and ongoing; goal of neg FB met and ongoing. Will con't to monitor and f/u prn. KARLA Peguero Initialized on 06/27/24 11:25 - END OF NOTE Assessment/Plan (1) Atrial fibrillation with RVR Current Visit: Yes Status: Acute Assessment & Plan: - Echo performed 06/16/24 With EF estimated at 57% -Moderate concentric LVH -Normal left/right atrial size -Normal Left ventricular systolic function Normal right ventricular size and function -Normal mitral valve structure and function -Normal aortic valve structure -Normal tricuspid valve structure -unable to visualize IVC -Diastolic function could not be evaluated -HR controlled -Cardiology consulted and following - recs for metoprolol succinate 50mg BID - on Eliquis 5mg BID -no changes unless HR >120 Code(s): I48.91 - UNSPECIFIED ATRIAL FIBRILLATION (2) CHF exacerbation Current Visit: Yes Status: Acute Assessment & Plan: - Echo as stated avove - Noncompliant with home meds, states just did not want to take them. - Has seen Dr. Foley with cardiology in the past - Previous echo reviewed -Continue lasix drip - increase to 20mls/hr -monitor output/BP closely 06/28: -continue lasix drip at 20ml/hr -diuresing well -consider PO lasix tomorrow if edema continues to improve Code(s): I50.9 - HEART FAILURE, UNSPECIFIED (3) Anasarca Current Visit: Yes Status: Acute Assessment & Plan: - 2:2 CHF/cirrhosis - Mckeon in place d/t needing hourly I&O's - daily weight - fluid restriction - CMP and Mg+ checked Q12 - hourly I&O - 3L 06/21/24 with 1kg weight loss 06/24: - Lasix gtt at 30ml/hr --7634 out -edema improving -2.4 pound weight loss - 24 hours - considering changing to oral lasix to prepare for d/c when edema improves/consider removing mckeon cath -Continue to monitor renal/lytes/BP closely 06/25: -Continue drip at 30mls/hr 06/26: -Improvement in scrotal edema/BLE edema - continue lasix drip at 30ml/hr - -Monitor electrolytes/I&O closely 06/27: -lasix 20ml/hr -scrotal edema - improved 06/28: -continue above management - if edema continues to improve - change to PO 06/29/24 Code(s): R60.1 - GENERALIZED EDEMA (4) Dyspnea Current Visit: Yes Status: Acute Assessment & Plan: -RA which is baseline -supplemental oxygen as needed with spo2 goal >92% - increased SOB with exertion and desaturation into the 80's- may need home oxygen - will retest closer to discharge 06/28: -ON RA- has not required oxygen, refused walk test Code(s): R06.00 - DYSPNEA, UNSPECIFIED (5) Noncompliance with medication regimen Current Visit: Yes Status: Acute Assessment & Plan: - Advised will likely need close f/u OP - High risk for readmission -Discussed risks of non-compliance Code(s): Z91.148 - PATIENT'S OTHER NONCOMPL WITH MEDS REGIMEN FOR OTHER REASON (6) Prediabetes Current Visit: Yes Status: Acute Assessment & Plan: - A1C 06/16/24 6.56 - Will need metformin at D/C - accuchecks ac/hs, humalog s/s Code(s): R73.03 - PREDIABETES (7) Splenomegaly Current Visit: Yes Status: Acute Assessment & Plan: - Noted on CT - Platelets - likely 2:2 Cirrhosis of the liver which is chronic per pt - mono test positive- will need education at d/c with precautions Code(s): R16.1 - SPLENOMEGALY, NOT ELSEWHERE CLASSIFIED (8) Morbid obesity with BMI of 50.0-59.9, adult Current Visit: Yes Status: Chronic Assessment & Plan: - advised ADA diet and exercise control - Low sodium diet Code(s): E66.01 - MORBID (SEVERE) OBESITY DUE TO EXCESS CALORIES; Z68.43 - BODY MASS INDEX [BMI] 50.0-59.9, ADULT (9) HTN (hypertension) Current Visit: No Status: Chronic Assessment & Plan: - metoprolol changed to 50mg BID by cardiology 06/20 - BP stable Code(s): I10 - ESSENTIAL (PRIMARY) HYPERTENSION (10) Liver cirrhosis Current Visit: No Status: Chronic Assessment & Plan: - chronic per pt from ETOH use- reports has not drank in 18 months - will need OP f/u at D/C (11) Hypokalemia -secondary to diuresis -K+ at 3.3 will add extra dose of 20meq today, recheck this afternoon 06/25/24: -resolved. 06/25/24: -Replenish K+ of 3.1, continue daily dosing of K+ - recheck this afternoon 06/26: -Replenish with K+ at 3.1 06/27: -resolved VTE: Eliquis Next of KIN: Javier Hoover, D/C plan: 1-2 days Code status: Full Code(s): I48.91 - UNSPECIFIED ATRIAL FIBRILLATION (2) CHF exacerbation Current Visit: Yes Status: Acute Code(s): I50.9 - HEART FAILURE, UNSPECIFIED (3) Anasarca Current Visit: Yes Status: Acute Code(s): R60.1 - GENERALIZED EDEMA (4) Dyspnea Current Visit: Yes Status: Acute Code(s): R06.00 - DYSPNEA, UNSPECIFIED (5) Noncompliance with medication regimen Current Visit: Yes Status: Acute Code(s): Z91.148 - PATIENT'S OTHER NONCOMPL WITH MEDS REGIMEN FOR OTHER REASON (6) Prediabetes Current Visit: Yes Status: Acute Code(s): R73.03 - PREDIABETES (7) Splenomegaly Current Visit: Yes Status: Acute Code(s): R16.1 - SPLENOMEGALY, NOT ELSEWHERE CLASSIFIED (8) Morbid obesity with BMI of 50.0-59.9, adult Current Visit: Yes Status: Chronic Code(s): E66.01 - MORBID (SEVERE) OBESITY DUE TO EXCESS CALORIES; Z68.43 - BODY MASS INDEX [BMI] 50.0-59.9, ADULT (9) HTN (hypertension) Current Visit: No Status: Chronic Code(s): I10 - ESSENTIAL (PRIMARY) HYPERTENSION (10) Liver cirrhosis Current Visit: No Status: Chronic
[2024-06-28 06:24] LABS: Hematocrit 42.1 % (40.1-51.0); Hemoglobin 13.2 g/dL (13.7-17.5); Mean Cell Volume 79.4 fL (79.0-92.2); Mean Corpuscular Hemoglobin 24.9 pg (25.7-32.2); Mean Corpuscular Hgb Concent. 31.4 g/dL (32.3-36.5); Mean Platelet Volume 11.1 fL (9.4-12.4); Platelet Count 603 x10^3/uL (163-337); Red Cell Distribution Width 18.6 % (11.6-14.4); White Blood Count 9.4 x10^3/uL (4.23-9.07)
[2024-06-28 06:53] LABS: ALBUMIN 3.6 g/dL (3.5-5.0); ANION GAP 9.2 MEQ/L (5-15); BILIRUBIN,TOTAL 0.7 mg/dL (0.2-1.3); Calcium 8.4 mg/dL (8.4-10.2); Creatinine 1 1.03 mg/dL (0.66-1.25); EST GLOMERULAR FILTRATION RATE 86.3 ML/MIN; Potassium 3.5 mmol/L (3.5-5.1); Total Protein 7.7 g/dL (6.3-8.2)
[2024-06-28] MEDS: BACTRIM DS TABLET PO SCH (09:13)
[2024-06-28] MEDS ORDERED: ROCEPHIN 2 GM/100 ML NACL 2 GM/100 ML IVPB IV SCH (10:00)
[2024-06-28] MEDS: OMNICEF 300 MG PO SCH (21:59)
[2024-06-29 06:31] LABS: Hematocrit 43.7 % (40.1-51.0); Hemoglobin 13.2 g/dL (13.7-17.5); Mean Cell Volume 80.2 fL (79.0-92.2); Mean Corpuscular Hemoglobin 24.2 pg (25.7-32.2); Mean Corpuscular Hgb Concent. 30.2 g/dL (32.3-36.5); Mean Platelet Volume 11.3 fL (9.4-12.4); Platelet Count 586 x10^3/uL (163-337); Red Blood Count 5.45 x10^6/uL (4.63-6.08); Red Cell Distribution Width 18.6 % (11.6-14.4); White Blood Count 8.9 x10^3/uL (4.23-9.07)
[2024-06-29 06:55] LABS: ALBUMIN 3.8 g/dL (3.5-5.0); ANION GAP 6.5 MEQ/L (5-15); BILIRUBIN,TOTAL 0.6 mg/dL (0.2-1.3); Calcium 8.4 mg/dL (8.4-10.2); Creatinine 1 1.22 mg/dL (0.66-1.25); EST GLOMERULAR FILTRATION RATE 70.5 ML/MIN; Potassium 3.3 mmol/L (3.5-5.1)
[2024-06-29] MEDS: Furosemide 100mg/10 ml Vial IV SCH (12:06)
--- NOTE | 2024-06-29 12:14 | PCM.NOTE ---
Date and Time: 06/29/24 1209 Subjective Assessment: is a 54 year old male with PMHX of drug use, smoker that stopped 18 months ago, cirrhosis of the liver, COPD, emphysema, multiple strokes, type II DM, anxiety, bipolar, depression, gout, CHF, and morbid obesity admitted 06/16/24 with AFIB RVR/Anasarca/CHF exacerbation after experiencing a three day history of progressive shortness of breath. Patient admits to medication and specialty visit non-compliance. CT negative for PE. However does show confirmed anascarca, cirrhotic liver, and splenomegly. He was started on Cardizem gtt in ER for a-fib RVR as well as a lasix drip for anasarca/CHF exacerbation. HR controlled. Cardiology Cardiology consulted and following - recs for metoprolol succinate 50mg BID - on Eliquis 5mg BID -no changes unless HR >120. Patient with painful scrotal edema, which has improved. UC and BC x2 negative. 06/23/24: Patient up in chair. Endorses continued scrotal pain due to swelling, rates 15/10 on numerical scale. BLE edema improving. Scrotal edema remains extensive. Plan for continuation of lasix drip, will increase to 30mls/hr. Patient is noted with shortness of breath with exertion, walk test shows spo2 dipping into the mid 80's with ambulation. Patient may need home oxygen. Denies fever,cough, sob, cp, abdominal pain, MCDONALD, dizziness, N/V/D. 06/24/24: No overnight events noted. Patient diuresing well -7634 balance in 24 hours. Discussion had regarding the importance of a scrotal sling to reduce scrotal edema/pain. Patient declines use at this time, states it makes his pain worse. Denies fever,cough, sob, cp, abdominal pain, MCDONALD, dizziness, N/V/D. 06/25/24: Examined patient chair side. Diuresis continues with 0.4 Kg lost overnight. Scrotal edema with mild improvement. Plan for continued diuresis 06/26/24: No overnight events noted. Scrotal and BLE edema improving. Diuresing well with -2588 balance this morning. Dyspnea has improved. Potassium low this morning and will be replenished. Denies fever,cough, sob, cp, abdominal pain, MCDONALD, dizziness, N/V/D. 06/27/24: Met with patient chair side. Scrotal and BLE edema continue to improve. Will decrease lasix drip to 20mls/hr due to increasing kidney function. He continues to diuresis well with -3013 balance 06/26/24. Patient requesting sodium restricted diet be lifted, educated patient on the need for the continued sodium restriction. Denies fever,cough, sob, cp, abdominal pain, MCDONALD, dizziness, N/V/D. 06/28/24: Met with patient bedside. He is diuresing well with -3323 out 06/27/24. Endorses improved pain. Scrotal edema improved. Will continue lasix drip today, if edema continues to improve, will trial oral lasix tomorrow. UA suspicious for infection - will start ceftriaxone and follow cultures. 06/29/24: No overnight events noted. Scrotal edema slightly increased this morning. Per RN report patient scratching at legs/scrotum. Will DC lasix gtt today and start IV lasix. Continue abx for UTI, culture pending. <YOLA LUNA - Last Filed: 06/29/24 12:09> Date and Time: 06/29/242135 <LILY ARMSTRONG - Last Filed: 06/29/24 21:38> - Review of Systems Constitutional: No Symptoms Eyes: No Symptoms Ears, Nose, & Throat: No Symptoms Respiratory: No Symptoms Cardiac: No Symptoms Abdominal/Gastrointestinal: No Symptoms Genitourinary Symptoms: Other (scrotal edema) Musculoskeletal: No Symptoms Skin: Induration (abdomen) Neurological: No Symptoms Psychological: No Symptoms Endocrine: No Symptoms Hematologic/Lymphatic: No Symptoms Immunological/Allergic: No Symptoms <YOLA LUNA - Last Filed: 06/29/24 12:09> Objective Exam General Appearance: no apparent distress Neurologic Exam: alert, oriented x 3, cooperative Skin Exam: other (scrotal edema with cracks/bleeding) Eye Exam: PERRL Ears, Nose, Throat Exam: normal ENT inspection Neck Exam: normal inspection Respiratory Exam: normal breath sounds, lungs clear Cardiovascular Exam: normal heart sounds Gastrointestinal/Abdomen Exam: soft, normal bowel sounds Extremity Exam: swelling (BLE +3 pitting to upper thigh) Back Exam: normal inspection Male Genitalia Exam: deferred Rectal Exam: deferred <YOLA LUNA - Last Filed: 06/29/24 12:09> Objective Data Vital Signs: Vital Signs - 24 hr Temp Pulse Resp BP Pulse Ox 06/29/24 11:19 80 20 97 06/29/24 10:04 117/81 06/29/24 09:01 82 19 95/60 98 06/29/24 08:30 87 21 06/29/24 08:02 84 16 95 06/29/24 08:00 82 06/29/24 07:01 86 26 H 139/76 06/29/24 06:01 82 24 115/77 06/29/24 05:00 70 17 107/83 94 L 06/29/24 04:00 97.3 F 80 24 122/84 98 06/29/24 03:01 75 17 116/84 97 06/29/24 02:00 72 17 96/62 97 06/29/24 01:00 75 15 117/80 97 06/29/24 00:01 72 06/29/24 00:00 97.3 F 72 19 116/88 96 06/28/24 23:00 75 10 L 103/72 97 06/28/24 22:00 85 14 115/81 97 06/28/24 21:00 77 25 H 120/85 97 06/28/24 20:01 97.5 F 86 20 135/89 96 06/28/24 20:00 85 06/28/24 19:00 86 22 112/94 06/28/24 18:26 79 18 96 06/28/24 18:00 75 19 97 06/28/24 17:50 75 21 98 06/28/24 17:40 78 20 06/28/24 17:30 78 17 06/28/24 17:20 80 21 06/28/24 17:10 70 21 99 06/28/24 17:02 75 23 87 L 06/28/24 16:00 76 16 140/80 78 L 06/28/24 15:01 88 20 134/74 97 06/28/24 14:00 81 23 100/64 99 06/28/24 13:00 80 18 97/69 96 Pain Assessment - Last Documented Pain Intensity 10 Pain Scale Used FLACC Intake and Output: Intake & Output 06/27/24 06/28/24 06/29/24 06/30/24 11:59 11:59 11:59 11:59 Intake Total 3118 9531 5955 Output Total 6618 2330 1478 Balance -4538 -3490 -2687 Weight 168.2 kg 167.7 kg 167.432 kg Lab Results: Lab Results-Last 24 Hours 06/28/24 06/28/24 06/29/24 Range/Units 16:24 21:34 06:20 WBC 8.9 (4.23-9.07) x10^3/uL RBC 5.45 (4.63-6.08) x10^6/uL Hgb 13.2 L (13.7-17.5) g/dL Hct 43.7 (40.1-51.0) % MCV 80.2 (79.0-92.2) fL MCH 24.2 L (25.7-32.2) pg MCHC 30.2 L (32.3-36.5) g/dL RDW 18.6 H (11.6-14.4) % Plt Count 586 H (163-337) x10^3/uL MPV 11.3 (9.4-12.4) fL Sodium (135-145) mmol/L Potassium (3.5-5.1) mmol/L Chloride (98-107) mmol/L Carbon Dioxide (22-30) mmol/L Anion Gap (5-15) MEQ/L BUN (9-20) mg/dL Creatinine (0.66-1.25) mg/dL Estimated GFR ML/MIN Glucose (74-106) mg/dL POC Glucometer 125 H 136 H (74 to 106) mg/dL Calcium (8.4-10.2) mg/dL Total Bilirubin (0.2-1.3) mg/dL AST (17-59) U/L ALT (0-50) U/L Alkaline Phosphatase (38-126) U/L Serum Total Protein (6.3-8.2) g/dL Albumin (3.5-5.0) g/dL 06/29/24 06/29/24 06/29/24 Range/Units 06:20 07:15 11:57 WBC (4.23-9.07) x10^3/uL RBC (4.63-6.08) x10^6/uL Hgb (13.7-17.5) g/dL Hct (40.1-51.0) % MCV (79.0-92.2) fL MCH (25.7-32.2) pg MCHC (32.3-36.5) g/dL RDW (11.6-14.4) % Plt Count (163-337) x10^3/uL MPV (9.4-12.4) fL Sodium 137 (135-145) mmol/L Potassium 3.3 L (3.5-5.1) mmol/L Chloride 95 L (98-107) mmol/L Carbon Dioxide 38 H (22-30) mmol/L Anion Gap 6.5 (5-15) MEQ/L BUN 28 H (9-20) mg/dL Creatinine 1.22 (0.66-1.25) mg/dL Estimated GFR 70.5 ML/MIN Glucose 115 H (74-106) mg/dL POC Glucometer 95 135 H (74 to 106) mg/dL Calcium 8.4 (8.4-10.2) mg/dL Total Bilirubin 0.60 (0.2-1.3) mg/dL AST 70 H (17-59) U/L ALT 43 (0-50) U/L Alkaline Phosphatase 90 (38-126) U/L Serum Total Protein 8.0 (6.3-8.2) g/dL Albumin 3.8 (3.5-5.0) g/dL <YOLA LUNA - Last Filed: 06/29/24 12:09> Vital Signs: Vital Signs - 24 hr Temp Pulse Resp BP Pulse Ox 06/29/24 20:32 79 20 99 06/29/24 18:01 81 22 107/80 98 06/29/24 17:01 67 21 92/65 98 06/29/24 16:50 77 17 98 06/29/24 16:30 66 17 98 06/29/24 16:20 77 14 98 06/29/24 16:10 77 14 06/29/24 16:00 70 06/29/24 15:00 68 25 H 95/54 06/29/24 14:00 72 16 105/65 97 06/29/24 13:02 71 15 97/77 06/29/24 12:02 21 103/73 97 06/29/24 12:00 97.6 F 78 20 100 06/29/24 11:30 20 97 06/29/24 11:19 80 20 97 06/29/24 10:04 117/81 06/29/24 09:01 82 19 95/60 98 06/29/24 08:30 87 21 06/29/24 08:02 97.6 F 84 16 95 06/29/24 08:00 82 06/29/24 07:01 86 26 H 139/76 06/29/24 06:01 82 24 115/77 06/29/24 05:00 70 17 107/83 94 L 06/29/24 04:00 97.3 F 80 24 122/84 98 06/29/24 03:01 75 17 116/84 97 06/29/24 02:00 72 17 96/62 97 06/29/24 01:00 75 15 117/80 97 06/29/24 00:01 72 06/29/24 00:00 97.3 F 72 19 116/88 96 06/28/24 23:00 75 10 L 103/72 97 06/28/24 22:00 85 14 115/81 97 Pain Assessment - Last Documented Pain Intensity 10 Pain Scale Used 0-10 Pain Scale Intake and Output: Intake & Output 06/27/24 06/28/24 06/29/24 06/30/24 11:59 11:59 11:59 11:59 Intake Total 3793 7111 1775 567 Output Total 6096 4800 5175 1075 [facility] -3323 -2719 -3400 -508 Weight 168.2 kg 167.7 kg 167.432 kg Lab Results: Lab Results-Last 24 Hours 06/29/24 06/29/24 06/29/24 Range/Units 06:20 06:20 07:15 WBC 8.9 (4.23-9.07) x10^3/uL RBC 5.45 (4.63-6.08) x10^6/uL Hgb 13.2 L (13.7-17.5) g/dL Hct 43.7 (40.1-51.0) % MCV 80.2 (79.0-92.2) fL MCH 24.2 L (25.7-32.2) pg MCHC 30.2 L (32.3-36.5) g/dL RDW 18.6 H (11.6-14.4) % Plt Count 586 H (163-337) x10^3/uL MPV 11.3 (9.4-12.4) fL Sodium 137 (135-145) mmol/L Potassium 3.3 L (3.5-5.1) mmol/L Chloride 95 L (98-107) mmol/L Carbon Dioxide 38 H (22-30) mmol/L Anion Gap 6.5 (5-15) MEQ/L BUN 28 H (9-20) mg/dL Creatinine 1.22 (0.66-1.25) mg/dL Estimated GFR 70.5 ML/MIN Glucose 115 H (74-106) mg/dL POC Glucometer 95 (74 to 106) mg/dL Calcium 8.4 (8.4-10.2) mg/dL Total Bilirubin 0.60 (0.2-1.3) mg/dL AST 70 H (17-59) U/L ALT 43 (0-50) U/L Alkaline Phosphatase 90 (38-126) U/L Serum Total Protein 8.0 (6.3-8.2) g/dL Albumin 3.8 (3.5-5.0) g/dL 06/29/24 06/29/24 06/29/24 Range/Units 11:57 12:50 16:13 WBC (4.23-9.07) x10^3/uL RBC (4.63-6.08) x10^6/uL Hgb (13.7-17.5) g/dL Hct (40.1-51.0) % MCV (79.0-92.2) fL MCH (25.7-32.2) pg MCHC (32.3-36.5) g/dL RDW (11.6-14.4) % Plt Count (163-337) x10^3/uL MPV (9.4-12.4) fL Sodium (135-145) mmol/L Potassium 3.5 (3.5-5.1) mmol/L Chloride (98-107) mmol/L Carbon Dioxide (22-30) mmol/L Anion Gap (5-15) MEQ/L BUN (9-20) mg/dL Creatinine (0.66-1.25) mg/dL Estimated GFR ML/MIN Glucose (74-106) mg/dL POC Glucometer 135 H 107 H (74 to 106) mg/dL Calcium (8.4-10.2) mg/dL Total Bilirubin (0.2-1.3) mg/dL AST (17-59) U/L ALT (0-50) U/L Alkaline Phosphatase (38-126) U/L Serum Total Protein (6.3-8.2) g/dL Albumin (3.5-5.0) g/dL <TALON ARMSTRONGA - Last Filed: 06/29/24 21:38> Assessment/Plan (1) Atrial fibrillation with RVR Current Visit: Yes Status: Acute Assessment & Plan: - Echo performed 06/16/24 With EF estimated at 57% -Moderate concentric LVH -Normal left/right atrial size -Normal Left ventricular systolic function Normal right ventricular size and function -Normal mitral valve structure and function -Normal aortic valve structure -Normal tricuspid valve structure -unable to visualize IVC -Diastolic function could not be evaluated -HR controlled -Cardiology consulted and following - recs for metoprolol succinate 50mg BID - on Eliquis 5mg BID -no changes unless HR >120 Code(s): I48.91 - UNSPECIFIED ATRIAL FIBRILLATION (2) CHF exacerbation Current Visit: Yes Status: Acute Assessment & Plan: - Echo as stated avove - Noncompliant with home meds, states just did not want to take them. - Has seen Dr. Foley with cardiology in the past - Previous echo reviewed -Continue lasix drip - increase to 20mls/hr -monitor output/BP closely 06/28: -continue lasix drip at 20ml/hr -diuresing well -consider PO lasix tomorrow if edema continues to improve Code(s): I50.9 - HEART FAILURE, UNSPECIFIED (3) Anasarca Current Visit: Yes Status: Acute Assessment & Plan: - 2:2 CHF/cirrhosis - Mckeon in place d/t needing hourly I&O's - daily weight - fluid restriction - CMP and Mg+ checked Q12 - hourly I&O - 3L 06/21/24 with 1kg weight loss 06/24: - Lasix gtt at 30ml/hr --7634 out -edema improving -2.4 pound weight loss - 24 hours - considering changing to oral lasix to prepare for d/c when edema improves/consider removing mckeon cath -Continue to monitor renal/lytes/BP closely 06/25: -Continue drip at 30mls/hr 06/26: -Improvement in scrotal edema/BLE edema - continue lasix drip at 30ml/hr - -Monitor electrolytes/I&O closely 06/27: -lasix 20ml/hr -scrotal edema - improved 06/28: -continue above management - if edema continues to improve - change to PO 06/29/24 06/29/24: -Lasix IVP 80mg TID Code(s): R60.1 - GENERALIZED EDEMA (4) Dyspnea Current Visit: Yes Status: Acute Assessment & Plan: -RA which is baseline -supplemental oxygen as needed with spo2 goal >92% - increased SOB with exertion and desaturation into the 80's- may need home oxygen - will retest closer to discharge 06/28: -ON RA- has not required oxygen, refused walk test Code(s): R06.00 - DYSPNEA, UNSPECIFIED (5) Noncompliance with medication regimen Current Visit: Yes Status: Acute Assessment & Plan: - Advised will likely need close f/u OP - High risk for readmission -Discussed risks of non-compliance Code(s): Z91.148 - PATIENT'S OTHER NONCOMPL WITH MEDS REGIMEN FOR OTHER REASON (6) Prediabetes Current Visit: Yes Status: Acute Assessment & Plan: - A1C 06/16/24 6.56 - Will need metformin at D/C - accuchecks ac/hs, humalog s/s Code(s): R73.03 - PREDIABETES (7) Splenomegaly Current Visit: Yes Status: Acute Assessment & Plan: - Noted on CT - Platelets - likely 2:2 Cirrhosis of the liver which is chronic per pt - mono test positive- will need education at d/c with precautions Code(s): R16.1 - SPLENOMEGALY, NOT ELSEWHERE CLASSIFIED (8) Morbid obesity with BMI of 50.0-59.9, adult Current Visit: Yes Status: Chronic Assessment & Plan: - advised ADA diet and exercise control - Low sodium diet Code(s): E66.01 - MORBID (SEVERE) OBESITY DUE TO EXCESS CALORIES; Z68.43 - BODY MASS INDEX [BMI] 50.0-59.9, ADULT (9) HTN (hypertension) Current Visit: No Status: Chronic Assessment & Plan: - metoprolol changed to 50mg BID by cardiology 06/20 - BP stable Code(s): I10 - ESSENTIAL (PRIMARY) HYPERTENSION (10) Liver cirrhosis Current Visit: No Status: Chronic Assessment & Plan: - chronic per pt from ETOH use- reports has not drank in 18 months - will need OP f/u at D/C (11) Hypokalemia -secondary to diuresis -K+ at 3.3 will add extra dose of 20meq today, recheck this afternoon 06/25/24: -resolved. 06/25/24: -Replenish K+ of 3.1, continue daily dosing of K+ - recheck this afternoon 06/26: -Replenish with K+ at 3.1 06/27: -resolved 06/29: -continue daily potassium - recheck this afternoon, may need extra dose VTE: Bakari Next of KIN: Javier Garciads, D/C plan: 1-2 days Code status: Full Code(s): I48.91 - UNSPECIFIED ATRIAL FIBRILLATION (2) CHF exacerbation Current Visit: Yes Status: Acute Code(s): I50.9 - HEART FAILURE, UNSPECIFIED (3) Anasarca Current Visit: Yes Status: Acute Code(s): R60.1 - GENERALIZED EDEMA (4) Dyspnea Current Visit: Yes Status: Acute Code(s): R06.00 - DYSPNEA, UNSPECIFIED (5) Noncompliance with medication regimen Current Visit: Yes Status: Acute Code(s): Z91.148 - PATIENT'S OTHER NONCOMPL WITH MEDS REGIMEN FOR OTHER REASON (6) Prediabetes Current Visit: Yes Status: Acute Code(s): R73.03 - PREDIABETES (7) Splenomegaly Current Visit: Yes Status: Acute Code(s): R16.1 - SPLENOMEGALY, NOT ELSEWHERE CLASSIFIED (8) Morbid obesity with BMI of 50.0-59.9, adult Current Visit: Yes Status: Chronic Code(s): E66.01 - MORBID (SEVERE) OBESITY DUE TO EXCESS CALORIES; Z68.43 - BODY MASS INDEX [BMI] 50.0-59.9, ADULT (9) HTN (hypertension) Current Visit: No Status: Chronic Code(s): I10 - ESSENTIAL (PRIMARY) HYPERTENSION (10) Liver cirrhosis Current Visit: No Status: Chronic <YOLA LUNA - Last Filed: 06/29/24 12:09> MICHELLE Encounter - MICHELLE Encounter Attestation MICHELLE Encounter Attestation: "IhavepersonallyseenandexaminedRHOYENNIFER,ADRIANNA BAR andhavediscussed pertinent aspects of their care with Yola Luna and agree with the history, physical exam (any modifications based on my personal exam will be noted below), assessment, and plan as outlined in original note. Please see immediately below for my summary of findings and additional assessment and plan along with any meaningful corrections/explanations to the Subjective/Objective portions of the MICHELLE note will be noted." My portion of the encounter took place via telemedicine. -Patient still has scrotal swelling however he has had good diuresis, averaging -3L daily over the past week on lasix drip. At this time would convert to 80 mg IV TID of lasix, with plan to convert to oral in a few days. He will need close cardiology follow up after discharge. <LILY ARMSTRONG - Last Filed: 06/29/24 21:38>
[2024-06-29] MEDS ORDERED: Lasix 40 MG/4 ML IV SCH (14:00)
[2024-06-30 05:13] LABS: Absolute Neutrophil Ct (ANC) 6.88 x10^3/uL (1.78-5.38); BASOPHIL % 1.3 % (0.2-1.2); Basophil (Absolute #) 0.12 x10^3/uL (0.01-0.08); Eosinophil % 4.8 % (0.8-7.0); Eosinophil (Absolute #) 0.45 x10^3/uL (0.04-0.54); Hematocrit 43.1 % (40.1-51.0); Hemoglobin 13.1 g/dL (13.7-17.5); IMMATURE GRAN # 0.06 x10^3u/L (0.001-0.031); IMMATURE GRAN % 0.6 % (0.001-0.429); Lymphocyte (Absolute #) 0.93 x10^3/uL (1.32-3.57); Lymphocytes % 9.9 % (21.8-53.1); Mean Cell Volume 80.3 fL (79.0-92.2); Mean Corpuscular Hemoglobin 24.4 pg (25.7-32.2); Mean Corpuscular Hgb Concent. 30.4 g/dL (32.3-36.5); Mean Platelet Volume 11.8 fL (9.4-12.4); Monocyte (Absolute #) 0.96 x10^3/uL (0.30-0.82); Monocytes % 10.2 % (5.3-12.2); Neutrophil % 73.2 % (34.0-67.9); Platelet Count 594 x10^3/uL (163-337); Red Blood Count 5.37 x10^6/uL (4.63-6.08); Red Cell Distribution Width 18.6 % (11.6-14.4); White Blood Count 9.4 x10^3/uL (4.23-9.07)
[2024-06-30 05:43] LABS: ALBUMIN 3.7 g/dL (3.5-5.0); ANION GAP 10.7 MEQ/L (5-15); BILIRUBIN,TOTAL 0.7 mg/dL (0.2-1.3); Calcium 8.5 mg/dL (8.4-10.2); Creatinine 1 1.12 mg/dL (0.66-1.25); EST GLOMERULAR FILTRATION RATE 78.1 ML/MIN; MAGNESIUM 2.3 mg/dL (1.6-2.3); Potassium 3.3 mmol/L (3.5-5.1); Total Protein 7.9 g/dL (6.3-8.2)
[2024-06-30] MEDS: Klor Con PO ONE (09:47)
--- NOTE | 2024-06-30 14:12 | PCM.NOTE ---
Date and Time: 06/30/24 1407 Subjective Assessment: 06/21/24 is a 54 year old male with PMHX of drug use, smoker that stopped 18 months ago, cirrhosis of the liver, COPD, emphysema, multiple strokes, type II DM, anxiety, bipolar, depression, gout, CHF, and morbid obesity admitted 06/16/24 with AFIB RVR/Anasarca/CHF exacerbation after experiencing a three day history of progressive shortness of breath. Patient admits to medication and specialty visit non-compliance. CT negative for PE. However does show confirmed anascarca, cirrhotic liver, and splenomegly. He was started on Cardizem gtt in ER for a-fib RVR as well as a lasix drip for anasarca/CHF exacerbation. HR controlled. Cardiology consulted and following - recs for metoprolol succinate 50mg BID - on Eliquis 5mg BID -no changes unless HR >120. Patient with painful scrotal edema, which has improved. UC and BC x2 negative. Lasix IV changed to Torsemide PO. Aldridge removed today. Pt got rather frustrated as he continues to have scrotal edema and feels he juan luis have difficulty urinating. Will try barrier cream and chux pads when he urinates as to not cause increased scrotal edema. K+ replaced. Continue antibiotics for UTI. Will continue to monitor urine output and weight. Pt no longer requires ICU and will be transferred to a med surg room. He is wanting to take a good shower today. He denies CP, SOB, abd. pain, N/V/D. - Review of Systems Constitutional: No Fever, No Chills Eyes: No Symptoms Ears, Nose, & Throat: No Symptoms Respiratory: No Cough, No Short Of Breath Cardiac: Edema, No Chest Pain, No Syncope Abdominal/Gastrointestinal: No Abdominal Pain, No Nausea, No Vomiting, No Diarrhea Genitourinary Symptoms: No Dysuria Musculoskeletal: No Back Pain, No Neck Pain Skin: No Rash Neurological: No Dizziness, No Focal Weakness, No Sensory Changes Psychological: No Symptoms Endocrine: No Symptoms Hematologic/Lymphatic: No Symptoms Immunological/Allergic: No Symptoms Objective Exam General Appearance: no apparent distress, alert, obese Neurologic Exam: alert, oriented x 3, cooperative, normal mood/affect, nml cerebellar function, sensation nml, No motor deficits Skin Exam: normal color, warm, dry Eye Exam: PERRL, EOMI, eyes nml inspection Ears, Nose, Throat Exam: normal ENT inspection, pharynx normal, moist mucous membranes Neck Exam: normal inspection, non-tender, supple, full range of motion Respiratory Exam: normal breath sounds, lungs clear, No respiratory distress Cardiovascular Exam: regular rate/rhythm, normal heart sounds, edema (scrotal edema, BLLE edema) Gastrointestinal/Abdomen Exam: soft, No tenderness, No mass Extremity Exam: normal inspection, normal range of motion Back Exam: normal inspection, normal range of motion, No CVA tenderness, No vertebral tenderness Male Genitalia Exam: deferred Rectal Exam: deferred Objective Data Vital Signs: Vital Signs - 24 hr Temp Pulse Resp BP Pulse Ox 06/30/24 12:00 98.3 F 79 21 95 06/30/24 11:06 20 06/30/24 11:05 20 06/30/24 11:00 18 06/30/24 10:10 81 14 06/30/24 10:02 76 19 06/30/24 09:01 84 20 117/88 98 06/30/24 09:00 86 22 87 L 06/30/24 08:50 77 21 97 06/30/24 08:40 84 21 98 06/30/24 08:30 98.8 F 74 20 06/30/24 08:20 82 19 06/30/24 08:10 84 20 94 L 06/30/24 08:02 75 16 98 06/30/24 08:00 74 06/30/24 07:18 52 L 20 95 06/30/24 07:00 118/87 06/30/24 06:00 59 L 28 H 93/59 95 06/30/24 05:00 74 25 H 94/48 94 L 06/30/24 04:00 74 24 111/67 92 L 06/30/24 03:00 96.9 F 75 21 98/60 94 L 06/30/24 02:00 75 25 H 126/85 94 L 06/30/24 01:03 75 16 117/73 98 06/30/24 01:00 85 15 86/66 98 06/30/24 00:01 97.3 F 75 17 113/67 97 06/29/24 23:00 77 21 107/72 97 06/29/24 22:00 82 15 106/78 98 06/29/24 21:00 97.1 F 75 22 104/76 98 06/29/24 20:32 79 20 99 06/29/24 20:00 75 109/71 96 06/29/24 19:01 82 132/81 97 06/29/24 18:01 81 22 107/80 98 06/29/24 17:01 67 21 92/65 98 06/29/24 16:50 77 17 98 06/29/24 16:30 66 17 98 06/29/24 16:20 77 14 98 06/29/24 16:10 77 14 06/29/24 16:00 70 06/29/24 15:00 68 25 H 95/54 Pain Assessment - Last Documented Pain Intensity 4 Pain Scale Used 0-10 Pain Scale Intake and Output: Intake & Output 06/28/24 06/29/24 06/30/24 07/01/24 11:59 11:59 11:59 11:59 Intake Total 2089 1775 1755 360 Output Total 3358 9843 9074 Balance -7065 -1238 -9031 360 Weight 167.7 kg 167.432 kg 167.9 kg Lab Results: Lab Results-Last 24 Hours 06/29/24 06/29/24 06/30/24 Range/Units 16:13 22:10 04:31 WBC 9.4 H (4.23-9.07) x10^3/uL RBC 5.37 (4.63-6.08) x10^6/uL Hgb 13.1 L (13.7-17.5) g/dL Hct 43.1 (40.1-51.0) % MCV 80.3 (79.0-92.2) fL MCH 24.4 L (25.7-32.2) pg MCHC 30.4 L (32.3-36.5) g/dL RDW 18.6 H (11.6-14.4) % Plt Count 594 H (163-337) x10^3/uL MPV 11.8 (9.4-12.4) fL Gran % 73.2 H (34.0-67.9) % Immature Gran % (Auto) 0.6 H (0.001-0.429) % Nucleat RBC Rel Count 0.0 (0.00-0.2) % Eos # (Auto) 0.45 (0.04-0.54) x10^3/uL Immature Gran # (Auto) 0.06 H (0.001-0.031) x10^3u/L Absolute Lymphs (auto) 0.93 L (1.32-3.57) x10^3/uL Absolute Monos (auto) 0.96 H (0.30-0.82) x10^3/uL Absolute Nucleated RBC 0.00 (0.00-0.012) x10^3u/L Lymphocytes % 9.9 L (21.8-53.1) % Monocytes % 10.2 (5.3-12.2) % Eosinophils % 4.8 (0.8-7.0) % Basophils % 1.3 H (0.2-1.2) % Absolute Granulocytes 6.88 H (1.78-5.38) x10^3/uL Basophils # 0.12 H (0.01-0.08) x10^3/uL Sodium (135-145) mmol/L Potassium (3.5-5.1) mmol/L Chloride (98-107) mmol/L Carbon Dioxide (22-30) mmol/L Anion Gap (5-15) MEQ/L BUN (9-20) mg/dL Creatinine (0.66-1.25) mg/dL Estimated GFR ML/MIN Glucose (74-106) mg/dL POC Glucometer 107 H 135 H (74 to 106) mg/dL Calcium (8.4-10.2) mg/dL Magnesium (1.6-2.3) mg/dL Total Bilirubin (0.2-1.3) mg/dL AST (17-59) U/L ALT (0-50) U/L Alkaline Phosphatase (38-126) U/L Serum Total Protein (6.3-8.2) g/dL Albumin (3.5-5.0) g/dL 06/30/24 06/30/24 06/30/24 Range/Units 04:31 07:28 11:21 WBC (4.23-9.07) x10^3/uL RBC (4.63-6.08) x10^6/uL Hgb (13.7-17.5) g/dL Hct (40.1-51.0) % MCV (79.0-92.2) fL MCH (25.7-32.2) pg MCHC (32.3-36.5) g/dL RDW (11.6-14.4) % Plt Count (163-337) x10^3/uL MPV (9.4-12.4) fL Gran % (34.0-67.9) % Immature Gran % (Auto) (0.001-0.429) % Nucleat RBC Rel Count (0.00-0.2) % Eos # (Auto) (0.04-0.54) x10^3/uL Immature Gran # (Auto) (0.001-0.031) x10^3u/L Absolute Lymphs (auto) (1.32-3.57) x10^3/uL Absolute Monos (auto) (0.30-0.82) x10^3/uL Absolute Nucleated RBC (0.00-0.012) x10^3u/L Lymphocytes % (21.8-53.1) % Monocytes % (5.3-12.2) % Eosinophils % (0.8-7.0) % Basophils % (0.2-1.2) % Absolute Granulocytes (1.78-5.38) x10^3/uL Basophils # (0.01-0.08) x10^3/uL Sodium 138 (135-145) mmol/L Potassium 3.3 L (3.5-5.1) mmol/L Chloride 95 L (98-107) mmol/L Carbon Dioxide 35 H (22-30) mmol/L Anion Gap 10.7 (5-15) MEQ/L BUN 26 H (9-20) mg/dL Creatinine 1.12 (0.66-1.25) mg/dL Estimated GFR 78.1 ML/MIN Glucose 149 H (74-106) mg/dL POC Glucometer 104 157 H (74 to 106) mg/dL Calcium 8.5 (8.4-10.2) mg/dL Magnesium 2.3 (1.6-2.3) mg/dL Total Bilirubin 0.70 (0.2-1.3) mg/dL AST 72 H (17-59) U/L ALT 44 (0-50) U/L Alkaline Phosphatase 87 (38-126) U/L Serum Total Protein 7.9 (6.3-8.2) g/dL Albumin 3.7 (3.5-5.0) g/dL Assessment/Plan (1) Atrial fibrillation with RVR Current Visit: Yes Status: Acute Assessment & Plan: - Echo performed 06/16/24 With EF estimated at 57% -Moderate concentric LVH -Normal left/right atrial size -Normal Left ventricular systolic function Normal right ventricular size and function -Normal mitral valve structure and function -Normal aortic valve structure -Normal tricuspid valve structure -unable to visualize IVC -Diastolic function could not be evaluated -HR controlled -Cardiology consulted and following - recs for metoprolol succinate 50mg BID - on Eliquis 5mg BID -no changes unless HR >120 Code(s): I48.91 - UNSPECIFIED ATRIAL FIBRILLATION (2) CHF exacerbation Current Visit: Yes Status: Acute Assessment & Plan: - Echo as stated avove - Noncompliant with home meds, states just did not want to take them. - Has seen Dr. Foley with cardiology in the past - Previous echo reviewed - Lasix IV changed to torsemide - Aldridge removed - Continue daily weight and I& O's Q6 Code(s): I50.9 - HEART FAILURE, UNSPECIFIED (3) Anasarca Current Visit: Yes Status: Acute Assessment & Plan: - continue above plan Code(s): R60.1 - GENERALIZED EDEMA (4) Splenomegaly Current Visit: Yes Status: Acute Assessment & Plan: - Noted on CT - monitor labs daily - likely 2:2 Cirrhosis of the liver which is chronic per pt - mono test positive- will need education at d/c with precautions Code(s): R16.1 - SPLENOMEGALY, NOT ELSEWHERE CLASSIFIED (5) Dyspnea Current Visit: Yes Status: Acute Assessment & Plan: -RA which is baseline -supplemental oxygen as needed with spo2 goal >92% - increased SOB with exertion and desaturation into the 80's- may need home oxygen - will retest closer to discharge -On RA- has not required oxygen, refused walk test - Xoponex PRN Code(s): R06.00 - DYSPNEA, UNSPECIFIED (6) Noncompliance with medication regimen Current Visit: Yes Status: Acute Assessment & Plan: - Advised will likely need close f/u OP - High risk for readmission -Discussed risks of non-compliance Code(s): Z91.148 - PATIENT'S OTHER NONCOMPL WITH MEDS REGIMEN FOR OTHER REASON (7) HTN (hypertension) Current Visit: No Status: Chronic Assessment & Plan: - metoprolol changed to 50mg BID by cardiology - BP stable Code(s): I10 - ESSENTIAL (PRIMARY) HYPERTENSION (8) Liver cirrhosis Current Visit: No Status: Chronic Assessment & Plan: - chronic per pt from ETOH use- reports has not drank in 18 months - will need OP f/u at D/C (9) Morbid obesity with BMI of 50.0-59.9, adult Current Visit: Yes Status: Chronic Assessment & Plan: - advised ADA diet and exercise control - Low sodium diet Code(s): E66.01 - MORBID (SEVERE) OBESITY DUE TO EXCESS CALORIES; Z68.43 - BODY MASS INDEX [BMI] 50.0-59.9, ADULT (10) Prediabetes Current Visit: Yes Status: Acute Assessment & Plan: - A1C 06/16/24 6.56 - Will need metformin at D/C - accuchecks ac/hs, humalog s/s VTE: Eliquis Next of KIN: Javier Hoover, D/C plan: 2-3 days Code status: Full Code(s): R73.03 - PREDIABETES
[2024-06-30] MEDS: AQUAPHOR OINTMENT 50 GM TP SCH (14:44)
[2024-06-30] MEDS: DEMADEX 20 MG PO SCH (14:44)
[2024-06-30 19:25] LABS: MAGNESIUM 2.1 mg/dL (1.6-2.3)
[2024-06-30 19:26] LABS: Potassium 4.1 mmol/L (3.5-5.1)
[2024-07-01 05:17] LABS: Hematocrit 42.8 % (40.1-51.0); Mean Cell Volume 80.8 fL (79.0-92.2); Mean Corpuscular Hemoglobin 24.5 pg (25.7-32.2); Mean Corpuscular Hgb Concent. 30.4 g/dL (32.3-36.5); Mean Platelet Volume 11.2 fL (9.4-12.4); Platelet Count 562 x10^3/uL (163-337); Red Cell Distribution Width 18.1 % (11.6-14.4); White Blood Count 9.4 x10^3/uL (4.23-9.07)
[2024-07-01 05:44] LABS: ALBUMIN 3.7 g/dL (3.5-5.0); ANION GAP 10.2 MEQ/L (5-15); BILIRUBIN,TOTAL 0.6 mg/dL (0.2-1.3); Calcium 8.5 mg/dL (8.4-10.2); Creatinine 1 1.19 mg/dL (0.66-1.25); EST GLOMERULAR FILTRATION RATE 72.6 ML/MIN; MAGNESIUM 2.2 mg/dL (1.6-2.3); Potassium 3.7 mmol/L (3.5-5.1); Total Protein 7.9 g/dL (6.3-8.2)
--- NOTE | 2024-07-01 13:39 | PCM.NOTE ---
Date and Time: 07/01/24 1332 Subjective Assessment: 06/30/24 is a 54 year old male with PMHX of drug use, smoker that stopped 18 months ago, cirrhosis of the liver, COPD, emphysema, multiple strokes, type II DM, anxiety, bipolar, depression, gout, CHF, and morbid obesity admitted 06/16/24 with AFIB RVR/Anasarca/CHF exacerbation after experiencing a three day history of progressive shortness of breath. Patient admits to medication and specialty visit non-compliance. CT negative for PE. However does show confirmed anascarca, cirrhotic liver, and splenomegly. He was started on Cardizem gtt in ER for a-fib RVR as well as a lasix drip for anasarca/CHF exacerbation. HR controlled. Cardiology consulted and following - recs for metoprolol succinate 50mg BID - on Eliquis 5mg BID -no changes unless HR >120. Patient with painful scrotal edema, which has improved. UC and BC x2 negative. Lasix IV changed to Torsemide PO. Aldridge removed today. Pt got rather frustrated as he continues to have scrotal edema and feels he juan luis have difficulty urinating. Will try barrier cream and chux pads when he urinates as to not cause increased scrotal edema. K+ replaced. Continue antibiotics for UTI. Will continue to monitor urine output and weight. Pt no longer requires ICU and will be transferred to a med surg room. He is wanting to take a good shower today. He denies CP, SOB, abd. pain, N/V/D. 07/01/24 Pt resting in bed today. Wt increase of about 5kg today. However, he was previously being weighed in another room on the bed and today he was weighed on a chair scale. Discussed pt case with cardiology and he recommended pt be changed to Torsemide 60mg daily. Continue antibiotics for UTI. Pt to walk in the [place] with nursing today. Per PT he has been doing well and they signed off of his case. He continues to have testicular edema. He denies CP, SOB, abd. pain, N/V/D. - Review of Systems Constitutional: No Fever, No Chills Eyes: No Symptoms Ears, Nose, & Throat: No Symptoms Respiratory: No Cough, No Short Of Breath Cardiac: Edema (BLLE), No Chest Pain, No Syncope Abdominal/Gastrointestinal: No Abdominal Pain, No Nausea, No Vomiting, No Diarrhea Genitourinary Symptoms: No Dysuria Musculoskeletal: No Back Pain, No Neck Pain Skin: Other (tesicular edema), No Rash Neurological: No Dizziness, No Focal Weakness, No Sensory Changes Psychological: No Symptoms Endocrine: No Symptoms Hematologic/Lymphatic: No Symptoms Immunological/Allergic: No Symptoms Objective Exam General Appearance: no apparent distress, alert, obese Neurologic Exam: alert, oriented x 3, cooperative, normal mood/affect, nml cerebellar function, sensation nml, No motor deficits Skin Exam: normal color, warm, dry Eye Exam: PERRL, EOMI, eyes nml inspection Ears, Nose, Throat Exam: normal ENT inspection, pharynx normal, moist mucous membranes Neck Exam: normal inspection, non-tender, supple, full range of motion Respiratory Exam: normal breath sounds, lungs clear, No respiratory distress Cardiovascular Exam: regular rate/rhythm, normal heart sounds, edema (testicular and BLLE) Gastrointestinal/Abdomen Exam: soft, No tenderness, No mass Extremity Exam: normal inspection, normal range of motion Back Exam: normal inspection, normal range of motion, No CVA tenderness, No vertebral tenderness Male Genitalia Exam: deferred Rectal Exam: deferred Objective Data Vital Signs: Vital Signs - 24 hr Temp Pulse Resp BP Pulse Ox 07/01/24 12:00 97.6 F 82 22 141/68 92 L 07/01/24 07:08 97.8 F 101 H 20 133/67 94 L 07/01/24 07:00 98 H 18 94 L 07/01/24 04:00 97.9 F 71 98/55 94 L 06/30/24 23:17 98.7 F 96 H 18 118/72 95 06/30/24 20:37 97 06/30/24 19:40 98.7 F 84 18 99/71 95 06/30/24 16:00 98.3 F 78 18 122/85 98 Pain Assessment - Last Documented Pain Intensity 10 Pain Scale Used 0-10 Pain Scale Intake and Output: Intake & Output 06/29/24 06/30/24 07/01/24 07/02/24 11:59 11:59 11:59 11:59 Intake Total 1775 1755 1680 120 Output Total 5175 3025 1650 300 Balance -3400 -1270 30 -180 Weight 167.432 kg 167.9 kg 171.095 kg Lab Results: Lab Results-Last 24 Hours 06/30/24 06/30/24 06/30/24 Range/Units 16:22 19:05 21:46 WBC (4.23-9.07) x10^3/uL RBC (4.63-6.08) x10^6/uL Hgb (13.7-17.5) g/dL Hct (40.1-51.0) % MCV (79.0-92.2) fL MCH (25.7-32.2) pg MCHC (32.3-36.5) g/dL RDW (11.6-14.4) % Plt Count (163-337) x10^3/uL MPV (9.4-12.4) fL Sodium (135-145) mmol/L Potassium 4.1 D (3.5-5.1) mmol/L Chloride (98-107) mmol/L Carbon Dioxide (22-30) mmol/L Anion Gap (5-15) MEQ/L BUN (9-20) mg/dL Creatinine (0.66-1.25) mg/dL Estimated GFR ML/MIN Glucose (74-106) mg/dL POC Glucometer 140 H 162 H (74 to 106) mg/dL Calcium (8.4-10.2) mg/dL Magnesium 2.1 (1.6-2.3) mg/dL Total Bilirubin (0.2-1.3) mg/dL AST (17-59) U/L ALT (0-50) U/L Alkaline Phosphatase (38-126) U/L Serum Total Protein (6.3-8.2) g/dL Albumin (3.5-5.0) g/dL 07/01/24 07/01/24 07/01/24 Range/Units 04:58 04:58 06:53 WBC 9.4 H (4.23-9.07) x10^3/uL RBC 5.30 (4.63-6.08) x10^6/uL Hgb 13.0 L (13.7-17.5) g/dL Hct 42.8 (40.1-51.0) % MCV 80.8 (79.0-92.2) fL MCH 24.5 L (25.7-32.2) pg MCHC 30.4 L (32.3-36.5) g/dL RDW 18.1 H (11.6-14.4) % Plt Count 562 H (163-337) x10^3/uL MPV 11.2 (9.4-12.4) fL Sodium 135 (135-145) mmol/L Potassium 3.7 (3.5-5.1) mmol/L Chloride 96 L (98-107) mmol/L Carbon Dioxide 33 H (22-30) mmol/L Anion Gap 10.2 (5-15) MEQ/L BUN 26 H (9-20) mg/dL Creatinine 1.19 (0.66-1.25) mg/dL Estimated GFR 72.6 ML/MIN Glucose 136 H (74-106) mg/dL POC Glucometer 113 H (74 to 106) mg/dL Calcium 8.5 (8.4-10.2) mg/dL Magnesium 2.2 (1.6-2.3) mg/dL Total Bilirubin 0.60 (0.2-1.3) mg/dL AST 79 H (17-59) U/L ALT 51 H (0-50) U/L Alkaline Phosphatase 90 (38-126) U/L Serum Total Protein 7.9 (6.3-8.2) g/dL Albumin 3.7 (3.5-5.0) g/dL 07/01/24 Range/Units 11:36 WBC (4.23-9.07) x10^3/uL RBC (4.63-6.08) x10^6/uL Hgb (13.7-17.5) g/dL Hct (40.1-51.0) % MCV (79.0-92.2) fL MCH (25.7-32.2) pg MCHC (32.3-36.5) g/dL RDW (11.6-14.4) % Plt Count (163-337) x10^3/uL MPV (9.4-12.4) fL Sodium (135-145) mmol/L Potassium (3.5-5.1) mmol/L Chloride (98-107) mmol/L Carbon Dioxide (22-30) mmol/L Anion Gap (5-15) MEQ/L BUN (9-20) mg/dL Creatinine (0.66-1.25) mg/dL Estimated GFR ML/MIN Glucose (74-106) mg/dL POC Glucometer 207 H (74 to 106) mg/dL Calcium (8.4-10.2) mg/dL Magnesium (1.6-2.3) mg/dL Total Bilirubin (0.2-1.3) mg/dL AST (17-59) U/L ALT (0-50) U/L Alkaline Phosphatase (38-126) U/L Serum Total Protein (6.3-8.2) g/dL Albumin (3.5-5.0) g/dL Multi-Disciplinary Progress Notes: Multi-Disciplinary Progress Notes 07/01/24 10:49 Case Management Note by Kendra Smith PATIENT PLANS TO RETURN HOME TO SELF CARE. PATIENT ENCOURAGED TO GET UP AND GO FOR A WALK TODAY TO BE SURE HE IS STRONG ENOUGH TO CARE FOR HIMSELF AT HOME. HE VERIFIED UNDERSTANDING Initialized on 07/01/24 10:49 - END OF NOTE 06/30/24 14:43 Case Management Note by Kendra Smith NO CHANGE IN DC PLANS AT THIS TIME- PATIENT HOPEFUL TO RETURN HOME TO SELF CARE AT TIME OF DC Initialized on 06/30/24 14:43 - END OF NOTE Assessment/Plan (1) Atrial fibrillation with RVR Current Visit: Yes Status: Acute Code(s): I48.91 - UNSPECIFIED ATRIAL FIBRILLATION (2) CHF exacerbation Current Visit: Yes Status: Acute Code(s): I50.9 - HEART FAILURE, UNSPECIFIED (3) Anasarca Current Visit: Yes Status: Acute Code(s): R60.1 - GENERALIZED EDEMA (4) Splenomegaly Current Visit: Yes Status: Acute Code(s): R16.1 - SPLENOMEGALY, NOT ELSEW HERE CLASSIFIED (5) Dyspnea Current Visit: Yes Status: Acute Code(s): R06.00 - DYSPNEA, UNSPECIFIED (6) Noncompliance with medication regimen Current Visit: Yes Status: Acute Code(s): Z91.148 - PATIENT'S OTHER NONCOMPL WITH MEDS REGIMEN FOR OTHER REASON (7) HTN (hypertension) Current Visit: No Status: Chronic Code(s): I10 - ESSENTIAL (PRIMARY) HYPERTENSION (8) Liver cirrhosis Current Visit: No Status: Chronic (9) Morbid obesity with BMI of 50.0-59.9, adult Current Visit: Yes Status: Chronic Code(s): E66.01 - MORBID (SEVERE) OBESITY DUE TO EXCESS CALORIES; Z68.43 - BODY MASS INDEX [BMI] 50.0-59.9, ADULT (10) Prediabetes Current Visit: Yes Status: Acute Assessment & Plan: (1) Atrial fibrillation with RVR Current Visit: Yes Status: Acute Assessment & Plan: - Echo performed 06/16/24 With EF estimated at 57% -Moderate concentric LVH -Normal left/right atrial size -Normal Left ventricular systolic function Normal right ventricular size and function -Normal mitral valve structure and function -Normal aortic valve structure -Normal tricuspid valve structure -unable to visualize IVC -Diastolic function could not be evaluated -HR controlled -Cardiology consulted and following - recs for metoprolol succinate 50mg BID - on Eliquis 5mg BID -no changes unless HR >120 Code(s): I48.91 - UNSPECIFIED ATRIAL FIBRILLATION (2) CHF exacerbation Current Visit: Yes Status: Acute Assessment & Plan: - Echo as stated avove - Noncompliant with home meds, states just did not want to take them. - Has seen Dr. Foley with cardiology in the past - Previous echo reviewed - Lasix IV changed to torsemide - Aldridge removed - Continue daily weight and I& O's Q6 07/01 - Torsemide changed to 60mg QD per cardiology recs - pt will need daily weights at home and to f/u with cardiology OP - He is at high risk for readmission Code(s): I50.9 - HEART FAILURE, UNSPECIFIED (3) Anasarca Current Visit: Yes Status: Acute Assessment & Plan: - continue above plan Code(s): R60.1 - GENERALIZED EDEMA (4) Splenomegaly Current Visit: Yes Status: Acute Assessment & Plan: - Noted on CT - monitor labs daily - likely 2:2 Cirrhosis of the liver which is chronic per pt - mono test positive- will need education at d/c with precautions Code(s): R16.1 - SPLENOMEGALY, NOT ELSEWHERE CLASSIFIED (5) Dyspnea Current Visit: Yes Status: Acute Assessment & Plan: -RA which is baseline -supplemental oxygen as needed with spo2 goal >92% - increased SOB with exertion and desaturation into the 80's- may need home oxygen - will retest closer to discharge -On RA- has not required oxygen, refused walk test - Xoponex PRN Code(s): R06.00 - DYSPNEA, UNSPECIFIED (6) Noncompliance with medication regimen Current Visit: Yes Status: Acute Assessment & Plan: - Advised will likely need close f/u OP - High risk for readmission -Discussed risks of non-compliance Code(s): Z91.148 - PATIENT'S OTHER NONCOMPL WITH MEDS REGIMEN FOR OTHER REASON (7) HTN (hypertension) Current Visit: No Status: Chronic Assessment & Plan: - metoprolol changed to 50mg BID by cardiology - BP stable Code(s): I10 - ESSENTIAL (PRIMARY) HYPERTENSION (8) Liver cirrhosis Current Visit: No Status: Chronic Assessment & Plan: - chronic per pt from ETOH use- reports has not drank in 18 months - will need OP f/u at D/C (9) Morbid obesity with BMI of 50.0-59.9, adult Current Visit: Yes Status: Chronic Assessment & Plan: - advised ADA diet and exercise control - Low sodium diet Code(s): E66.01 - MORBID (SEVERE) OBESITY DUE TO EXCESS CALORIES; Z68.43 - BODY MASS INDEX [BMI] 50.0-59.9, ADULT (10) Prediabetes Current Visit: Yes Status: Acute Assessment & Plan: - A1C 06/16/24 6.56 - Will need metformin at D/C - accuchecks ac/hs, humalog s/s VTE: Bakari Next of KIN: Javier Hoover, D/C plan: 2-3 days Code status: Full Code(s): R73.03 - PREDIABETES
[2024-07-02 05:06] LABS: Hematocrit 42.9 % (40.1-51.0); Hemoglobin 12.9 g/dL (13.7-17.5); Mean Cell Volume 81.3 fL (79.0-92.2); Mean Corpuscular Hemoglobin 24.4 pg (25.7-32.2); Mean Corpuscular Hgb Concent. 30.1 g/dL (32.3-36.5); Mean Platelet Volume 11.1 fL (9.4-12.4); Platelet Count 559 x10^3/uL (163-337); Red Blood Count 5.28 x10^6/uL (4.63-6.08); Red Cell Distribution Width 18.6 % (11.6-14.4); White Blood Count 8.6 x10^3/uL (4.23-9.07)
[2024-07-02 05:32] LABS: ALBUMIN 3.9 g/dL (3.5-5.0); ANION GAP 8.6 MEQ/L (5-15); BILIRUBIN,TOTAL 0.8 mg/dL (0.2-1.3); Calcium 8.7 mg/dL (8.4-10.2); Creatinine 1 1.26 mg/dL (0.66-1.25); EST GLOMERULAR FILTRATION RATE 67.8 ML/MIN; Total Protein 8.3 g/dL (6.3-8.2)
[2024-07-02 07:29] VITALS: RESP 18; TEMP 97.5
[2024-07-02] MEDS: DEMADEX 20 MG PO SCH (09:01)
[2024-07-02 11:33] VITALS: BP 107/69; PULSE 72; O2SAT 95
--- NOTE | 2024-07-02 12:08 | PCM.DS ---
Discharge Summary Date of Admission: 06/16/24 14:18 Date of Discharge: 07/02/24 Admitting Physician: LANETTE MOODY MD Consults: Consults on Case 06/16/24 14:38 Consult Cardiology ROUTINE Primary Care Provider: ALLI ENGLE Allergies Allergies penicillin G Allergy (Intermediate, Verified 06/16/24 10:47) [facility] Summary - Hospital Course Hospital Course: 06/30/24 is a 54 year old male with PMHX of drug use, smoker that stopped 18 months ago, cirrhosis of the liver, COPD, emphysema, multiple strokes, type II DM, anxiety, bipolar, depression, gout, CHF, and morbid obesity admitted 06/16/24 with AFIB RVR/Anasarca/CHF exacerbation after experiencing a three day history o f progressive shortness of breath. Patient admits to medication and specialty visit non-compliance. CT negative for PE. However does show confirmed anascarca, cirrhotic liver, and splenomegly. He was started on Cardizem gtt in ER for a-fib RVR as well as a lasix drip for anasarca/CHF exacerbation. HR controlled. Cardiology consulted and following - recs for metoprolol succinate 50mg BID - on Eliquis 5mg BID -no changes unless HR >120. Patient with painful scrotal edema, which has improved. UC and BC x2 negative. Lasix IV changed to Torsemide PO. Aldridge removed today. Pt got rather frustrated as he continues to have scrotal edema and feels he juan luis have difficulty urinating. Will try barrier cream and chux pads when he urinates as to not cause increased scrotal edema. K+ replaced. Continue antibiotics for UTI. Will continue to monitor urine output and weight. Pt no longer requires ICU and will be transferred to a med surg room. He is wanting to take a good shower today. He denies CP, SOB, abd. pain, N/V/D. 07/01/24 Pt resting in bed today. Wt increase of about 5kg today. However, he was previously being weighed in another room on the bed and today he was weighed on a chair scale. Discussed pt case with cardiology and he recommended pt be changed to Torsemide 60mg daily. Continue antibiotics for UTI. Pt to walk in the [place] with nursing today. Per PT he has been doing well and they signed off of his case. He continues to have testicular edema. He denies CP, SOB, abd. pain, N/V/D. 07/02/24 Pt up in the chair and dressed. He feels he is ready to d/c home today. Discussed he will need close f/u OP with cardiology and PCP. He is wanting all meds refilled and ok with 3 days of pain meds for scrotal edema and pain. Will continue Torsemide OP. Pt needs a sleep study Op and will order. Pt will need to weight self daily and keep a log. He did gain 1 kg overnight. He denies CP, SOB, abd. pain, N/V/D. - Vitals & Intake/Output Vital Signs: Vital Signs Temperature 97.5 F 07/02/24 11:33 Pulse Rate 72 07/02/24 11:33 Respiratory Rate 18 07/02/24 11:33 Blood Pressure 107/69 07/02/24 11:33 O2 Sat by Pulse Oximetry 95 07/02/24 11:33 Intake & Output: Intake & Output 06/29/24 06/30/24 07/01/24 07/02/24 11:59 11:59 11:59 11:59 Intake Total 1775 1755 1680 1160 Output Total 5175 3025 1650 300 Balance -3400 -1270 30 860 Weight 167.432 kg 167.9 kg 171.095 kg 172.904 kg - Lab Result Diagrams: 07/02/24 04:45 07/02/24 04:45 Lab Results-Last 24 Hrs: Lab Results-Last 24 Hours 07/01/24 07/01/24 07/02/24 Range/Units 15:59 22:25 04:45 WBC 8.6 (4.23-9.07) x10^3/uL RBC 5.28 (4.63-6.08) x10^6/uL Hgb 12.9 L (13.7-17.5) g/dL Hct 42.9 (40.1-51.0) % MCV 81.3 (79.0-92.2) fL MCH 24.4 L (25.7-32.2) pg MCHC 30.1 L (32.3-36.5) g/dL RDW 18.6 H (11.6-14.4) % Plt Count 559 H (163-337) x10^3/uL MPV 11.1 (9.4-12.4) fL Sodium (135-145) mmol/L Potassium (3.5-5.1) mmol/L Chloride (98-107) mmol/L Carbon Dioxide (22-30) mmol/L Anion Gap (5-15) MEQ/L BUN (9-20) mg/dL Creatinine (0.66-1.25) mg/dL Estimated GFR ML/MIN Glucose (74-106) mg/dL POC Glucometer 125 H 168 H (74 to 106) mg/dL Calcium (8.4-10.2) mg/dL Total Bilirubin (0.2-1.3) mg/dL AST (17-59) U/L ALT (0-50) U/L Alkaline Phosphatase (38-126) U/L Serum Total Protein (6.3-8.2) g/dL Albumin (3.5-5.0) g/dL 07/02/24 07/02/24 07/02/24 Range/Units 04:45 06:55 11:11 WBC (4.23-9.07) x10^3/uL RBC (4.63-6.08) x10^6/uL Hgb (13.7-17.5) g/dL Hct (40.1-51.0) % MCV (79.0-92.2) fL MCH (25.7-32.2) pg MCHC (32.3-36.5) g/dL RDW (11.6-14.4) % Plt Count (163-337) x10^3/uL MPV (9.4-12.4) fL Sodium 136 (135-145) mmol/L Potassium 4.0 (3.5-5.1) mmol/L Chloride 94 L (98-107) mmol/L Carbon Dioxide 37 H (22-30) mmol/L Anion Gap 8.6 (5-15) MEQ/L BUN 27 H (9-20) mg/dL Creatinine 1.26 H (0.66-1.25) mg/dL Estimated GFR 67.8 ML/MIN Glucose 117 H (74-106) mg/dL POC Glucometer 122 H 179 H (74 to 106) mg/dL Calcium 8.7 (8.4-10.2) mg/dL Total Bilirubin 0.80 (0.2-1.3) mg/dL AST 111 H (17-59) U/L ALT 74 H (0-50) U/L Alkaline Phosphatase 105 (38-126) U/L Serum Total Protein 8.3 H (6.3-8.2) g/dL Albumin 3.9 (3.5-5.0) g/dL Micro Results-Entire Visit: Microbiology 06/27/24 17:12 Urine Culture - Final Clean Catch Midstream Streptococcus Species 06/16/24 11:25 Blood Culture - Final Blood 06/16/24 11:53 Urine Culture - Final Catherized <10K NORMAL SKIN BROOKS PROBABLE SKIN CONTAMINANT Accuchecks Date 07/02/24 Date 07/02/24 Date 07/01/24 - Procedures and Test Procedures and Tests throughout Hospitalization: Therapy Orders & Screens 06/16/24 10:13 Respiratory Therapy Assessment DAILY Comment: 06/16/24 14:18 EKG REPEAT IN AM Comment: Oxygen Nasal Cannula 2 lpm Comment: Respiratory Therapy Consult ONCE Comment: Reason For Exam: 06/19/24 07:00 Respiratory Therapy Assessment DAILY Comment: Diagnosis: Anasarca, CHF 06/22/24 09:33 PT Eval & Treat (MD Order) ONCE Reason for Eval:: weakness, morbid obesity Diagnosis: Anasarca, CHF OT Eval and Treat (MD Order) ONCE Comment: Physician Instructions: Reason For Exam: Diagnosis: Anasarca, CHF 06/27/24 09:45 Qualify for Home Oxygen TODAY Comment: Diagnosis: Anasarca, CHF Discharge Exam General Appearance: no apparent distress, alert Neurologic Exam: alert, oriented x 3, cooperative, normal mood/affect, nml cerebellar function, sensation nml, No motor deficits Eye Exam: PERRL, EOMI, eyes nml inspection Ears, Nose, Throat Exam: normal ENT inspection, pharynx normal, moist mucous membranes Neck Exam: normal inspection, non-tender, supple, full range of motion Respiratory Exam: normal breath sounds, lungs clear, No respiratory distress Cardiovascular Exam: regular rate/rhythm, normal heart sounds, edema (BLLE) Gastrointestinal/Abdomen Exam: soft, No tenderness, No mass Male Genitalia Exam: deferred, testicular tenderness (edema) Rectal Exam: deferred Back Exam: normal inspection, normal range of motion, No CVA tenderness, No vertebral tenderness Extremity Exam: normal inspection, normal range of motion Skin Exam: normal color, warm, dry Final Diagnosis/Problem List - Final Discharge Diagnosis/Problem (1) Atrial fibrillation with RVR Current Visit: Yes Status: Acute Code(s): I48.91 - UNSPECIFIED ATRIAL FIBRILLATION (2) CHF exacerbation Current Visit: Yes Status: Acute Code(s): I50.9 - HEART FAILURE, UNSPECIFIED (3) Anasarca Current Visit: Yes Status: Acute Code(s): R60.1 - GENERALIZED EDEMA (4) Splenomegaly Current Visit: Yes Status: Acute Code(s): R16.1 - SPLENOMEGALY, NOT ELSEWHERE CLASSIFIED (5) Dyspnea Current Visit: Yes Status: Acute Code(s): R06.00 - DYSPNEA, UNSPECIFIED (6) Noncompliance with medication regimen Current Visit: Yes Status: Acute Code(s): Z91.148 - PATIENT'S OTHER NONCOMPL WITH MEDS REGIMEN FOR OTHER REASON (7) HTN (hypertension) Current Visit: No Status: Chronic Code(s): I10 - ESSENTIAL (PRIMARY) HYPERTENSION (8) Liver cirrhosis Current Visit: No Status: Chronic (9) Morbid obesity with BMI of 50.0-59.9, adult Current Visit: Yes Status: Chronic Code(s): E66.01 - MORBID (SEVERE) OBESITY DUE TO EXCESS CALORIES; Z68.43 - BODY MASS INDEX [BMI] 50.0-59.9, ADULT (10) Prediabetes Current Visit: Yes Status: Acute Assessment & Plan: (1) Atrial fibrillation with RVR Current Visit: Yes Status: Acute Assessment & Plan: - Echo performed 06/16/24 With EF estimated at 57% -Moderate concentric LVH -Normal left/right atrial size -Normal Left ventricular systolic function Normal right ventricular size and function -Normal mitral valve structure and function -Normal aortic valve structure -Normal tricuspid valve structure -unable to visualize IVC -Diastolic function could not be evaluated -HR controlled -Cardiology consulted and following - recs for metoprolol succinate 50mg BID - on Eliquis 5mg BID -no changes unless HR >120 Code(s): I48.91 - UNSPECIFIED ATRIAL FIBRILLATION (2) CHF exacerbation Current Visit: Yes Status: Acute Assessment & Plan: - Echo as stated avove - Noncompliant with home meds, states just did not want to take them. - Has seen Dr. Foley with cardiology in the past - Previous echo reviewed - Lasix IV changed to torsemide - Aldridge removed - Continue daily weight and I& O's Q6 07/01 - Torsemide changed to 60mg QD per cardiology recs - pt will need daily weights at home and to f/u with cardiology OP - He is at high risk for readmission 07/02 - Continue torsemide OP - daily weight - f/u with cardiology and PCP - 1kg weight gain since yesterday Code(s): I50.9 - HEART FAILURE, UNSPECIFIED (3) Anasarca Current Visit: Yes Status: Acute Assessment & Plan: - continue above plan Code(s): R60.1 - GENERALIZED EDEMA (4) Splenomegaly Current Visit: Yes Status: Acute Assessment & Plan: - Noted on CT - monitor labs daily - likely 2:2 Cirrhosis of the liver which is chronic per pt - mono test positive- will need education at d/c with precautions Code(s): R16.1 - SPLENOMEGALY, NOT ELSEWHERE CLASSIFIED (5) Dyspnea Current Visit: Yes Status: Acute Assessment & Plan: -RA which is baseline -supplemental oxygen as needed with spo2 goal >92% - increased SOB with exertion and desaturation into the 80's- may need home oxygen - will retest closer to discharge -On RA- has not required oxygen, refused walk test - Xoponex PRN Code(s): R06.00 - DYSPNEA, UNSPECIFIED (6) Noncompliance with medication regimen Current Visit: Yes Status: Acute Assessment & Plan: - Advised will likely need close f/u OP - High risk for readmission -Discussed risks of non-compliance Code(s): Z91.148 - PATIENT'S OTHER NONCOMPL WITH MEDS REGIMEN FOR OTHER REASON (7) HTN (hypertension) Current Visit: No Status: Chronic Assessment & Plan: - metoprolol changed to 50mg BID by cardiology - BP stable Code(s): I10 - ESSENTIAL (PRIMARY) HYPERTENSION (8) Liver cirrhosis Current Visit: No Status: Chronic Assessment & Plan: - chronic per pt from ETOH use- reports has not drank in 18 months - will need OP f/u at D/C (9) Morbid obesity with BMI of 50.0-59.9, adult Current Visit: Yes Status: Chronic Assessment & Plan: - advised ADA diet and exercise control - Low sodium diet Code(s): E66.01 - MORBID (SEVERE) OBESITY DUE TO EXCESS CALORIES; Z68.43 - BODY MASS INDEX [BMI] 50.0-59.9, ADULT (10) Prediabetes Current Visit: Yes Status: Acute Assessment & Plan: - A1C 06/16/24 6.56 - Will need metformin at D/C - accuchecks ac/hs, humalog s/s Code(s): R73.03 - PREDIABETES (11) Obstructive sleep apnea Current Visit: Yes Status: Acute Assessment & Plan: - sleep study ordered OP. - Co2 37 Code(s): G47.33 - OBSTRUCTIVE SLEEP APNEA (ADULT) (PEDIATRIC) - Discharge Discharge Date: 07/02/24 Disposition: Home, Self-Care Condition: Fair Prescriptions: New Apixaban [Eliquis 2.5 mg Tablet] 5 mg PO BID 30 Days #60 tablet Metoprolol Succinate 50 mg [Toprol Xl 50 MG] 50 mg PO BID 30 Days #60 tablet Torsemide 20 mg [Demadex 20 mg] 60 mg PO DAILY 30 Days #90 tablet Potassium Chloride Tab* [Klor Con] 20 meq PO DAILY 3 Days #3 tablet Oxycodone/APAP 5 mg/325 mg [Percocet Tablet 5/325Mg] 1 tab PO Q6H PRN PRN 3 Days #12 tablet MDD 4 PRN Reason: Pain Metformin HCl 500 mg [Glucophage 500 MG] 500 mg PO BIDWM 30 Days #60 tablet Continue Aspirin EC 81 mg [Ecotrin 81 mg] 81 mg PO DAILY 30 Days #30 tablet Lisinopril 5 mg [Zestril 5 MG] 5 mg PO DAILY 30 Days #30 tablet Discontinued Furosemide [Lasix] 20 mg PO DAILY Outpatient Orders: Sleep Study Facility: [facility], Location: RESPIRATORY THERAPY Instructions: Swelling, Atrial fibrillation - Discharge instructions, Heart failure - Discharge instructions Additional Instructions: WEIGH YOURSELF AND RECORD DAILY - TAKE THIS RECORD WITH YOU TO YOUR FOLLOWUP APPOINTMENTS AND SHARE WITH YOUR DOCTORS. Follow up with: ALLI ENGLE [Primary Care Provider] -
== END 2024-07-02 13:55 | disposition home or self-care (01) | DRG 309 ==
LOC: ED 09:35 → ICU 14:18 → MED SURG 06-30 17:09
PROVIDERS: ADMIT Internal Medicine; ATTEND Internal Medicine
DX: I48.20 Chronic atrial fibrillation, unspecified (principal); N39.0 Urinary tract infection, site not specified; Z68.43 Body mass index [BMI] 50.0-59.9, adult; Z59.82 Transportation insecurity; I11.0 Hypertensive heart disease with heart failure; I50.9 Heart failure, unspecified; R60.1 Generalized edema; R16.1 Splenomegaly, not elsewhere classified; R06.00 Dyspnea, unspecified; F17.200 Nicotine dependence, unspecified, uncomplicated; R73.03 Prediabetes; G47.33 Obstructive sleep apnea (adult) (pediatric); Z91.148 Patient's other noncompliance with medication regimen for other reason; K74.60 Unspecified cirrhosis of liver; R60.0 Localized edema; F41.9 Anxiety disorder, unspecified; E66.01 Morbid (severe) obesity due to excess calories; E87.6 Hypokalemia; Z79.899 Other long term (current) drug therapy; Z86.73 Personal history of transient ischemic attack (TIA), and cerebral infarction without residual deficits
CPT/HCPCS: 36000; 36415; 51702; 71260; 80053; 80061; 81001; 82947; 83036; 83605; 83721; 83735; 83880; 84132; 84145; 84484; 85025; 85027; 85379; 85610; 86308; 87040; 87077; 87086; 93005; 93041; 93306; 94640; 94760; 96365; 96366; 96374; 96375; 99285; 99291; J1644; J1817; J1940; Q3014; A9270-GY; J0282